=== PATIENT | male | born 1965 | race Hispanic/Latino ===

== ENCOUNTER 2020-06-14 10:09 | Inpatient (IN) | payer OTHER ==
[2020-06-14] MEDS ORDERED: Aspirin 325 MG TAB ONE (10:26)
[2020-06-14] MEDS ORDERED: Dexamethasone 10 MG/ML VIAL ONE (10:26)
[2020-06-14 10:45] LABS: #Lymphocytes 0.7 thou/uL (1.20-3.40); #Monocytes 0.3 thou/uL (0.11-0.59); #Neutrophils 8.9 thou/uL (1.40-6.50); %Basophils 0.4 % (0.0-1.0); %Eosinophils 0.2 % (0.0-10.0); %Lymphocytes 6.6 % (21.0-51.0); %Monocytes 3.3 % (0.0-10.0); %Neutrophils 89.5 % (42.0-75.0); Hemoglobin 15.3 g/dL (14.0-18.0); Mean Corpuscular HGB CONC 35.8 g/dL (32.0-36.0); Mean Corpuscular Hemoglobin 29.1 pg (27.0-31.0); Mean Corpuscular Volume 81.3 fL (78.0-98.0); Mean Platelet Volume 8.7 fL (7.4-10.4); Platelet Count 202 thou/uL (130-400); RBC Distribution Width 14.1 % (11.5-14.5); Red Blood Cell (RBC) Count 5.26 mill/uL (4.70-6.10); White Blood Cell (WBC) Count 9.9 thou/uL (4.8-10.8)
[2020-06-14 11:01] LABS: ALT (SGPT) 44 U/L (8-55); AST (SGOT) 35 U/L (5-34); Albumin 4.1 g/dL (3.5-5.0); Alkaline Phosphatase 73 U/L (40-110); Anion Gap 17 mmol/L (10-20); BUN (Urea Nitrogen) 13 mg/dL (8.4-25.7); CK (CPK) 46 U/L (30-200); Calc. Creatinine Clearance 0 mL/min (70-130); Calcium 8.4 mg/dL (7.8-10.44); Carbon Dioxide 21 mmol/L (22-29); Chloride 103 mmol/L (98-107); Globulin 3.6 g/dL (2.4-3.5); Glucose 156 mg/dL (70-105); Lipase 23 U/L (8-78); Potassium 3.4 mmol/L (3.5-5.1); Protein, Total 7.7 g/dL (6.0-8.3); Sodium 138 mmol/L (136-145)
--- NOTE | 2020-06-14 11:08 | RAD ---
XR Chest 1 View Portable History: Dyspnea Comparison: CT chest April 01, 2020 Findings: Lingular and left perihilar airspace opacities are present. No pneumothorax. No significant effusion. No acute osseous abnormality. Impression: Patchy airspace opacities concerning for atypical viral infectious process.
[2020-06-14] MEDS ORDERED: Azithromycin 500 MG VIAL ONE (11:35)
[2020-06-14] MEDS ORDERED: cefTRIAXone\\ROCEPHIN 2 GM VIAL ONE (11:35)
--- NOTE | 2020-06-14 12:23 | CT ---
CT ANGIOGRAM THORAX WITH IV CONTRAST AND 3-D RECONSTRUCTIONS CLINICAL INDICATION: Chest pain and shortness of breath. Positive Covid diagnosis. COMPARISON: None FINDINGS: Pulmonary arteries: No filling defects are seen in the pulmonary arteries to suggest a pulmonary embo demond. Aorta: The aorta is normal in caliber without evidence of an aortic dissection. Lungs: Patchy groundglass densities are seen scattered within the lungs bilaterally greater at the pe riphery suggesting viral pneumonitis such as Covid 19. No pleural effusion is seen. Mediastinum: No enlarged lymph nodes are seen by CT size criteria. Heart is borderline enlarged. Thyroid gland: Normal in appearance where visualized. Osseous structures: There is sclerosis involving left superior articulating facet of the T3 vertebral body which may be related to bone island. Minimal degenerative changes are seen in the lower thoracic spine Chest wall: No abnormality visualized. Upper abdomen: A fluid attenuation 1.8 cm exophytic hypodense lesion is seen in superior pole left ki dney compatible with a cyst. Remainder of the visualized upper abdomen demonstrates a normal CT appearance for arterial phase of imaging. IMPRESSION: 1. No CT evidence of a pulmonary embolus. 2. Covid pneumonia.
[2020-06-14] MEDS ORDERED: Enoxaparin Sodium 100 MG/ML SYRINGE ONE (12:43)
[2020-06-14 13:39] LABS: Lactic Acid 1.8 mmol/L (0.5-2.2)
[2020-06-14 13:46] LABS: Troponin I Less than 0.010 ng/mL (< 0.028)
--- NOTE | 2020-06-14 13:52 | PDOC.HHP ---
Hospitalist HPI - History of Present Illness Worsening dyspnea History of Present Illness: This is a 54-year-old male patient with a history of PVCs who presents with worsening shortness of breath on account of Covid pneumonia. He was diagnosed with Covid on 06/07/2020 and has been on steroids, azithromycin and vitamin D which has been taking at home. He however has not gotten better with worsening dyspnea with sats in the 94% and ongoing fevers. He also notes muscle aches and general wellness. Given his lack of improvement presents to the ED today for further evaluation. At Presentation His blood pressure was 148/85, pulse 109, respiratory 35, saturation 97 on room air. His labs showed potassium of 3.4, D-dimer 0.57, lactate 1.8 troponin 0 0.01 CTA was done showed no pulmonary embolism Indicative of Covid pneumonia with bilateral groundglass densities bilaterally. He was started on azithromycin, ceftriaxone and therapeutic dose Lovenox. Also received Decadron 10 mg IV. Aspirin was started. Hospitalist team was consulted to admit. Hospitalist ROS - Review of Systems Constitutional: reports: fever, weakness. denies: chills, sweats Respiratory: reports: cough, shortness of breath, SOB with excertion Cardiovascular: denies: chest pain, palpitations, orthopnea, paroxysmal noc. dyspnea Genitourinary: denies: dysuria, frequency, incontinence, hematuria Neurological: denies: weakness, numbness, incoordination, change in speech (Not on chronic medication. Allergies: No known drug allergies) Hospitalist History - Past Medical History Other Medical History: No significant past medical history - Past Surgical History Other Surgical History: No significant past surgical history. - Family History Other Family History: None of significance. - Social History Smoking Status: Never smoker Alcohol: reports: None Living Situation: With Family - Exam General Appearance: awake alert, ill appearing General - other findings: Intermittent cough ENT: normocephalic atraumatic, moist mucosa Heart: RRR, no murmur, no gallops, no rubs Respiratory - other findings: Coarse breath sound bilaterally Extremities: no cyanosis, no clubbing, no edema Neurological: cranial nerve grossly intact, no weakness Psychiatric: A&O x 3 Hospitalist Results - Labs Result Diagrams: 06/22/20 03:58 06/22/20 03:58 Lab results: WBC 9.9 thou/uL (4.8-10.8) 06/14/20 10:21 Hgb 15.3 g/dL (14.0-18.0) 06/14/20 10:21 Hct 42.7 % (42.0-52.0) 06/14/20 10:21 MCV 81.3 fL (78.0-98.0) 06/14/20 10:21 Plt Count 202 thou/uL (130-400) 06/14/20 10:21 Neutrophils % 89.5 % (42.0-75.0) H 06/14/20 10:21 Sodium 138 mmol/L (136-145) 06/14/20 10:21 Potassium 3.4 mmol/L (3.5-5.1) L 06/14/20 10:21 Chloride 103 mmol/L (98-107) 06/14/20 10:21 Carbon Dioxide 21 mmol/L (22-29) L 06/14/20 10:21 BUN 13 mg/dL (8.4-25.7) 06/14/20 10:21 Creatinine 0.78 mg/dL (0.7-1.3) 06/14/20 10:21 Glucose 156 mg/dL (70-105) H 06/14/20 10:21 Lactic Acid 1.8 mmol/L (0.5-2.2) 06/14/20 13:19 Calcium 8.4 mg/dL (7.8-10.44) 06/14/20 10:21 Total Bilirubin 1.0 mg/dL (0.2-1.2) 06/14/20 10:21 AST 35 U/L (5-34) H 06/14/20 10:21 ALT 44 U/L (8-55) 06/14/20 10:21 Alkaline Phosphatase 73 U/L (40-110) 06/14/20 10:21 Creatine Kinase 46 U/L (30-200) 06/14/20 10:21 Troponin I Less than 0.010 ng/mL (< 0.028) 06/14/20 13:19 B-Natriuretic Peptide 54.6 pg/mL (0-100) 06/14/20 10:21 Serum Total Protein 7.7 g/dL (6.0-8.3) 06/14/20 10:21 Albumin 4.1 g/dL (3.5-5.0) 06/14/20 10:21 Lipase 23 U/L (8-78) 06/14/20 10:21 Hospitalist H&P A/P - Plan Plan: This is a 54-year-old male patient in presenting to the ED on account of bilateral pneumonia in the setting of positive Covid diagnosis. Covid pneumonia Bilateral infiltrates on CT Started on steroids and anticoagulationwe will continue As needed oxygen as needed Pulmonology following. Hypokalemia Potassium replacement protocol. Check magnesium BMP a.m. DVT prophylaxis therapeutic on apixaban. CODE STATUSfull
--- NOTE | 2020-06-14 14:25 | CON ---
DATE OF CONSULTATION: 06/14/2020 REASON FOR CONSULTATION: COVID-19 pneumonia. 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 About 5 days ago, he began feeling symptoms and has tested positive for COVID. He has been self isolating at home. He has been taking Pepcid, zinc, vitamin C, dexamethasone, and aspirin. He presents today because of problems with fever and increasing shortness of breath. Thankfully, he is not hypoxic - he was 100% on room air when I saw him in the ER. PAST MEDICAL HISTORY: He states he has no chronic medical problems other than low vitamin D level. PAST SURGICAL HISTORY: None. SOCIAL HISTORY: Occasionally drinks alcohol. Does not smoke. REVIEW OF SYSTEMS: Otherwise negative. PHYSICAL EXAMINATION: VITAL SIGNS: Temperature 99.9, pulse 109, blood pressure 148/95, O2 saturation 97% on room air. GENERAL: He is awake and in no distress. HEENT: Unremarkable. ABDOMEN: Soft. EXTREMITIES: No edema. LUNGS: Auscultation could not be performed at this time because stethoscope was not in the room. LABORATORY DATA: White blood cell count 9.9, hematocrit 42.7, and platelet count 202. D-dimer 0.57. Sodium 138, potassium 3.4, chloride 103, CO2 of 21, BUN 13, creatinine 0.7, glucose 156. Chest x-ray showed fairly clear lung mata, but CT showed some vague interstitial infiltrates bilaterally. ASSESSMENT: COVID-19 infection with mild pneumonia without evidence of overt hypoxemia or pulmonary emboli. RECOMMENDATIONS: I would recommend steroids, low-flow oxygen, anticoagulation, and other symptomatic therapy. We will be happy to follow. Job ID: [id number]
[2020-06-14] MEDS ORDERED: Iopamidol-370 76% 500 ML 1 ML ONE (15:49)
[2020-06-14] MEDS: Benzonatate 100 MG CAP PO PRN ×2 (16:13→20:22)
[2020-06-14] MEDS ORDERED: Hydrocortisone Sod Succ/PF 250 mg/2 ml Vial SLOW IVP SCH (18:00)
[2020-06-14 18:01] LABS: Troponin I 0.011 ng/mL (< 0.028)
[2020-06-14] MEDS: Mometasone 200 MCG/Formoterol 5 MCG 120 PUFF INHALER INH SCH (18:18)
[2020-06-14] MEDS ORDERED: Hydrocortisone Sod Succ/PF 100 mg/2 ml Vial IVP SCH ×2 (19:15→23:59)
[2020-06-14] MEDS: guaiFENesin ER 600 MG TAB PO SCH (20:22)
[2020-06-14] MEDS: Famotidine 20 MG TAB PO SCH (20:22)
[2020-06-14] MEDS: Apixaban 5 MG TAB PO SCH (20:22)
[2020-06-14] MEDS ORDERED: Melatonin 3 MG TAB PO SCH (21:15)
[2020-06-14] MEDS ORDERED: Electrolyte Replacement Protocol 1 EACH FS PRN (22:45)
[2020-06-15] MEDS ORDERED: Guaifenesin DM 100-10/5 ML UDCUP PO SCH (01:30)
[2020-06-15] MEDS: Hydrocortisone Sod Succ/PF 100 mg/2 ml Vial IVP SCH ×4 (01:41→20:54)
[2020-06-15] MEDS ORDERED: Hydrocortisone Sod Succ/PF 100 mg/2 ml Vial IVP SCH (04:00)
[2020-06-15] MEDS: Mometasone 200 MCG/Formoterol 5 MCG 120 PUFF INHALER INH SCH ×2 (05:35→18:25)
[2020-06-15] MEDS ORDERED: Potassium Chloride 20 MEQ TAB PO SCH (06:30)
[2020-06-15 06:36] LABS: Anion Gap 13 mmol/L (10-20); BUN (Urea Nitrogen) 12 mg/dL (8.4-25.7); Calc. Creatinine Clearance 118 mL/min (70-130); Calcium 8.3 mg/dL (7.8-10.44); Carbon Dioxide 24 mmol/L (22-29); Chloride 106 mmol/L (98-107); Glucose 151 mg/dL (70-105); Magnesium 2.1 mg/dL (1.6-2.6); Sodium 139 mmol/L (136-145)
[2020-06-15] MEDS: Ascorbic Acid 500 mg Chewable Tablet PO SCH (08:15)
[2020-06-15] MEDS: Famotidine 20 MG TAB PO SCH ×2 (08:15→20:54)
[2020-06-15] MEDS: Apixaban 5 MG TAB PO SCH ×2 (08:15→20:54)
[2020-06-15] MEDS: Dexamethasone 4 mg/ml Vial IVPB SCH (08:15)
[2020-06-15] MEDS: guaiFENesin ER 600 MG TAB PO SCH ×2 (08:15→20:54)
[2020-06-15] MEDS: Benzonatate 100 MG CAP PO PRN ×3 (08:15→18:25)
[2020-06-15 08:36] LABS: Band 20 % (5-11); Hemoglobin 14.3 g/dL (14.0-18.0); Lymphocytes 10 % (21-51); MDiff Complete? YES; Mean Corpuscular HGB CONC 35.9 g/dL (32.0-36.0); Mean Corpuscular Hemoglobin 29.1 pg (27.0-31.0); Mean Corpuscular Volume 81.1 fL (78.0-98.0); Mean Platelet Volume 8.3 fL (7.4-10.4); Monocytes 3 % (0-10); Neutrophil 67 % (42-75); Platelet Count 205 thou/uL (130-400); RBC Distribution Width 13.8 % (11.5-14.5); Red Blood Cell (RBC) Count 4.91 mill/uL (4.70-6.10); White Blood Cell (WBC) Count 9.7 thou/uL (4.8-10.8)
[2020-06-15 08:42] LABS: Hemoglobin A1c 5.1 % (4.0-6.0)
[2020-06-15] MEDS ORDERED: Cholecalciferol (Vitamin D3) 400 UNITS TAB PO SCH (09:00)
--- NOTE | 2020-06-15 11:09 | PDOC.HOSPP ---
- Subjective Encounter Date: 06/15/20 Encounter Time: 11:07 Subjective: Patient was seen and examined in bed. He has required up to 4 L of oxygen overnight from at presentation. Complains of feeling worse with dyspnea on slight activity. However denies any chest pain. - Objective Vital Signs & Weight: Vital Signs (12 hours) Temp Pulse Resp BP Pulse Ox 06/15/20 08:00 98.0 F 84 24 H 114/76 94 L 06/15/20 03:39 98.4 F 98 26 H 116/78 98 06/14/20 23:53 98.3 F 86 28 H 124/81 Weight Weight 157 lb 4.8 oz I&O: 06/14/20 06/15/20 06/16/20 06:59 06:59 06:59 Intake Total 1810 Balance 1810 Result Diagrams: 06/22/20 03:58 06/22/20 03:58 Hospitalist ROS - Medication Medications: Active Medications Generic Name Dose Route Start Last Admin Trade Name Freq PRN Reason Stop Dose Admin Apixaban 5 mg 06/14/20 21:00 06/15/20 08:15 Apixaban 5 Mg Tab PO 5 mg BID JEOVANNY Administration Ascorbic Acid 1,000 mg 06/15/20 09:00 06/15/20 08:15 Ascorbic Acid 500 Mg Chewable Tablet PO 1,000 mg DAILY JEOVANNY Administration Benzonatate 100 mg 06/14/20 15:54 06/15/20 08:15 Benzonatate 100 Mg Cap PO 100 mg Q4H PRN Administration Cough Dexamethasone 10 mg 06/15/20 09:00 06/15/20 08:15 Dexamethasone 4 Mg/Ml Vial IVPB 10 mg DAILY JEOVANNY Administration Famotidine 20 mg 06/14/20 21:00 06/15/20 08:15 Famotidine 20 Mg Tab PO 20 mg BID JEOVANNY Administration Guaifenesin 600 mg 06/14/20 21:00 06/15/20 08:15 Guaifenesin Er 600 Mg Tab PO 600 mg Q12HR JEOVANNY Administration Hydrocortisone Sodium Succinate 100 mg 06/15/20 02:00 06/15/20 08:15 Hydrocortisone Sod Succ/Pf 100 Mg/2 Ml Vial IVP 100 mg 0200,0800,1400,2000 JEOVANNY Administration Mometasone Furoate/Formoterol Fumar 2 puff 06/14/20 18:30 06/15/20 05:35 Mometasone 200 Mcg/Formoterol 5 Mcg 120 Puff Inhaler INH 2 puff BID-RT JEOVANNY Administration - Exam General Appearance: awake alert Heart: RRR, no murmur, no gallops Respiratory: tachypneic Gastrointestinal: soft, non-tender, non-distended Psychiatric: A&O x 3 Hosp A/P - Plan 54-year-old male patient with no significant past history on admission on account of Covid pneumonia Covid pneumonia Slight worsening with increasing oxygen coming to 4 L from oxygen yesterday. Also worsening cough and dyspnea with mild activity We will continue steroids and anticoagulation Currently outside remdesivir window. Increase oxygen to reduce tachypnea Close monitoring. [place] prophylaxistherapeutic: Apixaban.
[2020-06-15] MEDS ORDERED: Cholecalciferol 1,000 UNITS (25 MCG) TAB PO SCH (12:15)
[2020-06-15] MEDS: Zinc Sulfate 220 MG CAP PO SCH (12:50)
--- NOTE | 2020-06-15 13:33 | PRG ---
DATE OF SERVICE: 06/15/2020 SUBJECTIVE: He is somewhat despondent about his COVID diagnosis, but he is doing very well. OBJECTIVE: VITAL SIGNS: Temperature 98.3, pulse 96, O2 saturation 95% on 4 L, blood pressure 130/83. HEENT: Unremarkable. NECK: No JVD. CHEST: Clear without wheezing or crackles. CARDIAC: S1 and S2. Regular. ABDOMEN: Soft. EXTREMITIES: No edema. LABORATORY DATA: White blood cell count 9.7, hematocrit 39.9, and platelet count 205. Sodium 139, potassium 4, chloride 106, CO2 of 24, BUN 12, creatinine 0.7, and glucose 151. ASSESSMENT: COVID-19 pneumonia. PLAN: Continue steroids, anticoagulation, and low-flow oxygen. Job ID: [id number]
[2020-06-15] MEDS: Melatonin 3 MG TAB PO SCH (20:55)
[2020-06-16] MEDS: Benzonatate 100 MG CAP PO PRN ×4 (00:27→22:40)
[2020-06-16 01:23] LABS: Actual Bicarbonate (HCO3a) 24.6 mEq/L (22-28); Base Excess (BEa) 2.2 mEq/L (-2.0 to +3.0); CO2 Tension 31.7 mmHg (35.0-45.0); Calcium, Ionized (arterial) 1.13 mmol/L (1.12-1.30); Hemoglobin (Hb) 14.6 g/dL (14.0-18.0); Potassium - ABG Lab 3.56 mmol/L (3.70-5.30); pH, Arterial 7.51 (7.35-7.45)
[2020-06-16 01:24] LABS: ALV-art Gradient 263.175 mmHg (0-20); O2 Tension (PaO2), arterial 53.7 mmHg (80.0-100.0); Puncture Site LRA
[2020-06-16] MEDS: Hydrocortisone Sod Succ/PF 100 mg/2 ml Vial IVP SCH ×4 (02:52→20:22)
[2020-06-16] MEDS: Acetaminophen 325 MG TAB PO PRN ×2 (03:00→15:15)
[2020-06-16 03:55] LABS: #Lymphocytes 0.6 thou/uL (1.20-3.40); #Monocytes 0.8 thou/uL (0.11-0.59); #Neutrophils 8.2 thou/uL (1.40-6.50); %Eosinophils 0.2 % (0.0-10.0); %Monocytes 7.9 % (0.0-10.0); %Neutrophils 85.9 % (42.0-75.0); Hemoglobin 13.7 g/dL (14.0-18.0); Mean Corpuscular HGB CONC 37.3 g/dL (32.0-36.0); Mean Corpuscular Hemoglobin 29.6 pg (27.0-31.0); Mean Corpuscular Volume 79.6 fL (78.0-98.0); Mean Platelet Volume 7.6 fL (7.4-10.4); Platelet Count 231 thou/uL (130-400); RBC Distribution Width 13.5 % (11.5-14.5); Red Blood Cell (RBC) Count 4.61 mill/uL (4.70-6.10); White Blood Cell (WBC) Count 9.6 thou/uL (4.8-10.8)
[2020-06-16 04:04] LABS: Anion Gap 12 mmol/L (10-20); BUN (Urea Nitrogen) 14 mg/dL (8.4-25.7); Calc. Creatinine Clearance 117 mL/min (70-130); Calcium 8.1 mg/dL (7.8-10.44); Carbon Dioxide 26 mmol/L (22-29); Chloride 104 mmol/L (98-107); Glucose 147 mg/dL (70-105); Potassium 3.9 mmol/L (3.5-5.1); Sodium 138 mmol/L (136-145)
[2020-06-16] MEDS: Mometasone 200 MCG/Formoterol 5 MCG 120 PUFF INHALER INH SCH ×2 (06:04→19:26)
--- NOTE | 2020-06-16 07:58 | RAD ---
EXAM: Single view of the chest HISTORY: Shortness of breath and tachypnea COMPARISON: 06/14/2020 FINDINGS: Single view of the chest shows a normal sized cardiomediastinal silhouette. Scattered multi focal mixed infiltrates are seen in the lungs. No acute osseous abnormality. IMPRESSION: Slight worsening of multifocal infiltrates
[2020-06-16] MEDS: Famotidine 20 MG TAB PO SCH ×2 (08:05→21:47)
[2020-06-16] MEDS: Cholecalciferol 1,000 UNITS (25 MCG) TAB PO SCH (08:05)
[2020-06-16] MEDS: Dexamethasone 4 mg/ml Vial IVPB SCH ×2 (08:06→08:18)
[2020-06-16] MEDS: Ascorbic Acid 500 mg Chewable Tablet PO SCH (08:06)
[2020-06-16] MEDS: Zinc Sulfate 220 MG CAP PO SCH (08:06)
[2020-06-16] MEDS: guaiFENesin ER 600 MG TAB PO SCH ×2 (08:06→21:47)
[2020-06-16] MEDS: Apixaban 5 MG TAB PO SCH ×2 (08:06→21:47)
--- NOTE | 2020-06-16 09:15 | PRG ---
DATE OF SERVICE: 06/16/2020 SUBJECTIVE: The patient had to be transferred down to the IM last night for high-flow oxygen. Because there were no [facility] bed, he was brought to the ICU. He has a scared look on his face this morning. OBJECTIVE: VITAL SIGNS: On exam, his temperature is 98.5, pulse 76, blood pressure 124/81, and O2 saturation 100% on high-flow oxygen 50%. HEENT: Unremarkable. NECK: No adenopathy or JVD. LUNGS: With crackles bilaterally. CARDIAC: S1 and S2. Regular. ABDOMEN: Soft. EXTREMITIES: No edema. LABORATORY DATA: White blood cell count 9.6, hematocrit 36.7, and platelet count 231. Sodium 138, potassium 3.9, chloride 104, CO2 of 26, BUN 14, creatinine 0.7, and glucose 147. Ferritin level is 959. ASSESSMENT: COVID-19 pneumonia with worsening hypoxemia. PLAN: Continue high-flow oxygen, hydrocortisone, anticoagulation. Job ID: [id number]
--- NOTE | 2020-06-16 14:24 | PQF ---
CLINICAL DOCUMENTATION CLARIFICATION FORM Dear Dr. Norma Lee Date: 06/16/2020 1412 Please exercise your independent, professional judgment in responding to the clarification form. Clinical indicators are provided on the bottom of this form for your review. Please check appropriate box(es): [ ] Acute Respiratory Failure: [ ] with Hypoxia [ ] with Hypercapnia [ ] Acute On Chronic Respiratory Failure: [ ] with Hypoxia [ ] with Hypercapnia [ ] Acute Respiratory Failure due to: (etiology) [ ] Chronic Respiratory Failure only [ ] with Hypoxia [ ] with Hypercapnia [ ] Other diagnosis [ ] Unable to determine In addition, please specify: Present on Admission (POA): [ ] Yes [ ] No [ ] Unable to determine For continuity of documentation, please document condition throughout progress notes and discharge summary. Thank You. To be completed by CDI/Coding staff for physician review: CLINICAL INDICATORS - SIGNS / SYMPTOMS / LABS / RESULTS AND LOCATION IN MR He has required up to 4l of oxygen overnight from at presentation. Complains of feeling worse with dyspnea on slight activity. (PN/Affram) 06/14 The pt had to be transferred down to the [facility] last night for high flow oxygen. Assessment: Covid 19-pneumonia with worsening hypoxemia. (PN/Mamadou) 06/16/20 Chest x-ray slight worsening of multifocal infiltrates (06/16) RISK FACTORS / RESULTS AND LOCATION IN MR Covid 19 infection with Pneumonia ( Mamadou/ Consult) 06/14 TREATMENTS / RESULTS AND LOCATION IN MR Supplemental oxygen ( 06/15-present) CXR ( 06/16) Pulmonary consult ( 06/16) Acute Respiratory Failure: ABG pH < 7.35 or > 7.45; Decreased oxygen saturation (<90% room air or < 95% on oxygen); PCO2 > 50 mm Hg; PO2 < 60 mm Hg; Labored or rapid respirations ARDS: Dx Criteria [Lysite ARDS]: Respiratory symptoms within one week of a known clinical insult (e.g. shock, infection, surgery, trauma) Bilateral opacities in CXR/Chest CT not due to CHF or fluid THANK YOU! CDS Signature: Kayleen Moses RN Phone #: [phone] Date: 0 This is a permanent part of the Medical Record [facility]
[2020-06-16] MEDS ORDERED: REMDESIVIR (EUA) 200 MG in Sodium Chloride 0.9% 250 ML 210 ML IV SCH (15:00)
[2020-06-16 15:49] LABS: INR-International Normal Ratio 1.1
[2020-06-16] MEDS: Melatonin 3 MG TAB PO SCH (21:47)
--- NOTE | 2020-06-17 00:39 | CON ---
DATE OF CONSULTATION: 06/16/2020 REASON FOR CONSULTATION: Severe COVID pneumonia. 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 Initially, he was doing well and decided to start on Decadron and Zithromax even though he was asymptomatic. I think he did have a fever and that scared him to start taking his corticosteroids. [place] better immediately, but then subsequently a few days later, things started to deteriorate with decrease in O2 sats down to 94% from 97% to 99%. He also got a worsening dyspnea and had recrudescence of fevers, so he was brought in. He is on high- flow nasal cannula O2 now. He denies any headaches. No visual symptoms, sore throat, odynophagia, or dysphagia. No chest pain. No abdominal pain or diarrhea. He has not lost his sense of taste or smell. PAST MEDICAL HISTORY: Negative. ALLERGIES: NONE. MEDICATIONS: Had been on; 1. Decadron. 2. Cefdinir. 3. Azithromycin. PHYSICAL EXAMINATION: VITAL SIGNS: T-max 100.1 a while ago, BP 130/80, heart rate 92, saturating 99% to 100% on flow rate of 45 with high-flow nasal cannula O2. SKIN: Normal. There is a peripheral IV access and is voiding in the urinal. No lymphadenopathy. HEENT: Ocular movements conjugate. Oral cavity normal. NECK: Supple. No jugular vein distention. LUNGS: With symmetric clear breath sounds. CARDIAC: S1-S2. Regular rate. ABDOMEN: Soft, not distended or tender. No ascites. No bladder distention. Moves extremities equally. NEUROLOGIC: Cognitive function appears to be intact. LABORATORY DATA: White cell count 9.9, hemoglobin 15.3, platelets 202. They have remained fairly stable, 89% and 85% neutrophils and 20% bands. Lymphocytes are 0.7 and 0.6. D-dimer 0.57. A pH of 7.31, pCO2 of 31, pH 7.51, PO2 of 53. Ferritin was 959 and CRP was not done. Microbiology pending. Chest CT angio demonstrated scattered ground-glass opacities, particularly on the left side and then in more dependent areas of his lungs. ASSESSMENT: Fairly unremarkable past medical history with [id number] COVID pneumonia. He does not have a lot of a ground-glass infiltrates and we will go ahead and give him some remdesivir and plasma. Although he is on high-flow, is on borderline high-flow and he took corticosteroids in the earlier stages of his infection which might have suppressed his innate immune response and therefore he may have lost control of viremia early on and now is paying the lazaro for that early Decadron start, so we will give him the benefit of the doubt and give him remdesivir course and he is on hydrocortisone and I think it should respond well. He does not have a lot of ground grass opacities and I think we will see improvement going forward. We will monitor inflammatory markers daily and the remdesivir labs. Job ID: [id number] ADRIEN
[2020-06-17] MEDS: Hydrocortisone Sod Succ/PF 100 mg/2 ml Vial IVP SCH ×4 (01:05→20:03)
[2020-06-17 04:16] LABS: Anion Gap 15 mmol/L (10-20); BUN (Urea Nitrogen) 11 mg/dL (8.4-25.7); CRP (Inflammatory) 4.82 mg/dL (= or < 0.5); Calc. Creatinine Clearance 133 mL/min (70-130); Calcium 8.4 mg/dL (7.8-10.44); Carbon Dioxide 23 mmol/L (22-29); Chloride 104 mmol/L (98-107); Glucose 154 mg/dL (70-105); Potassium 3.9 mmol/L (3.5-5.1); Sodium 138 mmol/L (136-145)
[2020-06-17 04:18] LABS: ALT (SGPT) 166 U/L (8-55); AST (SGOT) 99 U/L (5-34); Albumin 3.3 g/dL (3.5-5.0); Alkaline Phosphatase 87 U/L (40-110); Bilirubin, Direct 0.4 mg/dL (0.1-0.3); Protein, Total 6.4 g/dL (6.0-8.3)
[2020-06-17 04:49] LABS: #Lymphocytes 0.6 thou/uL (1.20-3.40); #Monocytes 0.7 thou/uL (0.11-0.59); #Neutrophils 11.2 thou/uL (1.40-6.50); %Basophils 0.1 % (0.0-1.0); %Eosinophils 0.1 % (0.0-10.0); %Lymphocytes 4.6 % (21.0-51.0); %Monocytes 5.3 % (0.0-10.0); %Neutrophils 89.9 % (42.0-75.0); Hemoglobin 14.3 g/dL (14.0-18.0); Mean Corpuscular HGB CONC 37.4 g/dL (32.0-36.0); Mean Corpuscular Hemoglobin 29.8 pg (27.0-31.0); Mean Corpuscular Volume 79.6 fL (78.0-98.0); Mean Platelet Volume 7.7 fL (7.4-10.4); Platelet Count 247 thou/uL (130-400); RBC Distribution Width 13.7 % (11.5-14.5); Red Blood Cell (RBC) Count 4.79 mill/uL (4.70-6.10); White Blood Cell (WBC) Count 12.5 thou/uL (4.8-10.8)
--- NOTE | 2020-06-17 07:55 | RAD ---
PORTABLE CHEST: Date: 06/17/2020 HISTORY: COVID-positive. Follow-up pneumonia. FINDINGS: Heart size within normal limits. The multifocal infiltrative lung changes are stable. IMPRESSION: Stable multifocal infiltrates consistent with COVID pneumonia. POS: OFF
[2020-06-17] MEDS: Mometasone 200 MCG/Formoterol 5 MCG 120 PUFF INHALER INH SCH ×2 (08:32→20:02)
[2020-06-17] MEDS: Famotidine 20 MG TAB PO SCH ×2 (08:34→20:03)
[2020-06-17] MEDS: Cholecalciferol 1,000 UNITS (25 MCG) TAB PO SCH (08:34)
[2020-06-17] MEDS: guaiFENesin ER 600 MG TAB PO SCH ×2 (08:35→20:03)
[2020-06-17] MEDS: Zinc Sulfate 220 MG CAP PO SCH (08:35)
[2020-06-17] MEDS: Ascorbic Acid 500 mg Chewable Tablet PO SCH (08:35)
[2020-06-17] MEDS: Apixaban 5 MG TAB PO SCH ×2 (08:35→20:03)
--- NOTE | 2020-06-17 08:45 | PRG ---
DATE OF SERVICE: 06/17/2020 SUBJECTIVE: The patient remains in critical condition with high-flow oxygen. He went up to as high as 60% yesterday. He is down to 50% high-flow oxygen now. OBJECTIVE: VITAL SIGNS: Temperature 98.4, pulse 68, blood pressure 125/95, O2 saturation 100% on that. HEENT: Unremarkable. NECK: No adenopathy, JVD. LUNGS: Inspiratory crackles. CARDIAC: S1 and S2. Regular. ABDOMEN: Soft. EXTREMITIES: No edema. IMAGING: His x-ray continues to show bilateral infiltrative changes. LABORATORY DATA: Sodium is 138, potassium 3.9, chloride 104, CO2 of 23, BUN 11, creatinine 0.6, glucose 154, ferritin 2158. White blood cell count 12.5, hematocrit 38.1, platelet count 247. ASSESSMENT: 1. COVID-19 pneumonia. 2. Acute hypoxic respiratory failure requiring high-flow oxygen. PLAN: Continue anticoagulation and steroids. Dr. Hensley put the patient on remdesivir and plasma yesterday. I personally think he is out of the window where either of those interventions will help. We will continue supportive care and hope for the best. Job ID: [id number]
[2020-06-17] MEDS: Benzonatate 100 MG CAP PO PRN (12:21)
[2020-06-17] MEDS: REMDESIVIR (EUA) 100 MG in Sodium Chloride 0.9% 250 ML 230 ML IV SCH (14:39)
[2020-06-17] MEDS: ALPRAZolam 0.25 MG TAB PO PRN (15:00)
[2020-06-17] MEDS: Melatonin 3 MG TAB PO SCH (20:03)
--- NOTE | 2020-06-17 20:37 | PDOC.HOSPP ---
- Subjective Encounter Date: 06/17/20 Encounter Time: 12:00 Subjective: Patient was seen and examined in bed. Still had shortness of breath but not deteriorated. Increased cough and dyspnea on attempted movement. Still on high flow nasal cannula. - Objective Vital Signs & Weight: Vital Signs (12 hours) Pulse Ox 06/17/20 18:53 93 L Weight Weight 157 lb 4.8 oz Most Recent Monitor Data Heart Rate from ECG 78 NIBP 128/80 NIBP BP-Mean 96 Respiration from ECG 29 SpO2 85 I&O: 06/16/20 06/17/20 06/18/20 06:59 06:59 06:59 Intake Total 330 1920 740 Output Total 575 1850 Balance -245 70 740 Result Diagrams: 06/17/20 03:08 06/17/20 03:08 Hospitalist ROS - Medication Medications: Active Medications Generic Name Dose Route Start Last Admin Trade Name Freq PRN Reason Stop Dose Admin Acetaminophen 650 mg 06/14/20 15:56 06/16/20 15:15 Acetaminophen 325 Mg Tab PO 650 mg Q6H PRN Administration Fever > 101 Alprazolam 0.25 mg 06/17/20 14:56 06/17/20 15:00 Alprazolam 0.25 Mg Tab PO 0.25 mg BID PRN Administration Anxiety Apixaban 5 mg 06/14/20 21:00 06/17/20 20:03 Apixaban 5 Mg Tab PO 5 mg BID JEOVANNY Administration Ascorbic Acid 1,000 mg 06/15/20 09:00 06/17/20 08:35 Ascorbic Acid 500 Mg Chewable Tablet PO 1,000 mg DAILY JEOVANNY Administration Benzonatate 100 mg 06/14/20 15:54 06/17/20 12:21 Benzonatate 100 Mg Cap PO 100 mg Q4H PRN Administration Cough Cholecalciferol 5,000 units 06/16/20 09:00 06/17/20 08:34 Cholecalciferol 1,000 Units (25 Mcg) Tab PO 5,000 units DAILY JEOVANNY Administration Famotidine 20 mg 06/14/20 21:00 06/17/20 20:03 Famotidine 20 Mg Tab PO 20 mg BID JEOVANNY Administration Guaifenesin 600 mg 06/14/20 21:00 06/17/20 20:03 Guaifenesin Er 600 Mg Tab PO 600 mg Q12HR JEOVANNY Administration Hydrocortisone Sodium Succinate 100 mg 06/15/20 02:00 06/17/20 20:03 Hydrocortisone Sod Succ/Pf 100 Mg/2 Ml Vial IVP 100 mg 0200,0800,1400,2000 JEOVANNY Administration Remdesivir 100 mg/ Sodium 250 mls @ 250 mls/hr 06/17/20 15:00 06/17/20 14:39 Chloride IV 06/20/20 15:59 250 mls Q24H JEOVANNY Administration Melatonin 3 mg 06/15/20 21:00 06/17/20 20:03 Melatonin 3 Mg Tab PO 3 mg HS JEOVANNY Administration Mometasone Furoate/Formoterol Fumar 2 puff 06/14/20 18:30 06/17/20 20:02 Mometasone 200 Mcg/Formoterol 5 Mcg 120 Puff Inhaler INH 2 puff BID-RT JEOVANNY Administration Sodium Chloride 10 ml 06/15/20 09:00 06/17/20 20:03 Flush - Normal Saline 10 Ml Syringe IVF 10 ml Q12HR JEOVANNY Administration Zinc Sulfate 220 mg 06/15/20 09:00 06/17/20 08:35 Zinc Sulfate 220 Mg Cap PO 220 mg DAILY JEOVANNY Administration - Exam General Appearance: awake alert, ill appearing General - other findings: Anxious, in moderate respiratory distress Heart: RRR, no murmur, no gallops, no rubs Respiratory - other findings: Coarse breath sounds bilaterally Gastrointestinal: soft, non-tender, non-distended, normal bowel sounds Extremities: no cyanosis, no clubbing, no edema Neurological: cranial nerve grossly intact, no weakness Hosp A/P - Plan 54-year-old male patient with no significant past history on admission on account of Covid pneumonia Was in [facility]U and then transferred to [facility] today Covid pneumonia He has remained stable over the past day Chest x-ray not indicated above questioning disease Ferritin increased from 959 to 2158 CRP is 4.82 Ongoing management on high flow oxygen Continue steroids and anticoagulation Received plasma yesterday He also received and remdesivir ID/pulmonology following. Anxiety Very anxious on account of his pneumonia Try as needed Ativan Consider starting antidepressant if still remains nauseous. VT prophylaxistherapeutic: Apixaban.
[2020-06-18] MEDS: Hydrocortisone Sod Succ/PF 100 mg/2 ml Vial IVP SCH ×4 (02:10→20:13)
[2020-06-18] MEDS: Benzonatate 100 MG CAP PO PRN ×2 (03:35→18:16)
[2020-06-18 04:02] LABS: ALT (SGPT) 140 U/L (8-55); AST (SGOT) 54 U/L (5-34); Albumin 3.2 g/dL (3.5-5.0); Alkaline Phosphatase 90 U/L (40-110); Anion Gap 14 mmol/L (10-20); BUN (Urea Nitrogen) 14 mg/dL (8.4-25.7); Bilirubin, Direct 0.3 mg/dL (0.1-0.3); Bilirubin, Total 0.7 mg/dL (0.2-1.2); Calc. Creatinine Clearance 124 mL/min (70-130); Calcium 8.3 mg/dL (7.8-10.44); Carbon Dioxide 25 mmol/L (22-29); Chloride 103 mmol/L (98-107); Glucose 149 mg/dL (70-105); Protein, Total 6.6 g/dL (6.0-8.3); Sodium 138 mmol/L (136-145)
[2020-06-18 04:38] LABS: Band 6 % (5-11); Hemoglobin 14.8 g/dL (14.0-18.0); Lymphocytes 1 % (21-51); MDiff Complete? YES; Mean Corpuscular HGB CONC 36.6 g/dL (32.0-36.0); Mean Corpuscular Hemoglobin 29.5 pg (27.0-31.0); Mean Corpuscular Volume 80.5 fL (78.0-98.0); Monocytes 8 % (0-10); Neutrophil 84 % (42-75); Platelet Count 169 thou/uL (130-400); RBC Distribution Width 13.7 % (11.5-14.5); Reactive Lymphocytes 1 % (0-10); Red Blood Cell (RBC) Count 5.01 mill/uL (4.70-6.10); White Blood Cell (WBC) Count 8.8 thou/uL (4.8-10.8)
[2020-06-18] MEDS: Mometasone 200 MCG/Formoterol 5 MCG 120 PUFF INHALER INH SCH ×2 (06:50→18:10)
--- NOTE | 2020-06-18 07:48 | RAD ---
Portable frontal chest radiograph: 06/18/2020 COMPARISON: 06/17/2020 HISTORY: Pneumonia FINDINGS: Perihilar and bibasilar interstitial and alveolar opacity again noted. No pneumothorax or l arge volume pleural effusion. Heart and mediastinal contours are stable IMPRESSION: No significant interval change.
[2020-06-18] MEDS: Famotidine 20 MG TAB PO SCH ×2 (08:24→20:12)
[2020-06-18] MEDS: Ascorbic Acid 500 mg Chewable Tablet PO SCH (08:24)
[2020-06-18] MEDS: Cholecalciferol 1,000 UNITS (25 MCG) TAB PO SCH (08:24)
[2020-06-18] MEDS: Apixaban 5 MG TAB PO SCH ×2 (08:25→20:13)
[2020-06-18] MEDS: Zinc Sulfate 220 MG CAP PO SCH (08:25)
[2020-06-18] MEDS: guaiFENesin ER 600 MG TAB PO SCH ×2 (08:25→20:13)
--- NOTE | 2020-06-18 09:28 | PRG ---
DATE OF SERVICE: 06/18/2020 SUBJECTIVE: The patient is about the same in terms of shortness of breath and anxiety. OBJECTIVE: VITAL SIGNS: Temperature 97.9, pulse 63, blood pressure 112/76, and O2 sats 99% on 66% high-flow nasal cannula. HEENT: Unremarkable. NECK: No adenopathy or JVD. LUNGS: Inspiratory crackles. CARDIAC: S1 and S2. Regular. ABDOMEN: Soft. EXTREMITIES: No edema. LABORATORY DATA: White blood cell count 8.8, hematocrit 40, and platelet count 169. C-reactive protein down to 2.6. Sodium 138, potassium 4, chloride 130, CO2 of 25, BUN 14, creatinine 0.7, glucose 149. ASSESSMENT: COVID-19 pneumonia. PLAN: Continue anticoagulation and steroids. Dr. Hensley remdesivir. Apparently, the patient has also received convalescent plasma. Job ID: [id number]
[2020-06-18] MEDS: REMDESIVIR (EUA) 100 MG in Sodium Chloride 0.9% 250 ML 230 ML IV SCH (15:09)
--- NOTE | 2020-06-18 16:24 | PRG ---
DATE OF SERVICE: 06/18/2020 SUBJECTIVE: The patient is still on high-flow at 55. He desaturates a lot by small movements such as transferring to the commode and so on, goes down to mid 70s briefly, right now he is at 100 and seems to be comfortable. OBJECTIVE: VITAL SIGNS: Breathing at 17 to 20 times a minute. His BP is normal. He is afebrile. He is on flow rate of 55, high-flow nasal cannula, saturating 100% right now. LUNGS: Symmetric air entry. HEART: S1 and S2, regular rate. ABDOMEN: Soft. Not distended. EXTREMITIES: Moves all extremities equally. : Voiding without difficulty. LABORATORY DATA: Sodium 138, creatinine 0.69. Ferritin went up to 2700. CRP is down to 2.63. The D-dimer is 0.57. He is on remdesivir, hydrocortisone, and his chest x-ray is about the same with diffuse bilateral infiltrates. ASSESSMENT: Severe COVID pneumonia, high-flow O2 requirement. Marked desaturation on a little effort. Still quite fragile situation, but he is a young jun and does not have any other illnesses. Should be able to pull through this without having to be intubated. Job ID: [id number] [facility]
[2020-06-18] MEDS: Melatonin 3 MG TAB PO SCH (20:12)
--- NOTE | 2020-06-18 21:15 | PDOC.HOSPP ---
- Subjective Encounter Date: 06/18/20 Encounter Time: 10:00 Subjective: Patient was seen and examined in bed. Still in respiratory distress with minimal activity. Also a bit nervous. He notes having a change of hemoptysis today - Objective Vital Signs & Weight: Vital Signs (12 hours) Pulse Ox 06/18/20 18:32 95 Weight Weight 157 lb 4.8 oz Most Recent Monitor Data Heart Rate from ECG 70 NIBP 129/87 NIBP BP-Mean 101 Respiration from ECG 22 SpO2 92 I&O: 06/17/20 06/18/20 06/19/20 06:59 06:59 06:59 Intake Total 1920 1130 Output Total 1850 720 Balance 70 410 Result Diagrams: 06/18/20 03:17 06/18/20 03:17 Hospitalist ROS - Medication Medications: Active Medications Generic Name Dose Route Start Last Admin Trade Name Freq PRN Reason Stop Dose Admin Acetaminophen 650 mg 06/14/20 15:56 06/16/20 15:15 Acetaminophen 325 Mg Tab PO 650 mg Q6H PRN Administration Fever > 101 Alprazolam 0.25 mg 06/17/20 14:56 06/17/20 15:00 Alprazolam 0.25 Mg Tab PO 0.25 mg BID PRN Administration Anxiety Apixaban 5 mg 06/14/20 21:00 06/18/20 20:13 Apixaban 5 Mg Tab PO 5 mg BID JEOVANNY Administration Ascorbic Acid 1,000 mg 06/15/20 09:00 06/18/20 08:24 Ascorbic Acid 500 Mg Chewable Tablet PO 1,000 mg DAILY JEOVANNY Administration Benzonatate 200 mg 06/18/20 12:02 06/18/20 18:16 Benzonatate 100 Mg Cap PO 200 mg Q4H PRN Administration Cough Cholecalciferol 5,000 units 06/16/20 09:00 06/18/20 08:24 Cholecalciferol 1,000 Units (25 Mcg) Tab PO 5,000 units DAILY JEOVANNY Administration Famotidine 20 mg 06/14/20 21:00 06/18/20 20:12 Famotidine 20 Mg Tab PO 20 mg BID JEOVANNY Administration Guaifenesin 600 mg 06/14/20 21:00 06/18/20 20:13 Guaifenesin Er 600 Mg Tab PO 600 mg Q12HR JEOVANNY Administration Hydrocortisone Sodium Succinate 100 mg 06/15/20 02:00 06/18/20 20:13 Hydrocortisone Sod Succ/Pf 100 Mg/2 Ml Vial IVP 100 mg 0200,0800,1400,2000 JEOVANNY Administration Remdesivir 100 mg/ Sodium 250 mls @ 250 mls/hr 06/17/20 15:00 06/18/20 15:09 Chloride IV 06/20/20 15:59 250 mls Q24H JEOVANNY Administration Melatonin 6 mg 06/18/20 21:00 06/18/20 20:12 Melatonin 3 Mg Tab PO 6 mg HS JEOVANNY Administration Mometasone Furoate/Formoterol Fumar 2 puff 06/14/20 18:30 06/18/20 18:10 Mometasone 200 Mcg/Formoterol 5 Mcg 120 Puff Inhaler INH 2 puff BID-RT JEOVANNY Administration Sodium Chloride 10 ml 06/15/20 09:00 06/18/20 20:13 Flush - Normal Saline 10 Ml Syringe IVF 10 ml Q12HR JEOVANNY Administration Sodium Chloride 10 ml 06/15/20 06:30 06/18/20 02:10 Flush - Normal Saline 10 Ml Syringe IVF 10 ml PRN PRN Administration Saline Flush Zinc Sulfate 220 mg 06/15/20 09:00 06/18/20 08:25 Zinc Sulfate 220 Mg Cap PO 220 mg DAILY JEOVANNY Administration - Exam General Appearance: ill appearing General - other findings: Anxious looking, in mild distress Heart: RRR, no murmur, no gallops Respiratory - other findings: Bilateral coarse breath sounds. Gastrointestinal: soft, non-tender, non-distended Extremities: no cyanosis, no clubbing, no edema Hosp A/P - Plan 54-year-old male patient with no significant past history on admission on account of Covid pneumonia Was in CCU and then transferred to [facility] today Covid pneumonia He has remained stable over the past day Chest x-ray not indicated above questioning disease Ferritin increased from 2158 still 2700 CRP decreased from 4.8-2.63 Ongoing management on high flow oxygen Continue steroids and anticoagulation Received plasmaalso received remdesivir ID/pulmonology following. Anxiety Very anxious on account of his pneumonia Try as needed Ativan Consider starting antidepressant if still remains nauseous. VT prophylaxistherapeutic: Apixaban.
[2020-06-18] MEDS: Acetaminophen 325 MG TAB PO PRN (22:56)
[2020-06-19] MEDS: Hydrocortisone Sod Succ/PF 100 mg/2 ml Vial IVP SCH ×4 (02:31→20:42)
[2020-06-19 03:57] LABS: ALT (SGPT) 94 U/L (8-55); AST (SGOT) 25 U/L (5-34); Albumin 2.9 g/dL (3.5-5.0); Alkaline Phosphatase 75 U/L (40-110); Anion Gap 12 mmol/L (10-20); BUN (Urea Nitrogen) 14 mg/dL (8.4-25.7); Bilirubin, Direct 0.4 mg/dL (0.1-0.3); Bilirubin, Total 0.7 mg/dL (0.2-1.2); Calc. Creatinine Clearance 124 mL/min (70-130); Calcium 8.3 mg/dL (7.8-10.44); Carbon Dioxide 25 mmol/L (22-29); Chloride 105 mmol/L (98-107); Glucose 142 mg/dL (70-105); Potassium 3.8 mmol/L (3.5-5.1); Protein, Total 5.8 g/dL (6.0-8.3); Sodium 138 mmol/L (136-145)
[2020-06-19 05:16] LABS: #Basophils 0.1 thou/uL (0.0-0.2); #Lymphocytes 0.7 thou/uL (1.20-3.40); #Monocytes 0.6 thou/uL (0.11-0.59); #Neutrophils 9.8 thou/uL (1.40-6.50); %Basophils 0.5 % (0.0-1.0); %Eosinophils 0.1 % (0.0-10.0); %Lymphocytes 6.4 % (21.0-51.0); %Monocytes 5.7 % (0.0-10.0); %Neutrophils 87.2 % (42.0-75.0); Hemoglobin 14.1 g/dL (14.0-18.0); Mean Corpuscular HGB CONC 36.4 g/dL (32.0-36.0); Mean Corpuscular Volume 79.7 fL (78.0-98.0); Mean Platelet Volume 7.5 fL (7.4-10.4); Platelet Count 286 thou/uL (130-400); RBC Distribution Width 13.4 % (11.5-14.5); Red Blood Cell (RBC) Count 4.87 mill/uL (4.70-6.10); White Blood Cell (WBC) Count 11.2 thou/uL (4.8-10.8)
[2020-06-19] MEDS: Mometasone 200 MCG/Formoterol 5 MCG 120 PUFF INHALER INH SCH ×2 (06:36→19:51)
[2020-06-19] MEDS: Zinc Sulfate 220 MG CAP PO SCH (07:38)
[2020-06-19] MEDS: Ascorbic Acid 500 mg Chewable Tablet PO SCH (07:38)
[2020-06-19] MEDS: Famotidine 20 MG TAB PO SCH ×2 (07:39→20:42)
[2020-06-19] MEDS: guaiFENesin ER 600 MG TAB PO SCH ×2 (07:39→20:42)
[2020-06-19] MEDS: Apixaban 5 MG TAB PO SCH ×2 (07:39→20:42)
[2020-06-19] MEDS: Cholecalciferol 1,000 UNITS (25 MCG) TAB PO SCH (07:39)
--- NOTE | 2020-06-19 07:47 | RAD ---
Exam: Chest one view HISTORY:Pneumonia. Comparison: 06/10/2020 FINDINGS: Cardiac silhouette: Normal Aorta: Unremarkable Pulmonary vessels: Normal Costophrenic angles: Clear LUNGS: Multifocal interstitial and alveolar opacities, unchanged. Pneumothorax: None Osseous abnormalities: None IMPRESSION: Stable multi lobar pneumonia.
--- NOTE | 2020-06-19 09:35 | PRG ---
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 He is in better spirits today. OBJECTIVE: VITAL SIGNS: His temperature is 98, pulse 66, blood pressure 118/77, O2 saturation is 95% on 50% oxygen. HEENT: Unremarkable. NECK: No adenopathy or JVD. LUNGS: Clear anteriorly. CARDIAC: S1 and S2, regular. ABDOMEN: Soft. EXTREMITIES: No edema. LABORATORY DATA: White blood cell count 11.2, hematocrit 38.8, and platelet count 286. Sodium 138, potassium 3.8, chloride 105, CO2 of 25, BUN 14, creatinine 0.7, and glucose 142. C-reactive protein is down to 1.1. X-rays about the same. ASSESSMENT: 1. COVID-19 pneumonia. 2. Acute respiratory failure secondary to COVID-19 pneumonia. PLAN: The patient continued on anticoagulation and IV corticosteroids. His prognosis looks better. Job ID: [id number]
[2020-06-19] MEDS: REMDESIVIR (EUA) 100 MG in Sodium Chloride 0.9% 250 ML 230 ML IV SCH (15:34)
--- NOTE | 2020-06-19 17:22 | RAD ---
PORTABLE CHEST: 06/16/20 PROVIDED CLINICAL HISTORY: Shortness of breath. FINDINGS: Comparison is made with the study dated 06/16/20, 1:15 a.m. Cardiac and mediastinal silhouette is unchanged in appearance. Bilateral air space and interstitial o pacities appear similar to prior. There is no pleural fluid or pneumothorax apparent. IMPRESSION: Similar bilateral pulmonary parenchymal opacities. POS: LEENAT
[2020-06-19] MEDS: Melatonin 3 MG TAB PO SCH (20:42)
--- NOTE | 2020-06-19 20:50 | PDOC.HOSPP ---
- Subjective Encounter Date: 06/19/20 Encounter Time: 11:00 Subjective: Patient was seen and examined in bed. Complained of cough and shortness of breath with minimal activity Otherwise no acute events overnight - Objective Vital Signs & Weight: Vital Signs (12 hours) Temp 06/19/20 15:55 99 F Weight Weight 157 lb 4.8 oz Most Recent Monitor Data Heart Rate from ECG 84 NIBP 122/74 NIBP BP-Mean 90 Respiration from ECG 20 SpO2 88 I&O: 06/18/20 06/19/20 06/20/20 06:59 06:59 06:59 Intake Total 1130 450 Output Total 720 900 Balance 410 -450 Result Diagrams: 06/19/20 03:08 06/19/20 03:09 Hospitalist ROS - Medication Medications: Active Medications Generic Name Dose Route Start Last Admin Trade Name Freq PRN Reason Stop Dose Admin Acetaminophen 650 mg 06/14/20 15:56 06/18/20 22:56 Acetaminophen 325 Mg Tab PO 650 mg Q6H PRN Administration Fever > 101 Alprazolam 0.25 mg 06/17/20 14:56 06/17/20 15:00 Alprazolam 0.25 Mg Tab PO 0.25 mg BID PRN Administration Anxiety Apixaban 5 mg 06/14/20 21:00 06/19/20 20:42 Apixaban 5 Mg Tab PO 5 mg BID JEOVANNY Administration Ascorbic Acid 1,000 mg 06/15/20 09:00 06/19/20 07:38 Ascorbic Acid 500 Mg Chewable Tablet PO 1,000 mg DAILY JEOVANNY Administration Benzonatate 200 mg 06/18/20 12:02 06/18/20 18:16 Benzonatate 100 Mg Cap PO 200 mg Q4H PRN Administration Cough Cholecalciferol 5,000 units 06/16/20 09:00 06/19/20 07:39 Cholecalciferol 1,000 Units (25 Mcg) Tab PO 5,000 units DAILY JEOVANNY Administration Famotidine 20 mg 06/14/20 21:00 06/19/20 20:42 Famotidine 20 Mg Tab PO 20 mg BID JEOVANNY Administration Guaifenesin 600 mg 06/14/20 21:00 06/19/20 20:42 Guaifenesin Er 600 Mg Tab PO 600 mg Q12HR JEOVANNY Administration Hydrocortisone Sodium Succinate 100 mg 06/15/20 02:00 06/19/20 20:42 Hydrocortisone Sod Succ/Pf 100 Mg/2 Ml Vial IVP 100 mg 0200,0800,1400,2000 JEOVANNY Administration Remdesivir 100 mg/ Sodium 250 mls @ 250 mls/hr 06/17/20 15:00 06/19/20 15:34 Chloride IV 06/20/20 15:59 250 mls Q24H JEOVANNY Administration Melatonin 6 mg 06/18/20 21:00 06/19/20 20:42 Melatonin 3 Mg Tab PO 6 mg HS JEOVANNY Administration Mometasone Furoate/Formoterol Fumar 2 puff 06/14/20 18:30 06/19/20 19:51 Mometasone 200 Mcg/Formoterol 5 Mcg 120 Puff Inhaler INH 2 puff BID-RT JEOVANNY Administration Sodium Chloride 10 ml 06/15/20 09:00 06/19/20 20:43 Flush - Normal Saline 10 Ml Syringe IVF 10 ml Q12HR JEOVANNY Administration Sodium Chloride 10 ml 06/15/20 06:30 06/19/20 02:31 Flush - Normal Saline 10 Ml Syringe IVF 10 ml PRN PRN Administration Saline Flush Zinc Sulfate 220 mg 06/15/20 09:00 06/19/20 07:38 Zinc Sulfate 220 Mg Cap PO 220 mg DAILY JEOVANNY Administration - Exam General Appearance: awake alert, ill appearing Heart: RRR, no murmur, no gallops, no rubs, normal peripheral pulses Respiratory - other findings: Bilateral coarse breath sounds. Gastrointestinal: soft, non-tender, non-distended, normal bowel sounds Extremities: no cyanosis, no clubbing, no edema Neurological: cranial nerve grossly intact, no focal deficits Psychiatric: A&O x 3 Psychiatric - other findings: Generally anxious Hosp A/P - Plan 54-year-old male patient with no significant past history on admission on account of Covid pneumonia Was in CCU and then transferred to IMCU today Covid pneumonia He has remained stable over the past day Chest x-ray not indicated above questioning disease Ferritin increased from 2158 still 2700 CRP trending down from 2.6-1.12 Ongoing management on high flow oxygen Continue steroids and anticoagulation Received plasmaalso received remdesivir ID/pulmonology following. Anxiety Very anxious on account of his pneumonia Try as needed Ativan Consider starting antidepressant if still remains nauseous. VT prophylaxistherapeutic: Apixaban.
[2020-06-20] MEDS: Hydrocortisone Sod Succ/PF 100 mg/2 ml Vial IVP SCH ×4 (01:35→20:37)
[2020-06-20 03:40] LABS: #Basophils 0.1 thou/uL (0.0-0.2); #Lymphocytes 0.6 thou/uL (1.20-3.40); #Monocytes 0.6 thou/uL (0.11-0.59); #Neutrophils 12.3 thou/uL (1.40-6.50); %Basophils 0.4 % (0.0-1.0); %Lymphocytes 4.6 % (21.0-51.0); %Monocytes 4.7 % (0.0-10.0); %Neutrophils 90.3 % (42.0-75.0); Hemoglobin 14.4 g/dL (14.0-18.0); Mean Corpuscular HGB CONC 35.9 g/dL (32.0-36.0); Mean Corpuscular Hemoglobin 28.6 pg (27.0-31.0); Mean Corpuscular Volume 79.7 fL (78.0-98.0); Mean Platelet Volume 7.5 fL (7.4-10.4); Platelet Count 296 thou/uL (130-400); RBC Distribution Width 13.5 % (11.5-14.5); Red Blood Cell (RBC) Count 5.05 mill/uL (4.70-6.10); White Blood Cell (WBC) Count 13.6 thou/uL (4.8-10.8)
[2020-06-20 04:04] LABS: ALT (SGPT) 70 U/L (8-55); AST (SGOT) 22 U/L (5-34); Albumin 2.8 g/dL (3.5-5.0); Alkaline Phosphatase 76 U/L (40-110); Anion Gap 12 mmol/L (10-20); BUN (Urea Nitrogen) 12 mg/dL (8.4-25.7); Bilirubin, Direct 0.4 mg/dL (0.1-0.3); Bilirubin, Total 0.8 mg/dL (0.2-1.2); Calc. Creatinine Clearance 131 mL/min (70-130); Calcium 8.1 mg/dL (7.8-10.44); Carbon Dioxide 23 mmol/L (22-29); Chloride 105 mmol/L (98-107); Glucose 153 mg/dL (70-105); Potassium 3.5 mmol/L (3.5-5.1); Protein, Total 5.7 g/dL (6.0-8.3); Sodium 136 mmol/L (136-145)
[2020-06-20] MEDS: Benzonatate 100 MG CAP PO PRN ×3 (06:06→20:51)
[2020-06-20] MEDS: Mometasone 200 MCG/Formoterol 5 MCG 120 PUFF INHALER INH SCH ×2 (06:06→18:30)
[2020-06-20] MEDS ORDERED: Potassium Chloride 20 MEQ TAB PO SCH (06:30)
--- NOTE | 2020-06-20 07:44 | RAD ---
XR Chest 1 View Portable History: Pneumonia follow-up Comparison: Radiograph prior day Findings: Multifocal airspace opacities have slightly improved. No pneumothorax. No effusion. Heart s ize is similar. No acute osseous abnormality. Impression: No acute intrathoracic abnormality.
--- NOTE | 2020-06-20 09:20 | PRG ---
DATE OF SERVICE: 06/20/2020 SUBJECTIVE: The patient is doing much better. He has been weaned down with high-flow below 50%. OBJECTIVE: VITAL SIGNS: On exam, temperature 98.2, pulse 72, blood pressure 123/81, and O2 saturation 96% range. HEENT: Unremarkable. NECK: No adenopathy or JVD. CHEST: Clear. CARDIAC: S1 and S2. Regular. ABDOMEN: Soft. EXTREMITIES: No edema. LABORATORY DATA: Sodium 136, potassium 3.5, BUN 12, creatinine 2.6, and glucose 153. White blood cell count 13.6, hematocrit 40, and platelet count 296. C-reactive protein is down to 0.95. Chest x-ray shows continued bilateral infiltrative changes. No different from before. ASSESSMENT: COVID-19 pneumonia responding to steroids. Anticoagulation, remdesivir and convalescent serum. PLAN: Continue above medications. Hopefully can start to wean steroids by next week. Job ID: [id number]
[2020-06-20] MEDS: Cholecalciferol 1,000 UNITS (25 MCG) TAB PO SCH (09:37)
[2020-06-20] MEDS: Ascorbic Acid 500 mg Chewable Tablet PO SCH (09:37)
[2020-06-20] MEDS: guaiFENesin ER 600 MG TAB PO SCH ×2 (09:38→20:38)
[2020-06-20] MEDS: Apixaban 5 MG TAB PO SCH ×2 (09:38→20:37)
[2020-06-20] MEDS: Zinc Sulfate 220 MG CAP PO SCH (09:38)
[2020-06-20] MEDS: Famotidine 20 MG TAB PO SCH ×2 (09:38→20:37)
[2020-06-20] MEDS: Acetaminophen 325 MG TAB PO PRN ×2 (09:48→22:05)
--- NOTE | 2020-06-20 14:50 | PRG ---
DATE OF SERVICE: 06/20/2020 SUBJECTIVE: Sitting up by the bedside, looks much more comfortable. He is able to take deep breaths. He is using his breathing plastic device to exercise his vital capacity. No headaches. No visual symptoms. No abdominal pain. No diarrhea. Voiding without difficulty. OBJECTIVE: VITAL SIGNS: T-max 99, BP is 110/73, and he is on high-flow nasal cannula, saturating at 95 to 98 of 50 L/minute. LUNGS: Shows improvement compared with yesterday. There is better excursion. He has less crackles and no wheezing. HEART: S1 and S2. Regular rate. ABDOMEN: Soft, not distended. NEURO: Nonfocal. LABORATORY DATA: White cell count is 13.6, hemoglobin 14, platelets 296, and 90% neutrophils. His CRP is down to 0.95, which is a steady decline since admission. Repeat chest x-ray with slight improvement in the multifocal airspace opacities. ASSESSMENT/DISCUSSION: Severe covert infection with clear-cut improvement. This is really reassuring in the phase of the CRP, a steady drop. I do not foresee any interruption of this positive progression of his clinical course. Hopefully, we will be able to go down to nasal cannula shortly. Job ID: [id number]
[2020-06-20] MEDS: REMDESIVIR (EUA) 100 MG in Sodium Chloride 0.9% 250 ML 230 ML IV SCH (15:38)
[2020-06-20] MEDS: ALPRAZolam 0.25 MG TAB PO PRN (19:15)
[2020-06-20] MEDS: Melatonin 3 MG TAB PO SCH (20:37)
--- NOTE | 2020-06-20 23:04 | PDOC.HOSPP ---
- Subjective Encounter Date: 06/20/20 Encounter Time: 10:00 Subjective: Patient was seen and examined in bed. He feels a little better today although still coughing and easy fatigability with activity. Seems to have generally improved. - Objective Vital Signs & Weight: Vital Signs (12 hours) Temp Pulse Ox 06/20/20 20:00 98.4 F 95 Weight Weight 157 lb 4.8 oz Most Recent Monitor Data Heart Rate from ECG 73 NIBP 112/68 NIBP BP-Mean 82 Respiration from ECG 31 SpO2 97 I&O: 06/19/20 06/20/20 06/21/20 06:59 06:59 06:59 Intake Total 176 248 2431 Output Total 797 964 4116 Balance -450 -200 -150 Result Diagrams: 06/20/20 03:30 06/20/20 03:30 Hospitalist ROS - Medication Medications: Active Medications Generic Name Dose Route Start Last Admin Trade Name Freq PRN Reason Stop Dose Admin Acetaminophen 650 mg 06/14/20 15:56 06/20/20 22:05 Acetaminophen 325 Mg Tab PO 650 mg Q6H PRN Administration Fever > 101 Alprazolam 0.25 mg 06/17/20 14:56 06/20/20 19:15 Alprazolam 0.25 Mg Tab PO 0.25 mg BID PRN Administration Anxiety Apixaban 5 mg 06/14/20 21:00 06/20/20 20:37 Apixaban 5 Mg Tab PO 5 mg BID JEOVANNY Administration Ascorbic Acid 1,000 mg 06/15/20 09:00 06/20/20 09:37 Ascorbic Acid 500 Mg Chewable Tablet PO 1,000 mg DAILY JEOVANNY Administration Benzonatate 200 mg 06/18/20 12:02 06/20/20 20:51 Benzonatate 100 Mg Cap PO 200 mg Q4H PRN Administration Cough Cholecalciferol 5,000 units 06/16/20 09:00 06/20/20 09:37 Cholecalciferol 1,000 Units (25 Mcg) Tab PO 5,000 units DAILY JEOVANNY Administration Famotidine 20 mg 06/14/20 21:00 06/20/20 20:37 Famotidine 20 Mg Tab PO 20 mg BID JEOVANNY Administration Guaifenesin 600 mg 06/14/20 21:00 06/20/20 20:38 Guaifenesin Er 600 Mg Tab PO 600 mg Q12HR JEOVANNY Administration Hydrocortisone Sodium Succinate 100 mg 06/15/20 02:00 06/20/20 20:37 Hydrocortisone Sod Succ/Pf 100 Mg/2 Ml Vial IVP 100 mg 0200,0800,1399,1999 JEOVANNY Administration Melatonin 6 mg 06/18/20 21:00 06/20/20 20:37 Melatonin 3 Mg Tab PO 6 mg HS JEOVANNY Administration Mometasone Furoate/Formoterol Fumar 2 puff 06/14/20 18:30 06/20/20 18:30 Mometasone 200 Mcg/Formoterol 5 Mcg 120 Puff Inhaler INH 2 puff BID-RT JEOVANNY Administration Sodium Chloride 10 ml 06/15/20 09:00 06/20/20 20:38 Flush - Normal Saline 10 Ml Syringe IVF 10 ml Q12HR JEOVANNY Administration Sodium Chloride 10 ml 06/15/20 06:30 06/20/20 01:35 Flush - Normal Saline 10 Ml Syringe IVF 10 ml PRN PRN Administration Saline Flush Zinc Sulfate 220 mg 06/15/20 09:00 06/20/20 09:38 Zinc Sulfate 220 Mg Cap PO 220 mg DAILY JEOVANNY Administration - Exam General Appearance: awake alert Heart: RRR, no murmur, no gallops, no rubs Respiratory - other findings: Bilateral coarse breath sounds. Gastrointestinal: soft, non-tender, non-distended, normal bowel sounds Extremities: no cyanosis, no clubbing, no edema Psychiatric: normal behavior, A&O x 3 Hosp A/P - Plan 54-year-old male patient with no significant past history on admission on account of Covid pneumonia Was in CCU and then transferred to IMCU. After a couple of days delay, decision was made to start him on plasma and remdesivir He seems to have made significant improvement today and feels much better. Covid pneumonia Improving gradually Chest x-ray shows some improvement from the day before CRP trending down from 1.12-0.95 Ongoing management on high flow oxygen Continue steroids and anticoagulation on apixaban Received plasmaalso receiving remdesivir ID/pulmonology following. Anxiety Very anxious on account of his pneumonia Try as needed Ativan Consider starting antidepressant if still remains nauseous. VT prophylaxistherapeutic: Apixaban.
[2020-06-21] MEDS: Hydrocortisone Sod Succ/PF 100 mg/2 ml Vial IVP SCH ×4 (02:12→20:50)
[2020-06-21] MEDS ORDERED: Lorazepam 2 MG/ML VIAL SLOW IVP SCH (02:15)
[2020-06-21 03:46] LABS: #Lymphocytes 0.4 thou/uL (1.20-3.40); #Monocytes 0.4 thou/uL (0.11-0.59); %Basophils 0.1 % (0.0-1.0); %Eosinophils 0.1 % (0.0-10.0); %Lymphocytes 2.8 % (21.0-51.0); %Monocytes 2.9 % (0.0-10.0); %Neutrophils 94.2 % (42.0-75.0); Mean Corpuscular HGB CONC 36.7 g/dL (32.0-36.0); Mean Corpuscular Volume 78.8 fL (78.0-98.0); Mean Platelet Volume 7.7 fL (7.4-10.4); Platelet Count 259 thou/uL (130-400); RBC Distribution Width 13.4 % (11.5-14.5); White Blood Cell (WBC) Count 12.7 thou/uL (4.8-10.8)
[2020-06-21 03:59] LABS: Anion Gap 11 mmol/L (10-20); BUN (Urea Nitrogen) 11 mg/dL (8.4-25.7); CRP (Inflammatory) 5.51 mg/dL (= or < 0.5); Calc. Creatinine Clearance 137 mL/min (70-130); Calcium 7.9 mg/dL (7.8-10.44); Carbon Dioxide 26 mmol/L (22-29); Chloride 106 mmol/L (98-107); Glucose 158 mg/dL (70-105); Potassium 3.6 mmol/L (3.5-5.1); Sodium 139 mmol/L (136-145)
[2020-06-21] MEDS: Cholecalciferol 1,000 UNITS (25 MCG) TAB PO SCH (08:30)
[2020-06-21] MEDS: Apixaban 5 MG TAB PO SCH ×2 (08:30→20:50)
[2020-06-21] MEDS: Famotidine 20 MG TAB PO SCH ×2 (08:30→20:50)
[2020-06-21] MEDS: guaiFENesin ER 600 MG TAB PO SCH ×2 (08:30→20:51)
[2020-06-21] MEDS: Ascorbic Acid 500 mg Chewable Tablet PO SCH (08:30)
[2020-06-21] MEDS: Zinc Sulfate 220 MG CAP PO SCH (08:31)
[2020-06-21] MEDS: Mometasone 200 MCG/Formoterol 5 MCG 120 PUFF INHALER INH SCH ×2 (08:37→20:52)
--- NOTE | 2020-06-21 12:37 | PRG ---
DATE OF SERVICE: 06/21/2020 HISTORY OF PRESENT ILLNESS: The patient continues to receive supplemental oxygen. Currently, high-flow 45 L and 50%. Course of remdesivir and convalescent serum have been completed. The patient remains on anticoagulation and steroids. PHYSICAL EXAMINATION: VITAL SIGNS: Blood pressure is 116/78, heart rate 72, saturation 100%. GENERAL: He is awake and alert and sitting in the chair, watching television. LUNGS: Remarkable for scattered basilar rhonchi, but no wheezing or rales. HEART: Regular rate and rhythm. ABDOMEN: Soft. There is no organomegaly. Bowel sounds are normal. EXTREMITIES: There is no edema. There are no cords or tenderness. LABORATORY DATA: White count 12,100, hemoglobin is 13 with hematocrit 35.5, and platelet count 259,000. Electrolytes include sodium 139, potassium 3.6, chloride 106, BUN 11, creatinine 0.6. There is no chest x-ray today. X-ray yesterday showed some improvement in the typical bilateral interstitial findings, which had been seen before. IMPRESSION: COVID pneumonia clinically improving, although still requiring 50% high-flow nasal cannula. PLAN: We will continue current therapies. If bed space and high-flow were available on the medical floor, the patient could be transferred to the COVID unit for ongoing supportive therapies. Job ID: [id number]
[2020-06-21] MEDS: Acetaminophen 325 MG TAB PO PRN (14:46)
[2020-06-21] MEDS: Benzonatate 100 MG CAP PO PRN ×2 (14:47→20:50)
--- NOTE | 2020-06-21 15:39 | PDOC.HOSPP ---
- Subjective Encounter Date: 06/21/20 Encounter Time: 10:30 Subjective: is sitting in chair and watching tv sob is still present gets anxiety when he goes into paroxysms of coughing still on high flow and saturating well - Objective Vital Signs & Weight: Vital Signs (12 hours) Temp Pulse Resp Pulse Ox 06/21/20 13:00 98.7 F 06/21/20 08:00 97.5 F L 85 95 06/21/20 06:00 71 30 H 94 L Weight Weight 157 lb 4.8 oz Most Recent Monitor Data Heart Rate from ECG 73 NIBP 106/68 NIBP BP-Mean 80 Respiration from ECG 31 SpO2 89 I&O: 06/20/20 06/21/20 06/22/20 06:59 06:59 05:59 Intake Total 750 2210 Output Total 950 2600 Balance -200 -390 Result Diagrams: 06/21/20 03:23 06/21/20 03:23 Hospitalist ROS - Medication Medications: Active Medications Generic Name Dose Route Start Last Admin Trade Name Freq PRN Reason Stop Dose Admin Acetaminophen 650 mg 06/14/20 15:56 06/21/20 14:46 Acetaminophen 325 Mg Tab PO 650 mg Q6H PRN Administration Fever > 101 Alprazolam 0.25 mg 06/17/20 14:56 06/20/20 19:15 Alprazolam 0.25 Mg Tab PO 0.25 mg BID PRN Administration Anxiety Apixaban 5 mg 06/14/20 21:00 06/21/20 08:30 Apixaban 5 Mg Tab PO 5 mg BID JEOVANNY Administration Ascorbic Acid 1,000 mg 06/15/20 09:00 06/21/20 08:30 Ascorbic Acid 500 Mg Chewable Tablet PO 1,000 mg DAILY JEOVANNY Administration Benzonatate 200 mg 06/18/20 12:02 06/21/20 14:47 Benzonatate 100 Mg Cap PO 200 mg Q4H PRN Administration Cough Cholecalciferol 5,000 units 06/16/20 09:00 06/21/20 08:30 Cholecalciferol 1,000 Units (25 Mcg) Tab PO 5,000 units DAILY JEOVANNY Administration Famotidine 20 mg 06/14/20 21:00 06/21/20 08:30 Famotidine 20 Mg Tab PO 20 mg BID JEOVANNY Administration Guaifenesin 600 mg 06/14/20 21:00 06/21/20 08:30 Guaifenesin Er 600 Mg Tab PO 600 mg Q12HR JEOVANNY Administration Hydrocortisone Sodium Succinate 100 mg 06/15/20 02:00 06/21/20 14:46 Hydrocortisone Sod Succ/Pf 100 Mg/2 Ml Vial IVP 100 mg 0200,0800,1400,2000 JEOVANNY Administration Melatonin 6 mg 06/18/20 21:00 06/20/20 20:37 Melatonin 3 Mg Tab PO 6 mg HS JEOVANNY Administration Mometasone Furoate/Formoterol Fumar 2 puff 06/14/20 18:30 06/21/20 08:37 Mometasone 200 Mcg/Formoterol 5 Mcg 120 Puff Inhaler INH 2 puff BID-RT JEOVANNY Administration Sodium Chloride 10 ml 06/15/20 09:00 06/21/20 08:31 Flush - Normal Saline 10 Ml Syringe IVF 10 ml Q12HR JEOVANNY Administration Sodium Chloride 10 ml 06/15/20 06:30 06/20/20 01:35 Flush - Normal Saline 10 Ml Syringe IVF 10 ml PRN PRN Administration Saline Flush Zinc Sulfate 220 mg 06/15/20 09:00 06/21/20 08:31 Zinc Sulfate 220 Mg Cap PO 220 mg DAILY JEOVANNY Administration - Exam General Appearance: awake alert Eye: PERRL, anicteric sclera ENT: no oropharyngeal lesions, dry oral mucosa Neck: supple, no JVD Heart: RRR, no murmur Respiratory: no wheezes, rales, rhonchi Gastrointestinal: soft, non-tender, non-distended, normal bowel sounds Extremities: no cyanosis, no edema Neurological: cranial nerve grossly intact, no focal deficits Psychiatric: normal affect, A&O x 3 Hosp A/P (1) Pneumonia due to COVID-19 virus Code(s): U07.1 - COVID-19; J12.89 - OTHER VIRAL PNEUMONIA Status: Acute (2) Acute respiratory failure with hypoxia Code(s): J96.01 - ACUTE RESPIRATORY FAILURE WITH HYPOXIA Status: Acute - Plan has finished full course remdesivir on 06/20, got convalescent plasma on 06/16 currently on high flow, eliquis, hydrocortisone 100mg q6h, dulera inh, xanax prn hemostable has high col urine, counselled to drink more fluids and protien drinks offered to call family but he prefers to update them.
[2020-06-21] MEDS: Melatonin 3 MG TAB PO SCH (20:51)
[2020-06-21] MEDS: ALPRAZolam 0.25 MG TAB PO PRN (20:52)
[2020-06-22] MEDS: Hydrocortisone Sod Succ/PF 100 mg/2 ml Vial IVP SCH ×4 (01:37→21:29)
[2020-06-22 04:09] LABS: #Lymphocytes 0.6 thou/uL (1.20-3.40); #Monocytes 0.4 thou/uL (0.11-0.59); #Neutrophils 15.8 thou/uL (1.40-6.50); %Eosinophils 0.2 % (0.0-10.0); %Lymphocytes 3.4 % (21.0-51.0); %Monocytes 2.6 % (0.0-10.0); %Neutrophils 93.8 % (42.0-75.0); Hemoglobin 13.6 g/dL (14.0-18.0); Mean Corpuscular HGB CONC 36.8 g/dL (32.0-36.0); Mean Corpuscular Hemoglobin 29.2 pg (27.0-31.0); Mean Corpuscular Volume 79.3 fL (78.0-98.0); Mean Platelet Volume 7.7 fL (7.4-10.4); Platelet Count 260 thou/uL (130-400); RBC Distribution Width 13.5 % (11.5-14.5); Red Blood Cell (RBC) Count 4.68 mill/uL (4.70-6.10); White Blood Cell (WBC) Count 16.9 thou/uL (4.8-10.8)
[2020-06-22 04:28] LABS: Anion Gap 13 mmol/L (10-20); BUN (Urea Nitrogen) 13 mg/dL (8.4-25.7); Calc. Creatinine Clearance 164 mL/min (70-130); Carbon Dioxide 24 mmol/L (22-29); Chloride 105 mmol/L (98-107); Glucose 153 mg/dL (70-105); Potassium 3.7 mmol/L (3.5-5.1); Sodium 138 mmol/L (136-145)
[2020-06-22 04:43] LABS: ALT (SGPT) 34 U/L (8-55); AST (SGOT) 18 U/L (5-34); Albumin 2.6 g/dL (3.5-5.0); Alkaline Phosphatase 66 U/L (40-110); Bilirubin, Direct 0.4 mg/dL (0.1-0.3); Bilirubin, Total 0.8 mg/dL (0.2-1.2); Protein, Total 5.3 g/dL (6.0-8.3)
--- NOTE | 2020-06-22 08:57 | RAD ---
PORTABLE CHEST: 06/22/20 PROVIDED CLINICAL HISTORY: Worsening CRP. COVID pneumonia. COMPARISON: 06/20/2020 FINDINGS: The cardiac silhouette appears prominent, likely at least partially on the basis of the portable tech nique. There is an interval increase in bilateral air space disease. No pleural fluid or pneumothorax apparent. IMPRESSION: Worsening bilateral air space disease. POS: SHILPI
[2020-06-22] MEDS: Cholecalciferol 1,000 UNITS (25 MCG) TAB PO SCH (09:14)
[2020-06-22] MEDS: Ascorbic Acid 500 mg Chewable Tablet PO SCH (09:14)
[2020-06-22] MEDS: Apixaban 5 MG TAB PO SCH ×2 (09:14→21:30)
[2020-06-22] MEDS: Famotidine 20 MG TAB PO SCH ×2 (09:15→21:29)
[2020-06-22] MEDS: guaiFENesin ER 600 MG TAB PO SCH ×2 (09:15→21:30)
[2020-06-22] MEDS: Zinc Sulfate 220 MG CAP PO SCH (09:17)
[2020-06-22] MEDS: Mometasone 200 MCG/Formoterol 5 MCG 120 PUFF INHALER INH SCH ×2 (09:17→21:27)
--- NOTE | 2020-06-22 09:56 | PRG ---
DATE OF SERVICE: 06/22/2020 SUBJECTIVE: There is no significant change in the preceding 24 hours. He remains on high-flow nasal cannula FIO2 55%. Saturations range anywhere from 88 to 98. Most likely the 88 reflect poor waveform rather than true hypoxia. PHYSICAL EXAMINATION: VITAL SIGNS: Blood pressure 114/74, heart rate 87. GENERAL: He is alert. He is sitting in the bed, watching television. HEENT: Shows no adenopathy. LUNGS: Show rhonchi, but no wheezing. HEART: Regular rate and rhythm. ABDOMEN: Soft. There is no organomegaly. He has no edema. He has no cords or tenderness. LABORATORY DATA: White count 16,900, hemoglobin 13.6, platelet count 260,000. Chemistries include sodium 136, potassium 3.7, chloride 105, CO2 is 24, BUN 13, creatinine 0.5. CRP remains elevated at 6.9, liver tests are normal. IMAGING: Chest x-ray today shows slightly lordotic view. He has very diffuse patchy consolidations involving all lung mata. There is no effusion. There is no pneumothorax. When compared to the prior x-rays, it is slightly worse than it was on 06/16, but may well be the same given differences in technique and projection. IMPRESSION: COVID pneumonia still on significant oxygen supplementation. PLAN: We will continue current therapies. No additional options are available at this point. Patient does not require intubation or aggressive resuscitation. Job ID: [id number] [facility]
[2020-06-22 12:21] LABS: Bacteria/HPF None Seen HPF (None Seen); Bilirubin Negative (Negative); Blood, Urine Negative (Negative); Clarity Clear (Clear); Glucose, Urine (Dipstick) Normal (Negative); Ketone, Urine Negative (Negative); Leukocyte Negative Leu/uL (Negative); Nitrite Negative (Negative); Protein, Urine (Dipstick) 10 mg/dL (Neg-Trace); RBC/HPF 0-3 HPF (0-3); Specific Gravity, Urine 1.022 (1.002-1.036); Squamous Epithelial None Seen HPF (0-3); Urobilinogen Normal mg/dL (Less than 2); WBC/HPF 0-3 HPF (0-3); pH, Urine 6.5 (5.0-9.0)
[2020-06-22 12:22] LABS: Urine Culture Reflex No No
--- NOTE | 2020-06-22 13:21 | PDOC.HOSPP ---
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 Weight Weight 157 lb 4.8 oz Most Recent Monitor Data Heart Rate from ECG 73 NIBP 103/67 NIBP BP-Mean 79 Respiration from ECG 31 SpO2 97 I&O: 06/21/20 06/22/20 06/23/20 07:59 06:59 06:59 Intake Total Output Total Balance Result Diagrams: 06/22/20 03:58 06/22/20 03:58 Hospitalist ROS - Medication Medications: Active Medications Generic Name Dose Route Start Last Admin Trade Name Freq PRN Reason Stop Dose Admin Acetaminophen 650 mg 06/14/20 15:56 06/21/20 14:46 Acetaminophen 325 Mg Tab PO 650 mg Q6H PRN Administration Fever > 101 Alprazolam 0.25 mg 06/17/20 14:56 06/21/20 20:52 Alprazolam 0.25 Mg Tab PO 0.25 mg BID PRN Administration Anxiety Apixaban 5 mg 06/14/20 21:00 06/22/20 09:14 Apixaban 5 Mg Tab PO 5 mg BID JEOVANNY Administration Ascorbic Acid 1,000 mg 06/15/20 09:00 06/22/20 09:14 Ascorbic Acid 500 Mg Chewable Tablet PO 1,000 mg DAILY JEOVANNY Administration Benzonatate 200 mg 06/18/20 12:02 06/21/20 20:50 Benzonatate 100 Mg Cap PO 200 mg Q4H PRN Administration Cough Cholecalciferol 5,000 units 06/16/20 09:00 06/22/20 09:14 Cholecalciferol 1,000 Units (25 Mcg) Tab PO 5,000 units DAILY JEOVANNY Administration Famotidine 20 mg 06/14/20 21:00 06/22/20 09:15 Famotidine 20 Mg Tab PO 20 mg BID JEOVANNY Administration Guaifenesin 600 mg 06/14/20 21:00 06/22/20 09:15 Guaifenesin Er 600 Mg Tab PO 600 mg Q12HR JEOVANNY Administration Hydrocortisone Sodium Succinate 100 mg 06/15/20 02:00 06/22/20 09:14 Hydrocortisone Sod Succ/Pf 100 Mg/2 Ml Vial IVP 100 mg 0200,0800,1400,1999 JEOVANNY Administration Melatonin 6 mg 06/18/20 21:00 06/21/20 20:51 Melatonin 3 Mg Tab PO 6 mg HS JEOVANNY Administration Mometasone Furoate/Formoterol Fumar 2 puff 06/14/20 18:30 06/22/20 09:17 Mometasone 200 Mcg/Formoterol 5 Mcg 120 Puff Inhaler INH 2 puff BID-RT JEOVANNY Administration Sodium Chloride 10 ml 06/15/20 09:00 06/22/20 09:15 Flush - Normal Saline 10 Ml Syringe IVF 10 ml Q12HR JEOVANNY Administration Sodium Chloride 10 ml 06/15/20 06:30 06/20/20 01:35 Flush - Normal Saline 10 Ml Syringe IVF 10 ml PRN PRN Administration Saline Flush Zinc Sulfate 220 mg 06/15/20 09:00 06/22/20 09:17 Zinc Sulfate 220 Mg Cap PO 220 mg DAILY JEOVANNY Administration - Exam General Appearance: awake alert ENT: normocephalic atraumatic Neck: supple Heart: RRR Respiratory: normal chest expansion Gastrointestinal: non-distended Extremities: no cyanosis, no edema Neurological: no new deficit Psychiatric: A&O x 3 Hosp A/P (1) Pneumonia due to COVID-19 virus Code(s): U07.1 - COVID-19; J12.89 - OTHER VIRAL PNEUMONIA Status: Acute (2) Acute respiratory failure with hypoxia Code(s): J96.01 - ACUTE RESPIRATORY FAILURE WITH HYPOXIA Status: Acute - Plan has finished full course remdesivir on 06/20, got convalescent plasma on 06/16 currently on high flow, eliquis, hydrocortisone 100mg q6h, dulera inh, xanax prn hemostable
[2020-06-22] MEDS: Acetaminophen 325 MG TAB PO PRN (14:34)
[2020-06-22] MEDS: Benzonatate 100 MG CAP PO PRN ×2 (14:35→21:28)
--- NOTE | 2020-06-22 14:54 | PRG ---
DATE OF SERVICE: 06/22/2020 SUBJECTIVE: Sitting by the bed. He looks comfortable, still tachypneic, but he is in no distress. He is not hurting any more to cough or take deep breaths as he used in the past. He does not have a headache. No sputum production. No abdominal pain. Voiding without difficulty. He has great appetite. OBJECTIVE: VITAL SIGNS: T-max 99.8, he is now 99.2, BP 103/67, he is saturating at 99 with flow rate of 55. LUNGS: Again, the basilar inspiratory crackles. The most of the upper segments are clear and he has good excursions. HEART: S1, S2, regular rate. ABDOMEN: Soft, not distended. No organomegaly. No ascites. No edema. NEUROLOGIC: Nonfocal. LABORATORY DATA: White cell count 16.9, hemoglobin 13.6, platelets 260, 93% neutrophils. D-dimer is up to 3.02. The ferritin is down to 788. CRP is up to 6.89. Repeat chest x-ray with no change in the pattern, taking into account technical differences. ASSESSMENT AND DISCUSSION: Severe COVID infection with kind of stalemate now. There is a worrisome increase in CRP and D-dimer, not clear why he is on Eliquis and not sure why the Eliquis has been chosen as opposed to fractionated heparin. His ferritin though is getting better and the corticosteroid dose probably can start to be tapered. He finished his remdesivir course. Job ID: [id number]
[2020-06-22] MEDS: Melatonin 3 MG TAB PO SCH (21:28)
[2020-06-22] MEDS: ALPRAZolam 0.25 MG TAB PO PRN (21:30)
[2020-06-23] MEDS: Hydrocortisone Sod Succ/PF 100 mg/2 ml Vial IVP SCH ×4 (02:05→20:37)
[2020-06-23 03:36] LABS: #Lymphocytes 1.3 thou/uL (1.20-3.40); #Monocytes 0.4 thou/uL (0.11-0.59); #Neutrophils 16.3 thou/uL (1.40-6.50); %Basophils 0.2 % (0.0-1.0); %Eosinophils 0.1 % (0.0-10.0); %Lymphocytes 7.3 % (21.0-51.0); %Neutrophils 90.3 % (42.0-75.0); Hemoglobin 14.6 g/dL (14.0-18.0); Mean Corpuscular HGB CONC 36.7 g/dL (32.0-36.0); Mean Corpuscular Hemoglobin 29.1 pg (27.0-31.0); Mean Corpuscular Volume 79.2 fL (78.0-98.0); Mean Platelet Volume 7.7 fL (7.4-10.4); Platelet Count 262 thou/uL (130-400); RBC Distribution Width 13.8 % (11.5-14.5); White Blood Cell (WBC) Count 18.1 thou/uL (4.8-10.8)
[2020-06-23 04:03] LABS: ALT (SGPT) 37 U/L (8-55); AST (SGOT) 23 U/L (5-34); Albumin 2.7 g/dL (3.5-5.0); Alkaline Phosphatase 72 U/L (40-110); Anion Gap 16 mmol/L (10-20); BUN (Urea Nitrogen) 14 mg/dL (8.4-25.7); Bilirubin, Direct 0.4 mg/dL (0.1-0.3); Bilirubin, Total 0.8 mg/dL (0.2-1.2); CRP (Inflammatory) 6.23 mg/dL (= or < 0.5); Calc. Creatinine Clearance 133 mL/min (70-130); Calcium 8.2 mg/dL (7.8-10.44); Carbon Dioxide 21 mmol/L (22-29); Chloride 105 mmol/L (98-107); Glucose 136 mg/dL (70-105); Potassium 3.7 mmol/L (3.5-5.1); Protein, Total 5.7 g/dL (6.0-8.3); Sodium 138 mmol/L (136-145)
[2020-06-23] MEDS: Mometasone 200 MCG/Formoterol 5 MCG 120 PUFF INHALER INH SCH ×2 (09:40→20:36)
[2020-06-23] MEDS: Famotidine 20 MG TAB PO SCH ×2 (09:41→20:37)
[2020-06-23] MEDS: guaiFENesin ER 600 MG TAB PO SCH ×2 (09:41→20:38)
[2020-06-23] MEDS: Zinc Sulfate 220 MG CAP PO SCH (09:41)
[2020-06-23] MEDS: Apixaban 5 MG TAB PO SCH ×2 (09:41→20:37)
[2020-06-23] MEDS: Ascorbic Acid 500 mg Chewable Tablet PO SCH (09:45)
[2020-06-23] MEDS: Cholecalciferol 1,000 UNITS (25 MCG) TAB PO SCH (09:45)
[2020-06-23] MEDS: Acetaminophen 325 MG TAB PO PRN (10:18)
[2020-06-23] MEDS: Benzonatate 100 MG CAP PO PRN ×2 (10:18→20:37)
--- NOTE | 2020-06-23 15:04 | PRG ---
DATE OF SERVICE: 06/23/2020 SUBJECTIVE: Krish Guallpa is a 54-year-old gentleman with loco positive pneumonia. OBJECTIVE: VITAL SIGNS: Sats 96% on high-flow, pulse respiratory rate 18. GENERAL: Sitting at side of the bed. CHEST: No wheezing. No crackles. CARDIAC: Normal S1, S2. No gallops. ABDOMEN: No masses. LABORATORY DATA: White count 18,000. X-ray yesterday shows diffuse pulmonary infiltrate. ASSESSMENT AND PLAN: Loco positive pneumonia, acute respiratory distress syndrome, respiratory failure. He has had plasma convalescent and remdesivir. I am going to add some doxycycline. Continue steroids, supportive care. Hopefully, once he gets his O2 down, then he may be able to transition to a step-down unit. Job ID: [id number]
[2020-06-23] MEDS: ALPRAZolam 0.25 MG TAB PO PRN (20:36)
[2020-06-23] MEDS: Melatonin 3 MG TAB PO SCH (20:37)
--- NOTE | 2020-06-23 22:14 | PDOC.HOSPP ---
- Subjective Encounter Date: 06/23/20 Encounter Time: 18:00 Subjective: Patient seen and examined for COVID 19 pneumonia/respiratory failure. On high flow oxygen. Short of breath on minimal exertion. Mild cough without significant production. No chest pain or palpitations. - Objective Vital Signs & Weight: Vital Signs (12 hours) Temp Pulse Resp 06/23/20 20:00 98.4 F 75 28 H Weight Weight 157 lb 4.8 oz Most Recent Monitor Data Heart Rate from ECG 77 NIBP 120/71 NIBP BP-Mean 87 Respiration from ECG 29 SpO2 94 I&O: 06/22/20 06/23/20 06/24/20 06:59 06:59 06:59 Intake Total 2960 680 Output Total 3100 1400 Balance -140 -720 Result Diagrams: 06/23/20 03:20 06/23/20 03:20 Additional Labs: Abnormal Lab Results - Last 48 hrs 06/22/20 03:58: Creatinine 0.52 L 06/22/20 03:58: WBC 16.9 H, RBC 4.68 L, Hgb 13.6 L, Hct 37.1 L, MCHC 36.8 H, Neutrophils % 93.8 H, Lymphocytes % 3.4 L, Neutrophils # 15.8 H, Lymphocytes # 0.6 L 06/22/20 03:58: C-Reactive Protein 6.89 H 06/22/20 03:58: Direct Bilirubin 0.4 H, Serum Total Protein 5.3 L, Albumin 2.6 L 06/22/20 03:58: D-Dimer 3.02 H 06/22/20 03:58: Ferritin 788.11 H 06/22/20 11:15: Amorphous Crystals 1+ A 06/23/20 03:20: Carbon Dioxide 21 L, Creatinine 0.64 L, C-Reactive Protein 6.23 H 06/23/20 03:20: WBC 18.1 H, Hct 39.6 L, MCHC 36.7 H, Neutrophils % 90.3 H, Lymphocytes % 7.3 L, Neutrophils # 16.3 H 06/23/20 03:20: D-Dimer 4.81 H 06/23/20 03:20: Direct Bilirubin 0.4 H, Serum Total Protein 5.7 L, Albumin 2.7 L 06/23/20 03:20: Ferritin 801.88 H Radiology Reviewed by me: Yes (Chest x-raybilateral infiltrate) EKG Reviewed by me: Yes (Sinus rhythm on telemetry) Hospitalist ROS - Review of Systems Cardiovascular: denies: chest pain, palpitations, orthopnea, paroxysmal noc. dyspnea, edema, light headedness, other Gastrointestinal: denies: nausea, vomiting, abdominal pain, diarrhea, constipat ion, melena, hematochezia, other - Medication Medications: Active Medications Generic Name Dose Route Start Last Admin Trade Name Freq PRN Reason Stop Dose Admin Acetaminophen 650 mg 06/14/20 15:56 06/23/20 10:18 Acetaminophen 325 Mg Tab PO 650 mg Q6H PRN Administration Fever > 101 Alprazolam 0.25 mg 06/17/20 14:56 06/23/20 20:36 Alprazolam 0.25 Mg Tab PO 0.25 mg BID PRN Administration Anxiety Apixaban 5 mg 06/14/20 21:00 06/23/20 20:37 Apixaban 5 Mg Tab PO 5 mg BID JEOVANNY Administration Ascorbic Acid 1,000 mg 06/15/20 09:00 06/23/20 09:45 Ascorbic Acid 500 Mg Chewable Tablet PO 1,000 mg DAILY JEOVANNY Administration Benzonatate 200 mg 06/18/20 12:02 06/23/20 20:37 Benzonatate 100 Mg Cap PO 200 mg Q4H PRN Administration Cough Cholecalciferol 5,000 units 06/16/20 09:00 06/23/20 09:45 Cholecalciferol 1,000 Units (25 Mcg) Tab PO 5,000 units DAILY JEOVANNY Administration Famotidine 20 mg 06/14/20 21:00 06/23/20 20:37 Famotidine 20 Mg Tab PO 20 mg BID JEOVANNY Administration Guaifenesin 600 mg 06/14/20 21:00 06/23/20 20:38 Guaifenesin Er 600 Mg Tab PO 600 mg Q12HR JEOVANNY Administration Hydrocortisone Sodium Succinate 100 mg 06/15/20 02:00 06/23/20 20:37 Hydrocortisone Sod Succ/Pf 100 Mg/2 Ml Vial IVP 100 mg 0200,0800,1400,2000 JEOVANNY Administration Doxycycline Hyclate 100 mg/ 100 mls @ 100 mls/hr 06/23/20 20:00 06/23/20 20:38 Sodium Chloride IVPB 06/30/20 20:01 100 mls 08,1999 JEOVANNY Administration Melatonin 6 mg 06/18/20 21:00 06/23/20 20:37 Melatonin 3 Mg Tab PO 6 mg HS JEOVANNY Administration Mometasone Furoate/Formoterol Fumar 2 puff 06/14/20 18:30 06/23/20 20:36 Mometasone 200 Mcg/Formoterol 5 Mcg 120 Puff Inhaler INH 2 puff BID-RT JEOVANNY Administration Sodium Chloride 10 ml 06/15/20 09:00 06/23/20 20:39 Flush - Normal Saline 10 Ml Syringe IVF 10 ml Q12HR JEOVANNY Administration Sodium Chloride 10 ml 06/15/20 06:30 06/20/20 01:35 Flush - Normal Saline 10 Ml Syringe IVF 10 ml PRN PRN Administration Saline Flush Zinc Sulfate 220 mg 06/15/20 09:00 06/23/20 09:41 Zinc Sulfate 220 Mg Cap PO 220 mg DAILY JEOVANNY Administration - Exam General Appearance: ill appearing Neck: supple, no JVD Heart: RRR, no gallops Respiratory: no wheezes, rales, rhonchi Gastrointestinal: soft, non-tender, no guarding, no rigidity Extremities: no cyanosis Neurological: no new deficit Hosp A/P - Plan Acute hypoxic respiratory failure due to COVID 19 pneumonia Elevated inflammatory markers Abnormal LFTsimproving Leukocytosisprobably steroid induced Plan: Continue stress dose steroid with Dulera. Patient on Eliquis for DVT prophylaxis. Doxycycline started today. Continue mucolytic. A.m. labs. Wean O2 as tolerated. Plan discussed with the patient.
[2020-06-24] MEDS: Hydrocortisone Sod Succ/PF 100 mg/2 ml Vial IVP SCH ×4 (02:00→20:35)
[2020-06-24] MEDS: Benzonatate 100 MG CAP PO PRN ×3 (02:09→20:59)
[2020-06-24 03:49] LABS: #Lymphocytes 0.3 thou/uL (1.20-3.40); #Monocytes 0.5 thou/uL (0.11-0.59); #Neutrophils 14.1 thou/uL (1.40-6.50); %Basophils 0.1 % (0.0-1.0); %Eosinophils 0.3 % (0.0-10.0); %Lymphocytes 2.2 % (21.0-51.0); %Monocytes 3.5 % (0.0-10.0); Hemoglobin 13.9 g/dL (14.0-18.0); Mean Corpuscular HGB CONC 36.1 g/dL (32.0-36.0); Mean Corpuscular Hemoglobin 28.8 pg (27.0-31.0); Mean Corpuscular Volume 79.8 fL (78.0-98.0); Mean Platelet Volume 7.7 fL (7.4-10.4); Platelet Count 250 thou/uL (130-400); RBC Distribution Width 13.8 % (11.5-14.5); Red Blood Cell (RBC) Count 4.83 mill/uL (4.70-6.10)
[2020-06-24 04:02] LABS: ALT (SGPT) 40 U/L (8-55); AST (SGOT) 21 U/L (5-34); Albumin 2.6 g/dL (3.5-5.0); Alkaline Phosphatase 75 U/L (40-110); Bilirubin, Direct 0.5 mg/dL (0.1-0.3); Magnesium 2.1 mg/dL (1.6-2.6); Protein, Total 5.6 g/dL (6.0-8.3)
[2020-06-24 04:03] LABS: CRP (Inflammatory) 3.83 mg/dL (= or < 0.5); Phosphorus 3.7 mg/dL (2.3-4.7)
[2020-06-24 04:07] LABS: Anion Gap 15 mmol/L (10-20); BUN (Urea Nitrogen) 13 mg/dL (8.4-25.7); Calc. Creatinine Clearance 135 mL/min (70-130); Carbon Dioxide 26 mmol/L (22-29); Chloride 103 mmol/L (98-107); Glucose 131 mg/dL (70-105); Potassium 3.6 mmol/L (3.5-5.1); Sodium 140 mmol/L (136-145)
[2020-06-24] MEDS: Mometasone 200 MCG/Formoterol 5 MCG 120 PUFF INHALER INH SCH ×2 (08:30→18:06)
[2020-06-24] MEDS: Zinc Sulfate 220 MG CAP PO SCH (08:32)
[2020-06-24] MEDS: Cholecalciferol 1,000 UNITS (25 MCG) TAB PO SCH (08:32)
[2020-06-24] MEDS: Acetaminophen 325 MG TAB PO PRN (08:32)
[2020-06-24] MEDS: Famotidine 20 MG TAB PO SCH ×2 (08:33→20:35)
[2020-06-24] MEDS: Multivit, Therapeutic 1 TAB PO SCH (08:33)
[2020-06-24] MEDS: guaiFENesin ER 600 MG TAB PO SCH ×2 (08:33→20:35)
[2020-06-24] MEDS: Apixaban 5 MG TAB PO SCH ×2 (08:33→20:35)
[2020-06-24] MEDS: Calcium Carbonate 600 MG + Vit D TAB PO SCH ×2 (08:33→18:06)
[2020-06-24] MEDS: Ascorbic Acid 500 mg Chewable Tablet PO SCH (08:35)
--- NOTE | 2020-06-24 10:51 | PRG ---
DATE OF SERVICE: 06/24/2020 SUBJECTIVE: Krish Guallpa is a 54-year-old gentleman, remains in the ICU. OBJECTIVE: VITAL SIGNS: On high-flow, sats flow rate is 45% to 50%, temperature 98, pulse 80, blood pressure 120/80. CHEST: Bilateral rhonchi, crackles. CARDIAC: Normal S1, S2. No gallops. ABDOMEN: Soft. LABORATORY DATA: His C-reactive protein is still 3.8. Last x-ray shows bilateral infiltrates. ASSESSMENT: Respiratory failure, loco positive pneumonia. PLAN: Continue steroids, doxycycline, neb treatments, supportive care. We will follow. Job ID: [id number]
--- NOTE | 2020-06-24 14:48 | PRG ---
DATE OF SERVICE: 06/24/2020 SUBJECTIVE: Sitting by the bedside. He was able to stand up, maintaining his O2 saturations. His flows are down to 40 and is maintaining 96% oxygen saturations, which is an improvement. He is afebrile and had a large bowel movement yesterday, kind of soft, and still with cellophane like inspiratory crackles at the base, mostly at 1/4 of right and left hemithorax. The upper lung mata are clear. No wheezing. S1 and S2, regular rate. Abdomen is soft, not distended or tender. He is voiding in the urinal. LABORATORY DATA: Sodium 140, creatinine 0.63. Ferritin is down to 758. CRP finally is down to 3.83 and Fungitell is not back yet. He has been started on doxycycline. ASSESSMENT AND DISCUSSION: Severe COVID infection. Finally, looks like we will have another step of improvement here with his ability to maintain the oxygen saturations with some effort and a decrease in the flow down to 40. Also, his inflammatory markers are trending down, both of them now so the D-dimer keeps going up, but he is fully anticoagulated with Eliquis. Job ID: [id number]
--- NOTE | 2020-06-24 15:35 | PDOC.HOSPP ---
- Subjective Encounter Date: 06/24/20 Encounter Time: 10:45 Subjective: no new complaints is able to mobilize around bed but gets sob easily is eating and drinking, watching tv - Objective Vital Signs & Weight: Vital Signs (12 hours) Temp Pulse Ox 06/24/20 10:35 95 06/24/20 08:29 90 L 06/24/20 08:21 98.1 F 06/24/20 07:38 92 L 06/24/20 04:00 98.4 F 95 Weight Weight 157 lb 4.8 oz Most Recent Monitor Data Heart Rate from ECG 90 NIBP 109/71 NIBP BP-Mean 83 Respiration from ECG 36 SpO2 97 I&O: 06/23/20 06/24/20 06/25/20 06:59 06:59 06:59 Intake Total 2960 1280 Output Total 3100 3075 Balance -140 -1795 Result Diagrams: 06/24/20 03:24 06/24/20 03:24 Hospitalist ROS - Medication Medications: Active Medications Generic Name Dose Route Start Last Admin Trade Name Freq PRN Reason Stop Dose Admin Acetaminophen 650 mg 06/14/20 15:56 06/24/20 08:32 Acetaminophen 325 Mg Tab PO 650 mg Q6H PRN Administration Fever > 101 Alprazolam 0.25 mg 06/17/20 14:56 06/23/20 20:36 Alprazolam 0.25 Mg Tab PO 0.25 mg BID PRN Administration Anxiety Apixaban 5 mg 06/14/20 21:00 06/24/20 08:33 Apixaban 5 Mg Tab PO 5 mg BID JEOVANNY Administration Ascorbic Acid 1,000 mg 06/15/20 09:00 06/24/20 08:35 Ascorbic Acid 500 Mg Chewable Tablet PO 1,000 mg DAILY JEOVANNY Administration Benzonatate 200 mg 06/18/20 12:02 06/24/20 08:32 Benzonatate 100 Mg Cap PO 200 mg Q4H PRN Administration Cough Calcium/Vitamin D 1 tab 06/24/20 08:00 06/24/20 08:33 Calcium Carbonate 600 Mg + Vit D Tab PO 1 tab BID-WM JEOVANNY Administration Cholecalciferol 5,000 units 06/16/20 09:00 06/24/20 08:32 Cholecalciferol 1,000 Units (25 Mcg) Tab PO 5,000 units DAILY JEOVANNY Administration Famotidine 20 mg 06/14/20 21:00 06/24/20 08:33 Famotidine 20 Mg Tab PO 20 mg BID JEOVANNY Administration Guaifenesin 600 mg 06/14/20 21:00 06/24/20 08:33 Guaifenesin Er 600 Mg Tab PO 600 mg Q12HR JEOVANNY Administration Hydrocortisone Sodium Succinate 100 mg 06/15/20 02:00 06/24/20 14:53 Hydrocortisone Sod Succ/Pf 100 Mg/2 Ml Vial IVP 100 mg 0200,08,1399,1999 JEOVANNY Administration Doxycycline Hyclate 100 mg/ 100 mls @ 100 mls/hr 06/23/20 20:00 06/24/20 08:31 Sodium Chloride IVPB 06/30/20 20:01 100 mls JEOVANNY Administration Melatonin 6 mg 06/18/20 21:00 06/23/20 20:37 Melatonin 3 Mg Tab PO 6 mg HS JEOVANNY Administration Mometasone Furoate/Formoterol Fumar 2 puff 06/14/20 18:30 06/24/20 08:30 Mometasone 200 Mcg/Formoterol 5 Mcg 120 Puff Inhaler INH 2 puff BID-RT JEOVANNY Administration Multivitamins 1 tab 06/24/20 09:00 06/24/20 08:33 Multivit, Therapeutic 1 Tab PO 1 tab DAILY JEOVANNY Administration Sodium Chloride 10 ml 06/15/20 09:00 06/24/20 08:34 Flush - Normal Saline 10 Ml Syringe IVF 10 ml Q12HR JEOVANNY Administration Sodium Chloride 10 ml 06/15/20 06:30 06/20/20 01:35 Flush - Normal Saline 10 Ml Syringe IVF 10 ml PRN PRN Administration Saline Flush Zinc Sulfate 220 mg 06/15/20 09:00 06/24/20 08:32 Zinc Sulfate 220 Mg Cap PO 220 mg DAILY JEOVANNY Administration - Exam General Appearance: awake alert Eye: PERRL, anicteric sclera ENT: no oropharyngeal lesions, moist mucosa Neck: supple, no JVD Heart: RRR, no murmur Respiratory: no wheezes, rales, rhonchi Gastrointestinal: soft, non-tender, non-distended, normal bowel sounds Extremities: no cyanosis, no edema Neurological: cranial nerve grossly intact, no focal deficits Psychiatric: A&O x 3 Hosp A/P (1) Pneumonia due to COVID-19 virus Code(s): U07.1 - COVID-19; J12.89 - OTHER VIRAL PNEUMONIA Status: Acute (2) Acute respiratory failure with hypoxia Code(s): J96.01 - ACUTE RESPIRATORY FAILURE WITH HYPOXIA Status: Acute - Plan has finished full course remdesivir on 06/20, got convalescent plasma on 06/16 currently on high flow, eliquis, hydrocortisone 100mg q6h, dulera inh, xanax prn, doxy d/w , nothing else to offer couselled to keep himsef active inside the room and keep his mind occupied with either tv or a book he is talking to his and giving updates hemostable
[2020-06-24] MEDS: Lorazepam 2 MG/ML VIAL SLOW IVP PRN (20:35)
[2020-06-24] MEDS: Melatonin 3 MG TAB PO SCH (20:35)
[2020-06-24] MEDS: ALPRAZolam 0.25 MG TAB PO PRN (20:59)
[2020-06-25] MEDS: Hydrocortisone Sod Succ/PF 100 mg/2 ml Vial IVP SCH ×4 (01:52→20:35)
[2020-06-25 04:48] LABS: #Lymphocytes 0.4 thou/uL (1.20-3.40); #Monocytes 0.4 thou/uL (0.11-0.59); %Eosinophils 0.2 % (0.0-10.0); %Lymphocytes 2.4 % (21.0-51.0); %Monocytes 2.8 % (0.0-10.0); %Neutrophils 94.6 % (42.0-75.0); Hemoglobin 13.4 g/dL (14.0-18.0); Mean Corpuscular HGB CONC 37.4 g/dL (32.0-36.0); Mean Corpuscular Hemoglobin 29.7 pg (27.0-31.0); Mean Corpuscular Volume 79.4 fL (78.0-98.0); Mean Platelet Volume 7.9 fL (7.4-10.4); Platelet Count 218 thou/uL (130-400); RBC Distribution Width 13.9 % (11.5-14.5); White Blood Cell (WBC) Count 15.8 thou/uL (4.8-10.8)
[2020-06-25 05:16] LABS: ALT (SGPT) 49 U/L (8-55); AST (SGOT) 25 U/L (5-34); Albumin 2.7 g/dL (3.5-5.0); Alkaline Phosphatase 80 U/L (40-110); Bilirubin, Direct 0.4 mg/dL (0.1-0.3); Bilirubin, Total 0.9 mg/dL (0.2-1.2); Protein, Total 5.6 g/dL (6.0-8.3)
[2020-06-25 05:18] LABS: Anion Gap 14 mmol/L (10-20); BUN (Urea Nitrogen) 15 mg/dL (8.4-25.7); Calc. Creatinine Clearance 147 mL/min (70-130); Calcium 7.9 mg/dL (7.8-10.44); Carbon Dioxide 26 mmol/L (22-29); Chloride 103 mmol/L (98-107); Glucose 136 mg/dL (70-105); Potassium 3.6 mmol/L (3.5-5.1); Sodium 139 mmol/L (136-145)
[2020-06-25] MEDS: Cholecalciferol 1,000 UNITS (25 MCG) TAB PO SCH (08:00)
[2020-06-25] MEDS: Calcium Carbonate 600 MG + Vit D TAB PO SCH ×2 (08:00→16:55)
[2020-06-25] MEDS: Ascorbic Acid 500 mg Chewable Tablet PO SCH (08:01)
[2020-06-25] MEDS: guaiFENesin ER 600 MG TAB PO SCH ×2 (08:01→20:34)
[2020-06-25] MEDS: Multivit, Therapeutic 1 TAB PO SCH (08:01)
[2020-06-25] MEDS: Zinc Sulfate 220 MG CAP PO SCH (08:01)
[2020-06-25] MEDS: Apixaban 5 MG TAB PO SCH ×2 (08:01→20:33)
[2020-06-25] MEDS: Famotidine 20 MG TAB PO SCH ×2 (08:01→20:34)
[2020-06-25] MEDS: Benzonatate 100 MG CAP PO PRN ×3 (08:41→21:18)
[2020-06-25] MEDS: Mometasone 200 MCG/Formoterol 5 MCG 120 PUFF INHALER INH SCH ×2 (09:27→21:19)
--- NOTE | 2020-06-25 09:56 | PRG ---
DATE OF SERVICE: 06/25/2020 SUBJECTIVE: Krish Guallpa is a 54-year-old gentleman who is sitting on the side of the bed this morning. His temperature is 98. He is on high-flow. OBJECTIVE: VITAL SIGNS: His saturations are 90%, pulse . CHEST: Bilateral crackles and rhonchi. CARDIAC: Normal S1, S2. No gallops. ABDOMEN: No masses. LABORATORY DATA: White count 15,000. Lytes are normal. His D-dimer is 7.9. Last chest x-ray shows bilateral infiltrates. ASSESSMENT: Coronavirus positive pneumonia, respiratory failure. Continue doxy, steroids. We will follow. Job ID: [id number]
--- NOTE | 2020-06-25 14:02 | PDOC.HOSPP ---
- Subjective Encounter Date: 06/25/20 Encounter Time: 12:00 Subjective: feels better, no new complaints had an attempt to come off high flow last evening which didn't go well per patient and is back on high flow no chest pain or palp - Objective Vital Signs & Weight: Vital Signs (12 hours) Pulse Pulse BP BP Pulse Ox Pulse Ox Pulse Ox 06/25/20 11:09 96 06/25/20 09:27 93 L 06/25/20 09:00 90 91 122/81 129/83 90 L 91 L 06/25/20 08:00 98 Weight Weight 157 lb 4.8 oz Most Recent Monitor Data Heart Rate from ECG 90 NIBP 121/86 NIBP BP-Mean 97 Respiration from ECG 36 SpO2 89 I&O: 06/24/20 06/25/20 06/26/20 06:59 06:59 06:59 Intake Total 1280 2560 Output Total 3075 2150 Balance -1795 410 Result Diagrams: 06/25/20 04:15 06/25/20 04:15 Hospitalist ROS - Medication Medications: Active Medications Generic Name Dose Route Start Last Admin Trade Name Freq PRN Reason Stop Dose Admin Acetaminophen 650 mg 06/14/20 15:56 06/24/20 08:32 Acetaminophen 325 Mg Tab PO 650 mg Q6H PRN Administration Fever > 101 Alprazolam 0.25 mg 06/17/20 14:56 06/24/20 20:59 Alprazolam 0.25 Mg Tab PO 0.25 mg BID PRN Administration Anxiety Apixaban 5 mg 06/14/20 21:00 06/25/20 08:01 Apixaban 5 Mg Tab PO 5 mg BID JEOVANNY Administration Ascorbic Acid 1,000 mg 06/15/20 09:00 06/25/20 08:01 Ascorbic Acid 500 Mg Chewable Tablet PO 1,000 mg DAILY JEOVANNY Administration Benzonatate 200 mg 06/18/20 12:02 06/25/20 08:41 Benzonatate 100 Mg Cap PO 200 mg Q4H PRN Administration Cough Calcium/Vitamin D 1 tab 06/24/20 08:00 06/25/20 08:00 Calcium Carbonate 600 Mg + Vit D Tab PO 1 tab BID-WM JEOVANNY Administration Cholecalciferol 5,000 units 06/16/20 09:00 06/25/20 08:00 Cholecalciferol 1,000 Units (25 Mcg) Tab PO 5,000 units DAILY JEOVANNY Administration Famotidine 20 mg 06/14/20 21:00 06/25/20 08:01 Famotidine 20 Mg Tab PO 20 mg BID JEOVANNY Administration Guaifenesin 600 mg 06/14/20 21:00 06/25/20 08:01 Guaifenesin Er 600 Mg Tab PO 600 mg Q12HR JEOVANNY Administration Hydrocortisone Sodium Succinate 100 mg 06/15/20 02:00 06/25/20 13:56 Hydrocortisone Sod Succ/Pf 100 Mg/2 Ml Vial IVP 100 mg 0200,0800,1399,1999 JEOVANNY Administration Doxycycline Hyclate 100 mg/ 100 mls @ 100 mls/hr 06/23/20 20:00 06/25/20 09:26 Sodium Chloride IVPB 06/30/20 20:01 100 mls 799,1999 JEOVANNY Administration Lorazepam 1 mg 06/22/20 07:12 06/24/20 20:35 Lorazepam 2 Mg/Ml Vial SLOW IVP 1 mg Q6H PRN Administration Anxiety/Agitation Melatonin 6 mg 06/18/20 21:00 06/24/20 20:35 Melatonin 3 Mg Tab PO 6 mg HS JEOVANNY Administration Mometasone Furoate/Formoterol Fumar 2 puff 06/14/20 18:30 06/25/20 09:27 Mometasone 200 Mcg/Formoterol 5 Mcg 120 Puff Inhaler INH 2 puff BID-RT JEOVANNY Administration Multivitamins 1 tab 06/24/20 09:00 06/25/20 08:01 Multivit, Therapeutic 1 Tab PO 1 tab DAILY JEOVANNY Administration Sodium Chloride 10 ml 06/15/20 09:00 06/25/20 08:02 Flush - Normal Saline 10 Ml Syringe IVF 10 ml Q12HR JEOVANNY Administration Sodium Chloride 10 ml 06/15/20 06:30 06/20/20 01:35 Flush - Normal Saline 10 Ml Syringe IVF 10 ml PRN PRN Administration Saline Flush Zinc Sulfate 220 mg 06/15/20 09:00 06/25/20 08:01 Zinc Sulfate 220 Mg Cap PO 220 mg DAILY JEOVANNY Administration - Exam General Appearance: awake alert Eye: PERRL, anicteric sclera ENT: no oropharyngeal lesions, moist mucosa Neck: supple, no JVD Heart: RRR, no murmur Respiratory: no wheezes, rales, rhonchi Gastrointestinal: soft, non-tender, non-distended, normal bowel sounds Extremities: no cyanosis, no edema Neurological: cranial nerve grossly intact, no focal deficits Psychiatric: normal affect, A&O x 3 Hosp A/P (1) Pneumonia due to COVID-19 virus Code(s): U07.1 - COVID-19; J12.89 - OTHER VIRAL PNEUMONIA Status: Acute (2) Acute respiratory failure with hypoxia Code(s): J96.01 - ACUTE RESPIRATORY FAILURE WITH HYPOXIA Status: Acute - Plan has finished full course remdesivir on 06/20, got convalescent plasma on 06/16 currently on high flow, eliquis, hydrocortisone 100mg q6h, dulera inh, xanax prn, doxy d/w , nothing else to offer at this juncture. couselled to keep himsef active inside the room and keep his mind occupied with either tv or a book he is talking to his and giving updates, his has tested +ve for covid now. hemostable
[2020-06-25] MEDS: Melatonin 3 MG TAB PO SCH (20:34)
[2020-06-25] MEDS: ALPRAZolam 0.25 MG TAB PO PRN (21:18)
[2020-06-26] MEDS: Hydrocortisone Sod Succ/PF 100 mg/2 ml Vial IVP SCH ×5 (01:58→22:40)
[2020-06-26 06:03] LABS: #Lymphocytes 0.4 thou/uL (1.20-3.40); #Monocytes 0.6 thou/uL (0.11-0.59); #Neutrophils 13.8 thou/uL (1.40-6.50); %Eosinophils 0.1 % (0.0-10.0); %Lymphocytes 2.7 % (21.0-51.0); %Monocytes 3.7 % (0.0-10.0); %Neutrophils 93.4 % (42.0-75.0); Hemoglobin 13.5 g/dL (14.0-18.0); Mean Corpuscular HGB CONC 35.8 g/dL (32.0-36.0); Mean Corpuscular Hemoglobin 28.5 pg (27.0-31.0); Mean Corpuscular Volume 79.5 fL (78.0-98.0); Platelet Count 220 thou/uL (130-400); Red Blood Cell (RBC) Count 4.75 mill/uL (4.70-6.10); White Blood Cell (WBC) Count 14.8 thou/uL (4.8-10.8)
[2020-06-26 06:19] LABS: Anion Gap 12 mmol/L (10-20); BUN (Urea Nitrogen) 13 mg/dL (8.4-25.7); Calc. Creatinine Clearance 133 mL/min (70-130); Carbon Dioxide 28 mmol/L (22-29); Chloride 104 mmol/L (98-107); Glucose 130 mg/dL (70-105); Potassium 3.6 mmol/L (3.5-5.1); Sodium 140 mmol/L (136-145)
[2020-06-26 06:22] LABS: ALT (SGPT) 59 U/L (8-55); AST (SGOT) 23 U/L (5-34); Albumin 2.7 g/dL (3.5-5.0); Alkaline Phosphatase 82 U/L (40-110); Bilirubin, Direct 0.5 mg/dL (0.1-0.3); Bilirubin, Total 1.1 mg/dL (0.2-1.2); Protein, Total 5.8 g/dL (6.0-8.3)
[2020-06-26] MEDS: Mometasone 200 MCG/Formoterol 5 MCG 120 PUFF INHALER INH SCH ×2 (07:31→18:21)
[2020-06-26] MEDS: Cholecalciferol 1,000 UNITS (25 MCG) TAB PO SCH (09:08)
[2020-06-26] MEDS: Calcium Carbonate 600 MG + Vit D TAB PO SCH ×2 (09:09→17:21)
[2020-06-26] MEDS: Zinc Sulfate 220 MG CAP PO SCH (09:09)
[2020-06-26] MEDS: Multivit, Therapeutic 1 TAB PO SCH (09:09)
[2020-06-26] MEDS: Famotidine 20 MG TAB PO SCH ×2 (09:09→20:08)
[2020-06-26] MEDS: Apixaban 5 MG TAB PO SCH ×2 (09:09→20:08)
[2020-06-26] MEDS: guaiFENesin ER 600 MG TAB PO SCH ×2 (09:09→20:07)
[2020-06-26] MEDS: Ascorbic Acid 500 mg Chewable Tablet PO SCH (09:09)
--- NOTE | 2020-06-26 11:11 | PRG ---
DATE OF SERVICE: 06/26/2020 SUBJECTIVE: This morning, he is still on high-flow 60%, sats are still . CHEST: crackles. CARDIAC: Normal S1 and S2. No gallops. ABDOMEN: No masses. LABORATORY DATA: His AST is 59, slightly elevated from baseline. ASSESSMENT AND PLAN: Flores positive pneumonia, respiratory failure. Continue present treatment, antibiotics, steroids, supportive care. We will follow. Job ID: [id number]
--- NOTE | 2020-06-26 13:02 | PDOC.HOSPP ---
- Subjective Encounter Date: 06/26/20 Encounter Time: 08:15 Subjective: had an episode of resp distress last night, feels good now is on bed, no complaints - Objective Vital Signs & Weight: Vital Signs (12 hours) Temp Pulse Resp BP BP Pulse Ox 06/26/20 11:40 98.4 F 103 H 24 H 103/68 96 06/26/20 09:00 98.1 F 71 24 H 127/78 93 L 06/26/20 07:05 92 L 06/26/20 04:00 98.2 F 81 22 H 120/70 92 L Weight Admit Weight 157 lb 4.8 oz Weight 157 lb 4.8 oz Most Recent Monitor Data Heart Rate from ECG 90 NIBP 121/86 NIBP BP-Mean 97 Respiration from ECG 36 SpO2 95 I&O: 06/25/20 06/26/20 06/27/20 06:59 06:59 06:59 Intake Total 2560 1720 Output Total 2150 1925 Balance 410 -205 Result Diagrams: 06/26/20 05:47 06/26/20 05:47 Hospitalist ROS - Medication Medications: Active Medications Generic Name Dose Route Start Last Admin Trade Name Freq PRN Reason Stop Dose Admin Acetaminophen 650 mg 06/14/20 15:56 06/24/20 08:32 Acetaminophen 325 Mg Tab PO 650 mg Q6H PRN Administration Fever > 101 Alprazolam 0.25 mg 06/17/20 14:56 06/25/20 21:18 Alprazolam 0.25 Mg Tab PO 0.25 mg BID PRN Administration Anxiety Apixaban 5 mg 06/14/20 21:00 06/26/20 09:09 Apixaban 5 Mg Tab PO 5 mg BID JEOVANNY Administration Ascorbic Acid 1,000 mg 06/15/20 09:00 06/26/20 09:09 Ascorbic Acid 500 Mg Chewable Tablet PO 1,000 mg DAILY JEOVANNY Administration Benzonatate 200 mg 06/18/20 12:02 06/25/20 21:18 Benzonatate 100 Mg Cap PO 200 mg Q4H PRN Administration Cough Calcium/Vitamin D 1 tab 06/24/20 08:00 06/26/20 09:09 Calcium Carbonate 600 Mg + Vit D Tab PO 1 tab BID-WM JEOVANNY Administration Cholecalciferol 5,000 units 06/16/20 09:00 06/26/20 09:08 Cholecalciferol 1,000 Units (25 Mcg) Tab PO 5,000 units DAILY JEOVANNY Administration Famotidine 20 mg 06/14/20 21:00 06/26/20 09:09 Famotidine 20 Mg Tab PO 20 mg BID JEOVANNY Administration Guaifenesin 600 mg 06/14/20 21:00 06/26/20 09:09 Guaifenesin Er 600 Mg Tab PO 600 mg Q12HR JEOVANNY Administration Hydrocortisone Sodium Succinate 100 mg 06/15/20 02:00 06/26/20 09:09 Hydrocortisone Sod Succ/Pf 100 Mg/2 Ml Vial IVP 100 mg 0200,0800,1400,1999 JEOVANNY Administration Doxycycline Hyclate 100 mg/ 100 mls @ 100 mls/hr 06/23/20 20:00 06/26/20 09:09 Sodium Chloride IVPB 06/30/20 20:01 100 mls 0800,1999 JEOVANNY Administration Lorazepam 1 mg 06/22/20 07:12 06/24/20 20:35 Lorazepam 2 Mg/Ml Vial SLOW IVP 1 mg Q6H PRN Administration Anxiety/Agitation Melatonin 6 mg 06/18/20 21:00 06/25/20 20:34 Melatonin 3 Mg Tab PO 6 mg HS JEOVANNY Administration Mometasone Furoate/Formoterol Fumar 2 puff 06/14/20 18:30 06/26/20 07:31 Mometasone 200 Mcg/Formoterol 5 Mcg 120 Puff Inhaler INH 2 puff BID-RT JEOVANNY Administration Multivitamins 1 tab 06/24/20 09:00 06/26/20 09:09 Multivit, Therapeutic 1 Tab PO 1 tab DAILY JEOVANNY Administration Sodium Chloride 10 ml 06/15/20 09:00 06/26/20 09:10 Flush - Normal Saline 10 Ml Syringe IVF 10 ml Q12HR JEOVANNY Administration Sodium Chloride 10 ml 06/15/20 06:30 06/20/20 01:35 Flush - Normal Saline 10 Ml Syringe IVF 10 ml PRN PRN Administration Saline Flush Zinc Sulfate 220 mg 06/15/20 09:00 06/26/20 09:09 Zinc Sulfate 220 Mg Cap PO 220 mg DAILY JEOVANNY Administration - Exam General Appearance: awake alert Eye: PERRL, anicteric sclera ENT: no oropharyngeal lesions, moist mucosa Neck: supple, no JVD Heart: RRR, no murmur Respiratory: no wheezes, rales, rhonchi Gastrointestinal: soft, non-tender, non-distended, normal bowel sounds Extremities: no cyanosis, no edema Neurological: cranial nerve grossly intact, no focal deficits Psychiatric: A&O x 3 Hosp A/P (1) Pneumonia due to COVID-19 virus Code(s): U07.1 - COVID-19; J12.89 - OTHER VIRAL PNEUMONIA Status: Acute (2) Acute respiratory failure with hypoxia Code(s): J96.01 - ACUTE RESPIRATORY FAILURE WITH HYPOXIA Status: Acute - Plan has finished full course remdesivir on 06/20, got convalescent plasma on 06/16 currently on high flow, eliquis, hydrocortisone 100mg q6h, dulera inh, xanax prn, doxy d/w , nothing else to offer at this juncture. couselled to keep himsef active inside the room and keep his mind occupied with either tv or a book he is talking to his and giving updates, his has tested +ve for covid. hemostable, no new changes, supportive care for now.
--- NOTE | 2020-06-26 13:54 | PRG ---
DATE OF SERVICE: 06/26/2020 SUBJECTIVE: The patient was transferred to the floor. He is a little bit of desaturation overnight, but now is at 96% with 60 L/minute, had to go up a bit on his high-flow nasal cannula rates. He is feeling okay. He is able to eat. He is able to do 400 feet walking yesterday downstairs in the IMCU. No chest pain. No diarrhea. No abdominal pain. OBJECTIVE: VITAL SIGNS: He is saturating 96% with 60 L and temperature is normal. LUNGS: Basilar inspiratory crackles. HEART: S1 and S2. Regular rate. ABDOMEN: Soft, not distended. EXTREMITIES: Moves all extremities equally. LABORATORY DATA: Sodium 140, creatinine 0.64, and ferritin is at 1009. CRP is at 3.83, which is down and D-dimer is elevated down to 7.05, and he is still on all those interventions with Eliquis, anti-inflammatories, hydrocortisone, doxycycline, etc. ASSESSMENT AND DISCUSSION: Severe COVID pneumonia with slow improvement. He is at the 21st day of illness, so he is not infectious anymore and he will continue with the slow recovery and I do hope other complications will not develop. Things to worry about would be cardiomyopathy, CVA, renal failure, but I think with inflammatory process improving, that the risk of those problems happening is less. Should start to aldo his corticosteroid dose. Job ID: [id number] [facility]
[2020-06-26] MEDS: Benzonatate 100 MG CAP PO PRN ×2 (14:40→20:21)
[2020-06-26] MEDS ORDERED: Albuterol Sulfate 1.25 MG/3 ML NEB NEB SCH (15:00)
[2020-06-26] MEDS: Albuterol 200 PUFF (6.7GM INHALER) INH SCH ×2 (17:21→22:41)
[2020-06-26] MEDS: Melatonin 3 MG TAB PO SCH (20:08)
[2020-06-26] MEDS: ALPRAZolam 0.25 MG TAB PO PRN (20:21)
[2020-06-27] MEDS: Hydrocortisone Sod Succ/PF 100 mg/2 ml Vial IVP SCH ×4 (04:42→22:51)
[2020-06-27] MEDS: ALPRAZolam 0.25 MG TAB PO PRN ×2 (04:48→20:03)
[2020-06-27] MEDS: Mometasone 200 MCG/Formoterol 5 MCG 120 PUFF INHALER INH SCH ×2 (06:45→17:54)
[2020-06-27 07:05] LABS: #Lymphocytes 0.5 thou/uL (1.20-3.40); #Monocytes 0.8 thou/uL (0.11-0.59); #Neutrophils 14.5 thou/uL (1.40-6.50); %Eosinophils 0.1 % (0.0-10.0); %Monocytes 5.2 % (0.0-10.0); %Neutrophils 91.7 % (42.0-75.0); Hemoglobin 13.4 g/dL (14.0-18.0); Mean Corpuscular Hemoglobin 29.3 pg (27.0-31.0); Mean Corpuscular Volume 81.2 fL (78.0-98.0); Platelet Count 210 thou/uL (130-400); RBC Distribution Width 14.3 % (11.5-14.5); Red Blood Cell (RBC) Count 4.58 mill/uL (4.70-6.10); White Blood Cell (WBC) Count 15.8 thou/uL (4.8-10.8)
[2020-06-27] MEDS: Albuterol 200 PUFF (6.7GM INHALER) INH SCH ×3 (07:05→22:51)
[2020-06-27 07:25] LABS: Anion Gap 11 mmol/L (10-20); BUN (Urea Nitrogen) 13 mg/dL (8.4-25.7); Calc. Creatinine Clearance 137 mL/min (70-130); Carbon Dioxide 30 mmol/L (22-29); Chloride 103 mmol/L (98-107); Glucose 126 mg/dL (70-105); Potassium 3.4 mmol/L (3.5-5.1); Sodium 141 mmol/L (136-145)
[2020-06-27 07:29] LABS: ALT (SGPT) 51 U/L (8-55); AST (SGOT) 20 U/L (5-34); Albumin 2.7 g/dL (3.5-5.0); Alkaline Phosphatase 79 U/L (40-110); Bilirubin, Direct 0.5 mg/dL (0.1-0.3); Bilirubin, Total 1.1 mg/dL (0.2-1.2); Protein, Total 5.7 g/dL (6.0-8.3)
[2020-06-27] MEDS: Famotidine 20 MG TAB PO SCH ×2 (08:47→19:53)
[2020-06-27] MEDS: Cholecalciferol 1,000 UNITS (25 MCG) TAB PO SCH (08:47)
[2020-06-27] MEDS: Ascorbic Acid 500 mg Chewable Tablet PO SCH (08:48)
[2020-06-27] MEDS: Calcium Carbonate 600 MG + Vit D TAB PO SCH ×2 (08:48→17:13)
[2020-06-27] MEDS: guaiFENesin ER 600 MG TAB PO SCH ×2 (08:48→19:54)
[2020-06-27] MEDS: Benzonatate 100 MG CAP PO PRN ×3 (08:48→21:06)
[2020-06-27] MEDS: Multivit, Therapeutic 1 TAB PO SCH (08:48)
[2020-06-27] MEDS: Zinc Sulfate 220 MG CAP PO SCH (08:48)
[2020-06-27] MEDS: Apixaban 5 MG TAB PO SCH ×2 (08:48→19:54)
[2020-06-27] MEDS ORDERED: Potassium Chloride 20 MEQ TAB PO SCH (10:00)
--- NOTE | 2020-06-27 10:10 | PRG ---
DATE OF SERVICE: 06/27/2020 SUBJECTIVE: Krish Guallpa remains in the hospital, high-flow. OBJECTIVE: VITAL SIGNS: Temperature 97, pulse 64, respirations 22, sats on 60 FiO2, blood pressure 129/89. CHEST: Bilateral crackles, rhonchi. CARDIAC: Normal S1, S2. No gallops. ABDOMEN: No masses. LABORATORY DATA: D-dimer is 6.52. His C-reactive protein decreased. White count 15,000. IMAGING STUDIES: X-ray shows bilateral infiltrates. ASSESSMENT AND PLAN: Respiratory failure, loco positive pneumonia. Day #12 in the hospital, very slow improvement. Continue steroids, empiric antibiotics, neb treatment. We will follow. Job ID: [id number]
--- NOTE | 2020-06-27 14:10 | PDOC.HOSPP ---
- Subjective Encounter Date: 06/27/20 Encounter Time: 08:20 Subjective: is sitting in chair, no sob, is wearing high flow - Objective Vital Signs & Weight: Vital Signs (12 hours) Temp Pulse Resp BP BP Pulse Ox 06/27/20 12:45 98 F 85 20 92/58 L 97 06/27/20 09:00 97.9 F 67 22 H 120/89 96 06/27/20 04:45 97.9 F 85 24 H 125/76 94 L Weight Admit Weight 157 lb 4.8 oz Weight 157 lb 4.8 oz Most Recent Monitor Data Heart Rate from ECG 90 NIBP 121/86 NIBP BP-Mean 97 Respiration from ECG 36 SpO2 95 I&O: 06/26/20 06/27/20 06/28/20 06:59 06:59 06:59 Intake Total 1720 1835 Output Total 1925 1500 Balance -205 335 Result Diagrams: 06/27/20 06:19 06/27/20 06:19 Hospitalist ROS - Medication Medications: Active Medications Generic Name Dose Route Start Last Admin Trade Name Freq PRN Reason Stop Dose Admin Acetaminophen 650 mg 06/14/20 15:56 06/24/20 08:32 Acetaminophen 325 Mg Tab PO 650 mg Q6H PRN Administration Fever > 101 Albuterol Sulfate 1 puff 06/26/20 15:00 06/27/20 07:05 Albuterol 200 Puff (6.7gm Inhaler) INH 1 puff [id number] JEOVANNY Administration Alprazolam 0.25 mg 06/17/20 14:56 06/27/20 04:48 Alprazolam 0.25 Mg Tab PO 0.25 mg BID PRN Administration Anxiety Apixaban 5 mg 06/14/20 21:00 06/27/20 08:48 Apixaban 5 Mg Tab PO 5 mg BID JEOVANNY Administration Ascorbic Acid 1,000 mg 06/15/20 09:00 06/27/20 08:48 Ascorbic Acid 500 Mg Chewable Tablet PO 1,000 mg DAILY JEOVANNY Administration Benzonatate 200 mg 06/18/20 12:02 06/27/20 08:48 Benzonatate 100 Mg Cap PO 200 mg Q4H PRN Administration Cough Calcium/Vitamin D 1 tab 06/24/20 08:00 06/27/20 08:48 Calcium Carbonate 600 Mg + Vit D Tab PO 1 tab BID-WM JEOVANNY Administration Cholecalciferol 5,000 units 06/16/20 09:00 06/27/20 08:47 Cholecalciferol 1,000 Units (25 Mcg) Tab PO 5,000 units DAILY JEOVANNY Administration Famotidine 20 mg 06/14/20 21:00 06/27/20 08:47 Famotidine 20 Mg Tab PO 20 mg BID JEOVANNY Administration Guaifenesin 600 mg 06/14/20 21:00 06/27/20 08:48 Guaifenesin Er 600 Mg Tab PO 600 mg Q12HR JEOVANNY Administration Hydrocortisone Sodium Succinate 100 mg 06/26/20 23:00 06/27/20 10:41 Hydrocortisone Sod Succ/Pf 100 Mg/2 Ml Vial IVP 100 mg 0500,1100,1700,2300 JEOVANNY Administration Doxycycline Hyclate 100 mg/ 100 mls @ 100 mls/hr 06/23/20 20:00 06/27/20 09:32 Sodium Chloride IVPB 06/30/20 20:01 100 mls 0800,2000 JEOVANNY Administration Lorazepam 1 mg 06/22/20 07:12 06/24/20 20:35 Lorazepam 2 Mg/Ml Vial SLOW IVP 1 mg Q6H PRN Administration Anxiety/Agitation Melatonin 6 mg 06/18/20 21:00 06/26/20 20:08 Melatonin 3 Mg Tab PO 6 mg HS JEOVANNY Administration Mometasone Furoate/Formoterol Fumar 2 puff 06/14/20 18:30 06/27/20 06:45 Mometasone 200 Mcg/Formoterol 5 Mcg 120 Puff Inhaler INH 2 puff BID-RT JEOVANNY Administration Multivitamins 1 tab 06/24/20 09:00 06/27/20 08:48 Multivit, Therapeutic 1 Tab PO 1 tab DAILY JEOVANNY Administration Sodium Chloride 10 ml 06/15/20 09:00 06/27/20 08:48 Flush - Normal Saline 10 Ml Syringe IVF 10 ml Q12HR JEOVANNY Administration Sodium Chloride 10 ml 06/15/20 06:30 06/20/20 01:35 Flush - Normal Saline 10 Ml Syringe IVF 10 ml PRN PRN Administration Saline Flush Zinc Sulfate 220 mg 06/15/20 09:00 06/27/20 08:48 Zinc Sulfate 220 Mg Cap PO 220 mg DAILY JEOVANNY Administration - Exam General Appearance: awake alert Eye: PERRL, anicteric sclera ENT: no oropharyngeal lesions, moist mucosa Neck: supple, no JVD Heart: RRR, no murmur Respiratory: no wheezes, rales, rhonchi Gastrointestinal: soft, non-tender, non-distended, normal bowel sounds Extremities: no cyanosis, no edema Neurological: cranial nerve grossly intact, no focal deficits Psychiatric: normal affect, A&O x 3 Hosp A/P (1) Pneumonia due to COVID-19 virus Code(s): U07.1 - COVID-19; J12.89 - OTHER VIRAL PNEUMONIA Status: Acute (2) Acute respiratory failure with hypoxia Code(s): J96.01 - ACUTE RESPIRATORY FAILURE WITH HYPOXIA Status: Acute - Plan has finished full course remdesivir on 06/20, got convalescent plasma on 06/16 currently on high flow, eliquis, hydrocortisone 100mg q6h, dulera inh, xanax prn, doxy d/w , nothing else to offer at this juncture. couselled to keep himsef active inside the room and keep his mind occupied with either tv or a book, he cant get [employer] connected. he is talking to his and giving updates, his has tested +ve for covid. hemostable, no new changes, supportive care for now.
[2020-06-27] MEDS: Melatonin 3 MG TAB PO SCH (19:53)
[2020-06-27] MEDS ORDERED: ALPRAZolam 0.5 MG TAB PO PRN (20:27)
[2020-06-28] MEDS: Lorazepam 2 MG/ML VIAL SLOW IVP PRN ×3 (03:14→18:24)
[2020-06-28] MEDS: Hydrocortisone Sod Succ/PF 100 mg/2 ml Vial IVP SCH ×4 (05:00→23:14)
[2020-06-28 05:59] LABS: #Lymphocytes 0.6 thou/uL (1.20-3.40); #Monocytes 1.1 thou/uL (0.11-0.59); %Eosinophils 0.2 % (0.0-10.0); %Lymphocytes 3.5 % (21.0-51.0); %Neutrophils 90.3 % (42.0-75.0); Hemoglobin 12.7 g/dL (14.0-18.0); Mean Corpuscular HGB CONC 36.5 g/dL (32.0-36.0); Mean Corpuscular Hemoglobin 29.7 pg (27.0-31.0); Mean Corpuscular Volume 81.4 fL (78.0-98.0); Mean Platelet Volume 9.1 fL (7.4-10.4); Platelet Count 198 thou/uL (130-400); RBC Distribution Width 14.5 % (11.5-14.5); Red Blood Cell (RBC) Count 4.27 mill/uL (4.70-6.10); White Blood Cell (WBC) Count 17.7 thou/uL (4.8-10.8)
[2020-06-28] MEDS: Benzonatate 100 MG CAP PO PRN ×2 (06:14→10:06)
[2020-06-28] MEDS: Mometasone 200 MCG/Formoterol 5 MCG 120 PUFF INHALER INH SCH ×2 (06:14→18:58)
[2020-06-28] MEDS: Albuterol 200 PUFF (6.7GM INHALER) INH SCH ×2 (06:14→14:22)
[2020-06-28 06:16] LABS: Anion Gap 13 mmol/L (10-20); BUN (Urea Nitrogen) 11 mg/dL (8.4-25.7); Calc. Creatinine Clearance 161 mL/min (70-130); Calcium 7.7 mg/dL (7.8-10.44); Carbon Dioxide 26 mmol/L (22-29); Chloride 105 mmol/L (98-107); Glucose 141 mg/dL (70-105); Potassium 3.6 mmol/L (3.5-5.1); Sodium 140 mmol/L (136-145)
[2020-06-28 06:18] LABS: ALT (SGPT) 49 U/L (8-55); AST (SGOT) 28 U/L (5-34); Albumin 2.4 g/dL (3.5-5.0); Alkaline Phosphatase 83 U/L (40-110); Bilirubin, Direct 0.3 mg/dL (0.1-0.3); Bilirubin, Total 0.8 mg/dL (0.2-1.2); Protein, Total 5.3 g/dL (6.0-8.3)
[2020-06-28] MEDS: Cholecalciferol 1,000 UNITS (25 MCG) TAB PO SCH (08:04)
[2020-06-28] MEDS: guaiFENesin ER 600 MG TAB PO SCH ×2 (08:05→20:16)
[2020-06-28] MEDS: Famotidine 20 MG TAB PO SCH ×2 (08:05→20:16)
[2020-06-28] MEDS: Multivit, Therapeutic 1 TAB PO SCH (08:05)
[2020-06-28] MEDS: Apixaban 5 MG TAB PO SCH ×2 (08:05→20:16)
[2020-06-28] MEDS: Ascorbic Acid 500 mg Chewable Tablet PO SCH (08:05)
[2020-06-28] MEDS: Calcium Carbonate 600 MG + Vit D TAB PO SCH ×2 (08:05→17:22)
[2020-06-28] MEDS: Zinc Sulfate 220 MG CAP PO SCH (08:06)
--- NOTE | 2020-06-28 10:08 | RAD ---
EXAM: Chest one view: HISTORY: Follow-up Covid pneumonia COMPARISON: 06/22/2020 FINDINGS: Heart size: Within normal limits. Lungs: Fairly extensive minimally progressive bilateral alveolar and groundglass opacity changes thro ughout both lungs evidence for Covid pneumonia. No evidence for confluent lobar pneumonia, significant pleural effusion, acute edema, or pneumothorax , or other significant acute process. IMPRESSION: Minimally progressive bilateral Covid pneumonia.
[2020-06-28] MEDS ORDERED: Morphine 4 MG/ML VIAL ONE (12:49)
[2020-06-28] MEDS ORDERED: guaiFENesin/Codeine Phosphate 200 mg/20 mg 10 ml UD Cup PO PRN (12:53)
[2020-06-28] MEDS: Meropenem 2 GM, Admixture Fee 1 EACH in Sodium Chloride 0.9% 100 ML IVPB SCH ×2 (14:40→23:13)
--- NOTE | 2020-06-28 15:40 | PDOC.HOSPP ---
- Subjective Encounter Date: 06/28/20 Encounter Time: 09:00 Subjective: F/u: COVID pneumonia This morning the patient was feeling very anxious and short of breath. He was on high flow nasal cannula and desaturated to 88% this morning. The patient told nursing he did not feel comfortable being in an unmonitored bed overnight so he was transferred to the ICU. He respiratory rate increased to 51 so he was started on BIPAP. Patient complains that he is hungry. However as I was talking to him the patient appeared to be tiring out and he seemed less responsive . 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 - Objective Vital Signs & Weight: Vital Signs (12 hours) Temp Pulse Resp BP Pulse Ox Pulse Ox Pulse Ox 06/28/20 12:52 105 H 38 H 94 L 06/28/20 12:13 98.5 F 06/28/20 12:00 96 06/28/20 11:30 92 L 06/28/20 10:50 89 L 94 L 06/28/20 08:00 97.9 F 94 24 H 120/75 90 L Pulse Ox 06/28/20 12:52 06/28/20 12:13 06/28/20 12:00 06/28/20 11:30 06/28/20 10:50 96 06/28/20 08:00 Weight Admit Weight 157 lb 4.8 oz Weight 165 lb 5.547 oz Most Recent Monitor Data Heart Rate from ECG 107 NIBP 150/96 NIBP BP-Mean 114 Respiration from ECG 42 SpO2 95 I&O: 06/27/20 06/28/20 06/29/20 06:59 06:59 06:59 Intake Total 1835 2080 100 Output Total 1500 2500 1200 Balance 335 -420 -1100 Result Diagrams: 06/28/20 05:10 06/28/20 05:10 Hospitalist ROS - Review of Systems Constitutional: denies: fever, chills - Medication Medications: Active Medications Generic Name Dose Route Start Last Admin Trade Name Freq PRN Reason Stop Dose Admin Acetaminophen 650 mg 06/14/20 15:56 06/24/20 08:32 Acetaminophen 325 Mg Tab PO 650 mg Q6H PRN Administration Fever > 101 Albuterol/Ipratropium 3 ml 06/28/20 14:30 11/07/20 14:28 Ipratropium/Albuterol Sulfate 3 Ml Neb NEB Not Given [id number] JEOVANNY Apixaban 5 mg 06/14/20 21:00 06/28/20 08:05 Apixaban 5 Mg Tab PO 5 mg BID JEOVANNY Administration Ascorbic Acid 1,000 mg 06/15/20 09:00 06/28/20 08:05 Ascorbic Acid 500 Mg Chewable Tablet PO 1,000 mg DAILY JEOVANNY Administration Benzonatate 200 mg 06/18/20 12:02 06/28/20 10:06 Benzonatate 100 Mg Cap PO 200 mg Q4H PRN Administration Cough Calcium/Vitamin D 1 tab 06/24/20 08:00 06/28/20 08:05 Calcium Carbonate 600 Mg + Vit D Tab PO 1 tab BID-WM JEOVANNY Administration Cholecalciferol 5,000 units 06/16/20 09:00 06/28/20 08:04 Cholecalciferol 1,000 Units (25 Mcg) Tab PO 5,000 units DAILY JEOVANNY Administration Famotidine 20 mg 06/14/20 21:00 06/28/20 08:05 Famotidine 20 Mg Tab PO 20 mg BID JEOVANNY Administration Guaifenesin 600 mg 06/14/20 21:00 06/28/20 08:05 Guaifenesin Er 600 Mg Tab PO 600 mg Q12HR JEOVANNY Administration Hydrocortisone Sodium Succinate 100 mg 06/26/20 23:00 06/28/20 11:24 Hydrocortisone Sod Succ/Pf 100 Mg/2 Ml Vial IVP 100 mg 0500,1100,1700,2300 JEOVANNY Administration Doxycycline Hyclate 100 mg/ 100 mls @ 100 mls/hr 06/23/20 20:00 06/28/20 10:06 Sodium Chloride IVPB 06/30/20 20:01 100 mls 0800,2000 JEOVANNY Administration Meropenem 2 gm/ Miscellaneous 100 mls @ 200 mls/hr 06/28/20 14:00 06/28/20 14:40 Medication 1 each/ Sodium IVPB 100 mls Chloride Q8HR JEOVANNY Administration Lorazepam 1 mg 06/22/20 07:12 06/28/20 12:32 Lorazepam 2 Mg/Ml Vial SLOW IVP 1 mg Q6H PRN Administration Anxiety/Agitation Mometasone Furoate/Formoterol Fumar 2 puff 06/14/20 18:30 06/28/20 06:14 Mometasone 200 Mcg/Formoterol 5 Mcg 120 Puff Inhaler INH 2 puff BID-RT JEOVANNY Administration Multivitamins 1 tab 06/24/20 09:00 06/28/20 08:05 Multivit, Therapeutic 1 Tab PO 1 tab DAILY JEOVANNY Administration Sodium Chloride 10 ml 06/15/20 09:00 06/28/20 08:06 Flush - Normal Saline 10 Ml Syringe IVF 10 ml Q12HR JEOVANNY Administration Sodium Chloride 10 ml 06/15/20 06:30 06/20/20 01:35 Flush - Normal Saline 10 Ml Syringe IVF 10 ml PRN PRN Administration Saline Flush Zinc Sulfate 220 mg 06/15/20 09:00 06/28/20 08:06 Zinc Sulfate 220 Mg Cap PO 220 mg DAILY JEOVANNY Administration - Exam General - other findings: answers some questions but drifts into sleep Eye: PERRL, anicteric sclera ENT: normocephalic atraumatic, no oropharyngeal lesions Neck: no JVD Heart: RRR, no murmur, no gallops, no rubs Respiratory: no wheezes, no rales, no ronchi Respiratory - other findings: diminished breath sounds Gastrointestinal: soft, non-tender, non-distended, normal bowel sounds Extremities: no cyanosis, no clubbing, no edema Skin: normal turgor, no lesions, no rashes Neurological: cranial nerve grossly intact, normal sensation to touch, no new deficit Musculoskeletal: normal tone, normal strength, no muscle wasting Psychiatric: normal affect, normal behavior Hosp A/P - Plan CTA chest 06/14: 1.8 cm left kidney cyst. No PE, bilateral ground glass infiltrates Chest X ray 06/28: minimally progressive COVID pneumonia This is a 54 year old male with past medical history of PVCS who presented with fevers, muscle aches and malaise, diagnosed with COVID, admitted to the floor and transitioned to ICU Acute hypoxic respiratory failure secondary to COVID pneumonia - chest X ray today shows progressive COVID pneumonia - the patient is on doxycycline day 5. WBC trending up to 17, meropenem added today by pulmonary - continue zinc, vitamin D - patient has been started on BIPAP today and has been transferred to the ICU - continue hydrocortisone and eliquis -d-dimer trending down to 4, ferritin downtrending - will add fingersticks q6 hours since NPO Anemia - Hb 12.7, will monitor Leukocytosis - WBC trending up to 17. Meropenem added as mentioned above - also is on high dose hydrocortisone Dispo: transfer to CCU
--- NOTE | 2020-06-28 15:44 | EKG ---
Test Reason : Blood Pressure : / mmHG Vent. Rate : 115 BPM Atrial Rate : 117 BPM P-R Int : 000 ms QRS Dur : 066 ms QT Int : 462 ms P-R-T Axes : 000 017 -04 degrees QTc Int : 639 ms Normal sinus rhythm with occasional Premature ventricular complexes Low voltage QRS T wave abnormality, consider inferior ischemia Abnormal ECG Confirmed by ALY HINES, MARYBETH ([id number]), communications editor ROXANNA CHAPA ([id number]) on 06/28/2020 3:43:45 PM Referred By: Confirmed By:MARYBETH LU MD
[2020-06-28] MEDS ORDERED: Dextrose 5 %-0.45 % NaCl 1,000 ML IV SCH (15:45)
[2020-06-28] MEDS ORDERED: Sodium Chloride 0.9% 1,000 ML IV SCH (17:00)
[2020-06-28] MEDS: Potassium Chloride 20 MEQ in Premix Bag 1 BAG IVPB SCH ×2 (17:22→21:39)
[2020-06-28] MEDS: Morphine 4 MG/ML VIAL SLOW IVP PRN ×3 (18:23→23:27)
[2020-06-29] MEDS: Lorazepam 2 MG/ML VIAL SLOW IVP PRN ×9 (00:33→23:36)
[2020-06-29] MEDS: Morphine 4 MG/ML VIAL SLOW IVP PRN ×2 (01:28→05:55)
[2020-06-29 05:21] LABS: Anion Gap 11 mmol/L (10-20); BUN (Urea Nitrogen) 10 mg/dL (8.4-25.7); Calc. Creatinine Clearance 149 mL/min (70-130); Calcium 7.9 mg/dL (7.8-10.44); Carbon Dioxide 30 mmol/L (22-29); Chloride 102 mmol/L (98-107); Glucose 136 mg/dL (70-105); Potassium 3.6 mmol/L (3.5-5.1); Sodium 139 mmol/L (136-145)
[2020-06-29 05:31] LABS: Band 5 % (5-11); Hemoglobin 13.1 g/dL (14.0-18.0); Lymphocytes 1 % (21-51); MDiff Complete? YES; Mean Corpuscular HGB CONC 36.6 g/dL (32.0-36.0); Mean Corpuscular Volume 79.1 fL (78.0-98.0); Mean Platelet Volume 8.3 fL (7.4-10.4); Monocytes 4 % (0-10); Neutrophil 90 % (42-75); Platelet Count 164 thou/uL (130-400); RBC Distribution Width 14.5 % (11.5-14.5); Red Blood Cell (RBC) Count 4.51 mill/uL (4.70-6.10); White Blood Cell (WBC) Count 20.7 thou/uL (4.8-10.8)
[2020-06-29 05:35] LABS: ALT (SGPT) 44 U/L (8-55); AST (SGOT) 21 U/L (5-34); Albumin 2.6 g/dL (3.5-5.0); Alkaline Phosphatase 86 U/L (40-110); Bilirubin, Direct 0.8 mg/dL (0.1-0.3); Bilirubin, Total 1.5 mg/dL (0.2-1.2); Protein, Total 5.9 g/dL (6.0-8.3)
[2020-06-29] MEDS: Hydrocortisone Sod Succ/PF 100 mg/2 ml Vial IVP SCH ×2 (05:54→10:42)
[2020-06-29] MEDS: Meropenem 2 GM, Admixture Fee 1 EACH in Sodium Chloride 0.9% 100 ML IVPB SCH ×3 (06:08→22:27)
[2020-06-29] MEDS: Mometasone 200 MCG/Formoterol 5 MCG 120 PUFF INHALER INH SCH ×2 (06:54→18:38)
[2020-06-29 07:13] LABS: Actual Bicarbonate (HCO3a) 27.6 mEq/L (22-28); Base Excess (BEa) 4.6 mEq/L (-2.0 to +3.0); Calcium, Ionized (arterial) 1.11 mmol/L (1.12-1.30); Carboxyhemoglobin (COHb) 1.7 gm% (0.0-3.0); Hemoglobin (Hb) 13.9 g/dL (14.0-18.0); Potassium - ABG Lab 3.41 mmol/L (3.70-5.30)
[2020-06-29 07:15] LABS: O2 Tension (PaO2), arterial 39.8 mmHg (80.0-100.0)
[2020-06-29 07:16] LABS: Puncture Site RBA
[2020-06-29] MEDS ORDERED: Propofol 1,000 MG/100 ML VIAL IV ONE (07:40)
[2020-06-29] MEDS: Propofol 1,000 MG/100 ML VIAL IV PRN ×3 (07:45→23:39)
--- NOTE | 2020-06-29 08:06 | RAD ---
RADIOGRAPH CHEST 1 VIEW: DATE: 06/29/2020 TIME: 7:44 AM HISTORY: 54 year old: Positive male in respiratory failure. COMPARISON: 06/28/2020 FINDINGS: There is a new endotracheal tube with distal tip in mid thoracic trachea. Again noted are the severe bilateral mixed interstitial and alveolar infiltrates, mostly alveolar, unchanged. No pneumothorax. No cardiomegaly. IMPRESSION: 1) status post intubation. 2) severe bilateral airspace disease, unchanged.
[2020-06-29] MEDS: Morphine 2 MG/ML VIAL SLOW IVP PRN ×2 (08:10→10:26)
[2020-06-29] MEDS ORDERED: Propofol BOLUS 1,000 MG/100 ML VIAL IV PRN (08:15)
[2020-06-29] MEDS ORDERED: Fentanyl BOLUS 250 ML IVPB PRN (08:15)
[2020-06-29] MEDS ORDERED: DISCONTINUE PREVIOUS NARCOTIC PAIN MEDICATIONS AND BENZODIAZEPINES FS SCH (08:15)
[2020-06-29] MEDS: fentaNYL Citrate/PF 2,000 MCG in Sodium Chloride 0.9% 60 ML IV SCH ×2 (08:26→20:05)
[2020-06-29 08:38] LABS: Actual Bicarbonate (HCO3a) 29.9 mEq/L (22-28); Base Excess (BEa) 3.5 mEq/L (-2.0 to +3.0); CO2 Tension 53.2 mmHg (35.0-45.0); Calcium, Ionized (arterial) 1.09 mmol/L (1.12-1.30); Carboxyhemoglobin (COHb) 1.2 gm% (0.0-3.0); Hemoglobin (Hb) 12.8 g/dL (14.0-18.0); O2 Tension (PaO2), arterial 61.3 mmHg (80.0-100.0); Potassium - ABG Lab 3.25 mmol/L (3.70-5.30); pH, Arterial 7.37 (7.35-7.45)
[2020-06-29 08:40] LABS: Puncture Site L.R.
[2020-06-29] MEDS ORDERED: Sterile Water 10 ML ONE (09:04)
[2020-06-29] MEDS ORDERED: Vecuronium 10 MG VIAL ONE ×2 (09:04→09:33)
[2020-06-29] MEDS: Vecuronium 10 MG VIAL IV PRN ×6 (10:09→23:36)
[2020-06-29 10:32] LABS: Base Excess (BEa) 1.6 mEq/L (-2.0 to +3.0); Calcium, Ionized (arterial) 1.16 mmol/L (1.12-1.30); Carboxyhemoglobin (COHb) 0.8 gm% (0.0-3.0); Hemoglobin (Hb) 13.8 g/dL (14.0-18.0); O2 Tension (PaO2), arterial 81.5 mmHg (80.0-100.0); Potassium - ABG Lab 3.66 mmol/L (3.70-5.30)
[2020-06-29 10:40] LABS: CO2 Tension 91.6 mmHg (35.0-45.0); pH, Arterial 7.17 (7.35-7.45)
[2020-06-29] MEDS: Zinc Sulfate 220 MG CAP PO SCH (11:03)
[2020-06-29] MEDS: guaiFENesin ER 600 MG TAB PO SCH ×2 (11:03→21:01)
[2020-06-29] MEDS: Multivit, Therapeutic 1 TAB PO SCH (11:03)
[2020-06-29] MEDS: Ascorbic Acid 500 mg Chewable Tablet PO SCH (11:04)
[2020-06-29] MEDS ORDERED: Acetaminophen 650 MG Suppository PR PRN (11:10)
[2020-06-29] MEDS: Sodium Bicarb 50 MEQ/50 ML Abboject 8.4% SYRINGE ONE ×2 (11:41→11:42)
[2020-06-29] MEDS: Famotidine 20 MG TAB PO SCH (11:46)
[2020-06-29] MEDS ORDERED: Vancomycin HCl 1 GM in Sodium Chloride 0.9% 250 ML 250 ML IVPB ONE (11:48)
[2020-06-29] MEDS: Cholecalciferol 1,000 UNITS (25 MCG) TAB PO SCH (11:53)
[2020-06-29] MEDS: Calcium Carbonate 600 MG + Vit D TAB PO SCH ×2 (11:54→18:09)
[2020-06-29] MEDS: Apixaban 5 MG TAB PO SCH (11:55)
[2020-06-29] MEDS ORDERED: Sodium Bicarb 50 MEQ/50 ML Abboject 8.4% SYRINGE ONE (12:11)
[2020-06-29] MEDS ORDERED: Vancomycin 1 GM in Premix Bag 1 BAG IVPB SCH (12:15)
[2020-06-29] MEDS ORDERED: Enoxaparin Sodium 60 MG/0.6 ML SYRINGE SC SCH (12:15)
[2020-06-29] MEDS ORDERED: Furosemide 100 MG/10 ML VIAL SLOW IVP SCH (12:15)
[2020-06-29] MEDS: methylPREDNISolone Sod Succ/PF 125 MG/2 ML VIAL IVP SCH ×2 (12:31→23:35)
[2020-06-29] MEDS: Sodium Bicarb 50 MEQ/50 ML Abboject 8.4% SYRINGE IVP SCH ×2 (12:39→13:03)
[2020-06-29] MEDS ORDERED: Norepinephrine 8 MG/0.9% NS 250 ML ONE (13:50)
[2020-06-29] MEDS ORDERED: Norepinephrine 8 MG/0.9% NS 250 ML IVPB SCH (15:00)
[2020-06-29 16:03] LABS: Actual Bicarbonate (HCO3a) 40.9 mEq/L (22-28); Base Excess (BEa) 12.1 mEq/L (-2.0 to +3.0); Calcium, Ionized (arterial) 1.06 mmol/L (1.12-1.30); Carboxyhemoglobin (COHb) 1.1 gm% (0.0-3.0); Hemoglobin (Hb) 13.5 g/dL (14.0-18.0); O2 Tension (PaO2), arterial 71.4 mmHg (80.0-100.0); Potassium - ABG Lab 3.51 mmol/L (3.70-5.30); pH, Arterial 7.35 (7.35-7.45)
[2020-06-29 16:05] LABS: ALV-art Gradient 294.925 mmHg (0-20); CO2 Tension 75.1 mmHg (35.0-45.0); Puncture Site RRA
--- NOTE | 2020-06-29 16:51 | PDOC.HOSPP ---
- Subjective Encounter Date: 06/29/20 Encounter Time: 09:00 Subjective: The patient was intubated this morning due to progressive desaturations. He was paralyzed at the bedside. 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 states she also had COVID but recovered - Objective Vital Signs & Weight: Vital Signs (12 hours) Pulse Resp BP Pulse Ox 06/29/20 14:54 106 H 125/80 06/29/20 14:00 30 H 06/29/20 13:44 114 H 06/29/20 12:00 39 H 06/29/20 11:36 135 H 97/51 L 06/29/20 10:00 45 H 06/29/20 08:00 20 06/29/20 07:37 138 H 157/107 H 06/29/20 06:56 126 H 46 H 93 L Weight Admit Weight 157 lb 4.8 oz Weight 163 lb 9.328 oz Most Recent Monitor Data Heart Rate from ECG 108 NIBP 115/75 NIBP BP-Mean 88 Respiration from ECG 0 SpO2 100 I&O: 06/28/20 06/29/20 06/30/20 06:59 06:59 06:59 Intake Total 2080 841 Output Total 2500 3210 120 Balance -420 -2369 -120 Result Diagrams: 06/29/20 04:50 06/29/20 04:50 Additional Labs: Accuchecks 06/29/20 06/29/20 06/28/20 16:28 01:14 18:17 POC Glucose 208 H 140 H 146 H Hospitalist ROS - Medication Medications: Active Medications Generic Name Dose Route Start Last Admin Trade Name Stevenq PRN Reason Stop Dose Admin Acetaminophen 650 mg 06/14/20 15:56 06/24/20 08:32 Acetaminophen 325 Mg Tab PO 650 mg Q6H PRN Administration Fever > 101 Albuterol/Ipratropium 3 ml 06/28/20 14:30 06/29/20 14:54 Ipratropium/Albuterol Sulfate 3 Ml Neb NEB 3 ml [id number] JEOVANNY Administration Ascorbic Acid 1,000 mg 06/15/20 09:00 06/29/20 11:04 Ascorbic Acid 500 Mg Chewable Tablet PO 1,000 mg DAILY JEOVANNY Administration Benzonatate 200 mg 06/18/20 12:02 06/28/20 10:06 Benzonatate 100 Mg Cap PO 200 mg Q4H PRN Administration Cough Calcium/Vitamin D 1 tab 06/24/20 08:00 06/29/20 11:54 Calcium Carbonate 600 Mg + Vit D Tab PO 1 tab BID-WM JEOVANNY Administration Cholecalciferol 5,000 units 06/16/20 09:00 06/29/20 11:53 Cholecalciferol 1,000 Units (25 Mcg) Tab PO 5,000 units DAILY JEOVANNY Administration Guaifenesin 600 mg 06/14/20 21:00 06/29/20 11:03 Guaifenesin Er 600 Mg Tab PO 600 mg Q12HR JEOVANNY Administration Meropenem 2 gm/ Miscellaneous 100 mls @ 200 mls/hr 06/28/20 14:00 06/29/20 13:09 Medication 1 each/ Sodium IVPB 100 mls Chloride Q8HR JEOVANNY Administration Sodium Chloride 1,000 mls @ 0 mls/hr 06/28/20 17:00 06/28/20 15:30 Normal Saline 0.9% IV 1,000 mls .Q0M JEOVANNY Administration KVO Fentanyl Citrate 2,000 mcg/ 100 mls @ 0 mls/hr 06/29/20 08:15 06/29/20 08:26 Sodium Chloride IV 07/29/20 08:15 100 mls INF JEOVANNY Administration Protocol Per Protocol Doxycycline Hyclate 100 mg/ 100 mls @ 100 mls/hr 06/29/20 13:00 06/29/20 13:09 Sodium Chloride IVPB 06/30/20 13:01 100 mls 0100,1300 JEOVANNY Administration Lorazepam 1 mg 06/22/20 07:12 06/29/20 06:53 Lorazepam 2 Mg/Ml Vial SLOW IVP 1 mg Q6H PRN Administration Anxiety/Agitation Lorazepam 2 mg 06/29/20 08:15 06/29/20 15:31 Lorazepam 2 Mg/Ml Vial SLOW IVP 07/29/20 08:15 2 mg Q1H PRN Administration Breakthrough agitation Methylprednisolone Sodium Succinate 80 mg 06/29/20 12:00 06/29/20 12:31 Methylprednisolone Sod Succ/Pf 125 Mg/2 Ml Vial IVP 80 mg 0000,1200 JEOVANNY Administration Mometasone Furoate/Formoterol Fumar 2 puff 06/14/20 18:30 06/29/20 06:54 Mometasone 200 Mcg/Formoterol 5 Mcg 120 Puff Inhaler INH Not Given BID-RT JEOVANNY Morphine Sulfate 2 mg 06/29/20 08:15 06/29/20 10:26 Morphine 2 Mg/Ml Vial SLOW IVP 07/29/20 08:15 2 mg Q1H PRN Administration Breakthrough Pain/Agitation Multivitamins 1 tab 06/24/20 09:00 06/29/20 11:03 Multivit, Therapeutic 1 Tab PO 1 tab DAILY JEOVANNY Administration Propofol 1,000 mg 06/29/20 08:15 06/29/20 11:58 Propofol 1,000 Mg/100 Ml Vial IV 07/29/20 08:15 1,000 mg INF PRN Administration TO ACHIEVE GOAL RASS Protocol Sodium Chloride 10 ml 06/15/20 09:00 06/29/20 08:00 Flush - Normal Saline 10 Ml Syringe IVF 10 ml Q12HR JEOVANNY Administration Sodium Chloride 10 ml 06/15/20 06:30 06/20/20 01:35 Flush - Normal Saline 10 Ml Syringe IVF 10 ml PRN PRN Administration Saline Flush Vecuronium [place] 10 mg 06/29/20 09:27 06/29/20 15:31 Vecuronium 10 Mg Vial IV 10 mg Q1H PRN Administration NEEDED Zinc Sulfate 220 mg 06/15/20 09:00 06/29/20 11:03 Zinc Sulfate 220 Mg Cap PO 220 mg DAILY JEOVANNY Administration - Exam General - other findings: intubated Eye: PERRL, anicteric sclera ENT: normocephalic atraumatic, no oropharyngeal lesions Neck: no JVD Heart: RRR, no murmur, no gallops, no rubs Respiratory: CTAB, no wheezes, no rales, no ronchi Gastrointestinal: soft, non-tender, non-distended, normal bowel sounds Extremities: no cyanosis, no clubbing, no edema Hosp A/P - Plan CTA chest 06/14: 1.8 cm left kidney cyst. No PE, bilateral ground glass infiltrates Chest X ray 06/28: minimally progressive COVID pneumonia Chest X ray 06/29: severe bilateral airspace disease This is a 54 year old male with past medical history of PVCS who presented with fevers, muscle aches and malaise, diagnosed with COVID, admitted to the floor and transitioned to ICU Acute hypoxic respiratory failure secondary to COVID pneumonia - chest X ray 06/28 showed progressive COVID pneumonia and today is unchanged. He required intubation this morning . - continue doxycycline day 6. Started vancomycin and meropenem today and convalescent plasma added - continue zinc, vitamin D - ferritin is up to 1111. Anemia - Hb 12.7, will monitor Leukocytosis - WBC trending up to 20. Patient started on vancomycin and meropenem . Also on doxycycline - also is on high dose hydrocortisone - continue to trend CBC Dispo: transfer to CCU
--- NOTE | 2020-06-29 18:39 | PRG ---
DATE OF SERVICE: 06/29/2020 SUBJECTIVE: Krish Guallpa required intubation this morning. His static compliance is horrible. His hemodynamics have been reasonably stable, although with sedation, he has required a low dose of Levophed. I have tried to give him Lasix to see if he has any mobilized pulmonary volume that might lead to improvement, but he is clearly declining. He received a repeat dose of convalescent plasma yesterday. He has been empirically treated with broad-spectrum antimicrobial therapy in the event that this might be a bacterial process. I suppose this could be a fungal process as well, so added micafungin although I doubt it is. Unfortunately, his prognosis is horrible. This has been relayed to his graciously by Dr. Anderson. Critical care time 30 min. Job ID: [id number] [facility]
[2020-06-29] MEDS: Micafungin 100 MG in Sodium Chloride 0.9% 100 ML IVPB SCH (20:11)
[2020-06-29] MEDS: Famotidine/PF 20 mg/2ml Vial SLOW IVP SCH (21:01)
[2020-06-29] MEDS: Enoxaparin Sodium 60 MG/0.6 ML SYRINGE SC SCH (21:01)
[2020-06-30] MEDS: Vecuronium 10 MG VIAL IV PRN ×6 (00:31→17:10)
[2020-06-30] MEDS: Lorazepam 2 MG/ML VIAL SLOW IVP PRN ×7 (00:31→17:10)
[2020-06-30 04:49] LABS: BUN (Urea Nitrogen) 21 mg/dL (8.4-25.7); Calc. Creatinine Clearance 111 mL/min (70-130); Calcium 8.3 mg/dL (7.8-10.44); Glucose 180 mg/dL (70-105)
[2020-06-30 04:58] LABS: Anion Gap 16 mmol/L (10-20); Carbon Dioxide 34 mmol/L (22-29); Chloride 101 mmol/L (98-107); Potassium 3.8 mmol/L (3.5-5.1); Sodium 147 mmol/L (136-145)
[2020-06-30 05:03] LABS: ALT (SGPT) 38 U/L (8-55); AST (SGOT) 19 U/L (5-34); Albumin 2.3 g/dL (3.5-5.0); Alkaline Phosphatase 75 U/L (40-110); Bilirubin, Direct 2.1 mg/dL (0.1-0.3); Bilirubin, Total 2.7 mg/dL (0.2-1.2); Protein, Total 5.6 g/dL (6.0-8.3)
[2020-06-30] MEDS: Meropenem 2 GM, Admixture Fee 1 EACH in Sodium Chloride 0.9% 100 ML IVPB SCH ×3 (05:50→21:16)
[2020-06-30] MEDS: Propofol 1,000 MG/100 ML VIAL IV PRN ×3 (05:58→22:37)
[2020-06-30 06:07] LABS: Band 13 % (5-11); Hemoglobin 12.3 g/dL (14.0-18.0); MDiff Complete? YES; Mean Corpuscular Hemoglobin 28.5 pg (27.0-31.0); Mean Corpuscular Volume 79.2 fL (78.0-98.0); Mean Platelet Volume 8.4 fL (7.4-10.4); Monocytes 1 % (0-10); Neutrophil 85 % (42-75); Platelet Count 173 thou/uL (130-400); RBC Distribution Width 14.8 % (11.5-14.5); Reactive Lymphocytes 1 % (0-10); Red Blood Cell (RBC) Count 4.32 mill/uL (4.70-6.10); White Blood Cell (WBC) Count 17.6 thou/uL (4.8-10.8)
[2020-06-30 06:17] LABS: Ovalocytes MODERATE= 6-15 cells (100X) (0-1/hpf)
[2020-06-30] MEDS: fentaNYL Citrate/PF 2,000 MCG in Sodium Chloride 0.9% 60 ML IV SCH ×2 (06:28→21:20)
[2020-06-30] MEDS ORDERED: Dextrose 5% in Water 1,000 ML IV PRN (07:56)
[2020-06-30] MEDS ORDERED: Dextrose 50% Abboject 50 ML SYRINGE SLOW IVP PRN (07:56)
--- NOTE | 2020-06-30 07:59 | PRG ---
DATE OF SERVICE: 06/30/2020 Thirty five minutes critical care time. SUBJECTIVE: The patient remains intubated on mechanical ventilation. There have been no acute changes overnight. OBJECTIVE: VITAL SIGNS: His temperature is 98.4, pulse 60, blood pressure 123/84. He is on Levophed at 1 mcg/minute, also sedated on propofol and fentanyl. 24-hour intake 1466, output 3000. HEENT: Unremarkable. NECK: No JVD. LUNGS: Coarse rhonchi bilaterally. CARDIOVASCULAR: S1 and S2, slightly bradycardic. ABDOMEN: Soft and nontender. EXTREMITIES: No clubbing, cyanosis, or edema. LABORATORY DATA: Sodium 147, potassium 3.8, chloride 101, CO2 of 34, BUN 21, creatinine 0.8, glucose 180. Ferritin 1616. C-reactive protein 20. ABG pending. White blood cell count 17.6, hematocrit 34.2, and platelet count 173. ASSESSMENT: 1. COVID-19 infection with pneumonia. 2. Acute respiratory failure, requiring mechanical ventilation. 3. Mild hypernatremia. PLAN: Unfortunately, his prognosis is extremely poor. He has been given IV steroids, convalescent plasma. He is on multiple antibiotics and antifungals. We will get an ABG this morning. He may need to have his inhalation time increased. He is at high risk for pneumothoraces. Job ID: [id number]
[2020-06-30] MEDS: Mometasone 200 MCG/Formoterol 5 MCG 120 PUFF INHALER INH SCH ×2 (08:03→18:19)
[2020-06-30 08:17] LABS: Actual Bicarbonate (HCO3a) 39.8 mEq/L (22-28); Base Excess (BEa) 14.1 mEq/L (-2.0 to +3.0); CO2 Tension 54.6 mmHg (35.0-45.0); Calcium, Ionized (arterial) 1.13 mmol/L (1.12-1.30); Carboxyhemoglobin (COHb) 0.8 gm% (0.0-3.0); Hemoglobin (Hb) 12.6 g/dL (14.0-18.0); Potassium - ABG Lab 3.48 mmol/L (3.70-5.30); pH, Arterial 7.48 (7.35-7.45)
[2020-06-30 08:19] LABS: O2 Tension (PaO2), arterial 57.7 mmHg (80.0-100.0); Puncture Site RRA
[2020-06-30] MEDS: Ascorbic Acid 500 mg Chewable Tablet PO SCH (08:27)
[2020-06-30] MEDS: Multivit, Therapeutic 1 TAB PO SCH (08:28)
[2020-06-30] MEDS: Calcium Carbonate 600 MG + Vit D TAB PO SCH ×2 (08:28→16:37)
[2020-06-30] MEDS: Famotidine/PF 20 mg/2ml Vial SLOW IVP SCH ×2 (08:28→21:15)
[2020-06-30] MEDS: Zinc Sulfate 220 MG CAP PO SCH (08:28)
[2020-06-30] MEDS: Enoxaparin Sodium 60 MG/0.6 ML SYRINGE SC SCH ×2 (08:28→21:15)
[2020-06-30] MEDS: guaiFENesin ER 600 MG TAB PO SCH ×2 (08:28→21:17)
[2020-06-30] MEDS: Cholecalciferol 1,000 UNITS (25 MCG) TAB PO SCH (08:31)
[2020-06-30] MEDS: Morphine 2 MG/ML VIAL SLOW IVP PRN (09:41)
--- NOTE | 2020-06-30 09:44 | RAD ---
PORTABLE CHEST: Date: 06/30/2020 COMPARISON: 06/29/2020 exam. HISTORY: COVID pneumonia follow-up. FINDINGS: Endotracheal tube is in satisfactory position. There has been placement of a NG tube which is below t he hemidiaphragm. Parenchymal infiltrates are stable. IMPRESSION: Placement of a NG tube. Otherwise stable exam. POS: OFF
[2020-06-30] MEDS: Sodium Chloride 0.45% 1,000 ML IV SCH (11:15)
[2020-06-30] MEDS ORDERED: REMDESIVIR (EUA) 200 MG in Sodium Chloride 0.9% 250 ML 210 ML IV SCH (11:45)
[2020-06-30] MEDS: methylPREDNISolone Sod Succ/PF 125 MG/2 ML VIAL IVP SCH (12:32)
[2020-06-30] MEDS: HumaLOG 300 UNITS/3 ML VIAL SC PRN ×2 (16:37→21:38)
--- NOTE | 2020-06-30 17:53 | PDOC.HOSPP ---
- Subjective Encounter Date: 06/30/20 Encounter Time: 08:00 Subjective: F/u: COVId pneumonia The patient is still intubated and paralyzed. He was started on levofed overnight due to hypotension and low urine output. Propofol has been weaned down to 1 mcg and blood pressure has improved and urine output has improved. ABG has improved with pCo2 down to 57. Discussed starting fluids since patient appears dehydrated. There is also plan to start tube feeding tonight - Objective Vital Signs & Weight: Vital Signs (12 hours) Temp Pulse Resp BP Pulse Ox 06/30/20 16:00 98.7 F 30 H 06/30/20 15:13 62 125/84 06/30/20 15:12 60 30 H 96 06/30/20 14:00 30 H 06/30/20 12:00 30 H 06/30/20 10:46 63 134/88 06/30/20 10:45 63 30 H 95 06/30/20 10:00 30 H 06/30/20 08:03 65 126/89 06/30/20 08:00 30 H 96 06/30/20 07:59 59 L 30 H 96 06/30/20 06:00 30 H Weight Admit Weight 157 lb 4.8 oz Weight 168 lb 3.403 oz Most Recent Monitor Data Heart Rate from ECG 61 NIBP 127/79 NIBP BP-Mean 95 Respiration from ECG 30 SpO2 95 I&O: 06/29/20 06/30/20 07/01/20 06:59 06:59 06:59 Intake Total 841 1466.3 529 Output Total 3210 3000 615 Balance -2369 -1533.7 -86 Result Diagrams: 06/30/20 04:00 06/30/20 03:30 Additional Labs: Accuchecks 06/30/20 06/30/20 06/29/20 16:21 09:27 21:09 POC Glucose 152 H 180 H 189 H Hospitalist ROS - Review of Systems ROS unobtainable: due to endotracheal tube - Medication Medications: Active Medications Generic Name Dose Route Start Last Admin Trade Name Freq PRN Reason Stop Dose Admin Acetaminophen 650 mg 06/14/20 15:56 06/24/20 08:32 Acetaminophen 325 Mg Tab PO 650 mg Q6H PRN Administration Fever > 101 Albuterol/Ipratropium 3 ml 06/28/20 14:30 06/30/20 15:12 Ipratropium/Albuterol Sulfate 3 Ml Neb NEB 3 ml [id number] JEOVANNY Administration Ascorbic Acid 1,000 mg 06/15/20 09:00 06/30/20 08:27 Ascorbic Acid 500 Mg Chewable Tablet PO 1,000 mg DAILY JEOVANNY Administration Benzonatate 200 mg 06/18/20 12:02 06/28/20 10:06 Benzonatate 100 Mg Cap PO 200 mg Q4H PRN Administration Cough Calcium/Vitamin D 1 tab 06/24/20 08:00 06/30/20 16:37 Calcium Carbonate 600 Mg + Vit D Tab PO 1 tab BID-WM JEOVANNY Administration Cholecalciferol 5,000 units 06/16/20 09:00 06/30/20 08:31 Cholecalciferol 1,000 Units (25 Mcg) Tab PO 5,000 units DAILY JEOVANNY Administration Enoxaparin Sodium 60 mg 06/29/20 21:00 06/30/20 08:28 Enoxaparin Sodium 60 Mg/0.6 Ml Syringe SC 60 mg 09,2099 JEOVANNY Administration Famotidine 20 mg 06/29/20 21:00 06/30/20 08:28 Famotidine/Pf 20 Mg/2ml Vial SLOW IVP 20 mg BID JEOVANNY Administration Guaifenesin 600 mg 06/14/20 21:00 06/30/20 08:28 Guaifenesin Er 600 Mg Tab PO 600 mg Q12HR JEOVANNY Administration Meropenem 2 gm/ Miscellaneous 100 mls @ 200 mls/hr 06/28/20 14:00 06/30/20 14:23 Medication 1 each/ Sodium IVPB 100 mls Chloride Q8HR JEOVANNY Administration Fentanyl Citrate 2,000 mcg/ 100 mls @ 0 mls/hr 06/29/20 08:15 06/30/20 06:28 Sodium Chloride IV 07/29/20 08:15 100 mls INF JEOVANNY Administration Protocol Per Protocol Micafungin Sodium 100 mg/ 100 mls @ 100 mls/hr 06/29/20 19:00 06/29/20 20:11 Sodium Chloride IVPB 100 mls Q24HR JEOVANNY Administration Sodium Chloride 1,000 mls @ 75 mls/hr 06/30/20 09:15 06/30/20 11:15 1/2 Normal Saline IV 1,000 mls .[id number] JEOVANNY Administration Insulin Human Lispro 0 units 06/30/20 07:56 06/30/20 16:37 Humalog 300 Units/3 Ml Vial SC 2 unit .MODERATE SLIDING SC PRN Administration Moderate Correctional Scale Lorazepam 1 mg 06/22/20 07:12 06/29/20 06:53 Lorazepam 2 Mg/Ml Vial SLOW IVP 1 mg Q6H PRN Administration Anxiety/Agitation Lorazepam 2 mg 06/29/20 08:15 06/30/20 17:10 Lorazepam 2 Mg/Ml Vial SLOW IVP 07/29/20 08:15 2 mg Q1H PRN Administration Breakthrough agitation Methylprednisolone Sodium Succinate 80 mg 06/29/20 12:00 06/30/20 12:32 Methylprednisolone Sod Succ/Pf 125 Mg/2 Ml Vial IVP 80 mg 0000,1200 JEOVANNY Administration Mometasone Furoate/Formoterol Fumar 2 puff 06/14/20 18:30 06/30/20 08:03 Mometasone 200 Mcg/Formoterol 5 Mcg 120 Puff Inhaler INH 2 puff BID-RT JEOVANNY Administration Morphine Sulfate 2 mg 06/29/20 08:15 06/30/20 09:41 Morphine 2 Mg/Ml Vial SLOW IVP 07/29/20 08:15 2 mg Q1H PRN Administration Breakthrough Pain/Agitation Multivitamins 1 tab 06/24/20 09:00 06/30/20 08:28 Multivit, Therapeutic 1 Tab PO 1 tab DAILY JEOVANNY Administration Propofol 1,000 mg 06/29/20 08:15 06/30/20 13:34 Propofol 1,000 Mg/100 Ml Vial IV 07/29/20 08:15 1,000 mg INF PRN Administration TO ACHIEVE GOAL RASS Protocol Sodium Chloride 10 ml 06/15/20 09:00 06/30/20 08:30 Flush - Normal Saline 10 Ml Syringe IVF 10 ml Q12HR JEOVANNY Administration Sodium Chloride 10 ml 06/15/20 06:30 06/20/20 01:35 Flush - Normal Saline 10 Ml Syringe IVF 10 ml PRN PRN Administration Saline Flush Vecuronium [place] 10 mg 06/29/20 09:27 06/30/20 17:10 Vecuronium 10 Mg Vial IV 10 mg Q1H PRN Administration NEEDED Zinc Sulfate 220 mg 06/15/20 09:00 06/30/20 08:28 Zinc Sulfate 220 Mg Cap PO 220 mg DAILY JEOVANNY Administration - Exam General - other findings: intubated Eye: PERRL, anicteric sclera ENT: normocephalic atraumatic, no oropharyngeal lesions Neck: supple, no JVD Heart: RRR, no murmur, no gallops, no rubs Respiratory - other findings: diminished breath sounds bilaterally Gastrointestinal: soft, non-tender, non-distended, normal bowel sounds Extremities: 1+ LE edema Skin: normal turgor, no lesions, no rashes Hosp A/P - Plan CTA chest 06/14: 1.8 cm left kidney cyst. No PE, bilateral ground glass infiltrates Chest X ray 06/28: minimally progressive COVID pneumonia Chest X ray 06/29: severe bilateral airspace disease This is a 54 year old male with past medical history of PVCS who presented with fevers, muscle aches and malaise, diagnosed with COVID, admitted to the floor and transitioned to ICU Acute hypoxic respiratory failure secondary to COVID pneumonia - chest X ray 06/28 showed progressive COVID pneumonia and today is unchanged. He required intubation this morning . - s/p 7 days of doxycycline. Continue meropenem day 2 - receiving second transfusion of convalescent plasma today. He completed a course of remdesivir, but is receiving a second round per Dr. Hensley Hypotension - weaning off levofed, continue steroids Hypernatremia - sodium up to 147. Started D5 1/2NS. Tube feeds ordered today as well. Will repeat BMP tomorrow Leukocytosis - WBC improved to 17. Continue meropenem Anemia - Hb 12.7, will monitor
[2020-06-30] MEDS: Micafungin 100 MG in Sodium Chloride 0.9% 100 ML IVPB SCH (19:23)
[2020-07-01] MEDS: methylPREDNISolone Sod Succ/PF 125 MG/2 ML VIAL IVP SCH ×3 (00:09→20:16)
[2020-07-01] MEDS: Lorazepam 2 MG/ML VIAL SLOW IVP PRN ×6 (01:09→20:24)
[2020-07-01] MEDS: Vecuronium 10 MG VIAL IV PRN ×6 (01:09→20:24)
[2020-07-01] MEDS: Sodium Chloride 0.45% 1,000 ML IV SCH ×2 (04:48→13:56)
[2020-07-01] MEDS: HumaLOG 300 UNITS/3 ML VIAL SC PRN ×3 (05:23→17:21)
[2020-07-01 05:26] LABS: ALT (SGPT) 40 U/L (8-55); AST (SGOT) 20 U/L (5-34); Albumin 2.3 g/dL (3.5-5.0); Alkaline Phosphatase 77 U/L (40-110); Anion Gap 10 mmol/L (10-20); BUN (Urea Nitrogen) 29 mg/dL (8.4-25.7); Bilirubin, Direct 1.2 mg/dL (0.1-0.3); Bilirubin, Total 1.6 mg/dL (0.2-1.2); Calc. Creatinine Clearance 122 mL/min (70-130); Carbon Dioxide 36 mmol/L (22-29); Chloride 102 mmol/L (98-107); Glucose 168 mg/dL (70-105); Potassium 3.4 mmol/L (3.5-5.1); Protein, Total 5.3 g/dL (6.0-8.3); Sodium 145 mmol/L (136-145)
[2020-07-01 05:56] LABS: Hemoglobin 11.5 g/dL (14.0-18.0); Mean Corpuscular HGB CONC 35.8 g/dL (32.0-36.0); Mean Corpuscular Hemoglobin 28.5 pg (27.0-31.0); Mean Corpuscular Volume 79.7 fL (78.0-98.0); Mean Platelet Volume 8.7 fL (7.4-10.4); Platelet Count 165 thou/uL (130-400); RBC Distribution Width 14.7 % (11.5-14.5); Red Blood Cell (RBC) Count 4.05 mill/uL (4.70-6.10); White Blood Cell (WBC) Count 10.6 thou/uL (4.8-10.8)
[2020-07-01 06:12] LABS: Band 3 % (5-11); Elliptocytes SLIGHT = 2-5 cells (100X) (0-1/hpf); Lymphocytes 3 % (21-51); MDiff Complete? YES; Monocytes 3 % (0-10); Neutrophil 91 % (42-75)
[2020-07-01] MEDS: Propofol 1,000 MG/100 ML VIAL IV PRN ×2 (06:13→13:54)
[2020-07-01] MEDS: Meropenem 2 GM, Admixture Fee 1 EACH in Sodium Chloride 0.9% 100 ML IVPB SCH ×3 (06:58→22:46)
[2020-07-01] MEDS: Mometasone 200 MCG/Formoterol 5 MCG 120 PUFF INHALER INH SCH ×2 (07:46→18:59)
[2020-07-01 08:08] LABS: Base Excess (BEa) 8.5 mEq/L (-2.0 to +3.0); CO2 Tension 39.7 mmHg (35.0-45.0); Calcium, Ionized (arterial) 1.12 mmol/L (1.12-1.30); Carboxyhemoglobin (COHb) 0.6 gm% (0.0-3.0); Potassium - ABG Lab 3.83 mmol/L (3.70-5.30); pH, Arterial 7.52 (7.35-7.45)
[2020-07-01 08:11] LABS: O2 Tension (PaO2), arterial 48.9 mmHg (80.0-100.0); Puncture Site RBA
[2020-07-01 08:12] LABS: ALV-art Gradient 279.365 mmHg (0-20)
[2020-07-01] MEDS ORDERED: Furosemide 100 MG/10 ML VIAL SLOW IVP SCH (08:30)
--- NOTE | 2020-07-01 08:30 | RAD ---
RADIOGRAPH CHEST 1 VIEW: DATE: 07/01/2020 TIME: 2:53 AM HISTORY: 54-year-old male with respiratory failure COMPARISON: 06/30/2020 FINDINGS: Diffuse severe extensive mixed interstitial and alveolar infiltrates. These appear worse now on the r ight side compared to prior study. No cardiomegaly. Endotracheal tube and esophagogastric tube remain. IMPRESSION: Severe bilateral infiltrates. The right side appears slightly worse than yesterday.
[2020-07-01] MEDS: fentaNYL Citrate/PF 2,000 MCG in Sodium Chloride 0.9% 60 ML IV SCH ×2 (08:39→20:08)
--- NOTE | 2020-07-01 09:28 | RAD ---
CHEST 1 VIEW: INDICATION: History of subcu emphysema. COMPARISON: Prior exam dated 07/01/2020. FINDINGS: The pneumomediastinum and subcutaneous emphysema has moderately worsened from the prior exam. The pa tient remains intubated with gastric catheter placement. Bilateral airspace disease is stable. Smal l pleural effusions persist. No pneumothorax is evident. IMPRESSION: 1. Worsening pneumomediastinum and subcutaneous emphysema. 2. Stable bilateral airspace disease consistent with pneumonia. 3. Small bilateral pleural effusions. No pneumothorax. POS: BH
[2020-07-01] MEDS: Ascorbic Acid 500 mg Chewable Tablet PO SCH (09:42)
[2020-07-01] MEDS: Enoxaparin Sodium 60 MG/0.6 ML SYRINGE SC SCH ×2 (09:42→20:16)
[2020-07-01] MEDS: guaiFENesin ER 600 MG TAB PO SCH (09:43)
[2020-07-01] MEDS: Calcium Carbonate 600 MG + Vit D TAB PO SCH ×2 (09:43→17:21)
[2020-07-01] MEDS: Famotidine/PF 20 mg/2ml Vial SLOW IVP SCH ×2 (09:43→20:16)
[2020-07-01] MEDS: Zinc Sulfate 220 MG CAP PO SCH (09:43)
[2020-07-01] MEDS: Multivit, Therapeutic 1 TAB PO SCH (09:48)
[2020-07-01 11:32] LABS: Potassium 3.4 mmol/L (3.5-5.1)
[2020-07-01] MEDS: Cholecalciferol 1,000 UNITS (25 MCG) TAB PO SCH (12:28)
[2020-07-01] MEDS: REMDESIVIR (EUA) 100 MG in Sodium Chloride 0.9% 250 ML 230 ML IV SCH (12:28)
[2020-07-01] MEDS ORDERED: Vancomycin 1 GM in Premix Bag 1 BAG IVPB SCH (13:30)
[2020-07-01] MEDS ORDERED: Heparin 1,000 UNITS/ML VIAL ONE (14:12)
[2020-07-01] MEDS ORDERED: Sterile Water 10 ML ONE (16:59)
--- NOTE | 2020-07-01 17:38 | PDOC.HOSPP ---
- Subjective Encounter Date: 07/01/20 Encounter Time: 09:00 Subjective: F/u: COVID The patient is still intubated and paralyzed. He is tolerating tube feeds per nursing staff. Urine output is more clear. Per nursing patient had received lasix - Objective Vital Signs & Weight: Vital Signs (12 hours) Pulse Resp BP Pulse Ox 07/01/20 16:00 30 H 07/01/20 14:55 74 07/01/20 14:00 30 H 07/01/20 12:00 30 H 07/01/20 10:55 60 07/01/20 10:00 30 H 07/01/20 08:00 30 H 97 07/01/20 07:47 55 L 110/80 07/01/20 06:00 30 H Weight Admit Weight 157 lb 4.8 oz Weight 161 lb 13.109 oz Most Recent Monitor Data Heart Rate from ECG 61 NIBP 107/76 NIBP BP-Mean 86 Respiration from ECG 30 SpO2 99 I&O: 06/30/20 07/01/20 07/02/20 06:59 06:59 06:59 Intake Total 1466.3 3698.3 290 Output Total 3000 1173 2125 Balance -1533.7 2525.3 -1835 Result Diagrams: 07/01/20 03:50 07/01/20 10:50 Additional Labs: Accuchecks 07/01/20 07/01/20 07/01/20 17:08 11:48 03:54 POC Glucose 186 H 152 H 174 H 06/30/20 21:37 POC Glucose 164 H Hospitalist ROS - Review of Systems Constitutional: denies: fever, chills - Medication Medications: Active Medications Generic Name Dose Route Start Last Admin Trade Name Freq PRN Reason Stop Dose Admin Acetaminophen 650 mg 06/14/20 15:56 06/24/20 08:32 Acetaminophen 325 Mg Tab PO 650 mg Q6H PRN Administration Fever > 101 Albuterol/Ipratropium 3 ml 06/28/20 14:30 07/01/20 14:55 Ipratropium/Albuterol Sulfate 3 Ml Neb NEB 3 ml [id number] JEOVANNY Administration Ascorbic Acid 1,000 mg 06/15/20 09:00 07/01/20 09:42 Ascorbic Acid 500 Mg Chewable Tablet PO 1,000 mg DAILY JEOVANNY Administration Benzonatate 200 mg 06/18/20 12:02 06/28/20 10:06 Benzonatate 100 Mg Cap PO 200 mg Q4H PRN Administration Cough Calcium/Vitamin D 1 tab 06/24/20 08:00 07/01/20 17:21 Calcium Carbonate 600 Mg + Vit D Tab PO 1 tab BID-WM JEOVANNY Administration Cholecalciferol 5,000 units 06/16/20 09:00 07/01/20 12:28 Cholecalciferol 1,000 Units (25 Mcg) Tab PO 5,000 units DAILY JEOVANNY Administration Enoxaparin Sodium 60 mg 06/29/20 21:00 07/01/20 09:42 Enoxaparin Sodium 60 Mg/0.6 Ml Syringe SC 60 mg 899,2099 JEOVANNY Administration Famotidine 20 mg 06/29/20 21:00 07/01/20 09:43 Famotidine/Pf 20 Mg/2ml Vial SLOW IVP 20 mg BID JEOVANNY Administration Guaifenesin 600 mg 06/14/20 21:00 07/01/20 09:43 Guaifenesin Er 600 Mg Tab PO 600 mg Q12HR JEOVANNY Administration Meropenem 2 gm/ Miscellaneous 100 mls @ 200 mls/hr 06/28/20 14:00 07/01/20 14:00 Medication 1 each/ Sodium IVPB 100 mls Chloride Q8HR JEOVANNY Administration Fentanyl Citrate 2,000 mcg/ 100 mls @ 0 mls/hr 06/29/20 08:15 07/01/20 08:39 Sodium Chloride IV 07/29/20 08:15 100 mls INF JEOVANNY Administration Protocol Per Protocol Sodium Chloride 1,000 mls @ 75 mls/hr 06/30/20 09:15 07/01/20 13:56 1/2 Normal Saline IV Not Given .[id number] JEOVANNY Remdesivir 100 mg/ Sodium 250 mls @ 250 mls/hr 07/01/20 11:45 07/01/20 12:28 Chloride IV 07/04/20 12:44 250 mls Q24H JEOVANNY Administration Insulin Human Lispro 0 units 06/30/20 07:56 07/01/20 17:21 Humalog 300 Units/3 Ml Vial SC 2 unit .MODERATE SLIDING SC PRN Administration Moderate Correctional Scale Lorazepam 2 mg 06/29/20 08:15 07/01/20 13:54 Lorazepam 2 Mg/Ml Vial SLOW IVP 07/29/20 08:15 2 mg Q1H PRN Administration Breakthrough agitation Methylprednisolone Sodium Succinate 80 mg 07/01/20 09:00 07/01/20 09:45 Methylprednisolone Sod Succ/Pf 125 Mg/2 Ml Vial IVP 80 mg 0900,2100 JEOVANNY Administration Mometasone Furoate/Formoterol Fumar 2 puff 06/14/20 18:30 07/01/20 07:46 Mometasone 200 Mcg/Formoterol 5 Mcg 120 Puff Inhaler INH 2 puff BID-RT JEOVANNY Administration Morphine Sulfate 2 mg 06/29/20 08:15 06/30/20 09:41 Morphine 2 Mg/Ml Vial SLOW IVP 07/29/20 08:15 2 mg Q1H PRN Administration Breakthrough Pain/Agitation Multivitamins 1 tab 06/24/20 09:00 07/01/20 09:48 Multivit, Therapeutic 1 Tab PO 1 tab DAILY JEOVANNY Administration Propofol 1,000 mg 06/29/20 08:15 07/01/20 13:54 Propofol 1,000 Mg/100 Ml Vial IV 07/29/20 08:15 1,000 mg INF PRN Administration TO ACHIEVE GOAL RASS Protocol Sodium Chloride 10 ml 06/15/20 09:00 07/01/20 13:59 Flush - Normal Saline 10 Ml Syringe IVF 10 ml Q12HR JEOVANNY Administration Sodium Chloride 10 ml 06/15/20 06:30 06/20/20 01:35 Flush - Normal Saline 10 Ml Syringe IVF 10 ml PRN PRN Administration Saline Flush Vecuronium [place] 10 mg 06/29/20 09:27 07/01/20 13:55 Vecuronium 10 Mg Vial IV 10 mg Q1H PRN Administration NEEDED Zinc Sulfate 220 mg 06/15/20 09:00 07/01/20 09:43 Zinc Sulfate 220 Mg Cap PO 220 mg DAILY JEOVANNY Administration - Exam General Appearance: NAD, awake alert Eye: PERRL, anicteric sclera ENT: normocephalic atraumatic Neck: no JVD Heart: RRR, no murmur, no gallops, no rubs Respiratory: CTAB, no wheezes, no rales, no ronchi Gastrointestinal: soft, non-tender, non-distended, normal bowel sounds Extremities: no cyanosis, no clubbing, no edema Skin: normal turgor, no lesions, no rashes Neurological: cranial nerve grossly intact, normal sensation to touch, no weakness Musculoskeletal: normal tone, normal strength, no muscle wasting Hosp A/P - Plan CTA chest 06/14: 1.8 cm left kidney cyst. No PE, bilateral ground glass infiltrates Chest X ray 06/28: minimally progressive COVID pneumonia Chest X ray 06/29: severe bilateral airspace disease Chest X ray 07/01: severe bilateral infiltrates This is a 54 year old male with past medical history of PVCS who presented with fevers, muscle aches and malaise, diagnosed with COVID, admitted to the floor and transitioned to ICU Acute hypoxic respiratory failure secondary to COVID pneumonia - chest X ray 06/28 showed progressive COVID pneumonia and today is unchanged. He is intubated . - s/p 7 days of doxycycline. Continue meropenem day 3 -s/p two transfusions of convalescent plasma. He completed a course of remdesivir, but is receiving a second round per Dr. Hensley - repeat chest Xray today shows severe bilateral infiltrates. S/p one dose lasix today, repeat chest X ray tomorrow Hypotension - resolved - continue steroids Hypernatremia - resolved - continue tube feeds Leukocytosis - resolved. Continue meropenem Hypokalemia - potassium 3.4 ,replaced, will monitor Anemia - Hb 11.5
[2020-07-01 18:43] LABS: Potassium 3.6 mmol/L (3.5-5.1)
[2020-07-01] MEDS ORDERED: Sodium Chloride 0.45% 1,000 ML IV SCH (18:45)
--- NOTE | 2020-07-01 19:07 | PRG ---
DATE OF SERVICE: 07/01/2020 SUBJECTIVE: Mr. Guallpa remains sedated and ventilated. OBJECTIVE: VITAL SIGNS: Blood pressures in the 90s, heart rate is in 70s, respiratory rate is 30. We have actually managed to decrease his FiO2 today. LUNGS: Clear anteriorly. HEART: Regular rhythm. ABDOMEN: Soft. LABORATORY DATA: White count 10.6, hemoglobin 11.5, platelets 165. White count on Tuesday was 20. He only has 3% bands on his peripheral smear. Sodium 145, potassium 3.4, chloride 102, bicarb 36, BUN 29, creatinine 0.7. He was given another dose of vancomycin today and we will probably stop with that. I doubt this is staphylococcal infection. Intake and output positive at 2525. He was given Lasix again today. Talked with his and answered all of the questions. I have decreased his high PEEP to 36 today. I am hoping that what we are dealing with is bacterial pneumonia on top of the COVID infection and that is why he is improving. Hopefully, we will continue to improve. We need to minimize his fluids to avoid volume overload and third-spacing water in his lungs while he has serious compliance issues, but he still has serious lung compliance issues that I have explained to the . He is a little better today than he was yesterday. He is a little better today than he was 2 days ago. Hopefully, this trend continues. CRITICAL CARE TIME: 30 minutes. Job ID: [id number]
[2020-07-01] MEDS ORDERED: Magnesium 2 GM/50 ML 2 GM in Premix Bag 1 BAG IVPB SCH (19:30)
[2020-07-01] MEDS: Micafungin 100 MG in Sodium Chloride 0.9% 100 ML IVPB SCH (20:17)
[2020-07-01] MEDS ORDERED: guaiFENesin 100 MG/5 ML UDCUP PO PRN (21:23)
[2020-07-02] MEDS: guaiFENesin ER 600 MG TAB PO SCH (00:21)
[2020-07-02] MEDS: Propofol 1,000 MG/100 ML VIAL IV PRN ×4 (00:21→23:29)
[2020-07-02] MEDS: HumaLOG 300 UNITS/3 ML VIAL SC PRN ×4 (00:49→17:15)
[2020-07-02 04:26] LABS: ALT (SGPT) 40 U/L (8-55); AST (SGOT) 19 U/L (5-34); Albumin 2.2 g/dL (3.5-5.0); Alkaline Phosphatase 80 U/L (40-110); Anion Gap 9 mmol/L (10-20); BUN (Urea Nitrogen) 32 mg/dL (8.4-25.7); Bilirubin, Direct 0.6 mg/dL (0.1-0.3); Calc. Creatinine Clearance 129 mL/min (70-130); Calcium 7.9 mg/dL (7.8-10.44); Carbon Dioxide 36 mmol/L (22-29); Chloride 102 mmol/L (98-107); Glucose 171 mg/dL (70-105); Potassium 3.4 mmol/L (3.5-5.1); Protein, Total 5.3 g/dL (6.0-8.3); Sodium 144 mmol/L (136-145)
[2020-07-02 04:50] LABS: Band 16 % (5-11); Hemoglobin 11.8 g/dL (14.0-18.0); Lymphocytes 2 % (21-51); MDiff Complete? YES; Mean Corpuscular HGB CONC 36.4 g/dL (32.0-36.0); Mean Corpuscular Hemoglobin 29.6 pg (27.0-31.0); Mean Corpuscular Volume 81.5 fL (78.0-98.0); Mean Platelet Volume 8.7 fL (7.4-10.4); Monocytes 3 % (0-10); Neutrophil 79 % (42-75); Platelet Count 159 thou/uL (130-400); RBC Distribution Width 14.4 % (11.5-14.5); Red Blood Cell (RBC) Count 3.98 mill/uL (4.70-6.10); White Blood Cell (WBC) Count 9.6 thou/uL (4.8-10.8)
[2020-07-02] MEDS ORDERED: Potassium Chloride 20 MEQ TAB PO SCH (06:00)
[2020-07-02] MEDS: fentaNYL Citrate/PF 2,000 MCG in Sodium Chloride 0.9% 60 ML IV SCH ×2 (07:47→20:11)
[2020-07-02] MEDS: Meropenem 2 GM, Admixture Fee 1 EACH in Sodium Chloride 0.9% 100 ML IVPB SCH ×3 (08:03→21:47)
--- NOTE | 2020-07-02 08:16 | RAD ---
EXAM: CHEST ONE VIEW HISTORY: On ventilator. COMPARISON: 07/01/2020 FINDINGS: Endotracheal tube and nasogastric tubes remain in place. Cardiac silhouette is within normal limits. . Bilateral airspace opacities are again seen throughout the lungs bilaterally unchanged from prior study. Extensive subcutaneous emphysema is again seen. Pneumomediastinum is again noted. No obvious p neumothorax is seen. No other interval change. IMPRESSION: 1. Worsening subcutaneous emphysema with overall stable pneumomediastinum. 2. Stable bilateral airspace disease likely related to bilateral pneumonia and possibly atypical infe ctious process. 3. Probable tiny bilateral pleural effusions.
[2020-07-02] MEDS ORDERED: Sterile Water 10 ML ONE ×3 (08:18→16:39)
[2020-07-02] MEDS: Lorazepam 2 MG/ML VIAL SLOW IVP PRN ×5 (08:20→20:04)
[2020-07-02] MEDS: Vecuronium 10 MG VIAL IV PRN ×4 (08:20→16:45)
[2020-07-02] MEDS: Mometasone 200 MCG/Formoterol 5 MCG 120 PUFF INHALER INH SCH ×2 (08:23→19:28)
[2020-07-02 08:32] LABS: Actual Bicarbonate (HCO3a) 33.8 mEq/L (22-28); Base Excess (BEa) 7.6 mEq/L (-2.0 to +3.0); CO2 Tension 54.7 mmHg (35.0-45.0); Calcium, Ionized (arterial) 1.09 mmol/L (1.12-1.30); Carboxyhemoglobin (COHb) 0.8 gm% (0.0-3.0); Hemoglobin (Hb) 12.9 g/dL (14.0-18.0); O2 Tension (PaO2), arterial 63.5 mmHg (80.0-100.0); Potassium - ABG Lab 3.68 mmol/L (3.70-5.30); pH, Arterial 7.41 (7.35-7.45)
[2020-07-02 08:33] LABS: Puncture Site RRA
[2020-07-02 08:34] LABS: ALV-art Gradient 274.535 mmHg (0-20)
[2020-07-02] MEDS: Enoxaparin Sodium 60 MG/0.6 ML SYRINGE SC SCH ×2 (09:25→21:31)
[2020-07-02] MEDS: methylPREDNISolone Sod Succ/PF 125 MG/2 ML VIAL IVP SCH ×2 (09:29→21:31)
[2020-07-02] MEDS: Famotidine/PF 20 mg/2ml Vial SLOW IVP SCH ×2 (09:30→21:31)
[2020-07-02] MEDS: Cholecalciferol 1,000 UNITS (25 MCG) TAB PO SCH (09:30)
[2020-07-02] MEDS: Zinc Sulfate 220 MG CAP PO SCH (09:31)
[2020-07-02] MEDS: Ascorbic Acid 500 mg Chewable Tablet PO SCH (09:32)
[2020-07-02] MEDS: Calcium Carbonate 600 MG + Vit D TAB PO SCH (09:32)
[2020-07-02] MEDS: Multivit, Therapeutic 1 TAB PO SCH (09:32)
[2020-07-02] MEDS: Polyethylene Glycol 3350 17 GM Packet PER TUBE PRN (10:15)
[2020-07-02 12:10] LABS: Potassium 3.8 mmol/L (3.5-5.1)
[2020-07-02] MEDS: REMDESIVIR (EUA) 100 MG in Sodium Chloride 0.9% 250 ML 230 ML IV SCH (13:05)
--- NOTE | 2020-07-02 16:41 | PRG ---
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 No, and decided to restart Remdesivir since he was on high-dose corticosteroids and there has been some evidence that patients with severe COVID have protracted viral replication in the lower respiratory tract, particularly in the type 2 pneumocytes and endothelial cells. This is based on an autopsy from [place] and also based on the fact that the cytokine storm hypothesis seems to be losing strength among the experts, particularly in view of the failure of the large randomized trials with cytokine inhibitors. Patient is on bilevel. Right now, his FiO2 is down to 47% and he is paralyzed and sedated. OBJECTIVE: VITAL SIGNS: His vital signs showed T-max of 99.1, blood pressure 120/60, heart rate is 65, and O2 sat 99. HEENT: His pupils are constricted. Conjunctivae hyperemia noted. LUNGS: Coarse breath sounds diffusely spread, right and left hemithorax. HEART: S1, S2. Regular rate. ABDOMEN: Soft. Not distended or tender. No ascites. No bladder distention. EXTREMITIES: No joint inflammatory activity. LABORATORIES: White cell count is down to 9.6, hemoglobin 11, platelets 159 with 16% bands. Direct bilirubin 0.6. Ferritin is 2200. CRP is 5.24, which is less than 2 days ago. Chest x-ray, diffuse bilateral infiltrates, some with nodular appearance. There is subcutaneous emphysema noted as well. Pneumomediastinum. ASSESSMENT/DISCUSSION: Severe COVID pneumonia. I think this is more than three weeks of illness and with one course of Remdesivir initially and on high-dose corticosteroids, he deteriorated over the past few days. This coincided with worsening of inflammatory markers, so there are two ways of looking into his clinical course: One is a superimposed infection which has been covered with antifungal and antibacterial treatment or recrudescence of the viral replication. There are a few cases which have been published in the literature, describing the clinical and virological course of previously immunosuppressed patients that had been documented to have extended viral replication for even many months after the original infection requiring many courses of Remdesivir. Viral replication was documented by actual culture, so I think it is worthwhile to try it again and maybe consider tapering the dose of corticosteroids going forward. Job ID: [id number] [facility]
--- NOTE | 2020-07-02 17:29 | PDOC.HOSPP ---
- Subjective Encounter Date: 07/02/20 Encounter Time: 17:00 Subjective: F/u: COVID pneumonia The patient is still intubated. He is starting to wake up some. He is tolerating tube feeds. PEEP has been reduced to 38 Patient has been started on miralax, but is still constipated - Objective Vital Signs & Weight: Vital Signs (12 hours) Pulse Resp Pulse Ox 07/02/20 16:00 26 H 07/02/20 15:01 65 07/02/20 14:00 26 H 07/02/20 12:00 26 H 07/02/20 11:05 59 L 07/02/20 10:00 26 H 07/02/20 08:27 88 07/02/20 08:00 30 H 99 07/02/20 06:00 30 H Weight Admit Weight 157 lb 4.8 oz Weight 164 lb 10.965 oz Most Recent Monitor Data Heart Rate from ECG 74 NIBP 134/73 NIBP BP-Mean 93 Respiration from ECG 26 SpO2 100 I&O: 07/01/20 07/02/20 07/03/20 06:59 06:59 06:59 Intake Total 3698.3 3769 430 Output Total 1173 2822 915 Balance 2525.3 616 -717 Result Diagrams: 07/02/20 03:45 07/02/20 11:31 Additional Labs: Accuchecks 07/02/20 07/02/20 07/02/20 10:53 03:49 00:44 POC Glucose 172 H 172 H 170 H Hospitalist ROS - Medication Medications: Active Medications Generic Name Dose Route Start Last Admin Trade Name Freq PRN Reason Stop Dose Admin Acetaminophen 650 mg 06/14/20 15:56 06/24/20 08:32 Acetaminophen 325 Mg Tab PO 650 mg Q6H PRN Administration Fever > 101 Albuterol/Ipratropium 3 ml 06/28/20 14:30 07/02/20 15:01 Ipratropium/Albuterol Sulfate 3 Ml Neb NEB 3 ml [id number] JEOVANNY Administration Ascorbic Acid 1,000 mg 06/15/20 09:00 07/02/20 09:32 Ascorbic Acid 500 Mg Chewable Tablet PO 1,000 mg DAILY JEOVANNY Administration Benzonatate 200 mg 06/18/20 12:02 06/28/20 10:06 Benzonatate 100 Mg Cap PO 200 mg Q4H PRN Administration Cough Calcium/Vitamin D 1 tab 06/24/20 08:00 07/02/20 09:32 Calcium Carbonate 600 Mg + Vit D Tab PO 1 tab BID-WM JEOVANNY Administration Cholecalciferol 5,000 units 06/16/20 09:00 07/02/20 09:30 Cholecalciferol 1,000 Units (25 Mcg) Tab PO 5,000 units DAILY JEOVANNY Administration Enoxaparin Sodium 60 mg 06/29/20 21:00 07/02/20 09:25 Enoxaparin Sodium 60 Mg/0.6 Ml Syringe SC 60 mg 899,2099 JEOVANNY Administration Famotidine 20 mg 06/29/20 21:00 07/02/20 09:30 Famotidine/Pf 20 Mg/2ml Vial SLOW IVP 20 mg BID JEOVANNY Administration Meropenem 2 gm/ Miscellaneous 100 mls @ 200 mls/hr 06/28/20 14:00 07/02/20 15:11 Medication 1 each/ Sodium IVPB 100 mls Chloride Q8HR JEOVANNY Administration Fentanyl Citrate 2,000 mcg/ 100 mls @ 0 mls/hr 06/29/20 08:15 07/02/20 07:47 Sodium Chloride IV 07/29/20 08:15 100 mls INF JEOVANNY Administration Protocol Per Protocol Remdesivir 100 mg/ Sodium 250 mls @ 250 mls/hr 07/01/20 11:45 07/02/20 13:05 Chloride IV 07/04/20 12:44 250 mls Q24H JEOVANNY Administration Micafungin Sodium 100 mg/ 100 mls @ 100 mls/hr 07/01/20 21:00 07/01/20 20:17 Sodium Chloride IVPB 100 mls 2100 JEOVANNY Administration Insulin Human Lispro 0 units 06/30/20 07:56 07/02/20 17:15 Humalog 300 Units/3 Ml Vial SC 2 unit .MODERATE SLIDING SC PRN Administration Moderate Correctional Scale Lorazepam 2 mg 06/29/20 08:15 07/02/20 16:45 Lorazepam 2 Mg/Ml Vial SLOW IVP 07/29/20 08:15 2 mg Q1H PRN Administration Breakthrough agitation Methylprednisolone Sodium Succinate 80 mg 07/01/20 09:00 07/02/20 09:29 Methylprednisolone Sod Succ/Pf 125 Mg/2 Ml Vial IVP 80 mg 0900,2100 JEOVANNY Administration Mometasone Furoate/Formoterol Fumar 2 puff 06/14/20 18:30 07/02/20 08:23 Mometasone 200 Mcg/Formoterol 5 Mcg 120 Puff Inhaler INH 2 puff BID-RT JEOVANNY Administration Morphine Sulfate 2 mg 06/29/20 08:15 06/30/20 09:41 Morphine 2 Mg/Ml Vial SLOW IVP 07/29/20 08:15 2 mg Q1H PRN Administration Breakthrough Pain/Agitation Multivitamins 1 tab 06/24/20 09:00 07/02/20 09:32 Multivit, Therapeutic 1 Tab PO 1 tab DAILY JEOVANNY Administration Propofol 1,000 mg 06/29/20 08:15 07/02/20 15:35 Propofol 1,000 Mg/100 Ml Vial IV 07/29/20 08:15 1,000 mg INF PRN Administration TO ACHIEVE GOAL RASS Protocol Sodium Chloride 10 ml 06/15/20 09:00 07/02/20 13:28 Flush - Normal Saline 10 Ml Syringe IVF 10 ml Q12HR JEOVANNY Administration Sodium Chloride 10 ml 06/15/20 06:30 06/20/20 01:35 Flush - Normal Saline 10 Ml Syringe IVF 10 ml PRN PRN Administration Saline Flush Vecuronium [place] 10 mg 06/29/20 09:27 07/02/20 16:45 Vecuronium 10 Mg Vial IV 10 mg Q1H PRN Administration NEEDED Zinc Sulfate 220 mg 06/15/20 09:00 07/02/20 09:31 Zinc Sulfate 220 Mg Cap PO 220 mg DAILY JEOVANNY Administration - Exam General Appearance: NAD General - other findings: intuibated Eye: PERRL, anicteric sclera ENT: normocephalic atraumatic, no oropharyngeal lesions Neck: no JVD Heart: RRR, no murmur, no gallops, no rubs Respiratory: CTAB, no rales, no ronchi Respiratory - other findings: mild wheezes heard Gastrointestinal: soft, non-tender, non-distended, normal bowel sounds, no hepatomegaly Extremities: no cyanosis, no clubbing, no edema Skin: normal turgor, no lesions, no rashes Neurological: cranial nerve grossly intact, normal sensation to touch, no weakness Hosp A/P - Plan CTA chest 06/14: 1.8 cm left kidney cyst. No PE, bilateral ground glass infiltrates Chest X ray 06/28: minimally progressive COVID pneumonia Chest X ray 06/29: severe bilateral airspace disease Chest X ray 07/01: severe bilateral infiltrates Chest xray 07/02: worsening subcutaneous emphysema with pneumomediaastinum. Stable bilateral airspace disease related to bilateral pneumonia versus atypical infectious process. Tiny bilateral pleural effusions. 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 He is intubated . - s/p 7 days of doxycycline. Continue meropenem day 4. He is also on micafungin -s/p two transfusions of convalescent plasma. He completed a course of remdesivir, but is receiving a second round per Dr. Hensley - repeat chest Xray 07/02 shows severe bilateral infiltrates. S/p one dose lasix 07/02. Continue supportive care Constipation - continue laxatives Hypotension - resolved - continue steroids Hypernatremia - resolved - continue tube feeds Leukocytosis - resolved. Continue meropenem Hypokalemia - potassium 3.4 ,replaced, will monitor Anemia - Hb 11.5
--- NOTE | 2020-07-02 17:58 | PRG ---
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 OBJECTIVE: VITAL SIGNS: Heart rate is in 60s, blood pressure 139/86, respiratory rates in the 20s. He is afebrile. LUNGS: Distant, clear. HEART: Regular rhythm. ABDOMEN: Soft. LABORATORY DATA: White count is 9.6, hemoglobin 11.8, platelets 159. C-reactive protein today is down to 5.2. PH 7.41, CO2 of 54, pO2 of 63. We turned his bilevel down to 36/12 yesterday. We made additional ventilator changes today. Hopefully, he will continue to improve. CRITICAL CARE TIME: 30 minutes. Job ID: [id number]
[2020-07-02] MEDS: Micafungin 100 MG in Sodium Chloride 0.9% 100 ML IVPB SCH (20:04)
[2020-07-03] MEDS: Lorazepam 2 MG/ML VIAL SLOW IVP PRN ×4 (03:18→23:24)
[2020-07-03] MEDS: Vecuronium 10 MG VIAL IV PRN ×2 (03:18→08:15)
[2020-07-03 05:20] LABS: Band 7 % (5-11); Elliptocytes SLIGHT = 2-5 cells (100X) (0-1/hpf); Hemoglobin 11.7 g/dL (14.0-18.0); Lymphocytes 1 % (21-51); MDiff Complete? YES; Mean Corpuscular HGB CONC 34.5 g/dL (32.0-36.0); Mean Corpuscular Hemoglobin 28.6 pg (27.0-31.0); Mean Corpuscular Volume 82.9 fL (78.0-98.0); Mean Platelet Volume 8.7 fL (7.4-10.4); Monocytes 5 % (0-10); Neutrophil 87 % (42-75); Platelet Count 157 thou/uL (130-400); RBC Distribution Width 14.6 % (11.5-14.5); White Blood Cell (WBC) Count 7.3 thou/uL (4.8-10.8)
[2020-07-03 05:22] LABS: Anion Gap 9 mmol/L (10-20); BUN (Urea Nitrogen) 27 mg/dL (8.4-25.7); CRP (Inflammatory) 2.52 mg/dL (= or < 0.5); Calc. Creatinine Clearance 135 mL/min (70-130); Calcium 7.7 mg/dL (7.8-10.44); Carbon Dioxide 33 mmol/L (22-29); Chloride 104 mmol/L (98-107); Glucose 184 mg/dL (70-105); Potassium 4.2 mmol/L (3.5-5.1); Sodium 142 mmol/L (136-145)
[2020-07-03 05:26] LABS: ALT (SGPT) 43 U/L (8-55); AST (SGOT) 21 U/L (5-34); Albumin 2.2 g/dL (3.5-5.0); Alkaline Phosphatase 70 U/L (40-110); Bilirubin, Direct 0.6 mg/dL (0.1-0.3); Bilirubin, Total 0.9 mg/dL (0.2-1.2); Protein, Total 5.2 g/dL (6.0-8.3)
[2020-07-03] MEDS: HumaLOG 300 UNITS/3 ML VIAL SC PRN ×2 (06:25→09:27)
[2020-07-03] MEDS: Meropenem 2 GM, Admixture Fee 1 EACH in Sodium Chloride 0.9% 100 ML IVPB SCH ×3 (07:13→22:01)
[2020-07-03] MEDS: Mometasone 200 MCG/Formoterol 5 MCG 120 PUFF INHALER INH SCH ×2 (07:46→19:16)
--- NOTE | 2020-07-03 07:57 | RAD ---
Exam: Chest one view HISTORY:Ventilated patient. Respiratory distress. Comparison: 07/02/2020 FINDINGS: Cardiac silhouette: Normal Aorta: Unremarkable Pulmonary vessels: Normal Costophrenic angles: Small bilateral effusions LUNGS: Minimal multi lobar interstitial and alveolar opacities. Pneumothorax: Extensive subcutaneous emphysema, unchanged. Osseous abnormalities: None IMPRESSION: No significant interval change.
[2020-07-03 07:59] LABS: Actual Bicarbonate (HCO3a) 31.3 mEq/L (22-28); Base Excess (BEa) 6.6 mEq/L (-2.0 to +3.0); CO2 Tension 45.6 mmHg (35.0-45.0); Calcium, Ionized (arterial) 1.14 mmol/L (1.12-1.30); Carboxyhemoglobin (COHb) 0.1 gm% (0.0-3.0); O2 Tension (PaO2), arterial 77.9 mmHg (80.0-100.0); Potassium - ABG Lab 3.97 mmol/L (3.70-5.30); pH, Arterial 7.46 (7.35-7.45)
[2020-07-03 08:02] LABS: Puncture Site RRA
[2020-07-03] MEDS: Propofol 1,000 MG/100 ML VIAL IV PRN ×2 (08:25→18:33)
[2020-07-03] MEDS: Enoxaparin Sodium 60 MG/0.6 ML SYRINGE SC SCH ×2 (08:27→20:45)
[2020-07-03] MEDS: Famotidine/PF 20 mg/2ml Vial SLOW IVP SCH ×2 (08:29→20:45)
[2020-07-03] MEDS: Calcium Carbonate 600 MG + Vit D TAB PO SCH ×3 (08:30→18:34)
[2020-07-03] MEDS: Zinc Sulfate 220 MG CAP PO SCH (08:30)
[2020-07-03] MEDS: Cholecalciferol 1,000 UNITS (25 MCG) TAB PO SCH (08:30)
[2020-07-03] MEDS: Ascorbic Acid 500 mg Chewable Tablet PO SCH (08:31)
[2020-07-03] MEDS: Multivit, Therapeutic 1 TAB PO SCH (08:31)
[2020-07-03] MEDS: methylPREDNISolone Sod Succ/PF 125 MG/2 ML VIAL IVP SCH ×2 (08:31→20:45)
[2020-07-03] MEDS: fentaNYL Citrate/PF 2,000 MCG in Sodium Chloride 0.9% 60 ML IV SCH (09:30)
[2020-07-03 09:40] LABS: #Lymphocytes 0.7 thou/uL (1.20-3.40); #Monocytes 0.6 thou/uL (0.11-0.59); #Neutrophils 7.5 thou/uL (1.40-6.50); %Basophils 0.1 % (0.0-1.0); %Monocytes 6.7 % (0.0-10.0); %Neutrophils 85.1 % (42.0-75.0); Hemoglobin 12.8 g/dL (14.0-18.0); Mean Corpuscular HGB CONC 34.5 g/dL (32.0-36.0); Mean Corpuscular Hemoglobin 28.3 pg (27.0-31.0); Mean Corpuscular Volume 81.9 fL (78.0-98.0); Mean Platelet Volume 8.7 fL (7.4-10.4); Platelet Count 164 thou/uL (130-400); RBC Distribution Width 14.6 % (11.5-14.5); Red Blood Cell (RBC) Count 4.53 mill/uL (4.70-6.10); White Blood Cell (WBC) Count 8.8 thou/uL (4.8-10.8)
[2020-07-03] MEDS: REMDESIVIR (EUA) 100 MG in Sodium Chloride 0.9% 250 ML 230 ML IV SCH (11:24)
--- NOTE | 2020-07-03 13:43 | PRG ---
DATE OF SERVICE: 07/03/2020 SUBJECTIVE: The patient is intubated in the ICU. He is sedated. OBJECTIVE: VITAL SIGNS: He has been afebrile, T-max 99.1, O2 saturations are 97% to 99%, FiO2 of 40, still on bilevel pressure support. LUNGS: With coarse breath sounds with rhonchi and crackles with heterogeneous distribution. HEART: S1, S2, diminished heart sounds. ABDOMEN: Soft, not distended. White catheter is in place with I's and O's positive 2500 two days ago and then 900 and now negative 600. Sodium 142, creatinine 0.66. Liver profile normal except for a direct bilirubin 0.6. Ferritin down to 2100. CRP down to 2.52. Repeat chest x-ray, diffuse interstitial changes, subcutaneous emphysema but no pneumothorax. ASSESSMENT AND DISCUSSION: Severe COVID pneumonia requiring intubation after protracted stay in the unit on high-flow oxygen supplementation, failure of BiPAP and now back on remdesivir, he is on corticosteroids and anticoagulation with enoxaparin. He is also on broad-spectrum coverage with meropenem and micafungin. I have submitted Karius test to see if there is any pathogen that we have not yet identified due to the extensive course of high-dose corticosteroids that he has received in the past few days. Some positive changes in his inflammatory markers and also decrease in the amount of FiO2 required. Job ID: [id number] MTDD
--- NOTE | 2020-07-03 16:53 | PDOC.HOSPP ---
- Subjective Encounter Date: 07/03/20 Encounter Time: 14:00 Subjective: F/u: COVID The patient is doing better. He is still intubated. His PEEP has been decreased and FiO2 has decreased to 40%. He is tolerating tube feeds well - Objective Vital Signs & Weight: Vital Signs (12 hours) Pulse Resp BP Pulse Ox 07/03/20 15:06 66 120/78 07/03/20 14:58 68 22 H 97 07/03/20 14:00 26 H 07/03/20 12:00 26 H 07/03/20 10:58 52 L 133/84 07/03/20 10:56 50 L 26 H 97 07/03/20 10:00 26 H 07/03/20 08:00 26 H 99 07/03/20 07:47 54 L 111/73 07/03/20 07:44 50 L 26 H 99 07/03/20 06:00 26 H Weight Admit Weight 157 lb 4.8 oz Weight 166 lb 10.711 oz Most Recent Monitor Data Heart Rate from ECG 59 NIBP 121/76 NIBP BP-Mean 91 Respiration from ECG 22 SpO2 99 I&O: 07/02/20 07/03/20 07/04/20 06:59 06:59 06:59 Intake Total 3769 1704.9 458 Output Total 2822 2315 1545 Balance 947 -610.1 -1087 Result Diagrams: 07/03/20 09:18 07/03/20 04:05 Additional Labs: Accuchecks 07/03/20 07/03/20 07/03/20 16:23 09:26 04:15 POC Glucose 136 H 165 H 186 H 07/02/20 07/02/20 22:04 16:18 POC Glucose 148 H 155 H Hospitalist ROS - Review of Systems ROS unobtainable: due to endotracheal tube - Medication Medications: Active Medications Generic Name Dose Route Start Last Admin Trade Name Freq PRN Reason Stop Dose Admin Acetaminophen 650 mg 06/14/20 15:56 06/24/20 08:32 Acetaminophen 325 Mg Tab PO 650 mg Q6H PRN Administration Fever > 101 Albuterol/Ipratropium 3 ml 06/28/20 14:30 07/03/20 14:58 Ipratropium/Albuterol Sulfate 3 Ml Neb NEB 3 ml [id number] JEOVANNY Administration Ascorbic Acid 1,000 mg 06/15/20 09:00 07/03/20 08:31 Ascorbic Acid 500 Mg Chewable Tablet PO 1,000 mg DAILY JEOVANNY Administration Benzonatate 200 mg 06/18/20 12:02 06/28/20 10:06 Benzonatate 100 Mg Cap PO 200 mg Q4H PRN Administration Cough Calcium/Vitamin D 1 tab 06/24/20 08:00 07/03/20 09:01 Calcium Carbonate 600 Mg + Vit D Tab PO Not Given BID-WM JEOVANNY Cholecalciferol 5,000 units 06/16/20 09:00 07/03/20 08:30 Cholecalciferol 1,000 Units (25 Mcg) Tab PO 5,000 units DAILY JEOVANNY Administration Enoxaparin Sodium 60 mg 06/29/20 21:00 07/03/20 08:27 Enoxaparin Sodium 60 Mg/0.6 Ml Syringe SC 07/03/20 23:59 60 mg 0900,2100 JEOVANNY Administration Famotidine 20 mg 06/29/20 21:00 07/03/20 08:29 Famotidine/Pf 20 Mg/2ml Vial SLOW IVP 20 mg BID JEOVANNY Administration Meropenem 2 gm/ Miscellaneous 100 mls @ 200 mls/hr 06/28/20 14:00 07/03/20 14:19 Medication 1 each/ Sodium IVPB 100 mls Chloride Q8HR JEOVANNY Administration Fentanyl Citrate 2,000 mcg/ 100 mls @ 0 mls/hr 06/29/20 08:15 07/03/20 09:30 Sodium Chloride IV 07/29/20 08:15 100 mls INF JEOVANNY Administration Protocol Per Protocol Remdesivir 100 mg/ Sodium 250 mls @ 250 mls/hr 07/01/20 11:45 07/03/20 11:24 Chloride IV 07/04/20 12:44 250 mls Q24H JEOVANNY Administration Micafungin Sodium 100 mg/ 100 mls @ 100 mls/hr 07/01/20 21:00 07/02/20 20:04 Sodium Chloride IVPB 100 mls 2100 JEOVANNY Administration Insulin Human Lispro 0 units 06/30/20 07:56 07/03/20 09:27 Humalog 300 Units/3 Ml Vial SC 2 unit .MODERATE SLIDING SC PRN Administration Moderate Correctional Scale Lorazepam 2 mg 06/29/20 08:15 07/03/20 14:19 Lorazepam 2 Mg/Ml Vial SLOW IVP 07/29/20 08:15 2 mg Q1H PRN Administration Breakthrough agitation Methylprednisolone Sodium Succinate 80 mg 07/01/20 09:00 07/03/20 08:31 Methylprednisolone Sod Succ/Pf 125 Mg/2 Ml Vial IVP 80 mg 0900,2100 JEOVANNY Administration Mometasone Furoate/Formoterol Fumar 2 puff 06/14/20 18:30 07/03/20 07:46 Mometasone 200 Mcg/Formoterol 5 Mcg 120 Puff Inhaler INH 2 puff BID-RT JEOVANNY Administration Morphine Sulfate 2 mg 06/29/20 08:15 06/30/20 09:41 Morphine 2 Mg/Ml Vial SLOW IVP 07/29/20 08:15 2 mg Q1H PRN Administration Breakthrough Pain/Agitation Multivitamins 1 tab 06/24/20 09:00 07/03/20 08:31 Multivit, Therapeutic 1 Tab PO 1 tab DAILY JEOVANNY Administration Polyethylene Glycol 17 gm 07/02/20 09:51 07/02/20 10:15 Polyethylene Glycol 3350 17 Gm Packet PER TUBE 17 gm DAILY PRN Administration Constipation Propofol 1,000 mg 06/29/20 08:15 07/03/20 08:25 Propofol 1,000 Mg/100 Ml Vial IV 07/29/20 08:15 1,000 mg INF PRN Administration TO ACHIEVE GOAL RASS Protocol Sodium Chloride 10 ml 06/15/20 09:00 07/03/20 08:31 Flush - Normal Saline 10 Ml Syringe IVF 10 ml Q12HR JEOVANNY Administration Sodium Chloride 10 ml 06/15/20 06:30 06/20/20 01:35 Flush - Normal Saline 10 Ml Syringe IVF 10 ml PRN PRN Administration Saline Flush Vecuronium [place] 10 mg 06/29/20 09:27 07/03/20 08:15 Vecuronium 10 Mg Vial IV 10 mg Q1H PRN Administration NEEDED Zinc Sulfate 220 mg 06/15/20 09:00 07/03/20 08:30 Zinc Sulfate 220 Mg Cap PO 220 mg DAILY JEOVANNY Administration - Exam General Appearance: NAD, awake alert Eye: PERRL, anicteric sclera ENT: normocephalic atraumatic, no oropharyngeal lesions Neck: no JVD Heart: RRR, no murmur, no gallops, no rubs Respiratory - other findings: diminished breath sounds bilaterally Gastrointestinal: soft, non-tender, non-distended, normal bowel sounds Extremities: no edema Skin: normal turgor, no lesions, no rashes Hosp A/P - Plan CTA chest 06/14: 1.8 cm left kidney cyst. No PE, bilateral ground glass infiltrates Chest X ray 06/28: minimally progressive COVID pneumonia Chest X ray 06/29: severe bilateral airspace disease Chest X ray 07/01: severe bilateral infiltrates Chest xray 07/02: worsening subcutaneous emphysema with pneumomediaastinum. Stable bilateral airspace disease related to bilateral pneumonia versus atypical infectious process. Tiny bilateral pleural effusions. 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 He is intubated . - s/p 7 days of doxycycline. Continue meropenem day 5. He is also on micafungin -s/p two transfusions of convalescent plasma. He completed a course of remdesivir, but is on his second course, day 4 - repeat chest Xray 07/02 shows severe bilateral infiltrates. S/p one dose lasix 07/02. REpeat chest X ray 07/03 unchanged. Continue IV steroids 80 mg bid Constipation - continue laxatives Hypotension - resolved - continue steroids Hypernatremia - resolved - continue tube feeds Leukocytosis - resolved. Continue meropenem Hypokalemia - potassium 3.4 ,replaced, will monitor Anemia - Hb 11.5
--- NOTE | 2020-07-03 20:33 | PRG ---
DATE OF SERVICE: 07/03/2020 SUBJECTIVE: Dr. 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 OBJECTIVE: VITAL SIGNS: Respiratory rate is in 20s, FiO2 is down to 40, blood pressure 116/74. Continue to decrease his bilevel ventilatory support as his exhaled tidal volumes improve and his compliance improves. LUNGS: Clear. HEART: Regular rhythm. ABDOMEN: Soft. LABORATORY DATA: White count 8.8, hemoglobin 12.8, platelets 164. BUN 27, creatinine 0.6. IMPRESSION: 1. COVID pneumonia. 2. ? secondary bacterial process leading to decompensation. He has clinically improved. 3. Some component of oxygen toxicity secondary to prolonged high-flow oxygen most likely. Recommend a tracheostomy and PEG placement. This will facilitate weaning in my opinion. Increase his chances of surviving and becoming functional. His pulmonary compliance is improving, but is unlikely to improve rapidly and a tracheostomy will facilitate weaning during the day. Nocturnal ventilatory support as needed in my opinion. I explained the above to the OR. He agreed. General Surgery consult was placed today. CRITICAL CARE TIME: 30 minutes. Job ID: [id number]
[2020-07-03] MEDS: Micafungin 100 MG in Sodium Chloride 0.9% 100 ML IVPB SCH (20:44)
[2020-07-04] MEDS: Propofol 1,000 MG/100 ML VIAL IV PRN ×3 (03:41→20:46)
[2020-07-04 04:00] LABS: Hemoglobin 12.5 g/dL (14.0-18.0); Lymphocytes 7 % (21-51); MDiff Complete? YES; Mean Corpuscular HGB CONC 34.9 g/dL (32.0-36.0); Mean Corpuscular Hemoglobin 28.6 pg (27.0-31.0); Mean Corpuscular Volume 81.8 fL (78.0-98.0); Mean Platelet Volume 9.2 fL (7.4-10.4); Neutrophil 93 % (42-75); Platelet Count 164 thou/uL (130-400); Platelet Morphology Comment Appears Adequate; RBC Distribution Width 14.5 % (11.5-14.5); Red Blood Cell (RBC) Count 4.38 mill/uL (4.70-6.10); White Blood Cell (WBC) Count 8.8 thou/uL (4.8-10.8)
[2020-07-04 04:16] LABS: ALT (SGPT) 55 U/L (8-55); AST (SGOT) 33 U/L (5-34); Albumin 2.3 g/dL (3.5-5.0); Alkaline Phosphatase 68 U/L (40-110); Anion Gap 10 mmol/L (10-20); BUN (Urea Nitrogen) 28 mg/dL (8.4-25.7); Bilirubin, Direct 0.5 mg/dL (0.1-0.3); Bilirubin, Total 1.1 mg/dL (0.2-1.2); Calc. Creatinine Clearance 146 mL/min (70-130); Calcium 7.9 mg/dL (7.8-10.44); Carbon Dioxide 29 mmol/L (22-29); Chloride 106 mmol/L (98-107); Glucose 158 mg/dL (70-105); Potassium 4.4 mmol/L (3.5-5.1); Protein, Total 5.5 g/dL (6.0-8.3); Sodium 141 mmol/L (136-145)
[2020-07-04] MEDS: fentaNYL Citrate/PF 2,000 MCG in Sodium Chloride 0.9% 60 ML IV SCH ×2 (04:21→23:05)
[2020-07-04] MEDS: HumaLOG 300 UNITS/3 ML VIAL SC PRN (05:05)
[2020-07-04] MEDS: Meropenem 2 GM, Admixture Fee 1 EACH in Sodium Chloride 0.9% 100 ML IVPB SCH ×3 (05:30→22:09)
[2020-07-04 06:40] LABS: Base Excess (BEa) 5.3 mEq/L (-2.0 to +3.0); Calcium, Ionized (arterial) 1.17 mmol/L (1.12-1.30); O2 Tension (PaO2), arterial 63.6 mmHg (80.0-100.0); Potassium - ABG Lab 3.81 mmol/L (3.70-5.30); pH, Arterial 7.45 (7.35-7.45)
[2020-07-04 06:43] LABS: Puncture Site RBA
[2020-07-04] MEDS: Mometasone 200 MCG/Formoterol 5 MCG 120 PUFF INHALER INH SCH ×2 (06:49→19:47)
[2020-07-04] MEDS: Lorazepam 2 MG/ML VIAL SLOW IVP PRN ×4 (08:15→21:42)
--- NOTE | 2020-07-04 08:15 | RAD ---
PORTABLE CHEST: Date: 07/04/2020 HISTORY: Respiratory distress. COVID pneumonia. FINDINGS: Endotracheal and NG tubes are in satisfactory position. Extensive subcutaneous emphysema changes are again noted. Extensive bilateral infiltrative lung changes. Overall stable appearance to the chest. IMPRESSION: Stable exam. POS: CHRIS
[2020-07-04] MEDS: Cholecalciferol 1,000 UNITS (25 MCG) TAB PO SCH (08:24)
[2020-07-04] MEDS: Ascorbic Acid 500 mg Chewable Tablet PO SCH (08:24)
[2020-07-04] MEDS: Calcium Carbonate 600 MG + Vit D TAB PO SCH ×2 (08:24→18:00)
[2020-07-04] MEDS: methylPREDNISolone Sod Succ/PF 125 MG/2 ML VIAL IVP SCH ×2 (08:25→20:47)
[2020-07-04] MEDS: Multivit, Therapeutic 1 TAB PO SCH (08:25)
[2020-07-04] MEDS: Famotidine/PF 20 mg/2ml Vial SLOW IVP SCH ×2 (08:25→20:46)
[2020-07-04] MEDS: Zinc Sulfate 220 MG CAP PO SCH (08:26)
--- NOTE | 2020-07-04 10:13 | PRG ---
DATE OF SERVICE: 06/28/2020 Mr. Guallpa was moved to the critical care unit because of increasing shortness of breath. He was placed on BiPAP. He was given Lasix and improved dramatically. He was checked on three times after he was on BiPAP and gave me a thumbs up, said he felt better. His hemodynamics were stable. Respiratory rate came down into the low 20s with BiPAP and Lasix. Remainder of his exam was unchanged. IMPRESSION: COVID-19 pneumonia with respiratory failure, improved with BiPAP and diuresis. Hopefully, he will not require intubation. Job ID: [id number]
[2020-07-04] MEDS: REMDESIVIR (EUA) 100 MG in Sodium Chloride 0.9% 250 ML 230 ML IV SCH (11:08)
--- NOTE | 2020-07-04 14:17 | PRG ---
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 OBJECTIVE: VITAL SIGNS: Respiratory rate 20s, FiO2 is at 40, blood pressure 118/77, heart rate 60, oximetry is 98%. We continued to decrease his high and low PEEP. He is tolerating this well. LUNGS: Clear. HEART: Regular rhythm. ABDOMEN: Soft. LABORATORY DATA: White count 8.8, hemoglobin 12.5, platelets 164. Sodium 141, potassium 4.4, chloride 106, bicarb 29, BUN 20, creatinine 0.62. C-reactive protein is down to 2.5 yesterday. IMPRESSION: COVID pneumonia with respiratory failure. He will have a trach and a PEG today. I suspect we can decrease sedation, start weaning the ventilator this weekend. He gets very anxious when he is awake, so he may require some Precedex or low-dose of another sedative drugs to facilitate weaning. CRITICAL CARE TIME: 30 minutes. Job ID: [id number]
[2020-07-04] MEDS: Bisacodyl 10 MG SUPP PR PRN (17:35)
--- NOTE | 2020-07-04 18:43 | PDOC.EVN ---
Event Note - Event Note Event Note: He is still intubated. The patient was scheduled for PEG and trach however this was cancelled. His PEEP is being lowered to 25. He has adequate urine output General: intubated. FiO2 at 40 Lungs: Clear per pulmonology Heart: regular rhythm Abdomen: non-distended, tube feeds and garcia in place Extremities: no edema CTA chest 06/14: 1.8 cm left kidney cyst. No PE, bilateral ground glass infiltrates Chest X ray 06/28: minimally progressive COVID pneumonia Chest X ray 06/29: severe bilateral airspace disease Chest X ray 07/01: severe bilateral infiltrates Chest xray 07/02: worsening subcutaneous emphysema with pneumomediaastinum. Stable bilateral airspace disease related to bilateral pneumonia versus atypical infectious process. Tiny bilateral pleural effusions. Chest X ray 07/04: unchanged This is a 54 year old male with past medical history of PVCS who presented with fevers, muscle aches and malaise, diagnosed with COVID, admitted to the floor and transitioned to ICU Acute hypoxic respiratory failure secondary to COVID pneumonia - chest X ray 06/28 showed progressive COVID pneumonia and today is unchanged. He is intubated . - s/p 7 days of doxycycline. Continue meropenem day 6, micafungin day 4 -s/p two transfusions of convalescent plasma. He completed a course of remdesivir - repeat chest Xray 07/02 shows severe bilateral infiltrates. S/p one dose lasix 07/02. REpeat chest X ray today unchanged - continue steroids Constipation - continue laxatives Hypotension - resolved - continue steroids Hypernatremia - resolved - continue tube feeds Leukocytosis - resolved. Continue meropenem Hypokalemia - potassium 3.4 ,replaced, will monitor Anemia - Hb 11.5
[2020-07-04] MEDS: Micafungin 100 MG in Sodium Chloride 0.9% 100 ML IVPB SCH (20:46)
[2020-07-04] MEDS ORDERED: Enoxaparin Sodium 60 MG/0.6 ML SYRINGE SC SCH (21:00)
--- NOTE | 2020-07-04 22:09 | CON ---
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 The patient has been followed by Dr. No and Dr. Cedillo. The patient has been hospitalized since 06/14/2020 when he presented to the emergency room with cough and hypoxia. He has been on the ventilator for some time. He is out of isolation, but now needs trach and PEG for convalescence and weaning. PAST MEDICAL HISTORY: Noncontributory. PAST SURGICAL HISTORY: Noncontributory. ALLERGIES: NONE. SOCIAL HISTORY: Tobacco, none. Alcohol, none. MEDICATIONS: None routinely per the patient's . REVIEW OF SYSTEMS: Negative. PHYSICAL EXAMINATION: VITAL SIGNS: 5 feet 7 inches, 172 pounds, 27 BMI, 109/74, 85, 99.1 degrees. HEAD, EARS, EYES, NOSE, AND THROAT: Unremarkable. LUNGS: Clear to auscultation. CARDIAC: Regular rate and rhythm without murmur, rub, or gallop. ABDOMEN: Soft, nontender. ASSESSMENT: The patient is on the ventilator. White count 8 and hemoglobin 12. Basic metabolic profile normal. PLAN: Tracheostomy, PEG tube tomorrow. Risks and benefits discussed. Questions answered. Job ID: [id number]
[2020-07-05] MEDS: Propofol 1,000 MG/100 ML VIAL IV PRN ×3 (04:19→20:58)
[2020-07-05] MEDS: HumaLOG 300 UNITS/3 ML VIAL SC PRN (05:12)
[2020-07-05] MEDS: Meropenem 2 GM, Admixture Fee 1 EACH in Sodium Chloride 0.9% 100 ML IVPB SCH ×3 (05:41→22:19)
[2020-07-05 06:11] LABS: Anion Gap 11 mmol/L (10-20); BUN (Urea Nitrogen) 24 mg/dL (8.4-25.7); Calc. Creatinine Clearance 136 mL/min (70-130); Calcium 7.9 mg/dL (7.8-10.44); Carbon Dioxide 28 mmol/L (22-29); Chloride 103 mmol/L (98-107); Glucose 153 mg/dL (70-105); Potassium 4.4 mmol/L (3.5-5.1); Sodium 138 mmol/L (136-145)
[2020-07-05 06:12] LABS: ALT (SGPT) 62 U/L (8-55); AST (SGOT) 31 U/L (5-34); Albumin 2.4 g/dL (3.5-5.0); Alkaline Phosphatase 74 U/L (40-110); Bilirubin, Direct 0.5 mg/dL (0.1-0.3); Bilirubin, Total 1.1 mg/dL (0.2-1.2); Protein, Total 5.6 g/dL (6.0-8.3)
[2020-07-05 06:25] LABS: Band 8 % (5-11); Hemoglobin 13.6 g/dL (14.0-18.0); Lymphocytes 5 % (21-51); MDiff Complete? YES; Mean Corpuscular Hemoglobin 28.7 pg (27.0-31.0); Mean Corpuscular Volume 81.9 fL (78.0-98.0); Mean Platelet Volume 8.6 fL (7.4-10.4); Monocytes 1 % (0-10); Neutrophil 86 % (42-75); Platelet Count 164 thou/uL (130-400); RBC Distribution Width 14.6 % (11.5-14.5); Red Blood Cell (RBC) Count 4.74 mill/uL (4.70-6.10); White Blood Cell (WBC) Count 10.3 thou/uL (4.8-10.8)
[2020-07-05] MEDS: Mometasone 200 MCG/Formoterol 5 MCG 120 PUFF INHALER INH SCH ×2 (07:12→19:04)
[2020-07-05 07:26] LABS: Actual Bicarbonate (HCO3a) 30.7 mEq/L (22-28); Base Excess (BEa) 5.5 mEq/L (-2.0 to +3.0); CO2 Tension 46.3 mmHg (35.0-45.0); Calcium, Ionized (arterial) 1.16 mmol/L (1.12-1.30); O2 Tension (PaO2), arterial 84.1 mmHg (80.0-100.0); Potassium - ABG Lab 3.73 mmol/L (3.70-5.30); pH, Arterial 7.44 (7.35-7.45)
[2020-07-05 07:30] LABS: ALV-art Gradient 143.225 mmHg (0-20); Puncture Site RRA
[2020-07-05] MEDS: Ascorbic Acid 500 mg Chewable Tablet PO SCH (08:31)
[2020-07-05] MEDS: Calcium Carbonate 600 MG + Vit D TAB PO SCH (08:31)
[2020-07-05] MEDS: Multivit, Therapeutic 1 TAB PO SCH (08:32)
[2020-07-05] MEDS: Cholecalciferol 1,000 UNITS (25 MCG) TAB PO SCH (08:32)
[2020-07-05] MEDS: methylPREDNISolone Sod Succ/PF 125 MG/2 ML VIAL IVP SCH ×2 (08:33→20:59)
[2020-07-05] MEDS: Famotidine/PF 20 mg/2ml Vial SLOW IVP SCH ×2 (08:33→20:59)
[2020-07-05] MEDS: Zinc Sulfate 220 MG CAP PO SCH (08:34)
--- NOTE | 2020-07-05 08:38 | RAD ---
CHEST 1 VIEW: Date: 07/05/2020 INDICATION: History of intubation. COMPARISON: Prior exam dated 07/04/2020. FINDINGS: Bilateral air space disease persists. The patient is intubated with gastric catheter placement. Subcu taneous emphysema involving the neck and chest wall are similar. IMPRESSION: 1. Stable bilateral air space disease. 2. Stable tubes and lines. 3. Stable subcutaneous emphysema. POS: BH
[2020-07-05] MEDS ORDERED: Bupivacaine PF 0.5% 30 ML VIAL ONE (13:04)
[2020-07-05] MEDS ORDERED: EPINEPHrine 1 MG/10 ML Abboject SYRINGE ONE (13:04)
[2020-07-05] MEDS ORDERED: Lidocaine 1% (PF) 30 ML VIAL ONE (13:04)
[2020-07-05] MEDS ORDERED: Lidocaine 2% PF 5 ML VIAL ONE (13:04)
[2020-07-05] MEDS ORDERED: Rocuronium Bromide 10 MG/ML (10ML VIAL) ONE (13:05)
[2020-07-05] MEDS ORDERED: Lidocaine 1% w/Epinephrine 1:100K 20 ML VIAL ONE (13:06)
[2020-07-05] MEDS ORDERED: Fentanyl 100 MCG/2 ML VIAL ONE (13:23)
[2020-07-05 13:49] LABS: Ref Lab Test Ordered KARIUS; Reference Lab Name KARIUS
--- NOTE | 2020-07-05 14:39 | PRG ---
DATE OF SERVICE: 07/05/2020 SUBJECTIVE: The patient has not shown any significant improvement and expectation is for trach and PEG today. OBJECTIVE: VITAL SIGNS: Blood pressure is 93/61, heart rate 59, respiratory rate 22, saturation 99%, currently afebrile. GENERAL: Sedated, not responsive to stimuli. NECK: Shows no adenopathy. LUNGS: Show coarse rhonchi without wheezes. HEART: Regular rate and rhythm. ABDOMEN: Soft. There is no organomegaly. EXTREMITIES: There is no edema or cords. LABORATORY DATA: White count 10,300, hemoglobin is 13.6 with hematocrit of 38.8, and platelet count of 164,000. Differential is 86 segs and 8 bands. Blood gas includes pH 7.44, pCO2 of 46, pO2 of 84, bicarbonate of 31 on current ventilator settings including bilevel 25/6, rate of 22, and FiO2 of 40%. Chemistries include sodium 138, potassium 4.4, chloride 103, CO2 is 28, BUN 24, creatinine 0.66. IMPRESSION: Acute on chronic hypercapnic and hypoxemic respiratory failure secondary to COVID pneumonia. PLAN: We will continue current therapies. Tracheostomy is planned for today. Hopefully then we can have further weaning, although settings at this point are probably about optimal. Critical care time, 31 minutes. Job ID: [id number]
[2020-07-05] MEDS: Calcium Carbonate 600 MG + Vit D TAB PER TUBE SCH (16:28)
[2020-07-05] MEDS ORDERED: guaiFENesin 100 MG/5 ML UDCUP PER TUBE PRN (16:30)
--- NOTE | 2020-07-05 17:31 | PRG ---
DATE OF SERVICE: 07/05/2020 SUBJECTIVE: Ramu has a tracheostomy now and a gastrostomy tube. OBJECTIVE: VITAL SIGNS: His sats are around 98 with 40% FiO2 and bilevel pressure support 25 and 6, I believe. HEENT: He has some conjunctival hyperemia. LUNGS: Those coarse breath sounds with those hard rhonchi in the anterior chest area. ABDOMEN: Flat, soft, and he has a White catheter in place. I's and O's are negative anywhere from 600 to 2900 for the past 3 days. EXTREMITIES: He has 2 midlines in upper extremities. LABORATORY DATA: Sodium 138 and creatinine 0.66. Ferritin is down to 1700. CRP is down to 2.52. His white cell count 10.3 and hemoglobin 13.6. Karius test showed cytomegalovirus as the only pathogen retrieved, 825 molecules per mcL, so per mL this will be 825,000 copies, which is quite significant. ASSESSMENT AND DISCUSSION: Severe COVID pneumonia, requiring intubation. Now, the patient has tracheostomy and gastrostomy tube. I think he received his 2nd course of remdesivir yesterday. He has been on broad-spectrum coverage, but according to the Karius test, the only pathogen identified was cytomegalovirus, so I think we can discontinue micafungin and meropenem and start Valcyte induction dose. He is on methylprednisolone. I would probably encourage further reduction in the dose going forward. Job ID: [id number]
[2020-07-05] MEDS: fentaNYL Citrate/PF 2,000 MCG in Sodium Chloride 0.9% 60 ML IV SCH (19:16)
--- NOTE | 2020-07-05 19:39 | OP ---
DATE OF PROCEDURE: 07/05/2020 PREOPERATIVE DIAGNOSES: COVID pneumonia, recovering; respiratory failure; malnutrition; dysphagia. POSTOPERATIVE DIAGNOSES: COVID pneumonia, recovering; respiratory failure; malnutrition; dysphagia. PROCEDURE PERFORMED: #8 Shiley low-pressure cuffed tracheostomy tube, percutaneous endoscopic gastrostomy tube. ANESTHESIA: General, local 0.5% Marcaine 30 mL mixed with 1% Xylocaine with epinephrine 20 mL. DESCRIPTION OF PROCEDURE: Patient was taken to the operating room, where under general anesthesia, neck and chest, abdomen clipped of hair, prepared with ChloraPrep and draped in routine fashion. Local anesthetic mixture was infiltrated into the skin and subcutaneous tissue about the operative site. An incision was made transversely in the anterior neck above the manubrium, carried down skin, platysma, gained hemostasis with cautery. Strap muscles reflected laterally. Trachea dissected free bilaterally and tracheostomy sutures of 3-0 Prolene placed in anterolateral trachea. Air knots tied, secured to the chest wall with Mastisol and OpSite. Opening made below the cricoid and the trachea over 2 cartilaginous rings, excising the anterior window of the trachea. Withdrawn the endotracheal tube under direct visualization, placed an #8 Shiley low-pressure cuffed tracheostomy tube, connected to the ventilator with good exchange and CO2 return. Good hemostasis noted. Skin incisions were closed on either side. We will continue suture of 3-0 Prolene. Tracheostomy appliance secured to the skin with 3-0 Prolene. Sterile dressings applied. Endoscope placed per os under direct visualization. Using air insufflation, passed throughout the esophagus and the stomach noting a good indentation of left subcostal where a stab incision was made and the trocar catheter introduced endoscopically into the stomach, visualized endoscopically. Wire introduced through the trocar catheter and grasped with a snare placed through the endoscope, grasping the wire and pulling out the mouth, connecting the wire to the feeding tube after the endoscope was removed. Feeding tube lubricated, pulled back down the esophagus, fixated to the abdominal wall with a fixation device, and tailored to length with the feeding device. The patient tolerated the procedure well. Job ID: [id number]
[2020-07-05] MEDS: Enoxaparin Sodium 60 MG/0.6 ML SYRINGE SC SCH (20:59)
[2020-07-05] MEDS: Micafungin 100 MG in Sodium Chloride 0.9% 100 ML IVPB SCH (21:24)
[2020-07-06] MEDS: Propofol 1,000 MG/100 ML VIAL IV PRN ×2 (04:27→11:11)
[2020-07-06 05:15] LABS: ALT (SGPT) 56 U/L (8-55); AST (SGOT) 26 U/L (5-34); Albumin 2.2 g/dL (3.5-5.0); Alkaline Phosphatase 66 U/L (40-110); Anion Gap 10 mmol/L (10-20); BUN (Urea Nitrogen) 21 mg/dL (8.4-25.7); Bilirubin, Direct 0.5 mg/dL (0.1-0.3); Calc. Creatinine Clearance 130 mL/min (70-130); Calcium 7.5 mg/dL (7.8-10.44); Carbon Dioxide 31 mmol/L (22-29); Chloride 103 mmol/L (98-107); Glucose 156 mg/dL (70-105); Potassium 4.3 mmol/L (3.5-5.1); Sodium 140 mmol/L (136-145)
[2020-07-06 05:52] LABS: Band 5 % (5-11); Hemoglobin 11.6 g/dL (14.0-18.0); Lymphocytes 3 % (21-51); MDiff Complete? YES; Mean Corpuscular HGB CONC 35.2 g/dL (32.0-36.0); Mean Corpuscular Hemoglobin 28.4 pg (27.0-31.0); Mean Corpuscular Volume 80.7 fL (78.0-98.0); Monocytes 6 % (0-10); Neutrophil 86 % (42-75); Platelet Count 172 thou/uL (130-400); Platelet Morphology Comment Appears Adequate; RBC Distribution Width 14.7 % (11.5-14.5); RBC Morphology Normal; Red Blood Cell (RBC) Count 4.09 mill/uL (4.70-6.10); White Blood Cell (WBC) Count 9.1 thou/uL (4.8-10.8)
[2020-07-06] MEDS: Meropenem 2 GM, Admixture Fee 1 EACH in Sodium Chloride 0.9% 100 ML IVPB SCH ×3 (07:49→22:32)
[2020-07-06] MEDS: Mometasone 200 MCG/Formoterol 5 MCG 120 PUFF INHALER INH SCH ×2 (07:53→19:42)
[2020-07-06 08:08] LABS: Actual Bicarbonate (HCO3a) 28.8 mEq/L (22-28); Base Excess (BEa) 5.3 mEq/L (-2.0 to +3.0); CO2 Tension 38.7 mmHg (35.0-45.0); Calcium, Ionized (arterial) 1.13 mmol/L (1.12-1.30); Potassium - ABG Lab 3.54 mmol/L (3.70-5.30); pH, Arterial 7.49 (7.35-7.45)
[2020-07-06 08:12] LABS: O2 Tension (PaO2), arterial 59.3 mmHg (80.0-100.0); Puncture Site RRA
[2020-07-06 08:13] LABS: ALV-art Gradient 177.525 mmHg (0-20)
[2020-07-06] MEDS: Enoxaparin Sodium 60 MG/0.6 ML SYRINGE SC SCH ×2 (08:16→20:27)
[2020-07-06] MEDS: Multivit, Therapeutic 1 TAB PER TUBE SCH (08:17)
[2020-07-06] MEDS: Calcium Carbonate 600 MG + Vit D TAB PER TUBE SCH ×2 (08:17→17:15)
[2020-07-06] MEDS: Zinc Sulfate 220 MG CAP PER TUBE SCH (08:17)
[2020-07-06] MEDS: methylPREDNISolone Sod Succ/PF 125 MG/2 ML VIAL IVP SCH ×2 (08:17→20:26)
[2020-07-06] MEDS: Ascorbic Acid 500 mg Chewable Tablet PER TUBE SCH (08:18)
[2020-07-06] MEDS: Cholecalciferol 1,000 UNITS (25 MCG) TAB PER TUBE SCH (08:19)
[2020-07-06] MEDS: Famotidine/PF 20 mg/2ml Vial SLOW IVP SCH ×2 (08:20→20:26)
[2020-07-06] MEDS: Lorazepam 2 MG/ML VIAL SLOW IVP PRN ×3 (08:25→16:41)
--- NOTE | 2020-07-06 10:19 | RAD ---
CHEST ONE VIEW: INDICATIONS: History of intubation. COMPARISON: 07/05/2020 FINDINGS: There is improvement in bilateral air space disease. Subcutaneous emphysema involving the chest wall and neck base also appears slightly improved. Tracheostomy tube has been placed. Gastric catheter has been removed. No pneumothorax is evident. IMPRESSION: 1. Improving bilateral air space disease. 2. Improving subcutaneous emphysema. 3. New tracheostomy tube. POS: BH
[2020-07-06] MEDS: fentaNYL Citrate/PF 2,000 MCG in Sodium Chloride 0.9% 60 ML IV SCH (14:06)
--- NOTE | 2020-07-06 14:17 | PRG ---
DATE OF SERVICE: The patient underwent placement of PEG and tracheostomy yesterday. There was some oozing at the site today, and a stitch was placed. Current ventilator includes rate of 22, FiO2 of 40%, bilevel at 25/6. PHYSICAL EXAMINATION: VITAL SIGNS: Blood pressure 140/100, heart rate of 105, saturation 93% on ventilator settings as above, temperature of 100.8. LUNGS: Bilateral coarse rhonchi. ET tube is okay. HEART: Regular rate and rhythm. ABDOMEN: Soft. Stitch was placed at the insertion site for oozing. EXTREMITIES: No cord or tenderness. LABORATORY DATA: Chest x-ray shows bilateral infiltrates, unchanged. White count 9100, hemoglobin is 11.6, hematocrit 33.1, and platelet count of 172,000, and this has been stable with 86 segs and 5 bands. Blood gas shows pH 7.9, pCO2 is 38, pO2 is 60, and bicarbonate is 28, that should allow us to reduce his rate some. His sodium is 140, potassium 4.3, chloride 103, CO2 is 31, BUN 21, creatinine 0.7. IMPRESSION: COVID pneumonia, status post PEG and trach. PLAN: We will continue with current support. I will try to reduce his ventilator rate just a bit. Alternatively, we could try to reduce the pressure a little, although I am concerned that would potentially worsen his oxygen delivery. Critical care, 30 minutes. Job ID: [id number]
--- NOTE | 2020-07-06 18:52 | PDOC.HOSPP ---
- Subjective Encounter Date: 07/06/20 Encounter Time: 18:30 Subjective: f/u for severe COVID PNA s/p trach/PEG placement 07/05/20. [facility] Bi-level 25/6 with FIO2 40%. Intermittently agitated on sedation. - Objective Vital Signs & Weight: Vital Signs (12 hours) Temp Pulse Resp BP Pulse Ox 07/06/20 18:00 20 07/06/20 16:00 99.1 F 22 H 96 07/06/20 14:22 74 07/06/20 10:54 102 H 22 H 98 07/06/20 10:53 88 07/06/20 08:00 98 07/06/20 07:54 88 129/102 H Weight Admit Weight 157 lb 4.8 oz Weight 154 lb 8.705 oz Most Recent Monitor Data Heart Rate from ECG 72 NIBP 85/56 NIBP BP-Mean 65 Respiration from ECG 20 SpO2 100 I&O: 07/05/20 07/06/20 07/07/20 06:59 06:59 06:59 Intake Total 1075 944 623 Output Total [address] [place], [place] [id number] [phone] Result Diagrams: 07/06/20 04:10 07/06/20 04:10 Additional Labs: Accuchecks 07/06/20 07/06/20 16:50 09:37 POC Glucose 134 H 114 H Laboratory Tests 06/15/20 06/28/20 06/29/20 05:44 13:14 04:56 D-Dimer Hemoglobin A1c 5.1 Ferritin C-Reactive Protein 5.58 H 13.68 H 06/30/20 07/01/20 07/01/20 03:30 03:50 03:50 D-Dimer Hemoglobin A1c Ferritin 2330.60 H C-Reactive Protein 20.11 H 11.01 H 07/02/20 07/02/20 07/02/20 03:45 03:45 03:45 D-Dimer 1.17 H Hemoglobin A1c Ferritin 2204.61 H C-Reactive Protein 5.24 H 07/03/20 07/03/20 07/03/20 04:05 04:05 04:05 D-Dimer 1.51 H Hemoglobin A1c Ferritin 2131.10 H C-Reactive Protein 2.52 H 07/04/20 07/04/20 07/05/20 03:30 03:30 05:14 D-Dimer 2.60 H 1.99 H Hemoglobin A1c Ferritin 1944.06 H C-Reactive Protein 07/05/20 07/06/20 07/06/20 05:14 04:10 04:10 D-Dimer 1.91 H Hemoglobin A1c Ferritin 1719.77 H 1618.20 H C-Reactive Protein Radiology Reviewed by me: Yes (PCXR - improved air space dz, less subq emphysema) EKG Reviewed by me: Yes (Tele - SR) Hospitalist ROS - Medication Medications: Active Medications Generic Name Dose Route Start Last Admin Trade Name Freq PRN Reason Stop Dose Admin Albuterol/Ipratropium 3 ml 06/28/20 14:30 07/06/20 14:22 Ipratropium/Albuterol Sulfate 3 Ml Neb NEB 3 ml [id number] JEOVANNY Administration Ascorbic Acid 1,000 mg 07/06/20 09:00 07/06/20 08:18 Ascorbic Acid 500 Mg Chewable Tablet PER TUBE 1,000 mg DAILY JEOVANNY Administration Benzonatate 200 mg 06/18/20 12:02 06/28/20 10:06 Benzonatate 100 Mg Cap PO 200 mg Q4H PRN Administration Cough Bisacodyl 10 mg 07/03/20 13:43 07/04/20 17:35 Bisacodyl 10 Mg Supp [place] 10 mg DAILY PRN Administration Constipation Calcium/Vitamin D 1 tab 07/05/20 17:00 07/06/20 17:15 Calcium Carbonate 600 Mg + Vit D Tab PER TUBE 1 tab BID-WM JEOVANNY Administration Cholecalciferol 5,000 units 07/06/20 09:00 07/06/20 08:19 Cholecalciferol 1,000 Units (25 Mcg) Tab PER TUBE 5,000 units DAILY JEOVANNY Administration Enoxaparin Sodium 60 mg 07/05/20 21:00 07/06/20 08:16 Enoxaparin Sodium 60 Mg/0.6 Ml Syringe SC 60 mg 0900,2100 JEOVANNY Administration Famotidine 20 mg 06/29/20 21:00 07/06/20 08:20 Famotidine/Pf 20 Mg/2ml Vial SLOW IVP 20 mg BID JEOVANNY Administration Meropenem 2 gm/ Miscellaneous 100 mls @ 200 mls/hr 06/28/20 14:00 07/06/20 14:02 Medication 1 each/ Sodium IVPB 100 mls Chloride Q8HR JEOVANNY Administration Fentanyl Citrate 2,000 mcg/ 100 mls @ 0 mls/hr 06/29/20 08:15 07/06/20 14:06 Sodium Chloride IV 07/29/20 08:15 100 mls INF JEOVANNY Administration Protocol Per Protocol Micafungin Sodium 100 mg/ 100 mls @ 100 mls/hr 07/01/20 21:00 07/05/20 21:24 Sodium Chloride IVPB 100 mls 2100 JEOVANNY Administration Dexmedetomidine HCl 400 mcg/ 100 mls @ 0 mls/hr 07/06/20 18:00 07/06/20 18:39 Sodium Chloride IVPB 100 mls INF JEOVANNY Administration Protocol Titrate Insulin Human Lispro 0 units 06/30/20 07:56 07/05/20 05:12 Humalog 300 Units/3 Ml Vial SC 3 unit .MODERATE SLIDING SC PRN Administration Moderate Correctional Scale Lorazepam 2 mg 06/29/20 08:15 07/06/20 16:41 Lorazepam 2 Mg/Ml Vial SLOW IVP 07/29/20 08:15 2 mg Q1H PRN Administration Breakthrough agitation Methylprednisolone Sodium Succinate 80 mg 07/01/20 09:00 07/06/20 08:17 Methylprednisolone Sod Succ/Pf 125 Mg/2 Ml Vial IVP 80 mg 899,2099 JEOVANNY Administration Mometasone Furoate/Formoterol Fumar 2 puff 06/14/20 18:30 07/06/20 07:53 Mometasone 200 Mcg/Formoterol 5 Mcg 120 Puff Inhaler INH 2 puff BID-RT JEOVANNY Administration Morphine Sulfate 2 mg 06/29/20 08:15 06/30/20 09:41 Morphine 2 Mg/Ml Vial SLOW IVP 07/29/20 08:15 2 mg Q1H PRN Administration Breakthrough Pain/Agitation Multivitamins 1 tab 07/06/20 09:00 07/06/20 08:17 Multivit, Therapeutic 1 Tab PER TUBE 1 tab DAILY JEOVANNY Administration Polyethylene Glycol 17 gm 07/02/20 09:51 07/02/20 10:15 Polyethylene Glycol 3350 17 Gm Packet PER TUBE 17 gm DAILY PRN Administration Constipation Propofol 1,000 mg 06/29/20 08:15 07/06/20 11:11 Propofol 1,000 Mg/100 Ml Vial IV 07/29/20 08:15 1,000 mg INF PRN Administration TO ACHIEVE GOAL RASS Protocol Sodium Chloride 10 ml 06/15/20 09:00 07/06/20 10:36 Flush - Normal Saline 10 Ml Syringe IVF 10 ml Q12HR JEOVANNY Administration Sodium Chloride 10 ml 06/15/20 06:30 06/20/20 01:35 Flush - Normal Saline 10 Ml Syringe IVF 10 ml PRN PRN Administration Saline Flush Valganciclovir 900 mg 07/05/20 21:00 07/06/20 08:18 Valganciclovir Hcl 450 Mg Tab PER TUBE 900 mg BID JEOVANNY Administration Vecuronium George 10 mg 06/29/20 09:27 07/03/20 08:15 Vecuronium 10 Mg Vial IV 10 mg Q1H PRN Administration NEEDED Zinc Sulfate 220 mg 07/06/20 09:00 07/06/20 08:17 Zinc Sulfate 220 Mg Cap PER TUBE 220 mg DAILY JEOVANNY Administration - Exam General - other findings: sedate on mech vent ENT: normocephalic atraumatic, no oropharyngeal lesions ENT - other findings: trach in place no bleeding Neck: supple, symmetric, no JVD, no thyromegaly Heart: RRR, no gallops, no rubs, normal peripheral pulses Heart - other findings: S1, S2 Respiratory - other findings: scattered coarse sounds, diminished in bases Gastrointestinal: soft, non-tender, non-distended, normal bowel sounds, no palpable masses Gastrointestinal - other findings: PEG in place Extremities: no cyanosis, no clubbing, no edema Skin: normal turgor, no lesions Neurological - other findings: sedate on mech vent Psychiatric: flat affect, somnolent, lethargic Hosp A/P (1) Pneumonia due to COVID-19 virus Code(s): U07.1 - COVID-19; J12.89 - OTHER VIRAL PNEUMONIA Status: Acute (2) Acute respiratory failure with hypoxia Code(s): J96.01 - ACUTE RESPIRATORY FAILURE WITH HYPOXIA Status: Acute (3) Normocytic anemia Code(s): D64.9 - ANEMIA, UNSPECIFIED Status: Acute - Plan continue antibiotics, dialysis social worker, respiratory therapy, DVT proph w/SCDs Continue critical support Nutritional support with TF's Vital HP @ 30ml/h Continue Meropenem Continue Solumedrol Continue Valcyte Continue Lovenox AM lab: BMP, CBC, Ferritin, D-dimer, CRP
[2020-07-06] MEDS: Micafungin 100 MG in Sodium Chloride 0.9% 100 ML IVPB SCH (20:26)
--- NOTE | 2020-07-06 20:53 | EKG ---
Test Reason : Blood Pressure : / mmHG Vent. Rate : 136 BPM Atrial Rate : 136 BPM P-R Int : 116 ms QRS Dur : 082 ms QT Int : 300 ms P-R-T Axes : 052 059 154 degrees QTc Int : 451 ms Sinus tachycardia Possible Left atrial enlargement Marked ST abnormality, possible inferior subendocardial injury Marked ST abnormality, possible anterolateral subendocardial injury Abnormal ECG When compared with ECG of 14-JUN-2020 10:31, Premature ventricular complexes are no longer Present ST now depressed in Inferior leads ST now depressed in Lateral leads T wave amplitude has decreased in Lateral leads Confirmed by Stephane GLEASON ([id number]) on 07/06/2020 8:52:43 PM Referred By: CK Confirmed By:Stephane GLEASON
[2020-07-07] MEDS: Lorazepam 2 MG/ML VIAL SLOW IVP PRN ×6 (01:00→21:24)
[2020-07-07 05:02] LABS: Band 8 % (5-11); Hemoglobin 11.6 g/dL (14.0-18.0); Hypochromia SLIGHT = 6-15 cells (100X) (0-5/hpf); Lymphocytes 3 % (21-51); MDiff Complete? YES; Mean Corpuscular HGB CONC 36.1 g/dL (32.0-36.0); Mean Corpuscular Hemoglobin 28.6 pg (27.0-31.0); Mean Corpuscular Volume 79.3 fL (78.0-98.0); Mean Platelet Volume 8.9 fL (7.4-10.4); Monocytes 6 % (0-10); Neutrophil 83 % (42-75); Platelet Count 159 thou/uL (130-400); Platelet Morphology Comment Appears Adequate; RBC Distribution Width 14.8 % (11.5-14.5); Red Blood Cell (RBC) Count 4.05 mill/uL (4.70-6.10); White Blood Cell (WBC) Count 8.7 thou/uL (4.8-10.8)
[2020-07-07 05:12] LABS: Anion Gap 9 mmol/L (10-20); BUN (Urea Nitrogen) 25 mg/dL (8.4-25.7); Calc. Creatinine Clearance 125 mL/min (70-130); Calcium 7.9 mg/dL (7.8-10.44); Carbon Dioxide 32 mmol/L (22-29); Chloride 106 mmol/L (98-107); Glucose 179 mg/dL (70-105); Potassium 4.1 mmol/L (3.5-5.1); Sodium 143 mmol/L (136-145)
[2020-07-07 05:14] LABS: ALT (SGPT) 50 U/L (8-55); AST (SGOT) 19 U/L (5-34); Albumin 2.3 g/dL (3.5-5.0); Alkaline Phosphatase 69 U/L (40-110); Bilirubin, Direct 0.7 mg/dL (0.1-0.3); Bilirubin, Total 1.4 mg/dL (0.2-1.2); Protein, Total 5.1 g/dL (6.0-8.3)
[2020-07-07] MEDS: fentaNYL Citrate/PF 2,000 MCG in Sodium Chloride 0.9% 60 ML IV SCH ×2 (05:41→19:19)
[2020-07-07] MEDS: Meropenem 2 GM, Admixture Fee 1 EACH in Sodium Chloride 0.9% 100 ML IVPB SCH (06:32)
[2020-07-07] MEDS: Mometasone 200 MCG/Formoterol 5 MCG 120 PUFF INHALER INH SCH ×2 (07:08→18:33)
[2020-07-07 07:24] LABS: Actual Bicarbonate (HCO3a) 26.8 mEq/L (22-28); Analyzer IN Cardio OR; Base Excess (BEa) 2.5 mEq/L (-2.0 to +3.0); CO2 Tension 40.2 mmHg (35.0-45.0); Calcium, Ionized (arterial) 1.19 mmol/L (1.12-1.30); Carboxyhemoglobin (COHb) 1.8 gm% (0.0-3.0); Hemoglobin (Hb) 11.4 g/dL (14.0-18.0); O2 Tension (PaO2), arterial 70.2 mmHg (80.0-100.0); pH, Arterial 7.44 (7.35-7.45)
[2020-07-07 07:30] LABS: Peep/CPAP 9.1 cmH2O; Puncture Site RRA
--- NOTE | 2020-07-07 07:38 | RAD ---
Portable frontal chest radiograph: 07/07/2020 COMPARISON: 07/06/2020 HISTORY: Evaluate subcutaneous gas FINDINGS: Evaluation for pneumothorax is limited secondary to extensive persistent subcutaneous gas w ithin the supraclavicular regions and the chest wall bilaterally. No obvious pneumothorax is apparent but a small pneumothorax may be obscured by above findings. Stable tracheostomy tube. Stable heart and mediastinal contours. Persistent nonspecific linear interstitial density with superimposed groundglass opacity noted bilate rally. IMPRESSION: No significant interval change.
[2020-07-07] MEDS ORDERED: methylPREDNISolone Sod Succ 40 MG VIAL IVP SCH (09:00)
[2020-07-07] MEDS: Propofol 1,000 MG/100 ML VIAL IV PRN ×2 (09:11→19:18)
[2020-07-07] MEDS ORDERED: methylPREDNISolone Sod Succ/PF 125 MG/2 ML VIAL IVP SCH (09:45)
--- NOTE | 2020-07-07 09:50 | PRG ---
DATE OF SERVICE: 07/07/2020 SUBJECTIVE: The patient has a tracheostomy and PEG tube in place. He is on mechanical ventilation through a tracheostomy. He is sedated at this time. OBJECTIVE: VITAL SIGNS: On examination, temperature 96.4, pulse 72, blood pressure 95/72, and O2 saturation 96%. HEENT: Unchanged. NECK: No adenopathy or JVD. LUNGS: Coarse breath sounds. CARDIAC: S1 and S2. Regular. ABDOMEN: Soft and nontender. EXTREMITIES: No edema. LABORATORY DATA: Sodium 143, potassium 4.1, chloride 106, CO2 of 32, BUN 25, creatinine 0.6, and glucose 179. Ferritin is 2144. White blood cell count 8.7, hematocrit 32.1, and platelet count 159. PH of 7.44, pCO2 of 40, pO2 of 70 on bilevel 25/6, FiO2 of 40%. Chest x-ray continued to show bilateral infiltrates. ASSESSMENT: 1. COVID-19 pneumonia. 2. Acute respiratory failure, requiring mechanical ventilation and tracheostomy. PLAN: Not much room to wean him at the current time. I would like to stop paralytics and decrease the steroid dose. We will continue to follow. The patient is on meropenem for secondary coverage, after today, so we will stop that tomorrow. He is also on micafungin. Job ID: [id number]
[2020-07-07] MEDS: Calcium Carbonate 600 MG + Vit D TAB PER TUBE SCH ×2 (09:51→15:28)
[2020-07-07] MEDS: Cholecalciferol 1,000 UNITS (25 MCG) TAB PER TUBE SCH (09:51)
[2020-07-07] MEDS: Enoxaparin Sodium 60 MG/0.6 ML SYRINGE SC SCH ×2 (09:51→20:50)
[2020-07-07] MEDS: Multivit, Therapeutic 1 TAB PER TUBE SCH (09:51)
[2020-07-07] MEDS: Ascorbic Acid 500 mg Chewable Tablet PER TUBE SCH (09:52)
[2020-07-07] MEDS: Famotidine/PF 20 mg/2ml Vial SLOW IVP SCH ×2 (09:52→20:50)
[2020-07-07] MEDS: Zinc Sulfate 220 MG CAP PER TUBE SCH (09:53)
[2020-07-07] MEDS: Polyethylene Glycol 3350 17 GM Packet PER TUBE PRN (10:33)
[2020-07-07] MEDS ORDERED: VALGANCICLOVIR HCL PER TUBE SCH (13:00)
[2020-07-07] MEDS ORDERED: COMPOUND VEHICLE SF PER TUBE SCH (13:00)
--- NOTE | 2020-07-07 14:27 | PRG ---
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 They have to opt his FiO2 to 45. He is still on bilevel of 25 and 6 and pupils are constricted as expected, not as much conjunctival hyperemia as previously noted. Lungs with a better quality of lung sounds and more vesicular sounds, not so much cellophane like sounds that used to have in the past. S1 and S2. Regular rate. Abdomen is soft, not distended. LABORATORY DATA: White cell count 8.9, hemoglobin 11.6, platelets 159, and 83% neutrophils. Sodium 143 and creatinine 0.67. Ferritin has went up a bit to 2100. I want to slack off on the ferritin and CRP measurement because it is too many other competing things going on at this time. In terms of treatments, he is off the antimicrobials. He is still on the Valcyte and is on steroids at a lower dose. ASSESSMENT AND DISCUSSION: Severe COVID pneumonia requiring intubation, eventual tracheostomy, gastrostomy tube placement with acute respiratory distress syndrome, still requiring bilevel pressure support, but FiO2's are down to 40% to 45%. He is off remdesivir. He is just on valganciclovir now for the cytomegalovirus infection. Still on steroids, but those have been tapered somewhat. Hopefully, we will see continuation of the improvement in his lungs, so the pressure support can be decreased and then we can work towards weaning. Job ID: [id number]
[2020-07-07] MEDS: Acetaminophen 325 MG TAB PER TUBE PRN (15:27)
[2020-07-07] MEDS: methylPREDNISolone Sod Succ/PF 125 MG/2 ML VIAL IVP SCH ×2 (16:26→20:50)
--- NOTE | 2020-07-07 16:35 | PDOC.HOSPP ---
- Subjective Encounter Date: 07/07/20 Encounter Time: 16:30 Subjective: f/u for severe COVID [facility] with Bi-level support 16/02 with FIO2 40%. Receiving Solumedrol/Valcyte/Lovenox. - Objective Vital Signs & Weight: Vital Signs (12 hours) Pulse Pulse Pulse Resp BP BP Pulse Ox 07/07/20 16:00 20 07/07/20 14:12 82 07/07/20 14:00 20 07/07/20 12:00 20 100 07/07/20 11:11 117 H 07/07/20 10:59 129 H 119 H 122/81 115/86 07/07/20 10:00 20 07/07/20 09:07 71 07/07/20 08:00 20 98 07/07/20 06:00 20 Pulse Ox Pulse Ox 07/07/20 16:00 07/07/20 14:12 07/07/20 14:00 07/07/20 12:00 07/07/20 11:11 07/07/20 10:59 92 L 100 07/07/20 10:00 07/07/20 09:07 07/07/20 08:00 07/07/20 06:00 Weight Admit Weight 157 lb 4.8 oz Weight 154 lb 15.759 oz Most Recent Monitor Data Heart Rate from ECG 127 NIBP 99/65 NIBP BP-Mean 76 Respiration from ECG 20 SpO2 100 I&O: 07/06/20 07/07/20 07/08/20 06:59 06:59 06:59 Intake Total 944 1115 155 Output Total 4110 8340 1120 [facility]3166 [phone] Result Diagrams: 07/07/20 04:26 07/07/20 04:26 Additional Labs: Accuchecks 07/07/20 07/07/20 07/06/20 11:19 04:34 21:07 POC Glucose 117 H 170 H 127 H 07/06/20 07/05/20 07/05/20 16:50 16:34 05:12 POC Glucose 134 H 154 H 160 H Radiology Reviewed by me: Yes (PCXR - no significant interval change, extensive infiltrates bilat) EKG Reviewed by me: Yes (Tele - SR) Hospitalist ROS - Medication Medications: Active Medications Generic Name Dose Route Start Last Admin Trade Name Freq PRN Reason Stop Dose Admin Acetaminophen 650 mg 07/05/20 16:30 07/07/20 15:27 Acetaminophen 325 Mg Tab PER TUBE 650 mg Q6H PRN Administration Fever > 101 Albuterol/Ipratropium 3 ml 06/28/20 14:30 07/07/20 14:12 Ipratropium/Albuterol Sulfate 3 Ml Neb NEB 3 ml [id number] JEOVANNY Administration Ascorbic Acid 1,000 mg 07/06/20 09:00 07/07/20 09:52 Ascorbic Acid 500 Mg Chewable Tablet PER TUBE 1,000 mg DAILY JEOVANNY Administration Benzonatate 200 mg 06/18/20 12:02 06/28/20 10:06 Benzonatate 100 Mg Cap PO 200 mg Q4H PRN Administration Cough Bisacodyl 10 mg 07/03/20 13:43 07/04/20 17:35 Bisacodyl 10 Mg Supp [place] 10 mg DAILY PRN Administration Constipation Calcium/Vitamin D 1 tab 07/05/20 17:00 07/07/20 15:28 Calcium Carbonate 600 Mg + Vit D Tab PER TUBE 1 tab BID-WM JEOVANNY Administration Cholecalciferol 5,000 units 07/06/20 09:00 07/07/20 09:51 Cholecalciferol 1,000 Units (25 Mcg) Tab PER TUBE 5,000 units DAILY JEOVANNY Administration Enoxaparin Sodium 60 mg 07/05/20 21:00 07/07/20 09:51 Enoxaparin Sodium 60 Mg/0.6 Ml Syringe SC 60 mg 0900,2100 JEOVANNY Administration Famotidine 20 mg 06/29/20 21:00 07/07/20 09:52 Famotidine/Pf 20 Mg/2ml Vial SLOW IVP 20 mg BID JEOVANNY Administration Fentanyl Citrate 2,000 mcg/ 100 mls @ 0 mls/hr 06/29/20 08:15 07/07/20 05:41 Sodium Chloride IV 07/29/20 08:15 100 mls INF JEOVANNY Administration Protocol Per Protocol Dexmedetomidine HCl 400 mcg/ 100 mls @ 0 mls/hr 07/06/20 18:00 07/07/20 02:01 Sodium Chloride IVPB 100 mls INF JEOVANNY Administration Protocol Titrate Insulin Human Lispro 0 units 06/30/20 07:56 07/05/20 05:12 Humalog 300 Units/3 Ml Vial SC 3 unit .MODERATE SLIDING SC PRN Administration Moderate Correctional Scale Lorazepam 2 mg 06/29/20 08:15 07/07/20 12:15 Lorazepam 2 Mg/Ml Vial SLOW IVP 07/29/20 08:15 2 mg Q1H PRN Administration Breakthrough agitation Mometasone Furoate/Formoterol Fumar 2 puff 06/14/20 18:30 07/07/20 07:08 Mometasone 200 Mcg/Formoterol 5 Mcg 120 Puff Inhaler INH 2 puff BID-RT JEOVANNY Administration Morphine Sulfate 2 mg 06/29/20 08:15 06/30/20 09:41 Morphine 2 Mg/Ml Vial SLOW IVP 07/29/20 08:15 2 mg Q1H PRN Administration Breakthrough Pain/Agitation Multivitamins 1 tab 07/06/20 09:00 07/07/20 09:51 Multivit, Therapeutic 1 Tab PER TUBE 1 tab DAILY JEOVANNY Administration Polyethylene Glycol 17 gm 07/02/20 09:51 07/07/20 10:33 Polyethylene Glycol 3350 17 Gm Packet PER TUBE 17 gm DAILY PRN Administration Constipation Propofol 1,000 mg 06/29/20 08:15 07/07/20 09:11 Propofol 1,000 Mg/100 Ml Vial IV 07/29/20 08:15 1,000 mg INF PRN Administration TO ACHIEVE GOAL RASS Protocol Sodium Chloride 10 ml 06/15/20 09:00 07/07/20 09:00 Flush - Normal Saline 10 Ml Syringe IVF 10 ml Q12HR JEOVANNY Administration Sodium Chloride 10 ml 06/15/20 06:30 06/20/20 01:35 Flush - Normal Saline 10 Ml Syringe IVF 10 ml PRN PRN Administration Saline Flush Zinc Sulfate 220 mg 07/06/20 09:00 07/07/20 09:53 Zinc Sulfate 220 Mg Cap PER TUBE 220 mg DAILY JEOVANNY Administration - Exam General - other findings: sedate on mech vent Eye: PERRL, anicteric sclera ENT: normocephalic atraumatic, no oropharyngeal lesions Neck: supple, symmetric, no JVD, no thyromegaly Neck - other findings: trach in place Heart: RRR, no gallops, no rubs, normal peripheral pulses Heart - other findings: S1, S2 Respiratory - other findings: diminished bilat, scattered coarse sounds Gastrointestinal: soft, non-tender, non-distended, normal bowel sounds, no palpable masses, no hepatomegaly Gastrointestinal - other findings: PEG in place Extremities: no cyanosis, no clubbing, no edema Skin: normal turgor Neurological - other findings: sedate on mech vent Musculoskeletal: generalized weakness Psychiatric: somnolent, lethargic Hosp A/P (1) Pneumonia due to COVID-19 virus Code(s): U07.1 - COVID-19; J12.89 - OTHER VIRAL PNEUMONIA Status: Acute Plan: Continue Lovenox/Solumedrol/Zinc/Valcyte/Dulera/mech ventilation with Bi-level FIO2 40% (2) Acute respiratory failure with hypoxia Code(s): J96.01 - ACUTE RESPIRATORY FAILURE WITH HYPOXIA Status: Acute Plan: Continue mech ventilation with Bi-level (3) Normocytic anemia Code(s): D64.9 - ANEMIA, UNSPECIFIED Status: Acute Plan: Stable currently, serial monitoring - Plan PT/OT, group social worker, speech therapy, respiratory therapy Continue critical support Nutritional support with TF's Vital HP @ 30ml/h D/C Meropenem Continue Solumedrol Continue Valcyte Continue Lovenox AM lab: BMP, CBC, Ferritin, D-dimer, CRP
[2020-07-07] MEDS ORDERED: Sodium Chloride 0.9% 1,000 ML IV SCH (17:00)
[2020-07-07] MEDS ORDERED: Norepinephrine 8 MG in Dextrose 5% in Water 242 ML IVPB PRN (17:00)
[2020-07-07] MEDS: COMPOUND VEHICLE SF PER TUBE SCH (20:49)
[2020-07-07] MEDS: VALGANCICLOVIR HCL PER TUBE SCH (20:49)
[2020-07-08] MEDS: Lorazepam 2 MG/ML VIAL SLOW IVP PRN ×2 (03:33→07:51)
[2020-07-08 04:00] LABS: Band 12 % (5-11); Hemoglobin 12.8 g/dL (14.0-18.0); Lymphocytes 1 % (21-51); MDiff Complete? YES; Mean Corpuscular HGB CONC 35.9 g/dL (32.0-36.0); Mean Corpuscular Hemoglobin 28.4 pg (27.0-31.0); Mean Corpuscular Volume 79.2 fL (78.0-98.0); Mean Platelet Volume 8.4 fL (7.4-10.4); Monocytes 1 % (0-10); Neutrophil 86 % (42-75); Platelet Count 188 thou/uL (130-400); Platelet Morphology Comment Appears Adequate; RBC Distribution Width 15.3 % (11.5-14.5); White Blood Cell (WBC) Count 14.7 thou/uL (4.8-10.8)
[2020-07-08 04:13] LABS: ALT (SGPT) 47 U/L (8-55); AST (SGOT) 24 U/L (5-34); Albumin 2.7 g/dL (3.5-5.0); Alkaline Phosphatase 77 U/L (40-110); Anion Gap 12 mmol/L (10-20); BUN (Urea Nitrogen) 23 mg/dL (8.4-25.7); Bilirubin, Direct 0.9 mg/dL (0.1-0.3); Bilirubin, Total 1.6 mg/dL (0.2-1.2); Calc. Creatinine Clearance 115 mL/min (70-130); Calcium 7.9 mg/dL (7.8-10.44); Carbon Dioxide 29 mmol/L (22-29); Chloride 106 mmol/L (98-107); Glucose 176 mg/dL (70-105); Protein, Total 5.7 g/dL (6.0-8.3); Sodium 143 mmol/L (136-145)
[2020-07-08] MEDS: Propofol 1,000 MG/100 ML VIAL IV PRN (05:50)
[2020-07-08] MEDS: Mometasone 200 MCG/Formoterol 5 MCG 120 PUFF INHALER INH SCH ×2 (07:03→18:25)
[2020-07-08 07:37] LABS: Actual Bicarbonate (HCO3a) 27.3 mEq/L (22-28); Analyzer IN Cardio ER; Base Excess (BEa) 3.8 mEq/L (-2.0 to +3.0); CO2 Tension 37.3 mmHg (35.0-45.0); Calcium, Ionized (arterial) 1.15 mmol/L (1.12-1.30); Carboxyhemoglobin (COHb) 0.4 gm% (0.0-3.0); Hemoglobin (Hb) 12.5 g/dL (14.0-18.0); O2 Tension (PaO2), arterial 67.5 mmHg (80.0-100.0); Potassium - ABG Lab 3.65 mmol/L (3.70-5.30); pH, Arterial 7.48 (7.35-7.45)
[2020-07-08] MEDS: fentaNYL Citrate/PF 2,000 MCG in Sodium Chloride 0.9% 60 ML IV SCH (07:44)
[2020-07-08] MEDS: Famotidine/PF 20 mg/2ml Vial SLOW IVP SCH ×2 (07:51→20:47)
[2020-07-08] MEDS: methylPREDNISolone Sod Succ/PF 125 MG/2 ML VIAL IVP SCH ×2 (07:52→20:44)
[2020-07-08] MEDS: Multivit, Therapeutic 1 TAB PER TUBE SCH (07:53)
[2020-07-08] MEDS: Ascorbic Acid 500 mg Chewable Tablet PER TUBE SCH (07:53)
[2020-07-08] MEDS: Cholecalciferol 1,000 UNITS (25 MCG) TAB PER TUBE SCH (07:53)
[2020-07-08] MEDS: Calcium Carbonate 600 MG + Vit D TAB PER TUBE SCH ×2 (07:53→17:43)
[2020-07-08] MEDS: Zinc Sulfate 220 MG CAP PER TUBE SCH (07:54)
[2020-07-08 08:17] LABS: Puncture Site RRA
[2020-07-08 08:18] LABS: ALV-art Gradient 171.075 mmHg (0-20)
--- NOTE | 2020-07-08 09:49 | PRG ---
DATE OF SERVICE: 07/08/2020 Krish Guallpa is doing well today. I was called to see him regarding bleeding around his PEG site. Over the weekend after placement of his PEG, Dr. Urrutia placed a pursestring suture. He has started bleeding again. On arrival, the patient is oozing around his PEG tube. The pursestring suture was removed. Thaddeus hemostatic agent was placed in the site around the PEG tube. Gauze dressing applied. I have advised the nurse to resume tube feedings. If there is concern about GI bleeding, GI should be consulted for upper endoscopy. Job ID: [id number]
--- NOTE | 2020-07-08 13:17 | RAD ---
KUB: Date: 07/08/2020 INDICATION: Verify PEG placement. IMPRESSION: There is a percutaneous gastrostomy tube within the left upper quadrant of the abdomen projecting int o the gastric body. There is intraluminal contrast within the stomach without evidence of extralumina l leak. POS: BH
[2020-07-08] MEDS ORDERED: GASTROGRAFIN 30 ML BOT ONE (13:18)
[2020-07-08] MEDS: VALGANCICLOVIR HCL PER TUBE SCH ×2 (14:11→20:58)
[2020-07-08] MEDS: COMPOUND VEHICLE SF PER TUBE SCH ×2 (14:11→20:58)
--- NOTE | 2020-07-08 17:21 | PRG ---
DATE OF SERVICE: 07/08/2020 SUBJECTIVE: Mr. Guallpa is on a low-dose Levophed. He was given 1.5 L of fluids yesterday. Respiratory rates in the 20s, heart rates in the 50s. He is on propofol, so I am switching him back to Precedex and hopefully a Versed drip will keep him calm enough, where we can let him wake up a little bit. His ventilatory rates decreased today. OBJECTIVE: LUNGS: Clear anteriorly. HEART: Regular rhythm. ABDOMEN: Soft. LABORATORY DATA: White count 14.7, hemoglobin 12.8, platelets 188. Electrolytes are normal. PH 7.48, CO2 of 37, PO2 of 67, on 13/02 with a rate of 20, I turned his rate down to 15. Hopefully, we can continue slow weaning, let him wake up more. I met with the and answered all her questions. Critical care time 30 min. Job ID: [id number] MTDD
[2020-07-08] MEDS: Nystatin Powder 15 GM BOT TOP SCH (20:56)
[2020-07-08] MEDS: Bisacodyl 10 MG SUPP PR PRN (21:28)
[2020-07-08] MEDS: Morphine 2 MG/ML VIAL SLOW IVP PRN ×2 (21:31→22:30)
[2020-07-08 22:28] LABS: Actual Bicarbonate (HCO3a) 30.1 mEq/L (22-28); Base Excess (BEa) 6.8 mEq/L (-2.0 to +3.0); Calcium, Ionized (arterial) 1.13 mmol/L (1.12-1.30); Carboxyhemoglobin (COHb) 1.6 gm% (0.0-3.0); Hemoglobin (Hb) 12.2 g/dL (14.0-18.0); Potassium - ABG Lab 3.49 mmol/L (3.70-5.30); pH, Arterial 7.52 (7.35-7.45)
[2020-07-08 22:31] LABS: O2 Tension (PaO2), arterial 40.4 mmHg (80.0-100.0); Puncture Site RBA
[2020-07-08] MEDS ORDERED: Propofol 1,000 MG/100 ML VIAL IV ONE (22:41)
--- NOTE | 2020-07-08 22:45 | RAD ---
RADIOGRAPH CHEST 1 VIEW: DATE: 07/08/2020 TIME: 10:28 PM HISTORY: 54-year-old male with respiratory distress COMPARISON: 07/07/2020 FINDINGS: Diffuse bilateral mixed interstitial and alveolar infiltrates, unchanged. Tracheostomy tube. No cardiomegaly. No pneumothorax identified. Right-sided subcutaneous emphysema. No interval change overall. IMPRESSION: 1) no interval change overall. 2) diffuse bilateral heterogeneous infiltrates. 3) right-sided subcutaneous emphysema.
[2020-07-08] MEDS ORDERED: Propofol BOLUS 1,000 MG/100 ML VIAL IV PRN (23:00)
[2020-07-09 04:22] LABS: #Basophils 0.1 thou/uL (0.0-0.2); #Lymphocytes 0.2 thou/uL (1.20-3.40); #Monocytes 0.2 thou/uL (0.11-0.59); #Neutrophils 7.8 thou/uL (1.40-6.50); %Basophils 0.8 % (0.0-1.0); %Eosinophils 0.2 % (0.0-10.0); %Lymphocytes 2.8 % (21.0-51.0); %Monocytes 2.7 % (0.0-10.0); %Neutrophils 93.4 % (42.0-75.0); Hemoglobin 10.4 g/dL (14.0-18.0); Mean Corpuscular HGB CONC 36.5 g/dL (32.0-36.0); Mean Corpuscular Hemoglobin 28.6 pg (27.0-31.0); Mean Corpuscular Volume 78.4 fL (78.0-98.0); Platelet Count 134 thou/uL (130-400); RBC Distribution Width 15.1 % (11.5-14.5); Red Blood Cell (RBC) Count 3.64 mill/uL (4.70-6.10); White Blood Cell (WBC) Count 8.3 thou/uL (4.8-10.8)
[2020-07-09 04:43] LABS: Anion Gap 9 mmol/L (10-20); BUN (Urea Nitrogen) 18 mg/dL (8.4-25.7); Calc. Creatinine Clearance 128 mL/min (70-130); Calcium 7.8 mg/dL (7.8-10.44); Carbon Dioxide 32 mmol/L (22-29); Chloride 104 mmol/L (98-107); Glucose 152 mg/dL (70-105); Potassium 3.8 mmol/L (3.5-5.1); Sodium 141 mmol/L (136-145)
[2020-07-09 04:46] LABS: ALT (SGPT) 40 U/L (8-55); AST (SGOT) 19 U/L (5-34); Albumin 2.5 g/dL (3.5-5.0); Alkaline Phosphatase 67 U/L (40-110); Bilirubin, Direct 0.7 mg/dL (0.1-0.3); Bilirubin, Total 1.4 mg/dL (0.2-1.2)
[2020-07-09] MEDS: Mometasone 200 MCG/Formoterol 5 MCG 120 PUFF INHALER INH SCH ×2 (06:38→18:30)
[2020-07-09 06:49] LABS: Actual Bicarbonate (HCO3a) 28.2 mEq/L (22-28); Base Excess (BEa) 4.5 mEq/L (-2.0 to +3.0); CO2 Tension 38.7 mmHg (35.0-45.0); Calcium, Ionized (arterial) 1.17 mmol/L (1.12-1.30); Carboxyhemoglobin (COHb) 0.9 gm% (0.0-3.0); Hemoglobin (Hb) 12.4 g/dL (14.0-18.0); Potassium - ABG Lab 3.74 mmol/L (3.70-5.30); pH, Arterial 7.48 (7.35-7.45)
[2020-07-09 06:50] LABS: ALV-art Gradient 189.725 mmHg (0-20); O2 Tension (PaO2), arterial 47.1 mmHg (80.0-100.0); Puncture Site RRA
[2020-07-09] MEDS: Lorazepam 2 MG/ML VIAL SLOW IVP PRN (07:41)
[2020-07-09] MEDS: Ascorbic Acid 500 mg Chewable Tablet PER TUBE SCH (07:47)
[2020-07-09] MEDS: Famotidine/PF 20 mg/2ml Vial SLOW IVP SCH ×2 (07:48→20:00)
[2020-07-09] MEDS: methylPREDNISolone Sod Succ/PF 125 MG/2 ML VIAL IVP SCH (07:48)
[2020-07-09] MEDS: Calcium Carbonate 600 MG + Vit D TAB PER TUBE SCH ×2 (07:48→15:49)
[2020-07-09] MEDS: Multivit, Therapeutic 1 TAB PER TUBE SCH (07:48)
[2020-07-09] MEDS: Zinc Sulfate 220 MG CAP PER TUBE SCH (07:48)
[2020-07-09] MEDS: Nystatin Powder 15 GM BOT TOP SCH ×2 (07:51→20:05)
[2020-07-09] MEDS: Cholecalciferol 1,000 UNITS (25 MCG) TAB PER TUBE SCH (08:14)
--- NOTE | 2020-07-09 08:21 | PRG ---
DATE OF SERVICE: 07/09/2020 SUBJECTIVE: The patient remains in the ICU on mechanical ventilation through tracheostomy for COVID-19 pneumonia. He has to be deeply sedated because he becomes very agitated. Therefore, he is on Precedex and propofol. Also, Versed was added yesterday. OBJECTIVE: VITAL SIGNS: His temperature is 98.6 with a T-max of 100.0 yesterday, pulse 71, blood pressure generally systolic in the 100s. Total intake 1003, output 3000. HEENT: Unremarkable. NECK: No adenopathy or JVD. LUNGS: Coarse breath sounds with subcutaneous air. ABDOMEN: Soft and nontender. CARDIAC: S1 and S2. Regular. EXTREMITIES: Edematous. LABORATORY DATA: White blood cell count 8.3, hematocrit 28.6 down from 35.7. PH 7.48, pCO2 of 48, pO2 of 47 on bilevel rate 15, high pressure 25, low pressure 8, FiO2 of 40%. Sodium 141, potassium 3.8, chloride 104, CO2 of 32, BUN 18, creatinine 0.6, glucose 152. ASSESSMENT: 1. COVID-19 pneumonia. 2. Acute respiratory failure requiring mechanical ventilation. 3. Status post trach and PEG. 4. Anemia due to blood loss from PEG site. PLAN: 1. I am going to add Spencer and Andrew to see if we can control some agitation and hopefully get him off some of the continuous drips. 2. Wean steroid dose. 3. Up in a chair as tolerated. 4. Continue enteral tube feeds. Job ID: [id number]
[2020-07-09] MEDS: methylPREDNISolone Sod Succ 40 MG VIAL IVP SCH ×2 (08:23→20:04)
[2020-07-09] MEDS: VALGANCICLOVIR HCL PER TUBE SCH ×2 (08:28→20:04)
[2020-07-09] MEDS: COMPOUND VEHICLE SF PER TUBE SCH ×2 (08:28→20:04)
[2020-07-09] MEDS: Divalproex Sodium 125 mg Sprinkle Capsule PER TUBE SCH ×2 (08:28→20:03)
[2020-07-09] MEDS: Ziprasidone 20 MG CAP PER TUBE SCH ×2 (08:31→20:00)
[2020-07-09] MEDS: Propofol 1,000 MG/100 ML VIAL IV PRN (09:46)
[2020-07-09] MEDS: HumaLOG 300 UNITS/3 ML VIAL SC PRN (15:49)
[2020-07-09] MEDS: guaiFENesin/Codeine Phosphate 200 mg/20 mg 10 ml UD Cup PER TUBE PRN (17:36)
--- NOTE | 2020-07-09 18:27 | PDOC.HOSPP ---
- Subjective Encounter Date: 07/09/20 Encounter Time: 17:50 Subjective: f/u for COVID PNA with resp failure s/p trach/PEG, receiving mech ventilation FIO2 40%, 13/04. - Objective Vital Signs & Weight: Vital Signs (12 hours) Temp Pulse Pulse Pulse Resp BP BP 07/09/20 16:00 98.3 F 34 H 07/09/20 14:34 57 L 117/80 07/09/20 14:00 31 H 07/09/20 12:00 30 H 07/09/20 10:43 60 60 123/86 07/09/20 10:33 58 L 109/76 07/09/20 10:00 39 H 07/09/20 08:00 39 H 07/09/20 06:38 124 H 106/71 BP Pulse Ox Pulse Ox Pulse Ox 07/09/20 16:00 07/09/20 14:34 07/09/20 14:00 07/09/20 12:00 07/09/20 10:43 109/76 100 100 07/09/20 10:33 07/09/20 10:00 07/09/20 08:00 98 07/09/20 06:38 Weight Admit Weight 157 lb 4.8 oz Weight 143 lb 4.807 oz Most Recent Monitor Data Heart Rate from ECG 69 NIBP 134/83 NIBP BP-Mean 100 Respiration from ECG 31 SpO2 96 I&O: 07/08/20 07/09/20 07/10/20 06:59 06:59 06:59 Intake Total 3737.6 1003.0 176.5 Output Total 2965 3005 820 Balance 772.6 -2002.0 -643.5 Result Diagrams: 07/09/20 03:45 07/09/20 03:45 Additional Labs: Accuchecks 07/09/20 07/09/20 07/09/20 15:39 10:34 03:47 POC Glucose 180 H 143 H 143 H 07/08/20 22:09 POC Glucose 136 H Laboratory Tests 06/15/20 06/28/20 06/29/20 05:44 13:14 04:56 D-Dimer Hemoglobin A1c 5.1 Ferritin C-Reactive Protein 5.58 H 13.68 H 06/30/20 07/01/20 07/01/20 03:30 03:50 03:50 D-Dimer Hemoglobin A1c Ferritin 2330.60 H C-Reactive Protein 20.11 H 11.01 H 07/02/20 07/02/20 07/02/20 03:45 03:45 03:45 D-Dimer 1.17 H Hemoglobin A1c Ferritin 2204.61 H C-Reactive Protein 5.24 H 07/03/20 07/03/20 07/04/20 04:05 04:05 03:30 D-Dimer 1.51 H 2.60 H Hemoglobin A1c Ferritin 2131.10 H C-Reactive Protein 07/04/20 07/05/20 07/05/20 03:30 05:14 05:14 D-Dimer 1.99 H Hemoglobin A1c Ferritin 1944.06 H 1719.77 H C-Reactive Protein 07/06/20 07/06/20 07/07/20 04:10 04:10 04:26 D-Dimer 1.91 H 1.83 H Hemoglobin A1c Ferritin 1618.20 H C-Reactive Protein 07/07/20 04:26 D-Dimer Hemoglobin A1c Ferritin 2144.29 H C-Reactive Protein Radiology Reviewed by me: Yes (PCXR - bilat infiltrates, R-sided subQ emphysema) EKG Reviewed by me: Yes (Tele - SR) Hospitalist ROS - Medication Medications: Active Medications Generic Name Dose Route Start Last Admin Trade Name Freq PRN Reason Stop Dose Admin Acetaminophen 650 mg 06/29/20 11:10 07/08/20 07:52 Acetaminophen 650 Mg Suppository DE 650 mg Q6H PRN Administration TEMP>101 Acetaminophen 650 mg 07/05/20 16:30 07/07/20 15:27 Acetaminophen 325 Mg Tab PER TUBE 650 mg Q6H PRN Administration Fever > 101 Albuterol/Ipratropium 3 ml 06/28/20 14:30 07/09/20 14:34 Ipratropium/Albuterol Sulfate 3 Ml Neb NEB 3 ml [id number] JEOVANNY Administration Ascorbic Acid 1,000 mg 07/06/20 09:00 07/09/20 07:47 Ascorbic Acid 500 Mg Chewable Tablet PER TUBE 1,000 mg DAILY JEOVANNY Administration Benzonatate 200 mg 06/18/20 12:02 06/28/20 10:06 Benzonatate 100 Mg Cap PO 200 mg Q4H PRN Administration Cough Bisacodyl 10 mg 07/03/20 13:43 07/08/20 21:28 Bisacodyl 10 Mg Supp DE 10 mg DAILY PRN Administration Constipation Calcium/Vitamin D 1 tab 07/05/20 17:00 07/09/20 15:49 Calcium Carbonate 600 Mg + Vit D Tab PER TUBE 1 tab BID-WM JEOVANNY Administration Cholecalciferol 5,000 units 07/06/20 09:00 07/09/20 08:14 Cholecalciferol 1,000 Units (25 Mcg) Tab PER TUBE 5,000 units DAILY JEOVANNY Administration Valganciclovir 7,200 mg/ 0 mg 07/07/20 21:00 07/09/20 08:28 Miscellaneous 120 ml PER TUBE 15 ml BID JEOVANNY Administration Divalproex Sodium 500 mg 07/09/20 09:00 07/09/20 08:28 Divalproex Sodium 125 Mg Sprinkle Capsule PER TUBE 500 mg BID JEOVANNY Administration Famotidine 20 mg 06/29/20 21:00 07/09/20 07:48 Famotidine/Pf 20 Mg/2ml Vial SLOW IVP 20 mg BID JEOVANNY Administration Fentanyl 25 mcg 07/09/20 08:00 07/09/20 08:36 Fentanyl 25 Mcg/Hour Patch TD 25 mcg Q3D JEOVANNY Administration Guaifenesin/Codeine Phosphate 10 ml 07/05/20 16:30 07/09/20 17:36 Guaifenesin/Codeine Phosphate 200 Mg/20 Mg 10 Ml Ud Cup PER TUBE 10 ml Q4H PRN Administration Cough Dexmedetomidine HCl 400 mcg/ 100 mls @ 0 mls/hr 07/08/20 12:00 07/09/20 15:14 Sodium Chloride IVPB 100 mls INF JEOVANNY Administration Protocol Per Protocol Midazolam HCl 100 mg/ Sodium 100 mls @ 4 mls/hr 07/08/20 12:30 07/08/20 13:50 Chloride IVPB 100 mls INF PRN Administration Sedation Protocol As Directed Insulin Human Lispro 0 units 06/30/20 07:56 07/09/20 15:49 Humalog 300 Units/3 Ml Vial SC 2 unit .MODERATE SLIDING SC PRN Administration Moderate Correctional Scale Methylprednisolone Sodium Succinate 20 mg 07/09/20 09:00 07/09/20 08:23 Methylprednisolone Sod Succ 40 Mg Vial IVP Not Given BID [facility] Mometasone Furoate/Formoterol Fumar 2 puff 06/14/20 18:30 07/09/20 06:38 Mometasone 200 Mcg/Formoterol 5 Mcg 120 Puff Inhaler INH 1 puff BID-RT JEOVANNY Administration Multivitamins 1 tab 07/06/20 09:00 07/09/20 07:48 Multivit, Therapeutic 1 Tab PER TUBE 1 tab DAILY JEOVANNY Administration Nystatin 0 gm 07/08/20 21:00 07/09/20 07:51 Nystatin Powder 15 Gm Bot TOP 1 applic BID JEOVANNY Administration Polyethylene Glycol 17 gm 07/02/20 09:51 07/07/20 10:33 Polyethylene Glycol 3350 17 Gm Packet PER TUBE 17 gm DAILY PRN Administration Constipation Propofol 1,000 mg 07/08/20 23:00 07/09/20 09:46 Propofol 1,000 Mg/100 Ml Vial IV 08/07/20 23:00 1,000 mg INF PRN Administration TO ACHIEVE GOAL RASS Protocol Sodium Chloride 10 ml 06/15/20 09:00 07/09/20 07:52 Flush - Normal Saline 10 Ml Syringe IVF 10 ml Q12HR JEOVANNY Administration Sodium Chloride 10 ml 06/15/20 06:30 06/20/20 01:35 Flush - Normal Saline 10 Ml Syringe IVF 10 ml PRN PRN Administration Saline Flush Zinc Sulfate 220 mg 07/06/20 09:00 07/09/20 07:48 Zinc Sulfate 220 Mg Cap PER TUBE 220 mg DAILY JEOVANNY Administration Ziprasidone 20 mg 07/09/20 09:00 07/09/20 08:31 Ziprasidone 20 Mg Cap PER TUBE 20 mg BID JEOVANNY Administration - Exam General - other findings: sedate on mech vent Eye: PERRL ENT: normocephalic atraumatic, no oropharyngeal lesions ENT - other findings: Trach in place Neck: supple, no JVD, no thyromegaly, no lymphadenopathy Heart: RRR, no gallops, no rubs, normal peripheral pulses Heart - other findings: S1, S2 Respiratory - other findings: diminished in bases, coarse Gastrointestinal: soft, non-distended, normal bowel sounds, no palpable masses Gastrointestinal - other findings: PEG in place Extremities: 1+ LE edema Skin: normal turgor Neurological - other findings: sedate on mech vent Psychiatric: somnolent, lethargic Hosp A/P (1) Pneumonia due to COVID-19 virus Code(s): U07.1 - COVID-19; J12.89 - OTHER VIRAL PNEUMONIA Status: Acute Plan: Continue pulmonary support, mech vent (2) Acute respiratory failure with hypoxia Code(s): J96.01 - ACUTE RESPIRATORY FAILURE WITH HYPOXIA Status: Acute (3) Normocytic anemia Code(s): D64.9 - ANEMIA, UNSPECIFIED Status: Acute - Plan respiratory therapy, DVT proph w/SCDs Continue critical support Nutritional support with TF's Vital HP @ 30ml/h D/C Meropenem Continue Solumedrol 20mg IV BID AM lab: BMP, CBC PCXR in am
[2020-07-09] MEDS: Benzonatate 100 MG CAP PO PRN (19:53)
[2020-07-10] MEDS: Propofol 1,000 MG/100 ML VIAL IV PRN ×2 (02:10→23:06)
[2020-07-10] MEDS: Polyethylene Glycol 3350 17 GM Packet PER TUBE PRN (02:11)
[2020-07-10] MEDS: Benzonatate 100 MG CAP PO PRN (03:42)
[2020-07-10] MEDS: guaiFENesin/Codeine Phosphate 200 mg/20 mg 10 ml UD Cup PER TUBE PRN ×4 (03:42→20:07)
[2020-07-10] MEDS: Mometasone 200 MCG/Formoterol 5 MCG 120 PUFF INHALER INH SCH ×2 (06:52→18:16)
[2020-07-10 06:54] LABS: Actual Bicarbonate (HCO3a) 31.5 mEq/L (22-28); Base Excess (BEa) 7.9 mEq/L (-2.0 to +3.0); CO2 Tension 39.9 mmHg (35.0-45.0); Calcium, Ionized (arterial) 1.21 mmol/L (1.12-1.30); Carboxyhemoglobin (COHb) 1.5 gm% (0.0-3.0); Hemoglobin (Hb) 11.9 g/dL (14.0-18.0); Potassium - ABG Lab 3.06 mmol/L (3.70-5.30); pH, Arterial 7.52 (7.35-7.45)
[2020-07-10 06:57] LABS: ALV-art Gradient 183.625 mmHg (0-20); O2 Tension (PaO2), arterial 51.7 mmHg (80.0-100.0); Puncture Site RBA
--- NOTE | 2020-07-10 08:27 | PRG ---
DATE OF SERVICE: 07/10/2020 35 minutes of critical care time. SUBJECTIVE: The patient remains on mechanical ventilation through a tracheostomy. He is extremely tachypneic. He is receiving Versed and propofol drips. He has a fentanyl patch. He was started on Geodon and Depakote yesterday. OBJECTIVE: VITAL SIGNS: His temperature 98.3 with no documented fever, pulse 85, blood pressure 127/97. He is receiving no vasopressors. His O2 saturations generally running in the 80s to 90s. HEENT: Unchanged. NECK: Tracheostomy in good position. No bleeding. CARDIOVASCULAR: S1 and S2. Slightly tachycardic. LUNGS: Coarse rhonchi. ABDOMEN: Soft. EXTREMITIES: Edematous. LABORATORY DATA: His labs are pending. Blood gas; pH 7.52, pCO2 of 39, PO2 of 51, that is on bilevel rate 15, high pressure 25, low pressure 8, FiO2 40%. Chest x-ray does not show significant change. ASSESSMENT: 1. COVID-19 pneumonia. 2. Acute respiratory failure, requiring mechanical ventilation and tracheostomy. 3. Extreme agitation. PLAN: 1. I will start him back on prophylactic Lovenox. It had been held because of bleeding from the PEG tube site. 2. Try to increase Versed drip for agitation. 3. Not weanable at this time. Job ID: [id number]
--- NOTE | 2020-07-10 08:28 | RAD ---
EXAM: Portable chest PROVIDED CLINICAL HISTORY: Respiratory insufficiency COMPARISON: 07/08/2020 FINDINGS: Significant interval change with respect to the prior examination is not apparent. IMPRESSION: As above.
[2020-07-10] MEDS: Enoxaparin Sodium 40 MG/0.4 ML SYRINGE SC SCH (08:40)
[2020-07-10] MEDS: Ascorbic Acid 500 mg Chewable Tablet PER TUBE SCH (08:40)
[2020-07-10] MEDS: Famotidine/PF 20 mg/2ml Vial SLOW IVP SCH ×2 (08:40→20:07)
[2020-07-10] MEDS: Acetaminophen 325 MG TAB PER TUBE PRN ×2 (08:41→15:34)
[2020-07-10] MEDS: Multivit, Therapeutic 1 TAB PER TUBE SCH (08:41)
[2020-07-10] MEDS: Cholecalciferol 1,000 UNITS (25 MCG) TAB PER TUBE SCH (08:41)
[2020-07-10] MEDS: Calcium Carbonate 600 MG + Vit D TAB PER TUBE SCH ×2 (08:41→15:35)
[2020-07-10] MEDS: Zinc Sulfate 220 MG CAP PER TUBE SCH (08:43)
[2020-07-10] MEDS: Nystatin Powder 15 GM BOT TOP SCH ×2 (08:43→20:09)
[2020-07-10] MEDS: methylPREDNISolone Sod Succ 40 MG VIAL IVP SCH ×2 (08:43→20:05)
[2020-07-10] MEDS: Ziprasidone 20 MG CAP PER TUBE SCH ×2 (08:43→20:07)
[2020-07-10] MEDS: Divalproex Sodium 125 mg Sprinkle Capsule PER TUBE SCH ×2 (08:44→20:07)
[2020-07-10] MEDS: COMPOUND VEHICLE SF PER TUBE SCH ×2 (08:47→22:09)
[2020-07-10] MEDS: VALGANCICLOVIR HCL PER TUBE SCH ×2 (08:47→22:09)
[2020-07-10 09:36] LABS: ALT (SGPT) 47 U/L (8-55); AST (SGOT) 31 U/L (5-34); Albumin 2.9 g/dL (3.5-5.0); Alkaline Phosphatase 78 U/L (40-110); Bilirubin, Total 2.1 mg/dL (0.2-1.2); Hemoglobin 12.2 g/dL (14.0-18.0); Mean Corpuscular HGB CONC 35.9 g/dL (32.0-36.0); Mean Corpuscular Hemoglobin 28.5 pg (27.0-31.0); Mean Corpuscular Volume 79.3 fL (78.0-98.0); Mean Platelet Volume 8.8 fL (7.4-10.4); Platelet Count 191 thou/uL (130-400); Protein, Total 5.9 g/dL (6.0-8.3); RBC Distribution Width 15.5 % (11.5-14.5); White Blood Cell (WBC) Count 19.3 thou/uL (4.8-10.8)
[2020-07-10 09:37] LABS: Anion Gap 13 mmol/L (10-20); BUN (Urea Nitrogen) 23 mg/dL (8.4-25.7); Calc. Creatinine Clearance 109 mL/min (70-130); Calcium 9.1 mg/dL (7.8-10.44); Carbon Dioxide 30 mmol/L (22-29); Chloride 106 mmol/L (98-107); Glucose 124 mg/dL (70-105); Potassium 3.2 mmol/L (3.5-5.1); Sodium 146 mmol/L (136-145)
[2020-07-10 10:05] LABS: Band 5 % (5-11); Lymphocytes 7 % (21-51); MDiff Complete? YES; Microcytosis SLIGHT = 6-15 cells (100X) (0-5/hpf); Monocytes 9 % (0-10); Neutrophil 77 % (42-75); Ovalocytes MODERATE= 6-15 cells (100X) (0-1/hpf); Platelet Morphology Comment Appears Adequate; Polychromasia SLIGHT = 2-3 cells (100X) (0-2/hpf); Reactive Lymphocytes 2 % (0-10); Stomatocytes SLIGHT = 2-5 cells (100X) (0-1/hpf)
[2020-07-10] MEDS ORDERED: Potassium Chloride 40 MEQ in Sodium Chloride 0.9% 250 ML 250 ML IVPB SCH (14:45)
[2020-07-10] MEDS: Bisacodyl 10 MG SUPP PR PRN (15:31)
[2020-07-10] MEDS: HumaLOG 300 UNITS/3 ML VIAL SC PRN (16:15)
--- NOTE | 2020-07-10 17:23 | PDOC.HOSPP ---
- Subjective Encounter Date: 07/10/20 Encounter Time: 16:25 Subjective: f/u for COVID PNA/resp failure on mech ventilation s/p trach/PEG. More alert per nursing today with Fentanyl patch/Versed therapy. - Objective Vital Signs & Weight: Vital Signs (12 hours) Temp Pulse Pulse Pulse Resp BP BP 07/10/20 16:00 98.5 F 34 H 07/10/20 14:03 93 101/60 07/10/20 14:00 34 H 07/10/20 13:30 75 59 L 100/63 07/10/20 12:00 98.9 F 38 H 07/10/20 10:55 119 H 07/10/20 10:00 38 H 07/10/20 08:00 98.7 F 44 H 07/10/20 06:38 87 07/10/20 06:00 38 H BP Pulse Ox Pulse Ox 07/10/20 16:00 07/10/20 14:03 07/10/20 14:00 07/10/20 13:30 88/45 L 100 100 07/10/20 12:00 07/10/20 10:55 07/10/20 10:00 07/10/20 08:00 07/10/20 06:38 07/10/20 06:00 Weight Admit Weight 157 lb 4.8 oz Weight 138 lb 10.732 oz Most Recent Monitor Data Heart Rate from ECG 102 NIBP 130/91 NIBP BP-Mean 104 Respiration from ECG 35 SpO2 100 I&O: 07/09/20 07/10/20 07/11/20 06:59 06:59 06:59 Intake Total 1003.0 1397.7 218.1 Output Total 3005 2165 640 Balance -2002.0 -767.3 -421.9 Result Diagrams: 07/10/20 08:59 07/10/20 08:59 Additional Labs: Accuchecks 07/10/20 07/10/20 07/09/20 09:42 04:12 22:13 POC Glucose 146 H 135 H 137 H Microbiology 07/08/20 10:20 Venous blood - Right Arm Blood Culture - Preliminary NO GROWTH AT 48 HOURS 07/08/20 10:15 Central Line - Right Brachiocephalic vein Blood Culture - Preliminary NO GROWTH AT 48 HOURS Laboratory Tests 06/15/20 06/28/2020 05:44 13:14 04:56 WBC Hgb D-Dimer Sodium Potassium Hemoglobin A1c 5.1 Ferritin C-Reactive Protein 5.58 H 13.68 H 06/30/20 07/01/20 07/01/20 03:30 03:50 03:50 WBC Hgb D-Dimer Sodium Potassium Hemoglobin A1c Ferritin 2330.60 H C-Reactive Protein 20.11 H 11.01 H 07/02/20 07/02/20 07/02/20 03:45 03:45 03:45 WBC Hgb D-Dimer 1.17 H Sodium Potassium Hemoglobin A1c Ferritin 2204.61 H C-Reactive Protein 5.24 H 07/03/20 07/03/20 07/04/20 04:05 04:05 03:30 WBC Hgb D-Dimer 1.51 H 2.60 H Sodium Potassium Hemoglobin A1c Ferritin 2131.10 H C-Reactive Protein 07/04/20 07/05/20 07/05/20 03:30 05:14 05:14 WBC Hgb D-Dimer 1.99 H Sodium Potassium Hemoglobin A1c Ferritin 1944.06 H 1719.77 H C-Reactive Protein 07/06/20 07/06/20 07/07/20 04:10 04:10 04:26 WBC Hgb D-Dimer 1.91 H 1.83 H Sodium Potassium Hemoglobin A1c Ferritin 1618.20 H C-Reactive Protein 07/07/20 07/09/20 07/09/20 04:26 03:45 03:45 WBC 8.3 Hgb 10.4 L D-Dimer Sodium 141 Potassium 3.8 Hemoglobin A1c Ferritin 2144.29 H C-Reactive Protein Radiology Reviewed by me: Yes (PCXR - trach in place, scattered infiltrates bilat) EKG Reviewed by me: Yes (Tele - SR) Hospitalist ROS - Medication Medications: Active Medications Generic Name Dose Route Start Last Admin Trade Name Freq PRN Reason Stop Dose Admin Acetaminophen 650 mg 06/29/20 11:10 07/08/20 07:52 Acetaminophen 650 Mg Suppository ID 650 mg Q6H PRN Administration TEMP>101 Acetaminophen 650 mg 07/05/20 16:30 07/10/20 15:34 Acetaminophen 325 Mg Tab PER TUBE 650 mg Q6H PRN Administration Fever > 101 Albuterol/Ipratropium 3 ml 06/28/20 14:30 07/10/20 14:07 Ipratropium/Albuterol Sulfate 3 Ml Neb NEB 3 ml [id number] JEOVANNY Administration Ascorbic Acid 1,000 mg 07/06/20 09:00 07/10/20 08:40 Ascorbic Acid 500 Mg Chewable Tablet PER TUBE 1,000 mg DAILY JEOVANNY Administration Benzonatate 200 mg 06/18/20 12:02 07/10/20 03:42 Benzonatate 100 Mg Cap PO 200 mg Q4H PRN Administration Cough Bisacodyl 10 mg 07/03/20 13:43 07/10/20 15:31 Bisacodyl 10 Mg Supp ID 10 mg DAILY PRN Administration Constipation Calcium/Vitamin D 1 tab 07/05/20 17:00 07/10/20 15:35 Calcium Carbonate 600 Mg + Vit D Tab PER TUBE 1 tab BID-WM JEOVANNY Administration Cholecalciferol 5,000 units 07/06/20 09:00 07/10/20 08:41 Cholecalciferol 1,000 Units (25 Mcg) Tab PER TUBE 5,000 units DAILY JEOVANNY Administration Valganciclovir 7,200 mg/ 0 mg 07/07/20 21:00 07/10/20 08:47 Miscellaneous 120 ml PER TUBE 15 ml BID JEOVANNY Administration Divalproex Sodium 500 mg 07/09/20 09:00 07/10/20 08:44 Divalproex Sodium 125 Mg Sprinkle Capsule PER TUBE 500 mg BID JEOVANNY Administration Enoxaparin Sodium 40 mg 07/10/20 09:00 07/10/20 08:40 Enoxaparin Sodium 40 Mg/0.4 Ml Syringe SC 40 mg 09 JEOVANNY Administration Famotidine 20 mg 06/29/20 21:00 07/10/20 08:40 Famotidine/Pf 20 Mg/2ml Vial SLOW IVP 20 mg BID JEOVANNY Administration Fentanyl 25 mcg 07/09/20 08:00 07/09/20 08:36 Fentanyl 25 Mcg/Hour Patch TD 25 mcg Q3D JEOVANNY Administration Guaifenesin/Codeine Phosphate 10 ml 07/05/20 16:30 07/10/20 15:34 Guaifenesin/Codeine Phosphate 200 Mg/20 Mg 10 Ml Ud Cup PER TUBE 10 ml Q4H PRN Administration Cough Norepinephrine Bitartrate 8 mg 250 mls @ 0 mls/hr 07/07/20 17:00 07/10/20 16:09 / Dextrose/Water IVPB 250 mls INF PRN Administration TO MAINTAIN MAP > 65 Protocol As Directed Dexmedetomidine HCl 400 mcg/ 100 mls @ 0 mls/hr 07/08/20 12:00 07/09/20 15:14 Sodium Chloride IVPB 100 mls INF JEOVANNY Administration Protocol Per Protocol Midazolam HCl 100 mg/ Sodium 100 mls @ 4 mls/hr 07/08/20 12:30 07/09/20 21:08 Chloride IVPB 100 mls INF PRN Administration Sedation Protocol As Directed Potassium Chloride 40 meq/ 270 mls @ 67.5 mls/hr 07/10/20 14:45 07/10/20 15:31 Sodium Chloride IVPB 07/10/20 18:44 270 mls NOW JEOVANNY Administration Insulin Human Lispro 0 units 06/30/20 07:56 07/10/20 16:15 Humalog 300 Units/3 Ml Vial SC 2 unit .MODERATE SLIDING SC PRN Administration Moderate Correctional Scale Methylprednisolone Sodium Succinate 20 mg 07/09/20 09:00 07/10/20 08:43 Methylprednisolone Sod Succ 40 Mg Vial IVP 20 mg BID JEOVANNY Administration Mometasone Furoate/Formoterol Fumar 2 puff 06/14/20 18:30 07/10/20 06:52 Mometasone 200 Mcg/Formoterol 5 Mcg 120 Puff Inhaler INH 2 puff BID-RT JEOVANNY Administration Multivitamins 1 tab 07/06/20 09:00 07/10/20 08:41 Multivit, Therapeutic 1 Tab PER TUBE 1 tab DAILY JEOVANNY Administration Nystatin 0 gm 07/08/20 21:00 07/10/20 08:43 Nystatin Powder 15 Gm Bot TOP 1 applic BID JEOVANNY Administration Polyethylene Glycol 17 gm 07/02/20 09:51 07/10/20 02:11 Polyethylene Glycol 3350 17 Gm Packet PER TUBE 17 gm DAILY PRN Administration Constipation Propofol 1,000 mg 07/08/20 23:00 07/10/20 02:10 Propofol 1,000 Mg/100 Ml Vial IV 08/07/20 23:00 1,000 mg INF PRN Administration TO ACHIEVE GOAL RASS Protocol Sodium Chloride 10 ml 06/15/20 09:00 07/10/20 08:44 Flush - Normal Saline 10 Ml Syringe IVF 10 ml Q12HR JEOVANNY Administration Sodium Chloride 10 ml 10/25/20 06:30 06/20/20 01:35 Flush - Normal Saline 10 Ml Syringe IVF 10 ml PRN PRN Administration Saline Flush Zinc Sulfate 220 mg 07/06/20 09:00 07/10/20 08:43 Zinc Sulfate 220 Mg Cap PER TUBE 220 mg DAILY JEOVANNY Administration Ziprasidone 40 mg 07/10/20 08:05 07/10/20 08:43 Ziprasidone 20 Mg Cap PER TUBE 40 mg BID JEOVANNY Administration - Exam General Appearance: NAD General - other findings: sedate on mech vent Eye: PERRL, anicteric sclera ENT: normocephalic atraumatic, no oropharyngeal lesions Neck: supple, symmetric, no JVD, no thyromegaly, no lymphadenopathy Neck - other findings: trach in place Heart: RRR, no gallops, no rubs, normal peripheral pulses Heart - other findings: S1, S2 Respiratory: no rales, tachypneic Respiratory - other findings: diminished in bilat bases Gastrointestinal: soft, non-tender, non-distended, normal bowel sounds, no palpable masses Gastrointestinal - other findings: PEG in place Extremities: no cyanosis, no clubbing, no edema Skin: normal turgor Neurological: cranial nerve grossly intact, no new deficit Musculoskeletal: normal tone, generalized weakness Psychiatric: somnolent, lethargic Hosp A/P (1) Pneumonia due to COVID-19 virus Code(s): U07.1 - COVID-19; J12.89 - OTHER VIRAL PNEUMONIA Status: Acute Plan: Continue mech ventilation/Solumedrol/Lovenox (2) Acute respiratory failure with hypoxia Code(s): J96.01 - ACUTE RESPIRATORY FAILURE WITH HYPOXIA Status: Acute Plan: continue mech ventilation via tracheostomy, not weanable (3) Normocytic anemia Code(s): D64.9 - ANEMIA, UNSPECIFIED Status: Acute - Plan PT/OT, social services specialist, respiratory therapy, DVT proph w/SCDs Continue critical support Nutritional support with TF's Vital HP @ 30ml/h D/C Meropenem Continue Solumedrol 20mg IV BID Sedation with Depakote/Geodon/Versed AM lab: BMP, CBC PCXR in am
[2020-07-11] MEDS: guaiFENesin/Codeine Phosphate 200 mg/20 mg 10 ml UD Cup PER TUBE PRN ×3 (05:07→17:20)
[2020-07-11 06:25] LABS: ALT (SGPT) 44 U/L (8-55); AST (SGOT) 24 U/L (5-34); Albumin 2.6 g/dL (3.5-5.0); Alkaline Phosphatase 73 U/L (40-110); Anion Gap 15 mmol/L (10-20); BUN (Urea Nitrogen) 22 mg/dL (8.4-25.7); Bilirubin, Direct 0.6 mg/dL (0.1-0.3); Bilirubin, Total 1.3 mg/dL (0.2-1.2); Calc. Creatinine Clearance 108 mL/min (70-130); Calcium 8.5 mg/dL (7.8-10.44); Carbon Dioxide 26 mmol/L (22-29); Chloride 109 mmol/L (98-107); Glucose 153 mg/dL (70-105); Potassium 3.6 mmol/L (3.5-5.1); Protein, Total 5.2 g/dL (6.0-8.3); Sodium 146 mmol/L (136-145)
[2020-07-11 06:38] LABS: Bilirubin Unable to Interpret (Negative); Blood, Urine Unable to Interpret (Negative); Clarity Turbid (Clear); Glucose, Urine (Dipstick) Unable to Interpret mg/dL (Negative); Ketone, Urine Unable to Interpret mg/dL (Negative); Leukocyte Unable to Interpret Leu/uL (Negative); Nitrite Unable to Interpret (Negative); Protein, Urine (Dipstick) Unable to Interpret mg/dL (Neg-Trace); Urobilinogen UNABLE TO INTERPRET mg/dL (Less than 2)
[2020-07-11 06:58] LABS: RBC/HPF Greater than 50 HPF (0-3); Specific Gravity, Urine 1.016 (1.002-1.036); pH, Urine 6.6 (5.0-9.0)
[2020-07-11 06:59] LABS: Bacteria/HPF None Seen HPF (None Seen); Squamous Epithelial 0-3 HPF (0-3); WBC/HPF 0-3 HPF (0-3)
--- NOTE | 2020-07-11 07:13 | PRG ---
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 He sat for about 4 hours in the neuro chair today. The sedation has been able to be tapered with the use of Geodon and Depakote. The Geodon has been increased as well. He is tolerating his feedings well and had a bowel movement. OBJECTIVE: VITAL SIGNS: He continues to be afebrile except for 100 on July 08, he is saturating at 100% on FiO2 of 40, still on bilevel 23 and 8 of pressure support. Tracheostomy and gastrostomy tube exit site appear okay. He has 2 mid lines. LUNGS: With coarse breath sounds bilaterally with a few crackles and rhonchi. HEART: S1 and S2. Regular rate. ABDOMEN: Soft, not distended. NEUROLOGIC: Could not test his movements. He will have spontaneous motions without purpose infrequently of all extremities. Sometimes according to the nurse, he will try to enunciate some words. LABORATORY DATA: White cell count jumped to 19, hemoglobin 12, platelets 191, 77% neutrophils. D-dimer last checked was 1.83 and creatinine 0.66 and he is currently on valganciclovir, sedatives. He is on methylprednisolone down to 20 b.i.d. ASSESSMENT AND DISCUSSION: Severe COVID pneumonia with requiring intubation, eventual trach and percutaneous endoscopic gastrostomy. He has a superimposed cytomegalovirus infection due to immunosuppression from corticosteroids and this is the 34th day of his illness. Discussions are being entertained with family and LTAC transfer eventually. The hope is for improvement in lung function that we would allow weaning of the vent from the ventilator. The Valgancyclovir will be continued for a total induction phase of 2 weeks, after that then drop down to half the dose, and continue for a while with recheck his CMV PCR as an endpoint. Job ID: [id number] [facility]
[2020-07-11] MEDS: Mometasone 200 MCG/Formoterol 5 MCG 120 PUFF INHALER INH SCH ×2 (07:19→18:44)
[2020-07-11 07:29] LABS: Actual Bicarbonate (HCO3a) 31.1 mEq/L (22-28); Base Excess (BEa) 7.3 mEq/L (-2.0 to +3.0); CO2 Tension 41.1 mmHg (35.0-45.0); Carboxyhemoglobin (COHb) 0.8 gm% (0.0-3.0); Hemoglobin (Hb) 11.1 g/dL (14.0-18.0); O2 Tension (PaO2), arterial 76.5 mmHg (80.0-100.0); Potassium - ABG Lab 3.36 mmol/L (3.70-5.30)
[2020-07-11 07:31] LABS: ALV-art Gradient 157.325 mmHg (0-20); Puncture Site RRA
--- NOTE | 2020-07-11 08:04 | PRG ---
DATE OF SERVICE: 07/11/2020 35 minutes critical time. SUBJECTIVE: The patient remains on mechanical ventilation through his tracheostomy. There have been no acute changes overnight. He has been weaned off the propofol. OBJECTIVE: VITAL SIGNS: His temperature is 99.3, pulse 87, blood pressure 102/66, and O2 saturation generally in the high 90s to 101. GENERAL: He is sedated on midazolam. HEENT: Unremarkable. NECK: Trach in good position. No bleeding. CARDIOVASCULAR: S1, S2, regular. LUNGS: Reasonably clear. ABDOMEN: Soft and nontender. PEG tube noted. EXTREMITIES: Severe muscle wasting. LABORATORY DATA: Sodium 146, potassium 3.6, chloride 109, CO2 of 26, BUN 22, creatinine 0.7, glucose 153, albumin is 2.6. PH 7.5, pCO2 of 41, pO2 of 76 on bilevel, rate 15, high pressure 25, low-pressure 8, FiO2 of 40%. White blood cell count 19.3, hematocrit 34.1, and platelet count 191. Chest x-ray shows diffuse infiltrates, but no change from previous. ASSESSMENT: 1. COVID-19 pneumonia. 2. Acute respiratory failure, requiring mechanical ventilation. 3. Slightly elevated white blood cell count. 4. Hyponatremia. 5. Cytomegalovirus infection. PLAN: 1. Since he is off the propofol, we will go ahead and increase his tube feed to give him extra calories. 2. Continue valganciclovir. 3. Steroid dose was reduced yesterday. 4. Can probably begin weaning the ventilator parameters over the weekend. 5. LTAC referral. Job ID: [id number]
[2020-07-11] MEDS: Acetaminophen 325 MG TAB PER TUBE PRN ×2 (08:07→17:20)
[2020-07-11] MEDS: Ascorbic Acid 500 mg Chewable Tablet PER TUBE SCH (08:08)
[2020-07-11] MEDS: Divalproex Sodium 125 mg Sprinkle Capsule PER TUBE SCH ×2 (08:08→20:02)
[2020-07-11] MEDS: Famotidine/PF 20 mg/2ml Vial SLOW IVP SCH (08:08)
[2020-07-11] MEDS: Multivit, Therapeutic 1 TAB PER TUBE SCH (08:08)
[2020-07-11] MEDS: Calcium Carbonate 600 MG + Vit D TAB PER TUBE SCH ×2 (08:08→17:20)
[2020-07-11] MEDS: Zinc Sulfate 220 MG CAP PER TUBE SCH (08:08)
[2020-07-11] MEDS: Enoxaparin Sodium 40 MG/0.4 ML SYRINGE SC SCH (08:09)
[2020-07-11] MEDS: VALGANCICLOVIR HCL PER TUBE SCH ×2 (08:09→20:02)
[2020-07-11] MEDS: COMPOUND VEHICLE SF PER TUBE SCH ×2 (08:09→20:02)
[2020-07-11] MEDS: methylPREDNISolone Sod Succ 40 MG VIAL IVP SCH ×2 (08:09→20:03)
[2020-07-11] MEDS: Nystatin Powder 15 GM BOT TOP SCH ×2 (08:10→20:07)
[2020-07-11] MEDS: Ziprasidone 20 MG CAP PER TUBE SCH ×2 (08:13→20:02)
[2020-07-11] MEDS: Cholecalciferol 1,000 UNITS (25 MCG) TAB PER TUBE SCH (08:13)
[2020-07-11] MEDS: HumaLOG 300 UNITS/3 ML VIAL SC PRN ×2 (08:14→18:35)
[2020-07-11 08:21] LABS: Hemoglobin 10.3 g/dL (14.0-18.0); Mean Corpuscular HGB CONC 34.5 g/dL (32.0-36.0); Mean Corpuscular Hemoglobin 27.8 pg (27.0-31.0); Mean Corpuscular Volume 80.5 fL (78.0-98.0); Mean Platelet Volume 9.5 fL (7.4-10.4); Platelet Count 151 thou/uL (130-400); RBC Distribution Width 15.6 % (11.5-14.5); White Blood Cell (WBC) Count 17.1 thou/uL (4.8-10.8)
[2020-07-11 08:22] LABS: Anisocytosis MODERATE=16-30 cells (100X) (0-5/hpf); Band 17 % (5-11); Elliptocytes SLIGHT = 2-5 cells (100X) (0-1/hpf); Lymphocytes 5 % (21-51); MDiff Complete? YES; Monocytes 3 % (0-10); Neutrophil 75 % (42-75); Ovalocytes SLIGHT = 2-5 cells (100X) (0-1/hpf)
--- NOTE | 2020-07-11 08:22 | RAD ---
PORTABLE CHEST: HISTORY: Pneumonia followup. COMPARISON: 07/10/2020. FINDINGS/IMPRESSION: Bilateral hazy somewhat patchy nodular infiltrates are seen prominent in th periphery of both lungs. Tracheostomy device. No significant interval change. POS: OFF
[2020-07-11] MEDS ORDERED: Pantoprazole 40 MG VIAL IVP SCH (12:45)
--- NOTE | 2020-07-11 16:12 | SPC ---
Right upper extremity PICC placement HISTORY: COVID pneumonitis. FINDINGS: After obtaining informed consent, the right upper extremity and external portion of the mid line catheter was prepped and draped in usual sterile fashion. A 0.018 guidewire was placed to hold position and measure length. Standard technique then used to place the tip of a 5 [place] dual-lumen P ICC so that the tip lies at the level of the superior vena cava. Catheter was flushed and secured externally. Patient tolerated the procedure well. IMPRESSION : Right upper extremity PICC is ready for use.
--- NOTE | 2020-07-11 17:43 | PDOC.HOSPP ---
- Subjective Encounter Date: 07/11/20 Encounter Time: 17:25 Subjective: f/u for COVID PNA/resp failure s/p trach/PEG remaining Bi-level support FIO2 40%, 13/04. Nursing reports blood in stool this am and receiving Lovenox for DVT ppx. - Objective Vital Signs & Weight: Vital Signs (12 hours) Temp Pulse Pulse Pulse Resp BP BP 07/11/20 16:00 99.1 F 07/11/20 15:37 58 L 128/51 L 07/11/20 14:00 32 H 07/11/20 13:07 90 98/62 07/11/20 12:00 99.9 F H 35 H 07/11/20 10:54 122 H 120 H 112/68 07/11/20 10:51 109 H 125/90 07/11/20 10:00 36 H 07/11/20 08:00 99.2 F 40 H 07/11/20 07:19 94 128/86 07/11/20 06:00 35 H BP Pulse Ox Pulse Ox Pulse Ox 07/11/20 16:00 07/11/20 15:37 07/11/20 14:00 07/11/20 13:07 07/11/20 12:00 07/11/20 10:54 125/90 100 98 07/11/20 10:51 07/11/20 10:00 07/11/20 08:00 99 07/11/20 07:19 07/11/20 06:00 Weight Admit Weight 157 lb 4.8 oz Weight 131 lb 9.855 oz Most Recent Monitor Data Heart Rate from ECG 112 NIBP 121/60 NIBP BP-Mean 80 Respiration from ECG 34 SpO2 100 I&O: 07/10/20 07/11/20 07/12/20 06:59 06:59 06:59 Intake Total 1397.7 1051.4 220 Output Total 2165 2135 775 Balance -767.3 -1083.6 -555 Result Diagrams: 07/11/20 05:49 07/11/20 05:49 Additional Labs: Accuchecks 07/11/20 07/11/20 07/10/20 11:56 03:58 22:07 POC Glucose 139 H 149 H 122 H 07/10/20 16:14 POC Glucose 166 H Microbiology 07/08/20 10:20 Venous blood - Right Arm Blood Culture - Preliminary NO GROWTH AT 48 HOURS 07/08/20 10:15 Central Line - Right Brachiocephalic vein Blood Culture - Preliminary NO GROWTH AT 48 HOURS Laboratory Tests 06/15/20 06/28/20 06/29/20 05:44 13:14 04:56 WBC Hgb D-Dimer Sodium Potassium Hemoglobin A1c 5.1 Ferritin C-Reactive Protein 5.58 H 13.68 H 06/30/20 07/01/20 07/01/20 03:30 03:50 03:50 WBC Hgb D-Dimer Sodium Potassium Hemoglobin A1c Ferritin 2330.60 H C-Reactive Protein 20.11 H 11.01 H 07/02/20 07/02/20 07/02/20 03:45 03:45 03:45 WBC Hgb D-Dimer 1.17 H Sodium Potassium Hemoglobin A1c Ferritin 2204.61 H C-Reactive Protein 5.24 H 07/03/20 07/03/20 07/04/20 04:05 04:05 03:30 WBC Hgb D-Dimer 1.51 H 2.60 H Sodium Potassium Hemoglobin A1c Ferritin 2131.10 H C-Reactive Protein 07/04/20 07/05/20 07/05/20 03:30 05:14 05:14 WBC Hgb D-Dimer 1.99 H Sodium Potassium Hemoglobin A1c Ferritin 1944.06 H 1719.77 H C-Reactive Protein 07/06/20 07/06/20 07/07/20 04:10 04:10 04:26 WBC Hgb D-Dimer 1.91 H 1.83 H Sodium Potassium Hemoglobin A1c Ferritin 1618.20 H C-Reactive Protein 07/07/20 07/09/20 07/09/20 04:26 03:45 03:45 WBC 8.3 Hgb 10.4 L D-Dimer Sodium 141 Potassium 3.8 Hemoglobin A1c Ferritin 2144.29 H C-Reactive Protein Radiology Reviewed by me: Yes (PCXR - bilat infiltrates similar to prior exam, trach in place) EKG Reviewed by me: Yes (Tele - SR) Hospitalist ROS - Medication Medications: Active Medications Generic Name Dose Route Start Last Admin Trade Name Freq PRN Reason Stop Dose Admin Acetaminophen 650 mg 06/29/20 11:10 07/08/20 07:52 Acetaminophen 650 Mg Suppository NE 650 mg Q6H PRN Administration TEMP>101 Acetaminophen 650 mg 07/05/20 16:30 07/11/20 17:20 Acetaminophen 325 Mg Tab PER TUBE 650 mg Q6H PRN Administration Fever > 101 Albuterol/Ipratropium 3 ml 06/28/20 14:30 07/11/20 14:13 Ipratropium/Albuterol Sulfate 3 Ml Neb NEB 3 ml [id number] JEOVANNY Administration Ascorbic Acid 1,000 mg 07/06/20 09:00 07/11/20 08:08 Ascorbic Acid 500 Mg Chewable Tablet PER TUBE 1,000 mg DAILY JEOVANNY Administration Benzonatate 200 mg 06/18/20 12:02 07/10/20 03:42 Benzonatate 100 Mg Cap PO 200 mg Q4H PRN Administration Cough Bisacodyl 10 mg 07/03/20 13:43 07/10/20 15:31 Bisacodyl 10 Mg Supp NE 10 mg DAILY PRN Administration Constipation Calcium/Vitamin D 1 tab 07/05/20 17:00 07/11/20 17:20 Calcium Carbonate 600 Mg + Vit D Tab PER TUBE 1 tab BID-WM JEOVANNY Administration Cholecalciferol 5,000 units 07/06/20 09:00 07/11/20 08:13 Cholecalciferol 1,000 Units (25 Mcg) Tab PER TUBE 5,000 units DAILY JEOVANNY Administration Valganciclovir 7,200 mg/ 0 mg 07/07/20 21:00 07/11/20 08:09 Miscellaneous 120 ml PER TUBE 15 ml BID JEOVANNY Administration Divalproex Sodium 500 mg 07/09/20 09:00 07/11/20 08:08 Divalproex Sodium 125 Mg Sprinkle Capsule PER TUBE 500 mg BID JEOVANNY Administration Enoxaparin Sodium 40 mg 07/10/20 09:00 07/11/20 08:09 Enoxaparin Sodium 40 Mg/0.4 Ml Syringe SC 40 mg 0900 JEOVANNY Administration Fentanyl 25 mcg 07/09/20 08:00 07/09/20 08:36 Fentanyl 25 Mcg/Hour Patch TD 25 mcg Q3D JEVOANNY Administration Guaifenesin/Codeine Phosphate 10 ml 07/05/20 16:30 07/11/20 17:20 Guaifenesin/Codeine Phosphate 200 Mg/20 Mg 10 Ml Ud Cup PER TUBE 10 ml Q4H PRN Administration Cough Midazolam HCl 100 mg/ Sodium 100 mls @ 4 mls/hr 07/08/20 12:30 07/11/20 17:11 Chloride IVPB 100 mls INF PRN Administration Sedation Protocol As Directed Insulin Human Lispro 0 units 06/30/20 07:56 07/11/20 08:14 Humalog 300 Units/3 Ml Vial SC 2 unit .MODERATE SLIDING SC PRN Administration Moderate Correctional Scale Methylprednisolone Sodium Succinate 20 mg 07/09/20 09:00 07/11/20 08:09 Methylprednisolone Sod Succ 40 Mg Vial IVP 20 mg BID JEOVANNY Administration Mometasone Furoate/Formoterol Fumar 2 puff 06/14/20 18:30 07/11/20 07:19 Mometasone 200 Mcg/Formoterol 5 Mcg 120 Puff Inhaler INH 2 puff BID-RT JEOVANNY Administration Multivitamins 1 tab 07/06/20 09:00 07/11/20 08:08 Multivit, Therapeutic 1 Tab PER TUBE 1 tab DAILY JEOVANNY Administration Nystatin 0 gm 07/08/20 21:00 07/11/20 08:10 Nystatin Powder 15 Gm Bot TOP 1 applic BID JEOVANNY Administration Polyethylene Glycol 17 gm 07/02/20 09:51 07/10/20 02:11 Polyethylene Glycol 3350 17 Gm Packet PER TUBE 17 gm DAILY PRN Administration Constipation Propofol 1,000 mg 07/08/20 23:00 07/10/20 23:06 Propofol 1,000 Mg/100 Ml Vial IV 08/07/20 23:00 1,000 mg INF PRN Administration TO ACHIEVE GOAL RASS Protocol Sodium Chloride 10 ml 06/15/20 09:00 07/11/20 08:10 Flush - Normal Saline 10 Ml Syringe IVF 10 ml Q12HR JEOVANNY Administration Sodium Chloride 10 ml 06/15/20 06:30 06/20/20 01:35 Flush - Normal Saline 10 Ml Syringe IVF 10 ml PRN PRN Administration Saline Flush Zinc Sulfate 220 mg 07/06/20 09:00 07/11/20 08:08 Zinc Sulfate 220 Mg Cap PER TUBE 220 mg DAILY JEOVANNY Administration Ziprasidone 40 mg 07/10/20 08:05 07/11/20 08:13 Ziprasidone 20 Mg Cap PER TUBE 40 mg BID JEOVANNY Administration - Exam General - other findings: sedate on mech vent Eye: PERRL ENT: normocephalic atraumatic, no oropharyngeal lesions ENT - other findings: trach in place Neck: supple, symmetric, no JVD, no thyromegaly, no lymphadenopathy Heart: RRR, no gallops, no rubs, normal peripheral pulses Heart - other findings: S1, S2 Respiratory - other findings: few scattered lower rhonchi Gastrointestinal: soft, non-tender, non-distended, normal bowel sounds, no palpable masses Gastrointestinal - other findings: PEG in place, no active bleeding Extremities: no cyanosis, no clubbing, no edema Skin: normal turgor, no lesions Neurological - other findings: sedate on mech vent Musculoskeletal: generalized weakness Psychiatric: somnolent, lethargic Hosp A/P (1) Pneumonia due to COVID-19 virus Code(s): U07.1 - COVID-19; J12.89 - OTHER VIRAL PNEUMONIA Status: Acute Plan: Continue supportive mgmt, O2 support, Lovenox/Vit C/Zinc/Solumedrol (2) Acute respiratory failure with hypoxia Code(s): J96.01 - ACUTE RESPIRATORY FAILURE WITH HYPOXIA Status: Acute Plan: See #1 above (3) Normocytic anemia Code(s): D64.9 - ANEMIA, UNSPECIFIED Status: Acute Plan: Consult GI regarding hematochezia, hold Lovenox, serial H/H, Protonox 40mg IV BID (4) Hypernatremia Code(s): E87.0 - HYPEROSMOLALITY AND HYPERNATREMIA Status: Acute Plan: Likely dehydration, increase free-H2O intake - Plan PT/OT, psychologist social, speech therapy, respiratory therapy, DVT proph w/SCDs Continue critical support Nutritional support with TF's Vital HP @ 30ml/h D/C Meropenem Continue Solumedrol 20mg IV BID Sedation with Depakote/Geodon/Versed Consult GI service Hold Lovenox Protonix 40mg IV BID AM lab: BMP, CBC PCXR in am
[2020-07-11] MEDS: Pantoprazole 40 MG VIAL IVP SCH (20:05)
[2020-07-12 04:42] LABS: Anion Gap 13 mmol/L (10-20); BUN (Urea Nitrogen) 24 mg/dL (8.4-25.7); Calc. Creatinine Clearance 117 mL/min (70-130); Calcium 8.4 mg/dL (7.8-10.44); Carbon Dioxide 33 mmol/L (22-29); Chloride 106 mmol/L (98-107); Glucose 169 mg/dL (70-105); Potassium 3.6 mmol/L (3.5-5.1); Sodium 148 mmol/L (136-145)
[2020-07-12 04:43] LABS: ALT (SGPT) 34 U/L (8-55); AST (SGOT) 13 U/L (5-34); Albumin 2.7 g/dL (3.5-5.0); Alkaline Phosphatase 74 U/L (40-110); Bilirubin, Direct 0.5 mg/dL (0.1-0.3); Protein, Total 5.1 g/dL (6.0-8.3)
[2020-07-12] MEDS: guaiFENesin/Codeine Phosphate 200 mg/20 mg 10 ml UD Cup PER TUBE PRN ×4 (04:47→16:12)
[2020-07-12 04:56] LABS: Band 7 % (5-11); Elliptocytes SLIGHT = 2-5 cells (100X) (0-1/hpf); Hemoglobin 9.5 g/dL (14.0-18.0); MDiff Complete? YES; Mean Corpuscular HGB CONC 35.3 g/dL (32.0-36.0); Mean Corpuscular Hemoglobin 28.5 pg (27.0-31.0); Mean Corpuscular Volume 80.7 fL (78.0-98.0); Mean Platelet Volume 8.3 fL (7.4-10.4); Monocytes 2 % (0-10); Neutrophil 91 % (42-75); Platelet Count 149 thou/uL (130-400); Red Blood Cell (RBC) Count 3.32 mill/uL (4.70-6.10); White Blood Cell (WBC) Count 12.3 thou/uL (4.8-10.8)
[2020-07-12] MEDS: HumaLOG 300 UNITS/3 ML VIAL SC PRN ×2 (05:29→16:35)
[2020-07-12] MEDS: Mometasone 200 MCG/Formoterol 5 MCG 120 PUFF INHALER INH SCH ×2 (07:22→19:12)
[2020-07-12] MEDS ORDERED: Lorazepam 1 MG TAB PO SCH (08:45)
[2020-07-12] MEDS: Ziprasidone 20 MG CAP PER TUBE SCH ×2 (09:34→20:08)
[2020-07-12] MEDS: Acetaminophen 325 MG TAB PER TUBE PRN ×3 (09:35→16:12)
[2020-07-12] MEDS: Zinc Sulfate 220 MG CAP PER TUBE SCH (09:35)
[2020-07-12] MEDS: Calcium Carbonate 600 MG + Vit D TAB PER TUBE SCH ×2 (09:35→16:12)
[2020-07-12] MEDS: Multivit, Therapeutic 1 TAB PER TUBE SCH (09:36)
[2020-07-12] MEDS: Ascorbic Acid 500 mg Chewable Tablet PER TUBE SCH (09:36)
[2020-07-12] MEDS: Cholecalciferol 1,000 UNITS (25 MCG) TAB PER TUBE SCH (09:36)
[2020-07-12] MEDS: Divalproex Sodium 125 mg Sprinkle Capsule PER TUBE SCH ×2 (09:37→20:08)
[2020-07-12] MEDS: Pantoprazole 40 MG VIAL IVP SCH ×2 (09:38→20:09)
[2020-07-12] MEDS: Nystatin Powder 15 GM BOT TOP SCH ×2 (09:38→20:09)
[2020-07-12] MEDS: methylPREDNISolone Sod Succ 40 MG VIAL IVP SCH ×2 (09:38→20:09)
[2020-07-12] MEDS: VALGANCICLOVIR HCL PER TUBE SCH ×2 (10:27→20:33)
[2020-07-12] MEDS: COMPOUND VEHICLE SF PER TUBE SCH ×2 (10:27→20:33)
--- NOTE | 2020-07-12 10:27 | PRG ---
DATE OF SERVICE: 07/12/2020 SUBJECTIVE: This morning, he is on the vent, on bilevel. OBJECTIVE: VITAL SIGNS: Pulse 106, blood pressure 124/76, 40% FiO2 with temperature of 98.4 and respiratory rate of 20. GENERAL: He is awake, responsive. EXTREMITIES: Moves all 4 extremities. He denies any pain or discomfort. CHEST: Rhonchi, crackles. CARDIAC: Sinus tach. ABDOMEN: Soft. LABORATORY DATA: White count 12,000, H and H . X-ray yesterday, bilateral infiltrates. ASSESSMENT AND PLAN: Flores positive pneumonia, respiratory failure, day 27 in the hospital, CMV infection, on ganciclovir Low-dose risperidone is initiated today. Otherwise, continue supportive care, PT. Continue steroids. We will follow. Job ID: [id number]
--- NOTE | 2020-07-12 10:51 | PDOC.HOSPP ---
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 He has a trach and PEG tibe. He will follow commands, and tries to communicate. - Objective Vital Signs & Weight: Vital Signs (12 hours) Temp Pulse Resp BP 07/12/20 10:20 120 H 130/80 07/12/20 07:22 106 H 124/76 07/12/20 06:00 34 H 07/12/20 04:07 96 139/86 07/12/20 04:00 98.4 F 31 H 07/12/20 02:00 36 H 07/12/20 01:16 115 H 109/61 07/12/20 00:00 98.2 F 34 H Weight Admit Weight 157 lb 4.8 oz Weight 2.123 oz Most Recent Monitor Data Heart Rate from ECG 120 NIBP 136/91 NIBP BP-Mean 106 Respiration from ECG 17 SpO2 100 I&O: 07/11/20 07/12/20 07/13/20 06:59 06:59 06:59 Intake Total 1051.4 1296 Output Total 2135 1925 Balance -1083.6 -629 Result Diagrams: 07/12/20 04:10 07/12/20 04:10 Additional Labs: Accuchecks 07/12/20 07/11/20 07/11/20 05:27 23:53 18:14 POC Glucose 151 H 115 H 179 H 07/11/20 11:56 POC Glucose 139 H Hospitalist ROS - Medication Medications: Active Medications Generic Name Dose Route Start Last Admin Trade Name Freq PRN Reason Stop Dose Admin Acetaminophen 650 mg 06/29/20 11:10 07/08/20 07:52 Acetaminophen 650 Mg Suppository [place] 650 mg Q6H PRN Administration TEMP>101 Acetaminophen 650 mg 07/05/20 16:30 07/12/20 09:35 Acetaminophen 325 Mg Tab PER TUBE 650 mg Q6H PRN Administration Fever > 101 Albuterol/Ipratropium 3 ml 06/28/20 14:30 07/12/20 10:20 Ipratropium/Albuterol Sulfate 3 Ml Neb NEB 3 ml [id number] JEOVANNY Administration Ascorbic Acid 1,000 mg 07/06/20 09:00 07/12/20 09:36 Ascorbic Acid 500 Mg Chewable Tablet PER TUBE 1,000 mg DAILY JEOVANNY Administration Benzonatate 200 mg 06/18/20 12:02 07/10/20 03:42 Benzonatate 100 Mg Cap PO 200 mg Q4H PRN Administration Cough Bisacodyl 10 mg 07/03/20 13:43 07/10/20 15:31 Bisacodyl 10 Mg Supp LA 10 mg DAILY PRN Administration Constipation Calcium/Vitamin D 1 tab 07/05/20 17:00 07/12/20 09:35 Calcium Carbonate 600 Mg + Vit D Tab PER TUBE 1 tab BID-WM JEOVANNY Administration Cholecalciferol 5,000 units 07/06/20 09:00 07/12/20 09:36 Cholecalciferol 1,000 Units (25 Mcg) Tab PER TUBE 5,000 units DAILY JEOVANNY Administration Valganciclovir 7,200 mg/ 0 mg 07/07/20 21:00 07/12/20 10:27 Miscellaneous 120 ml PER TUBE 15 ml BID JEOVANNY Administration Divalproex Sodium 500 mg 07/09/20 09:00 07/12/20 09:37 Divalproex Sodium 125 Mg Sprinkle Capsule PER TUBE 500 mg BID JEOVANNY Administration Enoxaparin Sodium 40 mg 07/10/20 09:00 07/11/20 08:09 Enoxaparin Sodium 40 Mg/0.4 Ml Syringe SC 40 mg 0900 JEOVANNY Administration Fentanyl 25 mcg 07/09/20 08:00 07/12/20 09:52 Fentanyl 25 Mcg/Hour Patch TD 25 mcg Q3D JEOVANNY Administration Guaifenesin/Codeine Phosphate 10 ml 07/05/20 16:30 07/12/20 08:20 Guaifenesin/Codeine Phosphate 200 Mg/20 Mg 10 Ml Ud Cup PER TUBE 10 ml Q4H PRN Administration Cough Midazolam HCl 100 mg/ Sodium 100 mls @ 4 mls/hr 07/08/20 12:30 07/11/20 17:11 Chloride IVPB 100 mls INF PRN Administration Sedation Protocol As Directed Insulin Human Lispro 0 units 06/30/20 07:56 07/12/20 05:29 Humalog 300 Units/3 Ml Vial SC 2 unit .MODERATE SLIDING SC PRN Administration Moderate Correctional Scale Methylprednisolone Sodium Succinate 20 mg 07/09/20 09:00 11/21/20 09:38 Methylprednisolone Sod Succ 40 Mg Vial IVP 20 mg BID JEOVANNY Administration Mometasone Furoate/Formoterol Fumar 2 puff 06/14/20 18:30 07/12/20 07:22 Mometasone 200 Mcg/Formoterol 5 Mcg 120 Puff Inhaler INH 2 puff BID-RT JEOVANNY Administration Multivitamins 1 tab 07/06/20 09:00 07/12/20 09:36 Multivit, Therapeutic 1 Tab PER TUBE 1 tab DAILY JEOVANNY Administration Nystatin 0 gm 07/08/20 21:00 07/12/20 09:38 Nystatin Powder 15 Gm Bot TOP 1 applic BID JEOVANNY Administration Pantoprazole Sodium 40 mg 07/11/20 21:00 07/12/20 09:38 Pantoprazole 40 Mg Vial IVP 40 mg Q12HR JEOVANNY Administration Polyethylene Glycol 17 gm 07/02/20 09:51 07/10/20 02:11 Polyethylene Glycol 3350 17 Gm Packet PER TUBE 17 gm DAILY PRN Administration Constipation Propofol 1,000 mg 07/08/20 23:00 07/10/20 23:06 Propofol 1,000 Mg/100 Ml Vial IV 08/07/20 23:00 1,000 mg INF PRN Administration TO ACHIEVE GOAL RASS Protocol Sodium Chloride 10 ml 06/15/20 09:00 07/12/20 09:43 Flush - Normal Saline 10 Ml Syringe IVF 10 ml Q12HR JEOVANNY Administration Sodium Chloride 10 ml 06/15/20 06:30 06/20/20 01:35 Flush - Normal Saline 10 Ml Syringe IVF 10 ml PRN PRN Administration Saline Flush Zinc Sulfate 220 mg 07/06/20 09:00 07/12/20 09:35 Zinc Sulfate 220 Mg Cap PER TUBE 220 mg DAILY JEOVANNY Administration Ziprasidone 40 mg 07/10/20 08:05 07/12/20 09:34 Ziprasidone 20 Mg Cap PER TUBE 40 mg BID JEOVANNY Administration - Exam Eye: PERRL, anicteric sclera Heart: RRR, no murmur, no gallops, no rubs, normal peripheral pulses Respiratory: no wheezes (+ coarse breath sounds bilaterally, no rlaes) Gastrointestinal: soft, non-tender, non-distended, normal bowel sounds, no palpable masses Extremities: no cyanosis, no edema Musculoskeletal: generalized weakness, diffuse muscle atrophy Hosp A/P (1) Acute respiratory failure with hypoxia Code(s): J96.01 - ACUTE RESPIRATORY FAILURE WITH HYPOXIA Status: Acute (2) Pneumonia due to COVID-19 virus Code(s): U07.1 - COVID-19; J12.89 - OTHER VIRAL PNEUMONIA Status: Acute (3) CMV infection Code(s): B25.9 - CYTOMEGALOVIRAL DISEASE, UNSPECIFIED Status: Acute (4) Hypernatremia Code(s): E87.0 - HYPEROSMOLALITY AND HYPERNATREMIA Status: Acute (5) Normocytic anemia Code(s): D64.9 - ANEMIA, UNSPECIFIED Status: Acute - Plan * Acute respiratory failure due to COVID pneumonia- He continues on Solumedrol IV, and continue vent support * CNV infection- continue Valganciclovir. * FEN- nutritional support with Tube feeds * Hypernatremia- will monitor- may need to increase the amount of free water through the PEG tube * Anemia- will monitor and transfuse as needed * Lovenox is on hold due to concern for possible GI- Bleed * Continue PT/OT
[2020-07-12] MEDS: Lorazepam 1 MG TAB PO PRN ×2 (12:26→16:12)
[2020-07-12] MEDS ORDERED: Acetaminophen 650 MG Suppository PR PRN (19:14)
[2020-07-12] MEDS: risperiDONE 0.25 MG TAB PO SCH (20:33)
[2020-07-13 05:10] LABS: ALT (SGPT) 27 U/L (8-55); AST (SGOT) 16 U/L (5-34); Albumin 2.6 g/dL (3.5-5.0); Alkaline Phosphatase 71 U/L (40-110); Bilirubin, Direct 0.5 mg/dL (0.1-0.3); Protein, Total 5.1 g/dL (6.0-8.3)
[2020-07-13 05:16] LABS: Anion Gap 13 mmol/L (10-20); BUN (Urea Nitrogen) 21 mg/dL (8.4-25.7); Calc. Creatinine Clearance 0 mL/min (70-130); Calcium 8.1 mg/dL (7.8-10.44); Carbon Dioxide 31 mmol/L (22-29); Chloride 105 mmol/L (98-107); Glucose 146 mg/dL (70-105); Potassium 3.6 mmol/L (3.5-5.1); Sodium 145 mmol/L (136-145)
[2020-07-13 06:30] LABS: Band 13 % (5-11); Hemoglobin 8.9 g/dL (14.0-18.0); Lymphocytes 4 % (21-51); MDiff Complete? YES; Mean Corpuscular HGB CONC 36.2 g/dL (32.0-36.0); Mean Corpuscular Hemoglobin 29.3 pg (27.0-31.0); Mean Corpuscular Volume 80.8 fL (78.0-98.0); Mean Platelet Volume 8.8 fL (7.4-10.4); Neutrophil 83 % (42-75); Platelet Count 135 thou/uL (130-400); Red Blood Cell (RBC) Count 3.05 mill/uL (4.70-6.10); White Blood Cell (WBC) Count 10.5 thou/uL (4.8-10.8)
[2020-07-13] MEDS: Mometasone 200 MCG/Formoterol 5 MCG 120 PUFF INHALER INH SCH ×2 (07:31→19:44)
[2020-07-13] MEDS: risperiDONE 0.25 MG TAB PO SCH ×2 (08:07→20:29)
[2020-07-13] MEDS: Acetaminophen 325 MG TAB PER TUBE PRN ×4 (08:07→20:20)
[2020-07-13] MEDS: Ascorbic Acid 500 mg Chewable Tablet PER TUBE SCH (08:08)
[2020-07-13] MEDS: Cholecalciferol 1,000 UNITS (25 MCG) TAB PER TUBE SCH (08:08)
[2020-07-13] MEDS: Ziprasidone 20 MG CAP PER TUBE SCH ×2 (08:09→20:26)
[2020-07-13] MEDS: guaiFENesin/Codeine Phosphate 200 mg/20 mg 10 ml UD Cup PER TUBE PRN ×4 (08:09→20:20)
[2020-07-13] MEDS: Zinc Sulfate 220 MG CAP PER TUBE SCH (08:09)
[2020-07-13] MEDS: Pantoprazole 40 MG VIAL IVP SCH ×2 (08:09→20:23)
[2020-07-13] MEDS: Calcium Carbonate 600 MG + Vit D TAB PER TUBE SCH ×2 (08:09→16:09)
[2020-07-13] MEDS: Nystatin Powder 15 GM BOT TOP SCH ×2 (08:09→20:23)
[2020-07-13] MEDS: Multivit, Therapeutic 1 TAB PER TUBE SCH (08:09)
[2020-07-13] MEDS: COMPOUND VEHICLE SF PER TUBE SCH ×2 (08:10→20:33)
[2020-07-13] MEDS: Divalproex Sodium 125 mg Sprinkle Capsule PER TUBE SCH ×2 (08:10→20:22)
[2020-07-13] MEDS: VALGANCICLOVIR HCL PER TUBE SCH ×2 (08:10→20:33)
[2020-07-13] MEDS: methylPREDNISolone Sod Succ 40 MG VIAL IVP SCH ×2 (08:11→20:20)
--- NOTE | 2020-07-13 10:23 | PDOC.HOSPP ---
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 I am told he was up most of the night. No complaints voiced by staff. - Objective Vital Signs & Weight: Vital Signs (12 hours) Temp Pulse Resp BP Pulse Ox 07/13/20 08:00 98.3 F 07/13/20 07:32 114 H 122/75 07/13/20 06:00 31 H 07/13/20 04:00 98.8 F 27 H 07/13/20 03:06 95 111/68 07/13/20 02:00 98.7 F 22 H 07/13/20 00:00 31 H 100 07/12/20 23:00 98.6 F 07/12/20 22:30 121 H 159/99 H Weight Admit Weight 157 lb 4.8 oz Weight 134 lb 0.657 oz Most Recent Monitor Data Heart Rate from ECG 127 NIBP 144/91 NIBP BP-Mean 108 Respiration from ECG 27 SpO2 95 I&O: 07/12/20 07/13/20 07/14/20 06:59 06:59 06:59 Intake Total 1296 3091.7 230 Output Total 1925 1840 340 Balance -629 1251.7 -110 Result Diagrams: 07/22/20 02:50 07/22/20 02:50 Additional Labs: Accuchecks 07/13/20 07/12/20 07/12/20 03:43 21:37 16:30 POC Glucose 140 H 123 H 170 H 07/12/20 12:11 POC Glucose 123 H Hospitalist ROS - Medication Medications: Active Medications Generic Name Dose Route Start Last Admin Trade Name Freq PRN Reason Stop Dose Admin Acetaminophen 650 mg 06/29/20 11:10 07/08/20 07:52 Acetaminophen 650 Mg Suppository [place] 650 mg Q6H PRN Administration TEMP>101 Acetaminophen 650 mg 07/12/20 19:30 07/13/20 08:07 Acetaminophen 325 Mg Tab PER TUBE 650 mg Q4H PRN Administration Fever >= 101/MINOR DISCOMFORT Albuterol/Ipratropium 3 ml 06/28/20 14:30 07/13/20 07:31 Ipratropium/Albuterol Sulfate 3 Ml Neb NEB 3 ml [id number] JEOVANNY Administration Ascorbic Acid 1,000 mg 07/06/20 09:00 07/13/20 08:08 Ascorbic Acid 500 Mg Chewable Tablet PER TUBE 1,000 mg DAILY JEOVANNY Administration Benzonatate 200 mg 06/18/20 12:02 07/10/20 03:42 Benzonatate 100 Mg Cap PO 200 mg Q4H PRN Administration Cough Bisacodyl 10 mg 07/03/20 13:43 07/10/20 15:31 Bisacodyl 10 Mg Supp TN 10 mg DAILY PRN Administration Constipation Calcium/Vitamin D 1 tab 07/05/20 17:00 07/13/20 08:09 Calcium Carbonate 600 Mg + Vit D Tab PER TUBE 1 tab BID-WM JEOVANNY Administration Cholecalciferol 5,000 units 07/06/20 09:00 07/13/20 08:08 Cholecalciferol 1,000 Units (25 Mcg) Tab PER TUBE 5,000 units DAILY JEOVANNY Administration Valganciclovir 7,200 mg/ 0 mg 07/07/20 21:00 07/13/20 08:10 Miscellaneous 120 ml PER TUBE 15 ml BID JEOVANNY Administration Divalproex Sodium 500 mg 07/09/20 09:00 07/13/20 08:10 Divalproex Sodium 125 Mg Sprinkle Capsule PER TUBE 500 mg BID JEOVANNY Administration Enoxaparin Sodium 40 mg 07/10/20 09:00 07/11/20 08:09 Enoxaparin Sodium 40 Mg/0.4 Ml Syringe SC 40 mg 0900 JEOVANNY Administration Fentanyl 25 mcg 07/09/20 08:00 07/12/20 09:52 Fentanyl 25 Mcg/Hour Patch TD 25 mcg Q3D JEOVANNY Administration Guaifenesin/Codeine Phosphate 10 ml 07/05/20 16:30 07/13/20 08:09 Guaifenesin/Codeine Phosphate 200 Mg/20 Mg 10 Ml Ud Cup PER TUBE 10 ml Q4H PRN Administration Cough Midazolam HCl 100 mg/ Sodium 100 mls @ 4 mls/hr 07/08/20 12:30 07/12/20 17:17 Chloride IVPB 100 mls INF PRN Administration Sedation Protocol As Directed Insulin Human Lispro 0 units 06/30/20 07:56 07/12/20 16:35 Humalog 300 Units/3 Ml Vial SC 2 unit .MODERATE SLIDING SC PRN Administration Moderate Correctional Scale Lorazepam 1 mg 07/12/20 10:16 07/12/20 16:12 Lorazepam 1 Mg Tab PO 1 mg Q4H PRN Administration Anxiety/Agitation Methylprednisolone Sodium Succinate 20 mg 07/09/20 09:00 07/13/20 08:11 Methylprednisolone Sod Succ 40 Mg Vial IVP 20 mg BID JEOVANNY Administration Mometasone Furoate/Formoterol Fumar 2 puff 06/14/20 18:30 07/13/20 07:31 Mometasone 200 Mcg/Formoterol 5 Mcg 120 Puff Inhaler INH 2 puff BID-RT JEOVANNY Administration Multivitamins 1 tab 07/06/20 09:00 07/13/20 08:09 Multivit, Therapeutic 1 Tab PER TUBE 1 tab DAILY JEOVANNY Administration Nystatin 0 gm 07/08/20 21:00 07/12/20 20:09 Nystatin Powder 15 Gm Bot TOP 1 applic BID JEOVANNY Administration Pantoprazole Sodium 40 mg 07/11/20 21:00 07/12/20 20:09 Pantoprazole 40 Mg Vial IVP 40 mg Q12HR JEOVANNY Administration Polyethylene Glycol 17 gm 07/02/20 09:51 07/10/20 02:11 Polyethylene Glycol 3350 17 Gm Packet PER TUBE 17 gm DAILY PRN Administration Constipation Propofol 1,000 mg 07/08/20 23:00 07/10/20 23:06 Propofol 1,000 Mg/100 Ml Vial IV 08/07/20 23:00 1,000 mg INF PRN Administration TO ACHIEVE GOAL RASS Protocol Risperidone 0.25 mg 07/12/20 21:00 07/13/20 08:07 Risperidone 0.25 Mg Tab PO 0.25 mg BID JEOVANNY Administration Sodium Chloride 10 ml 06/15/20 09:00 07/13/20 08:12 Flush - Normal Saline 10 Ml Syringe IVF 10 ml Q12HR JEOVANNY Administration Sodium Chloride 10 ml 06/15/20 06:30 06/20/20 01:35 Flush - Normal Saline 10 Ml Syringe IVF 10 ml PRN PRN Administration Saline Flush Zinc Sulfate 220 mg 07/06/20 09:00 07/13/20 08:09 Zinc Sulfate 220 Mg Cap PER TUBE 220 mg DAILY JEOVANNY Administration Ziprasidone 40 mg 07/10/20 08:05 07/13/20 08:09 Ziprasidone 20 Mg Cap PER TUBE 40 mg BID JEOVANNY Administration - Exam Eye: PERRL, anicteric sclera Heart: RRR, no murmur, no gallops, no rubs, normal peripheral pulses Respiratory: CTAB (With some rhonchi and coarse breath sounds bilaterally) Gastrointestinal: soft, non-tender, non-distended, normal bowel sounds, no palpable masses, no hepatomegaly Extremities: no cyanosis, no edema Hosp A/P (1) Acute respiratory failure with hypoxia Code(s): J96.01 - ACUTE RESPIRATORY FAILURE WITH HYPOXIA Status: Acute (2) Pneumonia due to COVID-19 virus Code(s): U07.1 - COVID-19; J12.89 - OTHER VIRAL PNEUMONIA Status: Acute (3) CMV infection Code(s): B25.9 - CYTOMEGALOVIRAL DISEASE, UNSPECIFIED Status: Acute (4) Hypernatremia Code(s): E87.0 - HYPEROSMOLALITY AND HYPERNATREMIA Status: Acute (5) Normocytic anemia Code(s): D64.9 - ANEMIA, UNSPECIFIED Status: Acute - Plan * Acute respiratory failure due to COVID pneumonia- He continues on Solumedrol IV, and continue vent support * CMV infection- continue Valganciclovir. * FEN- He has been tolerating tube feeds * Hypernatremia- better today, continue with current free water via tube * Anemia- will monitor and transfuse as needed * Lovenox i has been re-started * Continue PT/OT
[2020-07-13] MEDS ORDERED: Enoxaparin Sodium 40 MG/0.4 ML SYRINGE SC SCH ×2 (10:30→21:00)
--- NOTE | 2020-07-13 10:33 | PRG ---
DATE OF SERVICE: 07/13/2020 SUBJECTIVE: This morning, he is sedated. He was up all night. OBJECTIVE: VITAL SIGNS: Temperature 98, respirations are 27, sats 95% on bilevel, low PEEP of 5, blood pressure 144/91, pulse is 128. I's and O's have been good. CHEST: No wheezing. No crackles. CARDIAC: Sinus tach. ABDOMEN: Soft. LABORATORY DATA: Unremarkable. H and H are 8 and 24. Stool is guaiac positive. Platelet count is normal. Lovenox was withheld. ASSESSMENT: Flores positive pneumonia, respiratory failure, status post trach and PEG. The patient is hypercoagulable. I would not stop his Lovenox completely unless he is having bassem bleeding. Otherwise, continue supportive care, eventually placement. Job ID: [id number]
--- NOTE | 2020-07-13 12:23 | CON ---
DATE OF CONSULTATION: 07/12/2020 REASON FOR CONSULTATION: Hematochezia. 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 Subsequently, he has had a tracheostomy and is on the ventilator. He has had PEG tube placement done by Dr. Peng a few days ago and on tube feeding. The patient was getting Lovenox. The patient had passed small amount of blood yesterday and I was asked to see the patient. The patient is kind of sleepy. He was seen in the room along wih his , Josette, who is a nurse. She tells me he had a colonoscopy by Dr. Dai probably four years ago and was no pathology seen except for hemorrhoids. He has had hemorrhoids from before and he has had mild bleeding here and there. The stool was sent for occult blood, which came back positive. The patient has had no bleeding. Blood count is reasonably stable around 10.3 to 9.5. On 07/10, he had a CBC, which showed mild anemia. Hemoglobin 12.2 and hematocrit 34.1, today 9.5 and 26.8. He has no recurrence of bleeding. He is off Lovenox at the present time. MEDICAL ILLNESSES: 1. COVID-19 pneumonia. 2. Respiratory failure. 3. Status post tracheostomy. 4. Status post EGD and PEG tube placement. ALLERGIES: NONE. 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 No smoking. PHYSICAL EXAMINATION: GENERAL: Revealed a fragile looking male. He is on the ventilator. He is sleepy and drowsy. VITAL SIGNS: Pulse is 120 and blood pressure 130/80. Afebrile. NECK: Supple. He has a tracheostomy collar. CARDIOVASCULAR SYSTEM: Within normal limits. LUNGS: Within normal limits. ABDOMEN: Soft. No organomegaly. No tenderness. CLINICAL IMPRESSION: A 54-year-old male with COVID-19 pneumonia and respiratory failure, status post tracheostomy. He also has a PEG tube placement. He has had mild _rectal bleeding one time. Blood count is stable His Lovenox on hold. I did talk to his , Josette and she informed that he had a colonoscopy four years ago for hemorrhoids. The bleeding mostly from hemorrhoid. Recommendation, no invasive procedures planned at the present time. RECOMMENDATION: 1. Hold on Lovenox. 2. Transfuse as needed. 3. Dr. Dai will resume care from Tuesday. Job ID: [id number] [id number]
[2020-07-13] MEDS: Lorazepam 1 MG TAB PO PRN ×3 (12:47→20:20)
[2020-07-13] MEDS: Enoxaparin Sodium 40 MG/0.4 ML SYRINGE SC SCH (12:47)
[2020-07-14] MEDS: Lorazepam 1 MG TAB PO PRN ×6 (01:44→22:26)
[2020-07-14] MEDS: guaiFENesin/Codeine Phosphate 200 mg/20 mg 10 ml UD Cup PER TUBE PRN ×6 (01:44→22:27)
[2020-07-14 04:27] LABS: Hemoglobin 9.6 g/dL (14.0-18.0); Mean Corpuscular HGB CONC 35.4 g/dL (32.0-36.0); Mean Corpuscular Hemoglobin 28.1 pg (27.0-31.0); Mean Corpuscular Volume 79.2 fL (78.0-98.0); Mean Platelet Volume 8.8 fL (7.4-10.4); Platelet Count 155 thou/uL (130-400); RBC Distribution Width 16.5 % (11.5-14.5); Red Blood Cell (RBC) Count 3.42 mill/uL (4.70-6.10); White Blood Cell (WBC) Count 9.8 thou/uL (4.8-10.8)
[2020-07-14 04:40] LABS: Anion Gap 11 mmol/L (10-20); BUN (Urea Nitrogen) 19 mg/dL (8.4-25.7); Calc. Creatinine Clearance 119 mL/min (70-130); Calcium 8.6 mg/dL (7.8-10.44); Carbon Dioxide 33 mmol/L (22-29); Chloride 104 mmol/L (98-107); Glucose 129 mg/dL (70-105); Potassium 3.6 mmol/L (3.5-5.1); Sodium 144 mmol/L (136-145)
[2020-07-14 05:13] LABS: ALT (SGPT) 33 U/L (8-55); AST (SGOT) 24 U/L (5-34); Albumin 2.9 g/dL (3.5-5.0); Alkaline Phosphatase 97 U/L (40-110); Bilirubin, Direct 0.4 mg/dL (0.1-0.3); Bilirubin, Total 0.8 mg/dL (0.2-1.2); Protein, Total 5.7 g/dL (6.0-8.3)
[2020-07-14] MEDS: Acetaminophen 325 MG TAB PER TUBE PRN ×5 (06:37→22:26)
[2020-07-14 06:49] LABS: Band 5 % (5-11); Elliptocytes SLIGHT = 2-5 cells (100X) (0-1/hpf); Lymphocytes 3 % (21-51); MDiff Complete? YES; Monocytes 1 % (0-10); Neutrophil 90 % (42-75); Reactive Lymphocytes 1 % (0-10)
--- NOTE | 2020-07-14 08:10 | PRG ---
DATE OF SERVICE: 07/14/2020 SUBJECTIVE: He is awake, alert. He is able to talk without deflating the cuff from his tracheostomy tube. OBJECTIVE: VITAL SIGNS: Temperature 99.3, pulse 104, blood pressure 115/80, O2 saturation 100%. He is on Versed at 1 mg/hour. Nurse turned that off this morning. 24-hour intake 2984, output 1465. HEENT: Unremarkable. NECK: Trach in good position. LUNGS: Clear. CARDIAC: S1 and S2. Regular. ABDOMEN: Soft. EXTREMITIES: No edema. LABORATORY DATA: White blood cell count 9.8, hematocrit 27.1, and platelet count 155. Sodium 144, potassium 3.6, chloride 104, CO2 of 33, BUN 19, creatinine 0.6, and glucose 129. ASSESSMENT: 1. COVID-19 pneumonia. 2. Acute respiratory failure requiring mechanical ventilation and tracheostomy placement. 3. Severe neuromuscular weakness. 4. Status post bleeding from percutaneous endoscopic gastrostomy tube site. PLAN: 1. I will give him some Ambien at night, so we can try to re-establish his sleep-wake cycle. 2. Continue the Depakote and Geodon for agitation. 3. LTAC placement as soon as practical. 4. I have lowered his ventilatory pressures and we will continue to decrease sedation as tolerated. Job ID: [id number]
[2020-07-14] MEDS: Mometasone 200 MCG/Formoterol 5 MCG 120 PUFF INHALER INH SCH ×2 (08:33→18:51)
[2020-07-14] MEDS: Nystatin Powder 15 GM BOT TOP SCH ×2 (09:00→21:48)
[2020-07-14] MEDS: Divalproex Sodium 125 mg Sprinkle Capsule PER TUBE SCH ×2 (09:08→21:24)
[2020-07-14] MEDS: Cholecalciferol 1,000 UNITS (25 MCG) TAB PER TUBE SCH (09:09)
[2020-07-14] MEDS: Enoxaparin Sodium 40 MG/0.4 ML SYRINGE SC SCH (09:11)
[2020-07-14] MEDS: Ziprasidone 20 MG CAP PER TUBE SCH ×2 (09:11→21:24)
[2020-07-14] MEDS: Zinc Sulfate 220 MG CAP PER TUBE SCH (09:12)
[2020-07-14] MEDS: Multivit, Therapeutic 1 TAB PER TUBE SCH (09:12)
[2020-07-14] MEDS: Calcium Carbonate 600 MG + Vit D TAB PER TUBE SCH ×2 (09:13→18:13)
[2020-07-14] MEDS: methylPREDNISolone Sod Succ 40 MG VIAL IVP SCH ×2 (09:14→21:25)
[2020-07-14] MEDS: Pantoprazole 40 MG VIAL IVP SCH ×2 (09:14→21:25)
[2020-07-14] MEDS: Benzonatate 100 MG CAP PO PRN (09:14)
--- NOTE | 2020-07-14 09:33 | PDOC.HOSPP ---
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 He is sitting up in bed, with support, and indicates he is doing fine. He is following commands. , and moving all extremities. - Objective Vital Signs & Weight: Vital Signs (12 hours) Temp Pulse Resp BP Pulse Ox 07/14/20 08:34 130 H 131/78 07/14/20 08:32 102 H 27 H 99 07/14/20 06:00 99.3 F 34 H 07/14/20 04:00 32 H 07/14/20 03:00 98.3 F 07/14/20 02:50 96 122/75 07/14/20 02:00 29 H 07/14/20 01:50 97 07/14/20 00:00 98.7 F 35 H 07/13/20 22:28 104 H 108/64 07/13/20 22:00 98.8 F 35 H Weight Admit Weight 157 lb 4.8 oz Weight 137 lb 12.623 oz Most Recent Monitor Data Heart Rate from ECG 104 NIBP 115/80 NIBP BP-Mean 91 Respiration from ECG 28 SpO2 100 I&O: 07/13/20 07/14/20 07/15/20 06:59 06:59 06:59 Intake Total 3091.7 2984.1 Output Total 1840 1465 Balance 1251.7 1519.1 Result Diagrams: 07/14/20 03:51 07/14/20 03:51 Additional Labs: Accuchecks 07/13/20 07/13/20 07/13/20 21:32 17:55 12:06 POC Glucose 127 H 126 H 149 H Hospitalist ROS - Medication Medications: Active Medications Generic Name Dose Route Start Last Admin Trade Name Freq PRN Reason Stop Dose Admin Acetaminophen 650 mg 06/29/20 11:10 07/08/20 07:52 Acetaminophen 650 Mg Suppository [place] 650 mg Q6H PRN Administration TEMP>101 Acetaminophen 650 mg 07/12/20 19:30 07/14/20 09:12 Acetaminophen 325 Mg Tab PER TUBE 650 mg Q4H PRN Administration Fever >= 101/MINOR DISCOMFORT Albuterol/Ipratropium 3 ml 06/28/20 14:30 11/23/20 08:32 Ipratropium/Albuterol Sulfate 3 Ml Neb NEB 3 ml [id number] JEOVANNY Administration Ascorbic Acid 1,000 mg 07/06/20 09:00 07/13/20 08:08 Ascorbic Acid 500 Mg Chewable Tablet PER TUBE 1,000 mg DAILY JEOVANNY Administration Benzonatate 200 mg 06/18/20 12:02 07/14/20 09:14 Benzonatate 100 Mg Cap PO 200 mg Q4H PRN Administration Cough Bisacodyl 10 mg 07/03/20 13:43 07/10/20 15:31 Bisacodyl 10 Mg Supp NV 10 mg DAILY PRN Administration Constipation Calcium/Vitamin D 1 tab 07/05/20 17:00 07/14/20 09:13 Calcium Carbonate 600 Mg + Vit D Tab PER TUBE 1 tab BID-WM JEOVANNY Administration Cholecalciferol 5,000 units 07/06/20 09:00 07/14/20 09:09 Cholecalciferol 1,000 Units (25 Mcg) Tab PER TUBE 5,000 units DAILY JEOVANNY Administration Valganciclovir 7,200 mg/ 0 mg 07/07/20 21:00 07/13/20 20:33 Miscellaneous 120 ml PER TUBE 07/18/20 21:01 15 ml BID JEOVANNY Administration Divalproex Sodium 500 mg 07/09/20 09:00 07/14/20 09:08 Divalproex Sodium 125 Mg Sprinkle Capsule PER TUBE 500 mg BID JEOVANNY Administration Enoxaparin Sodium 40 mg 07/14/20 09:00 07/14/20 09:11 Enoxaparin Sodium 40 Mg/0.4 Ml Syringe SC 40 mg 09 JEOVANNY Administration Fentanyl 25 mcg 07/09/20 08:00 07/12/20 09:52 Fentanyl 25 Mcg/Hour Patch TD 25 mcg Q3D JEOVANNY Administration Guaifenesin/Codeine Phosphate 10 ml 07/05/20 16:30 07/14/20 09:12 Guaifenesin/Codeine Phosphate 200 Mg/20 Mg 10 Ml Ud Cup PER TUBE 10 ml Q4H PRN Administration Cough Midazolam HCl 100 mg/ Sodium 100 mls @ 4 mls/hr 07/08/20 12:30 07/12/20 17:17 Chloride IVPB 100 mls INF PRN Administration Sedation Protocol As Directed Insulin Human Lispro 0 units 06/30/20 07:56 07/12/20 16:35 Humalog 300 Units/3 Ml Vial SC 2 unit .MODERATE SLIDING SC PRN Administration Moderate Correctional Scale Lorazepam 1 mg 07/12/20 10:16 07/14/20 09:14 Lorazepam 1 Mg Tab PO 1 mg Q4H PRN Administration Anxiety/Agitation Methylprednisolone Sodium Succinate 20 mg 07/09/20 09:00 07/14/20 09:14 Methylprednisolone Sod Succ 40 Mg Vial IVP 20 mg BID JEOVANNY Administration Mometasone Furoate/Formoterol Fumar 2 puff 06/14/20 18:30 07/14/20 08:33 Mometasone 200 Mcg/Formoterol 5 Mcg 120 Puff Inhaler INH 2 puff BID-RT JEOVANNY Administration Multivitamins 1 tab 07/06/20 09:00 07/14/20 09:12 Multivit, Therapeutic 1 Tab PER TUBE 1 tab DAILY JEOVANNY Administration Nystatin 0 gm 07/08/20 21:00 07/13/20 20:23 Nystatin Powder 15 Gm Bot TOP 1 applic BID JEOVANNY Administration Pantoprazole Sodium 40 mg 07/11/20 21:00 07/14/20 09:14 Pantoprazole 40 Mg Vial IVP 40 mg Q12HR JEOVANNY Administration Polyethylene Glycol 17 gm 07/02/20 09:51 07/10/20 02:11 Polyethylene Glycol 3350 17 Gm Packet PER TUBE 17 gm DAILY PRN Administration Constipation Propofol 1,000 mg 07/08/20 23:00 07/10/20 23:06 Propofol 1,000 Mg/100 Ml Vial IV 08/07/20 23:00 1,000 mg INF PRN Administration TO ACHIEVE GOAL RASS Protocol Risperidone 0.25 mg 07/12/20 21:00 07/13/20 20:29 Risperidone 0.25 Mg Tab PO 0.25 mg BID JEOVANNY Administration Sodium Chloride 10 ml 06/15/20 09:00 07/13/20 20:23 Flush - Normal Saline 10 Ml Syringe IVF 10 ml Q12HR JEOVANNY Administration Sodium Chloride 10 ml 06/15/20 06:30 06/20/20 01:35 Flush - Normal Saline 10 Ml Syringe IVF 10 ml PRN PRN Administration Saline Flush Zinc Sulfate 220 mg 07/06/20 09:00 07/14/20 09:12 Zinc Sulfate 220 Mg Cap PER TUBE 220 mg DAILY JEOVANNY Administration Ziprasidone 40 mg 07/10/20 08:05 07/14/20 09:11 Ziprasidone 20 Mg Cap PER TUBE 40 mg BID JEOVANNY Administration - Exam Eye: PERRL, anicteric sclera Heart: RRR, no murmur, no gallops, no rubs, normal peripheral pulses Respiratory: no tachypnea Respiratory - other findings: + coarse breath sounds bilaterally, no wheezing or rales Gastrointestinal: soft, non-tender, non-distended, normal bowel sounds, no palpable masses, no hepatomegaly Extremities: no cyanosis, no edema Psychiatric: normal behavior, A&O x 3 Hosp A/P (1) Acute respiratory failure with hypoxia Code(s): J96.01 - ACUTE RESPIRATORY FAILURE WITH HYPOXIA Status: Acute (2) Pneumonia due to COVID-19 virus Code(s): U07.1 - COVID-19; J12.89 - OTHER VIRAL PNEUMONIA Status: Acute (3) CMV infection Code(s): B25.9 - CYTOMEGALOVIRAL DISEASE, UNSPECIFIED Status: Acute (4) Hypernatremia Code(s): E87.0 - HYPEROSMOLALITY AND HYPERNATREMIA Status: Acute (5) Normocytic anemia Code(s): D64.9 - ANEMIA, UNSPECIFIED Status: Acute - Plan * Acute respiratory failure due to COVID pneumonia- He continues on Solumedrol IV, and continue vent support * CMV infection- continue Valganciclovir. * FEN- continue tube feeds * Hypernatremia- normal serum sodium today * Anemia- will monitor and transfuse as needed- his H&H has been stable so far * Continue Lovenox * Continue PT/OT
[2020-07-14] MEDS: VALGANCICLOVIR HCL PER TUBE SCH ×2 (10:44→22:25)
[2020-07-14] MEDS: COMPOUND VEHICLE SF PER TUBE SCH ×2 (10:44→22:25)
[2020-07-14] MEDS: Ascorbic Acid 500 mg Chewable Tablet PER TUBE SCH ×2 (10:48→10:57)
[2020-07-14] MEDS: risperiDONE 0.25 MG TAB PO SCH ×2 (10:57→21:25)
--- NOTE | 2020-07-14 13:30 | PRG ---
DATE OF SERVICE: 07/14/2020 I am following up Dr. Guallpa from Dr. Ureña's consultation yesterday. I did not enter the room or examine the patient today. I spoke with the nurse. The patient has not had any further evidence of overt bleeding. Lovenox was started back. Hemoglobin is stable, actually up from 8.9 to 9[address] Ureña's impression was that the patient had some minor hemorrhoidal bleeding and I would tend to agree, particularly as the patient evidently had a colonoscopy just [address] Dai. Certainly, no need for colonoscopy investigation at this time. GI will sign off, please call back anytime with questions or concerns. Job ID: [id number]
[2020-07-14] MEDS: Zolpidem Tartrate 5 MG TAB PO SCH (21:24)
[2020-07-15] MEDS: Lorazepam 1 MG TAB PO PRN ×5 (03:40→21:52)
[2020-07-15] MEDS: Diabetic Tussin 200 MG/10 ML UDCUP PER TUBE PRN ×2 (03:40→20:54)
[2020-07-15] MEDS: Acetaminophen 325 MG TAB PER TUBE PRN ×5 (03:40→21:52)
[2020-07-15 04:17] LABS: Anion Gap 16 mmol/L (10-20); BUN (Urea Nitrogen) 18 mg/dL (8.4-25.7); Calc. Creatinine Clearance 117 mL/min (70-130); Calcium 8.9 mg/dL (7.8-10.44); Carbon Dioxide 30 mmol/L (22-29); Chloride 103 mmol/L (98-107); Glucose 142 mg/dL (70-105); Potassium 3.9 mmol/L (3.5-5.1); Sodium 145 mmol/L (136-145)
[2020-07-15 04:44] LABS: Band 15 % (5-11); Hemoglobin 10.5 g/dL (14.0-18.0); Lymphocytes 7 % (21-51); MDiff Complete? YES; Mean Corpuscular HGB CONC 36.7 g/dL (32.0-36.0); Mean Corpuscular Hemoglobin 28.9 pg (27.0-31.0); Mean Corpuscular Volume 78.6 fL (78.0-98.0); Mean Platelet Volume 8.9 fL (7.4-10.4); Monocytes 2 % (0-10); Neutrophil 74 % (42-75); Platelet Count 166 thou/uL (130-400); RBC Distribution Width 16.6 % (11.5-14.5); Red Blood Cell (RBC) Count 3.64 mill/uL (4.70-6.10); White Blood Cell (WBC) Count 10.2 thou/uL (4.8-10.8)
[2020-07-15] MEDS: guaiFENesin/Codeine Phosphate 200 mg/20 mg 10 ml UD Cup PER TUBE PRN ×3 (07:15→15:19)
[2020-07-15] MEDS: Ziprasidone 20 MG CAP PER TUBE SCH (07:15)
[2020-07-15] MEDS: Cholecalciferol 1,000 UNITS (25 MCG) TAB PER TUBE SCH (07:16)
[2020-07-15] MEDS: risperiDONE 0.25 MG TAB PO SCH ×2 (07:16→20:47)
[2020-07-15] MEDS: Ascorbic Acid 500 mg Chewable Tablet PER TUBE SCH (07:17)
[2020-07-15] MEDS: Zinc Sulfate 220 MG CAP PER TUBE SCH (07:17)
[2020-07-15] MEDS: Enoxaparin Sodium 40 MG/0.4 ML SYRINGE SC SCH (07:18)
[2020-07-15] MEDS: Divalproex Sodium 125 mg Sprinkle Capsule PER TUBE SCH ×2 (07:19→20:47)
[2020-07-15] MEDS: methylPREDNISolone Sod Succ 40 MG VIAL IVP SCH (07:19)
[2020-07-15] MEDS: Pantoprazole 40 MG VIAL IVP SCH ×2 (07:20→20:47)
[2020-07-15] MEDS: Multivit, Therapeutic 1 TAB PER TUBE SCH (07:20)
[2020-07-15] MEDS: VALGANCICLOVIR HCL PER TUBE SCH ×2 (07:20→21:50)
[2020-07-15] MEDS: COMPOUND VEHICLE SF PER TUBE SCH ×2 (07:20→21:50)
[2020-07-15] MEDS: Calcium Carbonate 600 MG + Vit D TAB PER TUBE SCH ×2 (07:20→15:19)
[2020-07-15] MEDS: Nystatin Powder 15 GM BOT TOP SCH ×2 (07:21→20:48)
[2020-07-15] MEDS: Mometasone 200 MCG/Formoterol 5 MCG 120 PUFF INHALER INH SCH ×2 (07:24→18:49)
--- NOTE | 2020-07-15 09:50 | PRG ---
DATE OF SERVICE: 07/15/2020 SUBJECTIVE: The patient remains on mechanical ventilation through a trach for COVID-19 pneumonia. He is actually doing fairly well today. OBJECTIVE: VITAL SIGNS: Temperature 98.8, pulse 108, blood pressure 112/66. HEENT: Unremarkable. NECK: No adenopathy or JVD. Trach in good position. LUNGS: Clear anteriorly. CARDIAC: S1, S2. Regular. ABDOMEN: Soft. EXTREMITIES: Severe muscle wasting. ASSESSMENT: 1. COVID-19 pneumonia. 2. Prolonged respiratory failure, requiring mechanical ventilation. PLAN: 1. I am going to wean the steroid dose down to once daily. Hopefully that can be stopped in the next week or so. 2. Try proportional assist ventilation to see if we can decrease the patient's ventilator dependency. 3. LTAC placement. 4. I will stop the Geodon. We will slowly withdrawal his sedating medications. 5. The Ambien at night has definitely helped his sleep cycle. Job ID: [id number]
--- NOTE | 2020-07-15 11:50 | PDOC.HOSPP ---
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 He is sitting up in bed, and interacting with his , who is at bedside. He does not some dyspnea. - Objective Vital Signs & Weight: Vital Signs (12 hours) Temp Pulse Resp BP Pulse Ox 07/15/20 10:39 110 H 111/63 07/15/20 08:00 98.8 F 27 H 07/15/20 07:25 101 H 147/95 H 07/15/20 06:00 22 H 07/15/20 04:00 98.8 F 23 H 07/15/20 02:44 106 H 27 H 98 07/15/20 02:42 108 H 136/101 H 07/15/20 02:00 23 H 07/15/20 00:00 98.7 F 30 H Weight Admit Weight 157 lb 4.8 oz Weight 133 lb 2.547 oz Most Recent Monitor Data Heart Rate from ECG 108 NIBP 112/66 NIBP BP-Mean 81 Respiration from ECG 22 SpO2 100 I&O: 07/14/20 07/15/20 07/16/20 06:59 06:59 06:59 Intake Total 2984.1 2989 250 Output Total 1465 1900 250 Balance 1519.1 1089 0 Result Diagrams: 07/15/20 03:30 07/15/20 03:30 Additional Labs: Accuchecks 07/15/20 07/14/20 07/14/20 00:19 18:43 13:13 POC Glucose 130 H 138 H 138 H Hospitalist ROS - Medication Medications: Active Medications Generic Name Dose Route Start Last Admin Trade Name Freq PRN Reason Stop Dose Admin Acetaminophen 650 mg 06/29/20 11:10 07/08/20 07:52 Acetaminophen 650 Mg Suppository [place] 650 mg Q6H PRN Administration TEMP>101 Acetaminophen 650 mg 07/12/20 19:30 07/15/20 11:36 Acetaminophen 325 Mg Tab PER TUBE 650 mg Q4H PRN Administration Fever >= 101/MINOR DISCOMFORT Albuterol/Ipratropium 3 ml 06/28/20 14:30 07/15/20 10:39 Ipratropium/Albuterol Sulfate 3 Ml Neb NEB 3 ml [id number] JEOVANNY Administration Ascorbic Acid 1,000 mg 07/06/20 09:00 07/15/20 07:17 Ascorbic Acid 500 Mg Chewable Tablet PER TUBE 1,000 mg DAILY JEOVANNY Administration Benzonatate 200 mg 06/18/20 12:02 07/14/20 09:14 Benzonatate 100 Mg Cap PO 200 mg Q4H PRN Administration Cough Bisacodyl 10 mg 07/03/20 13:43 07/10/20 15:31 Bisacodyl 10 Mg Supp RI 10 mg DAILY PRN Administration Constipation Calcium/Vitamin D 1 tab 07/05/20 17:00 07/15/20 07:20 Calcium Carbonate 600 Mg + Vit D Tab PER TUBE 1 tab BID-WM JEOVANNY Administration Cholecalciferol 5,000 units 07/06/20 09:00 07/15/20 07:16 Cholecalciferol 1,000 Units (25 Mcg) Tab PER TUBE 5,000 units DAILY JEOVANNY Administration Valganciclovir 7,200 mg/ 0 mg 07/07/20 21:00 07/15/20 07:20 Miscellaneous 120 ml PER TUBE 07/18/20 21:01 15 ml BID JEOVANNY Administration Divalproex Sodium 500 mg 07/09/20 09:00 07/15/20 07:19 Divalproex Sodium 125 Mg Sprinkle Capsule PER TUBE 500 mg BID JEOVANNY Administration Enoxaparin Sodium 40 mg 07/14/20 09:00 07/15/20 07:18 Enoxaparin Sodium 40 Mg/0.4 Ml Syringe SC 40 mg 0900 JEOVANNY Administration Fentanyl 25 mcg 07/09/20 08:00 07/15/20 07:17 Fentanyl 25 Mcg/Hour Patch TD 25 mcg Q3D JEOVANNY Administration Guaifenesin 100 mg 07/14/20 22:26 07/15/20 03:40 Diabetic Tussin 200 Mg/10 Ml Udcup PER TUBE 100 mg Q4H PRN Administration Cough Guaifenesin/Codeine Phosphate 10 ml 07/05/20 16:30 07/15/20 11:36 Guaifenesin/Codeine Phosphate 200 Mg/20 Mg 10 Ml Ud Cup PER TUBE 10 ml Q4H PRN Administration Cough Midazolam HCl 100 mg/ Sodium 100 mls @ 4 mls/hr 07/08/20 12:30 07/12/20 17:17 Chloride IVPB 100 mls INF PRN Administration Sedation Protocol As Directed Insulin Human Lispro 0 units 06/30/20 07:56 07/12/20 16:35 Humalog 300 Units/3 Ml Vial SC 2 unit .MODERATE SLIDING SC PRN Administration Moderate Correctional Scale Lorazepam 1 mg 07/12/20 10:16 07/15/20 11:36 Lorazepam 1 Mg Tab PO 1 mg Q4H PRN Administration Anxiety/Agitation Mometasone Furoate/Formoterol Fumar 2 puff 06/14/20 18:30 07/15/20 07:24 Mometasone 200 Mcg/Formoterol 5 Mcg 120 Puff Inhaler INH 2 puff BID-RT JEOVANNY Administration Multivitamins 1 tab 07/06/20 09:00 07/15/20 07:20 Multivit, Therapeutic 1 Tab PER TUBE 1 tab DAILY JEOVANNY Administration Nystatin 0 gm 07/08/20 21:00 07/15/20 07:21 Nystatin Powder 15 Gm Bot TOP 1 applic BID JEOVANNY Administration Pantoprazole Sodium 40 mg 07/11/20 21:00 07/15/20 07:20 Pantoprazole 40 Mg Vial IVP 40 mg Q12HR JEOVANNY Administration Polyethylene Glycol 17 gm 07/02/20 09:51 07/10/20 02:11 Polyethylene Glycol 3350 17 Gm Packet PER TUBE 17 gm DAILY PRN Administration Constipation Propofol 1,000 mg 07/08/20 23:00 07/10/20 23:06 Propofol 1,000 Mg/100 Ml Vial IV 08/07/20 23:00 1,000 mg INF PRN Administration TO ACHIEVE GOAL RASS Protocol Risperidone 0.25 mg 07/12/20 21:00 07/15/20 07:16 Risperidone 0.25 Mg Tab PO 0.25 mg BID JEOVANNY Administration Sodium Chloride 10 ml 06/15/20 09:00 07/15/20 07:23 Flush - Normal Saline 10 Ml Syringe IVF 10 ml Q12HR JEOVANNY Administration Sodium Chloride 10 ml 06/15/20 06:30 06/20/20 01:35 Flush - Normal Saline 10 Ml Syringe IVF 10 ml PRN PRN Administration Saline Flush Zinc Sulfate 220 mg 07/06/20 09:00 07/15/20 07:17 Zinc Sulfate 220 Mg Cap PER TUBE 220 mg DAILY JEOVANNY Administration Zolpidem Tartrate 10 mg 07/14/20 22:00 11/23/20 21:24 Zolpidem Tartrate 5 Mg Tab PO 10 mg 2200 JEOVANNY Administration - Exam Eye: PERRL, anicteric sclera Heart: RRR, no murmur, no gallops, no rubs, normal peripheral pulses Respiratory: no wheezes (+ coarse breath sounds bilaterally, no wheezing or rhonchi) Gastrointestinal: soft, non-tender, non-distended, normal bowel sounds, no palpable masses, no hepatomegaly Extremities: no cyanosis, no edema Hosp A/P (1) Acute respiratory failure with hypoxia Code(s): J96.01 - ACUTE RESPIRATORY FAILURE WITH HYPOXIA Status: Acute (2) Pneumonia due to COVID-19 virus Code(s): U07.1 - COVID-19; J12.89 - OTHER VIRAL PNEUMONIA Status: Acute (3) CMV infection Code(s): B25.9 - CYTOMEGALOVIRAL DISEASE, UNSPECIFIED Status: Acute (4) Hypernatremia Code(s): E87.0 - HYPEROSMOLALITY AND HYPERNATREMIA Status: Acute (5) Normocytic anemia Code(s): D64.9 - ANEMIA, UNSPECIFIED Status: Acute - Plan * Acute respiratory failure due to COVID pneumonia- Continue slow wean from the ventilator * Slow aldo of steroids * CMV infection- continue Valganciclovir. * FEN- continue tube feeds * Anemia- will monitor and transfuse as needed- his H&H has been stable so far * Continue Lovenox * Continue PT/OT * LTAC evaluation is in process
[2020-07-15] MEDS: HumaLOG 300 UNITS/3 ML VIAL SC PRN (13:37)
[2020-07-15] MEDS: Zolpidem Tartrate 5 MG TAB PO SCH (21:52)
[2020-07-16] MEDS: Diabetic Tussin 200 MG/10 ML UDCUP PER TUBE PRN (01:38)
[2020-07-16] MEDS: Lorazepam 1 MG TAB PO PRN ×3 (01:55→21:41)
[2020-07-16 05:26] LABS: Band 7 % (5-11); Elliptocytes MODERATE= 6-15 cells (100X) (0-1/hpf); Eosinophils 6 % (0-10); Hemoglobin 10.2 g/dL (14.0-18.0); Lymphocytes 6 % (21-51); MDiff Complete? YES; Mean Corpuscular HGB CONC 36.4 g/dL (32.0-36.0); Mean Corpuscular Hemoglobin 29.2 pg (27.0-31.0); Mean Corpuscular Volume 80.3 fL (78.0-98.0); Mean Platelet Volume 8.5 fL (7.4-10.4); Monocytes 1 % (0-10); Myelocyte 1 % (0-0); Neutrophil 79 % (42-75); Platelet Count 162 thou/uL (130-400); RBC Distribution Width 17.2 % (11.5-14.5)
[2020-07-16 05:33] LABS: Anion Gap 13 mmol/L (10-20); BUN (Urea Nitrogen) 16 mg/dL (8.4-25.7); Calc. Creatinine Clearance 113 mL/min (70-130); Calcium 8.7 mg/dL (7.8-10.44); Carbon Dioxide 32 mmol/L (22-29); Chloride 101 mmol/L (98-107); Glucose 120 mg/dL (70-105); Potassium 3.6 mmol/L (3.5-5.1); Sodium 142 mmol/L (136-145)
[2020-07-16] MEDS: Mometasone 200 MCG/Formoterol 5 MCG 120 PUFF INHALER INH SCH ×2 (06:35→18:30)
[2020-07-16] MEDS: Divalproex Sodium 125 mg Sprinkle Capsule PER TUBE SCH ×2 (09:07→21:36)
[2020-07-16] MEDS: Enoxaparin Sodium 40 MG/0.4 ML SYRINGE SC SCH (09:07)
[2020-07-16] MEDS: methylPREDNISolone Sod Succ 40 MG VIAL IVP SCH (09:07)
[2020-07-16] MEDS: Pantoprazole 40 MG VIAL IVP SCH ×2 (09:07→21:36)
[2020-07-16] MEDS: Cholecalciferol 1,000 UNITS (25 MCG) TAB PER TUBE SCH (09:08)
[2020-07-16] MEDS: Calcium Carbonate 600 MG + Vit D TAB PER TUBE SCH ×2 (09:08→17:19)
[2020-07-16] MEDS: Multivit, Therapeutic 1 TAB PER TUBE SCH (09:08)
[2020-07-16] MEDS: Zinc Sulfate 220 MG CAP PER TUBE SCH (09:08)
--- NOTE | 2020-07-16 09:09 | PRG ---
DATE OF SERVICE: 07/16/2020 SUBJECTIVE: The patient is doing fairly decent. He has been tolerating pressure support ventilation overnight. OBJECTIVE: VITAL SIGNS: Temperature 97.8, pulse 103, blood pressure 101/69, O2 saturation 99%. HEENT: Unremarkable. NECK: No JVD. CHEST: Coarse breath sounds. CARDIAC: S1, S2, regular. ABDOMEN: Soft. EXTREMITIES: No edema. LABORATORY DATA: Sodium 142, potassium 3.6, chloride 101, CO2 of 32, BUN 16, creatinine 0.6, glucose 120. White blood cell count 11, hematocrit 28.1, and platelet count 162. ASSESSMENT: 1. COVID-19 pneumonia. 2. Acute respiratory failure, requiring mechanical ventilation-now has trach and PEG. PLAN: Doing well with weaning of his medications. Main problem now is cough spasms related to his tracheostomy. I anticipate him going to an LTAC soon and mainly needs rehab. Job ID: [id number]
[2020-07-16] MEDS: Ascorbic Acid 500 mg Chewable Tablet PER TUBE SCH (09:10)
--- NOTE | 2020-07-16 10:57 | PDOC.HOSPP ---
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 He is alert and following commands. He is writing on a note pad to aid with communication. - Objective Vital Signs & Weight: Vital Signs (12 hours) Temp Pulse Resp BP Pulse Ox 07/16/20 10:27 120 H 07/16/20 09:00 98.9 F 07/16/20 08:00 34 H 100 07/16/20 06:35 129 H 07/16/20 06:00 23 H 07/16/20 04:00 97.8 F 24 H 07/16/20 02:36 116 H 132/83 07/16/20 02:34 120 H 36 H 99 07/16/20 02:00 33 H 07/16/20 01:00 97.7 F 07/16/20 00:00 23 H Weight Admit Weight 157 lb 4.8 oz Weight 136 lb 14.513 oz Most Recent Monitor Data Heart Rate from ECG 119 NIBP 126/83 NIBP BP-Mean 97 Respiration from ECG 29 SpO2 100 I&O: 07/15/20 07/16/20 07/17/20 06:59 06:59 06:59 Intake Total 2989 2898 100 Output Total 1900 1550 Balance 1089 1348 100 Result Diagrams: 07/16/20 04:30 07/16/20 04:30 Additional Labs: Accuchecks 07/16/20 07/15/20 07/15/20 00:26 18:27 12:45 POC Glucose 120 H 109 H 160 H Hospitalist ROS - Medication Medications: Active Medications Generic Name Dose Route Start Last Admin Trade Name Freq PRN Reason Stop Dose Admin Acetaminophen 650 mg 06/29/20 11:10 07/08/20 07:52 Acetaminophen 650 Mg Suppository [place] 650 mg Q6H PRN Administration TEMP>101 Acetaminophen 650 mg 07/12/20 19:30 07/15/20 21:52 Acetaminophen 325 Mg Tab PER TUBE 650 mg Q4H PRN Administration Fever >= 101/MINOR DISCOMFORT Albuterol/Ipratropium 3 ml 06/28/20 14:30 07/16/20 10:27 Ipratropium/Albuterol Sulfate 3 Ml Neb NEB 3 ml [id number] JEOVANNY Administration Ascorbic Acid 1,000 mg 07/06/20 09:00 07/16/20 09:10 Ascorbic Acid 500 Mg Chewable Tablet PER TUBE 1,000 mg DAILY JEOVANNY Administration Benzonatate 200 mg 06/18/20 12:02 07/14/20 09:14 Benzonatate 100 Mg Cap PO 200 mg Q4H PRN Administration Cough Bisacodyl 10 mg 07/03/20 13:43 07/10/20 15:31 Bisacodyl 10 Mg Supp TN 10 mg DAILY PRN Administration Constipation Calcium/Vitamin D 1 tab 07/05/20 17:00 07/16/20 09:08 Calcium Carbonate 600 Mg + Vit D Tab PER TUBE 1 tab BID-WM JEOVANNY Administration Cholecalciferol 5,000 units 07/06/20 09:00 07/16/20 09:08 Cholecalciferol 1,000 Units (25 Mcg) Tab PER TUBE 5,000 units DAILY JEOVANNY Administration Valganciclovir 7,200 mg/ 0 mg 07/07/20 21:00 07/15/20 21:50 Miscellaneous 120 ml PER TUBE 07/18/20 21:01 15 ml BID JEOVANNY Administration Divalproex Sodium 500 mg 07/09/20 09:00 07/16/20 09:07 Divalproex Sodium 125 Mg Sprinkle Capsule PER TUBE 500 mg BID JEOVANNY Administration Enoxaparin Sodium 40 mg 07/14/20 09:00 07/16/20 09:07 Enoxaparin Sodium 40 Mg/0.4 Ml Syringe SC 40 mg 0900 JEOVANNY Administration Fentanyl 25 mcg 07/09/20 08:00 07/15/20 07:17 Fentanyl 25 Mcg/Hour Patch TD 25 mcg Q3D JEOVANNY Administration Guaifenesin 100 mg 07/14/20 22:26 07/16/20 01:38 Diabetic Tussin 200 Mg/10 Ml Udcup PER TUBE 100 mg Q4H PRN Administration Cough Guaifenesin/Codeine Phosphate 10 ml 07/05/20 16:30 07/15/20 15:19 Guaifenesin/Codeine Phosphate 200 Mg/20 Mg 10 Ml Ud Cup PER TUBE 10 ml Q4H PRN Administration Cough Insulin Human Lispro 0 units 06/30/20 07:56 07/15/20 13:37 Humalog 300 Units/3 Ml Vial SC 2 unit .MODERATE SLIDING SC PRN Administration Moderate Correctional Scale Lorazepam 1 mg 07/12/20 10:16 07/16/20 01:55 Lorazepam 1 Mg Tab PO 1 mg Q4H PRN Administration Anxiety/Agitation Methylprednisolone Sodium Succinate 20 mg 07/16/20 09:00 07/16/20 09:07 Methylprednisolone Sod Succ 40 Mg Vial IVP 20 mg DAILY JEOVANNY Administration Mometasone Furoate/Formoterol Fumar 2 puff 06/14/20 18:30 07/16/20 06:35 Mometasone 200 Mcg/Formoterol 5 Mcg 120 Puff Inhaler INH 2 puff BID-RT JEOVANNY Administration Multivitamins 1 tab 07/06/20 09:00 07/16/20 09:08 Multivit, Therapeutic 1 Tab PER TUBE 1 tab DAILY JEOVANNY Administration Nystatin 0 gm 07/08/20 21:00 07/15/20 20:48 Nystatin Powder 15 Gm Bot TOP Not Given BID JEOVANNY Pantoprazole Sodium 40 mg 07/11/20 21:00 07/16/20 09:07 Pantoprazole 40 Mg Vial IVP 40 mg Q12HR JEOVANNY Administration Polyethylene Glycol 17 gm 07/02/20 09:51 07/10/20 02:11 Polyethylene Glycol 3350 17 Gm Packet PER TUBE 17 gm DAILY PRN Administration Constipation Propofol 1,000 mg 07/08/20 23:00 07/10/20 23:06 Propofol 1,000 Mg/100 Ml Vial IV 08/07/20 23:00 1,000 mg INF PRN Administration TO ACHIEVE GOAL RASS Protocol Sodium Chloride 10 ml 06/15/20 09:00 07/16/20 09:15 Flush - Normal Saline 10 Ml Syringe IVF 10 ml Q12HR JEOVANNY Administration Sodium Chloride 10 ml 06/15/20 06:30 06/20/20 01:35 Flush - Normal Saline 10 Ml Syringe IVF 10 ml PRN PRN Administration Saline Flush Zinc Sulfate 220 mg 07/06/20 09:00 07/16/20 09:08 Zinc Sulfate 220 Mg Cap PER TUBE 220 mg DAILY JEOVANNY Administration Zolpidem Tartrate 10 mg 07/14/20 22:00 07/15/20 21:52 Zolpidem Tartrate 5 Mg Tab PO 10 mg 2200 JEOVANNY Administration - Exam Eye: PERRL, anicteric sclera Heart: RRR, no murmur, no gallops, no rubs, normal peripheral pulses Respiratory: rhonchi Gastrointestinal: soft, non-tender, non-distended, normal bowel sounds, no palpable masses, no hepatomegaly Extremities: no cyanosis, no clubbing, no edema Hosp A/P (1) Acute respiratory failure with hypoxia Code(s): J96.01 - ACUTE RESPIRATORY FAILURE WITH HYPOXIA Status: Acute (2) Pneumonia due to COVID-19 virus Code(s): U07.1 - COVID-19; J12.89 - OTHER VIRAL PNEUMONIA Status: Acute (3) CMV infection Code(s): B25.9 - CYTOMEGALOVIRAL DISEASE, UNSPECIFIED Status: Acute (4) Hypernatremia Code(s): E87.0 - HYPEROSMOLALITY AND HYPERNATREMIA Status: Acute (5) Normocytic anemia Code(s): D64.9 - ANEMIA, UNSPECIFIED Status: Acute - Plan * Acute respiratory failure due to COVID pneumonia- Continue slow wean from the ventilator * Slow aldo of steroids * CMV infection- continue Valganciclovir. * FEN- continue tube feeds * Anemia- His H&H has remained stable * He has been having trouble sleeping- and will urge to stay awake during the day, and will add scheduled Melatonin in the evening * Continue Lovenox * Continue PT/OT * LTAC evaluation is in process
[2020-07-16] MEDS: VALGANCICLOVIR HCL PER TUBE SCH ×3 (11:43→21:49)
[2020-07-16] MEDS: COMPOUND VEHICLE SF PER TUBE SCH ×3 (11:43→21:49)
[2020-07-16] MEDS: guaiFENesin/Codeine Phosphate 200 mg/20 mg 10 ml UD Cup PER TUBE PRN ×3 (12:09→21:41)
[2020-07-16] MEDS: Nystatin Powder 15 GM BOT TOP SCH ×2 (17:20→21:36)
[2020-07-16] MEDS: Melatonin 3 MG TAB PO SCH (21:36)
[2020-07-16] MEDS: Zolpidem Tartrate 5 MG TAB PO SCH (23:29)
[2020-07-17] MEDS: Lorazepam 1 MG TAB PO PRN ×4 (02:19→19:53)
[2020-07-17] MEDS: guaiFENesin/Codeine Phosphate 200 mg/20 mg 10 ml UD Cup PER TUBE PRN ×4 (02:19→19:53)
[2020-07-17 06:36] LABS: Hemoglobin 9.6 g/dL (14.0-18.0); Mean Corpuscular HGB CONC 34.5 g/dL (32.0-36.0); Mean Corpuscular Hemoglobin 27.9 pg (27.0-31.0); Mean Corpuscular Volume 80.8 fL (78.0-98.0); Mean Platelet Volume 8.4 fL (7.4-10.4); Platelet Count 162 thou/uL (130-400); RBC Distribution Width 17.7 % (11.5-14.5); Red Blood Cell (RBC) Count 3.43 mill/uL (4.70-6.10); White Blood Cell (WBC) Count 9.3 thou/uL (4.8-10.8)
[2020-07-17 06:42] LABS: Anion Gap 12 mmol/L (10-20); BUN (Urea Nitrogen) 16 mg/dL (8.4-25.7); Calc. Creatinine Clearance 130 mL/min (70-130); Calcium 8.7 mg/dL (7.8-10.44); Carbon Dioxide 33 mmol/L (22-29); Chloride 101 mmol/L (98-107); Glucose 117 mg/dL (70-105); Potassium 3.6 mmol/L (3.5-5.1); Sodium 142 mmol/L (136-145)
[2020-07-17 06:48] LABS: Band 15 % (5-11); Eosinophils 2 % (0-10); Lymphocytes 15 % (21-51); MDiff Complete? YES; Monocytes 2 % (0-10); Neutrophil 66 % (42-75)
[2020-07-17] MEDS: Mometasone 200 MCG/Formoterol 5 MCG 120 PUFF INHALER INH SCH ×2 (08:00→18:16)
[2020-07-17] MEDS: Pantoprazole 40 MG VIAL IVP SCH ×2 (08:42→20:27)
[2020-07-17] MEDS: methylPREDNISolone Sod Succ 40 MG VIAL IVP SCH (08:42)
[2020-07-17] MEDS: Calcium Carbonate 600 MG + Vit D TAB PER TUBE SCH ×2 (08:43→18:48)
[2020-07-17] MEDS: Zinc Sulfate 220 MG CAP PER TUBE SCH (08:43)
[2020-07-17] MEDS: Multivit, Therapeutic 1 TAB PER TUBE SCH (08:43)
[2020-07-17] MEDS: Ascorbic Acid 500 mg Chewable Tablet PER TUBE SCH (08:44)
[2020-07-17] MEDS: Enoxaparin Sodium 40 MG/0.4 ML SYRINGE SC SCH (08:44)
[2020-07-17] MEDS: COMPOUND VEHICLE SF PER TUBE SCH ×2 (08:45→22:09)
[2020-07-17] MEDS: VALGANCICLOVIR HCL PER TUBE SCH ×2 (08:45→22:09)
[2020-07-17] MEDS: Divalproex Sodium 125 mg Sprinkle Capsule PER TUBE SCH ×2 (08:46→20:25)
[2020-07-17] MEDS: Cholecalciferol 1,000 UNITS (25 MCG) TAB PER TUBE SCH (09:00)
[2020-07-17] MEDS: Nystatin Powder 15 GM BOT TOP SCH ×2 (09:42→22:00)
--- NOTE | 2020-07-17 10:15 | PRG ---
DATE OF SERVICE: 07/17/2020 SUBJECTIVE: Krish Guallpa remains in the ICU on the vent. He is on pretty much CPAP. OBJECTIVE: GENERAL: Not much distress. Awake, alert, responsive. He is moving all 4 extremities. VITAL SIGNS: He clearly has a rapid respiratory drive. His sats on 30%, 97%, respirations 30, pulse 119, temperature 98, blood pressure 197/61. CHEST: Rhonchi, crackles. CARDIAC: Normal S1, S2. LABORATORY DATA: Unremarkable. IMPRESSION: Flores positive pneumonia, respiratory failure, prolonged hospitalization, encephalopathy, severe deconditioning. PLAN: 1. Continue low-dose steroids, supportive care, PT. Hopefully can get him off the vent to trach collar in the next several days. 2. We will follow. Job ID: [id number]
--- NOTE | 2020-07-17 10:53 | PDOC.HOSPP ---
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 He rested a little better. He was given Ativan and Robitussin with codeine. - Objective Vital Signs & Weight: Vital Signs (12 hours) Pulse Resp BP 07/17/20 10:32 104 H 07/17/20 08:00 119 H 07/17/20 06:00 24 H 07/17/20 04:00 24 H 07/17/20 02:23 117 H 116/80 07/17/20 02:00 23 H 07/17/20 00:00 23 H Weight Admit Weight 157 lb 4.8 oz Weight 132 lb 0.91 oz Most Recent Monitor Data Heart Rate from ECG 110 NIBP 97/61 NIBP BP-Mean 73 Respiration from ECG 23 SpO2 100 I&O: 07/16/20 07/17/20 07/18/20 06:59 06:59 06:59 Intake Total 2898 2516 Output Total 1550 1510 Balance 1348 1006 Result Diagrams: 07/17/20 04:22 07/17/20 04:22 Additional Labs: Accuchecks 07/16/20 16:35 POC Glucose 136 H Hospitalist ROS - Medication Medications: Active Medications Generic Name Dose Route Start Last Admin Trade Name Freq PRN Reason Stop Dose Admin Acetaminophen 650 mg 06/29/20 11:10 07/08/20 07:52 Acetaminophen 650 Mg Suppository [place] 650 mg Q6H PRN Administration TEMP>101 Acetaminophen 650 mg 07/12/20 19:30 07/15/20 21:52 Acetaminophen 325 Mg Tab PER TUBE 650 mg Q4H PRN Administration Fever >= 101/MINOR DISCOMFORT Albuterol/Ipratropium 3 ml 06/28/20 14:30 07/17/20 10:31 Ipratropium/Albuterol Sulfate 3 Ml Neb NEB 3 ml [id number] JEOVANNY Administration Ascorbic Acid 1,000 mg 07/06/20 09:00 07/17/20 08:44 Ascorbic Acid 500 Mg Chewable Tablet PER TUBE 1,000 mg DAILY JEOVANNY Administration Benzonatate 200 mg 06/18/20 12:02 07/14/20 09:14 Benzonatate 100 Mg Cap PO 200 mg Q4H PRN Administration Cough Bisacodyl 10 mg 07/03/20 13:43 07/10/20 15:31 Bisacodyl 10 Mg Supp [place] 10 mg DAILY PRN Administration Constipation Calcium/Vitamin D 1 tab 07/05/20 17:00 07/17/20 08:43 Calcium Carbonate 600 Mg + Vit D Tab PER TUBE 1 tab BID-WM JEOVANNY Administration Cholecalciferol 5,000 units 07/06/20 09:00 07/17/20 09:00 Cholecalciferol 1,000 Units (25 Mcg) Tab PER TUBE 5,000 units DAILY JEOVANNY Administration Valganciclovir 7,200 mg/ 0 mg 07/07/20 21:00 07/17/20 08:45 Miscellaneous 120 ml PER TUBE 07/18/20 21:01 15 ml BID JEOVANNY Administration Valganciclovir 7,200 mg/ 0 mg 07/19/20 09:00 07/16/20 11:43 Miscellaneous 120 ml PER TUBE 08/01/20 09:01 15 ml DAILY JEOVANNY Administration Divalproex Sodium 500 mg 07/09/20 09:00 07/17/20 08:46 Divalproex Sodium 125 Mg Sprinkle Capsule PER TUBE 500 mg BID JEOVANNY Administration Enoxaparin Sodium 40 mg 07/14/20 09:00 07/17/20 08:44 Enoxaparin Sodium 40 Mg/0.4 Ml Syringe SC 40 mg 899 JEOVANNY Administration Fentanyl 25 mcg 07/09/20 08:00 07/15/20 07:17 Fentanyl 25 Mcg/Hour Patch TD 25 mcg Q3D JEOVANNY Administration Guaifenesin 100 mg 07/14/20 22:26 07/16/20 01:38 Diabetic Tussin 200 Mg/10 Ml Udcup PER TUBE 100 mg Q4H PRN Administration Cough Guaifenesin/Codeine Phosphate 10 ml 07/05/20 16:30 07/17/20 08:42 Guaifenesin/Codeine Phosphate 200 Mg/20 Mg 10 Ml Ud Cup PER TUBE 10 ml Q4H PRN Administration Cough Insulin Human Lispro 0 units 06/30/20 07:56 07/15/20 13:37 Humalog 300 Units/3 Ml Vial SC 2 unit .MODERATE SLIDING SC PRN Administration Moderate Correctional Scale Lorazepam 1 mg 07/12/20 10:16 07/17/20 09:00 Lorazepam 1 Mg Tab PO 1 mg Q4H PRN Administration Anxiety/Agitation Melatonin 3 mg 07/16/20 21:00 07/16/20 21:36 Melatonin 3 Mg Tab PO 3 mg HS JEOVANNY Administration Methylprednisolone Sodium Succinate 20 mg 07/16/20 09:00 07/17/20 08:42 Methylprednisolone Sod Succ 40 Mg Vial IVP 20 mg DAILY JEOVANNY Administration Mometasone Furoate/Formoterol Fumar 2 puff 06/14/20 18:30 07/17/20 08:00 Mometasone 200 Mcg/Formoterol 5 Mcg 120 Puff Inhaler INH 2 puff BID-RT JEOVANNY Administration Multivitamins 1 tab 07/06/20 09:00 07/17/20 08:43 Multivit, Therapeutic 1 Tab PER TUBE 1 tab DAILY EJOVANNY Administration Nystatin 0 gm 07/08/20 21:00 07/17/20 09:42 Nystatin Powder 15 Gm Bot TOP 1 applic BID JEOVANNY Administration Pantoprazole Sodium 40 mg 07/11/20 21:00 07/17/20 08:42 Pantoprazole 40 Mg Vial IVP 40 mg Q12HR JEOVANNY Administration Polyethylene Glycol 17 gm 07/02/20 09:51 07/10/20 02:11 Polyethylene Glycol 3350 17 Gm Packet PER TUBE 17 gm DAILY PRN Administration Constipation Propofol 1,000 mg 07/08/20 23:00 07/10/20 23:06 Propofol 1,000 Mg/100 Ml Vial IV 08/07/20 23:00 1,000 mg INF PRN Administration TO ACHIEVE GOAL RASS Protocol Sodium Chloride 10 ml 06/15/20 09:00 07/17/20 09:00 Flush - Normal Saline 10 Ml Syringe IVF 10 ml Q12HR JEOVANNY Administration Sodium Chloride 10 ml 06/15/20 06:30 06/20/20 01:35 Flush - Normal Saline 10 Ml Syringe IVF 10 ml PRN PRN Administration Saline Flush Zinc Sulfate 220 mg 07/06/20 09:00 07/17/20 08:43 Zinc Sulfate 220 Mg Cap PER TUBE 220 mg DAILY JEOVANNY Administration Zolpidem Tartrate 10 mg 07/14/20 22:00 07/16/20 23:29 Zolpidem Tartrate 5 Mg Tab PO Not Given 2200 JEOVANNY - Exam Eye: PERRL, anicteric sclera Heart: RRR, no murmur, no gallops, no rubs, normal peripheral pulses Respiratory: no wheezes, no ronchi, rales (at both bases, very fine,) Gastrointestinal: soft, non-tender, non-distended, normal bowel sounds, no palpable masses, no hepatomegaly Extremities: no cyanosis, no clubbing, no edema Hosp A/P (1) Acute respiratory failure with hypoxia Code(s): J96.01 - ACUTE RESPIRATORY FAILURE WITH HYPOXIA Status: Acute (2) Pneumonia due to COVID-19 virus Code(s): U07.1 - COVID-19; J12.89 - OTHER VIRAL PNEUMONIA Status: Acute (3) CMV infection Code(s): B25.9 - CYTOMEGALOVIRAL DISEASE, UNSPECIFIED Status: Acute (4) Hypernatremia Code(s): E87.0 - HYPEROSMOLALITY AND HYPERNATREMIA Status: Acute (5) Normocytic anemia Code(s): D64.9 - ANEMIA, UNSPECIFIED Status: Acute - Plan * Acute respiratory failure due to COVID pneumonia- He has been stable on CPAP * Slowly aldo of steroids * CMV infection- continue Valganciclovir. * FEN- tolerating tube feeds * Anemia- His H&H has remained stable * Continue Lovenox * Continue PT/OT * LTAC evaluation is in process
[2020-07-17] MEDS: Zolpidem Tartrate 5 MG TAB PO SCH (21:02)
[2020-07-17] MEDS: Melatonin 3 MG TAB PO SCH (22:17)
[2020-07-18] MEDS: guaiFENesin/Codeine Phosphate 200 mg/20 mg 10 ml UD Cup PER TUBE PRN ×4 (01:44→23:24)
[2020-07-18] MEDS: Lorazepam 1 MG TAB PO PRN ×4 (01:44→23:24)
[2020-07-18] MEDS: Melatonin 3 MG TAB PO SCH ×2 (01:53→20:11)
[2020-07-18 05:59] LABS: Hemoglobin 9.9 g/dL (14.0-18.0); Mean Corpuscular Hemoglobin 28.9 pg (27.0-31.0); Mean Platelet Volume 7.8 fL (7.4-10.4); Platelet Count 176 thou/uL (130-400); RBC Distribution Width 17.5 % (11.5-14.5); Red Blood Cell (RBC) Count 3.42 mill/uL (4.70-6.10); White Blood Cell (WBC) Count 11.4 thou/uL (4.8-10.8)
[2020-07-18 06:00] LABS: Band 14 % (5-11); Hypochromia SLIGHT = 6-15 cells (100X) (0-5/hpf); Lymphocytes 13 % (21-51); MDiff Complete? YES; Monocytes 7 % (0-10); Neutrophil 66 % (42-75); Platelet Morphology Comment Appears Adequate
[2020-07-18 06:06] LABS: Anion Gap 11 mmol/L (10-20); BUN (Urea Nitrogen) 15 mg/dL (8.4-25.7); Calc. Creatinine Clearance 109 mL/min (70-130); Calcium 8.8 mg/dL (7.8-10.44); Carbon Dioxide 34 mmol/L (22-29); Chloride 100 mmol/L (98-107); Glucose 119 mg/dL (70-105); Potassium 3.8 mmol/L (3.5-5.1); Sodium 141 mmol/L (136-145)
[2020-07-18] MEDS: Mometasone 200 MCG/Formoterol 5 MCG 120 PUFF INHALER INH SCH ×2 (08:20→18:24)
--- NOTE | 2020-07-18 09:07 | PDOC.HOSPP ---
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 He continues to have coughing spells, with movement. Otherwise he feels comfortable. He slept a little better last night. - Objective Vital Signs & Weight: Vital Signs (12 hours) Temp Pulse Resp BP Pulse Ox 07/18/20 08:20 116 H 37 H 107/73 99 07/18/20 06:00 26 H 07/18/20 04:00 98.6 F 24 H 07/18/20 02:06 104 H 07/18/20 02:00 25 H 07/18/20 00:00 98.5 F 24 H 07/17/20 22:09 108 H 07/17/20 22:00 22 H Weight Admit Weight 157 lb 4.8 oz Weight 134 lb 7.712 oz Most Recent Monitor Data Heart Rate from ECG 107 NIBP 112/71 NIBP BP-Mean 84 Respiration from ECG 29 SpO2 100 I&O: 07/17/20 07/18/20 07/19/20 06:59 06:59 06:59 Intake Total 2516 2484 Output Total 1510 1790 Balance 1006 694 Result Diagrams: 07/18/20 05:31 07/18/20 05:31 Additional Labs: Accuchecks 07/17/20 17:27 POC Glucose 112 H Hospitalist ROS - Medication Medications: Active Medications Generic Name Dose Route Start Last Admin Trade Name Freq PRN Reason Stop Dose Admin Acetaminophen 650 mg 06/29/20 11:10 07/08/20 07:52 Acetaminophen 650 Mg Suppository [place] 650 mg Q6H PRN Administration TEMP>101 Acetaminophen 650 mg 07/12/20 19:30 07/15/20 21:52 Acetaminophen 325 Mg Tab PER TUBE 650 mg Q4H PRN Administration Fever >= 101/MINOR DISCOMFORT Albuterol/Ipratropium 3 ml 06/28/20 14:30 07/18/20 08:20 Ipratropium/Albuterol Sulfate 3 Ml Neb NEB 3 ml [id number] JEOVANNY Administration Ascorbic Acid 1,000 mg 07/06/20 09:00 07/17/20 08:44 Ascorbic Acid 500 Mg Chewable Tablet PER TUBE 1,000 mg DAILY JEOVANNY Administration Benzonatate 200 mg 06/18/20 12:02 07/14/20 09:14 Benzonatate 100 Mg Cap PO 200 mg Q4H PRN Administration Cough Bisacodyl 10 mg 07/03/20 13:43 07/10/20 15:31 Bisacodyl 10 Mg Supp [place] 10 mg DAILY PRN Administration Constipation Calcium/Vitamin D 1 tab 07/05/20 17:00 07/17/20 18:48 Calcium Carbonate 600 Mg + Vit D Tab PER TUBE 1 tab BID-WM JEOVANNY Administration Cholecalciferol 5,000 units 07/06/20 09:00 07/17/20 09:00 Cholecalciferol 1,000 Units (25 Mcg) Tab PER TUBE 5,000 units DAILY JEOVANNY Administration Valganciclovir 7,200 mg/ 0 mg 07/07/20 21:00 07/17/20 22:09 Miscellaneous 120 ml PER TUBE 07/18/20 21:01 15 ml BID JEOVANNY Administration Valganciclovir 7,200 mg/ 0 mg 07/19/20 09:00 07/16/20 11:43 Miscellaneous 120 ml PER TUBE 08/01/20 09:01 15 ml DAILY JEOVANNY Administration Divalproex Sodium 500 mg 07/09/20 09:00 07/17/20 20:25 Divalproex Sodium 125 Mg Sprinkle Capsule PER TUBE 500 mg BID JEOVANNY Administration Enoxaparin Sodium 40 mg 07/14/20 09:00 07/17/20 08:44 Enoxaparin Sodium 40 Mg/0.4 Ml Syringe SC 40 mg 0900 JEOVANNY Administration Fentanyl 25 mcg 07/09/20 08:00 07/15/20 07:17 Fentanyl 25 Mcg/Hour Patch TD 25 mcg Q3D JEOVANNY Administration Guaifenesin 100 mg 07/14/20 22:26 07/16/20 01:38 Diabetic Tussin 200 Mg/10 Ml Udcup PER TUBE 100 mg Q4H PRN Administration Cough Guaifenesin/Codeine Phosphate 10 ml 07/05/20 16:30 07/18/20 01:44 Guaifenesin/Codeine Phosphate 200 Mg/20 Mg 10 Ml Ud Cup PER TUBE 10 ml Q4H PRN Administration Cough Insulin Human Lispro 0 units 06/30/20 07:56 07/15/20 13:37 Humalog 300 Units/3 Ml Vial SC 2 unit .MODERATE SLIDING SC PRN Administration Moderate Correctional Scale Lorazepam 1 mg 07/12/20 10:16 07/18/20 01:44 Lorazepam 1 Mg Tab PO 1 mg Q4H PRN Administration Anxiety/Agitation Melatonin 3 mg 07/16/20 21:00 07/18/20 01:53 Melatonin 3 Mg Tab PO 3 mg HS JEOVANNY Administration Methylprednisolone Sodium Succinate 20 mg 07/16/20 09:00 07/17/20 08:42 Methylprednisolone Sod Succ 40 Mg Vial IVP 20 mg DAILY JEOVANNY Administration Mometasone Furoate/Formoterol Fumar 2 puff 06/14/20 18:30 07/18/20 08:20 Mometasone 200 Mcg/Formoterol 5 Mcg 120 Puff Inhaler INH 2 puff BID-RT JEOVANNY Administration Multivitamins 1 tab 07/06/20 09:00 07/17/20 08:43 Multivit, Therapeutic 1 Tab PER TUBE 1 tab DAILY JEOVANNY Administration Nystatin 0 gm 07/08/20 21:00 07/17/20 22:00 Nystatin Powder 15 Gm Bot TOP 1 applic BID JEOVANNY Administration Pantoprazole Sodium 40 mg 07/11/20 21:00 07/17/20 20:27 Pantoprazole 40 Mg Vial IVP 40 mg Q12HR JEOVANNY Administration Polyethylene Glycol 17 gm 07/02/20 09:51 07/10/20 02:11 Polyethylene Glycol 3350 17 Gm Packet PER TUBE 17 gm DAILY PRN Administration Constipation Propofol 1,000 mg 07/08/20 23:00 07/10/20 23:06 Propofol 1,000 Mg/100 Ml Vial IV 08/07/20 23:00 1,000 mg INF PRN Administration TO ACHIEVE GOAL RASS Protocol Sodium Chloride 10 ml 06/15/20 09:00 07/17/20 20:27 Flush - Normal Saline 10 Ml Syringe IVF 10 ml Q12HR JEOVANNY Administration Sodium Chloride 10 ml 06/15/20 06:30 06/20/20 01:35 Flush - Normal Saline 10 Ml Syringe IVF 10 ml PRN PRN Administration Saline Flush Zinc Sulfate 220 mg 07/06/20 09:00 07/17/20 08:43 Zinc Sulfate 220 Mg Cap PER TUBE 220 mg DAILY JEOVANNY Administration Zolpidem Tartrate 10 mg 07/14/20 22:00 07/17/20 21:02 Zolpidem Tartrate 5 Mg Tab PO 10 mg 2200 JEOVANNY Administration - Exam Eye: PERRL, anicteric sclera Heart: RRR (mildly tachycardic) Respiratory: CTAB, no wheezes, no rales, no ronchi, normal chest expansion Gastrointestinal: soft, non-tender, non-distended, normal bowel sounds, no palpable masses Extremities: no cyanosis, no clubbing, no edema Hosp A/P (1) Acute respiratory failure with hypoxia Code(s): J96.01 - ACUTE RESPIRATORY FAILURE WITH HYPOXIA Status: Acute (2) Pneumonia due to COVID-19 virus Code(s): U07.1 - COVID-19; J12.89 - OTHER VIRAL PNEUMONIA Status: Acute (3) CMV infection Code(s): B25.9 - CYTOMEGALOVIRAL DISEASE, UNSPECIFIED Status: Acute (4) Hypernatremia Code(s): E87.0 - HYPEROSMOLALITY AND HYPERNATREMIA Status: Acute (5) Normocytic anemia Code(s): D64.9 - ANEMIA, UNSPECIFIED Status: Acute - Plan * Acute respiratory failure due to COVID pneumonia- He has been stable on CPAP * Slow steroid aldo * Aggressive pulmonary toilet * CMV infection- continue Valganciclovir. * FEN- tolerating tube feeds at his goal rate of 65ml/hr * Anemia- His H&H has remained stable * Continue Lovenox * Continue PT/OT * LTAC evaluation is in process
[2020-07-18] MEDS: Enoxaparin Sodium 40 MG/0.4 ML SYRINGE SC SCH (09:22)
[2020-07-18] MEDS: Pantoprazole 40 MG VIAL IVP SCH ×2 (09:22→20:11)
[2020-07-18] MEDS: Multivit, Therapeutic 1 TAB PER TUBE SCH (09:23)
[2020-07-18] MEDS: Zinc Sulfate 220 MG CAP PER TUBE SCH (09:23)
[2020-07-18] MEDS: Ascorbic Acid 500 mg Chewable Tablet PER TUBE SCH (09:23)
[2020-07-18] MEDS: Calcium Carbonate 600 MG + Vit D TAB PER TUBE SCH ×2 (09:23→17:07)
[2020-07-18] MEDS: methylPREDNISolone Sod Succ 40 MG VIAL IVP SCH (09:24)
[2020-07-18] MEDS: Divalproex Sodium 125 mg Sprinkle Capsule PER TUBE SCH (09:29)
[2020-07-18] MEDS: Nystatin Powder 15 GM BOT TOP SCH ×2 (09:30→20:23)
--- NOTE | 2020-07-18 10:37 | PRG ---
DATE OF SERVICE: 07/18/2020 SUBJECTIVE: The patient is actually doing very well. He is on minimal pressure support on mechanical ventilation. He is able to talk with his cuff down. His was at the bedside. OBJECTIVE: VITAL SIGNS: Temperature 98.6, pulse 107, blood pressure 112/71. 24-hour intake 2484 and output 1790. HEENT: Unremarkable. NECK: No JVD. Trach is in good position. LUNGS: With crackles at the bases. CARDIAC: S1 and S2. Regular. ABDOMEN: Soft. EXTREMITIES: Edematous. LABORATORY DATA: White blood cell count 11.4, hematocrit 26.7, and platelet count 176. Sodium 141, potassium 3.8, chloride 100, CO2 of 34, BUN 15, creatinine 0.6, and glucose 119. ASSESSMENT: 1. COVID-19 pneumonia with acute respiratory failure requiring mechanical ventilation. 2. Improved neuromuscular function. PLAN: 1. Trach collar trial today. 2. Stop Depakote. 3. Stop daily labs. Job ID: [id number]
[2020-07-18] MEDS: Cholecalciferol 1,000 UNITS (25 MCG) TAB PER TUBE SCH (12:05)
[2020-07-18] MEDS: VALGANCICLOVIR HCL PER TUBE SCH ×2 (12:30→20:43)
[2020-07-18] MEDS: COMPOUND VEHICLE SF PER TUBE SCH ×2 (12:30→20:43)
[2020-07-18] MEDS: Zolpidem Tartrate 5 MG TAB PO SCH (20:26)
[2020-07-19] MEDS ORDERED: Melatonin 3 MG TAB PO SCH (02:45)
[2020-07-19] MEDS: Lorazepam 1 MG TAB PO PRN ×3 (03:32→19:54)
[2020-07-19] MEDS: guaiFENesin/Codeine Phosphate 200 mg/20 mg 10 ml UD Cup PER TUBE PRN ×5 (03:32→23:22)
[2020-07-19] MEDS: Calcium Carbonate 600 MG + Vit D TAB PER TUBE SCH ×2 (08:11→17:32)
[2020-07-19] MEDS: Multivit, Therapeutic 1 TAB PER TUBE SCH (08:11)
[2020-07-19] MEDS: Ascorbic Acid 500 mg Chewable Tablet PER TUBE SCH (08:11)
[2020-07-19] MEDS: Zinc Sulfate 220 MG CAP PER TUBE SCH (08:11)
[2020-07-19] MEDS: Enoxaparin Sodium 40 MG/0.4 ML SYRINGE SC SCH (08:22)
[2020-07-19] MEDS: methylPREDNISolone Sod Succ 40 MG VIAL IVP SCH (08:24)
[2020-07-19] MEDS: Pantoprazole 40 MG VIAL IVP SCH (08:26)
[2020-07-19] MEDS: Mometasone 200 MCG/Formoterol 5 MCG 120 PUFF INHALER INH SCH ×2 (08:35→19:13)
[2020-07-19] MEDS: VALGANCICLOVIR HCL PER TUBE SCH (10:12)
[2020-07-19] MEDS: COMPOUND VEHICLE SF PER TUBE SCH (10:12)
[2020-07-19] MEDS: Cholecalciferol 1,000 UNITS (25 MCG) TAB PER TUBE SCH (10:12)
--- NOTE | 2020-07-19 13:52 | PDOC.HOSPP ---
- Subjective Encounter Date: 07/19/20 Encounter Time: 11:50 Subjective: Family member at bedside ; patient states that he feels quite emaniciated. He has "this usual cough.". He has trach. No lower extremity edema appreciated. - Objective Vital Signs & Weight: Vital Signs (12 hours) Temp Pulse Pulse Pulse Pulse Resp BP 07/19/20 11:30 98.8 F 07/19/20 11:02 100 24 H 07/19/20 09:43 128 H 145 H 120 H 128/83 07/19/20 08:35 07/19/20 08:32 99 19 07/19/20 08:18 98.5 F 07/19/20 08:00 07/19/20 02:25 102 H 27 H BP Pulse Ox 07/19/20 11:30 07/19/20 11:02 99 07/19/20 09:43 126/91 H 07/19/20 08:35 99 07/19/20 08:32 99 07/19/20 08:18 07/19/20 08:00 99 07/19/20 02:25 95 Weight Admit Weight 157 lb 4.8 oz Weight 135 lb 5.821 oz Most Recent Monitor Data Heart Rate from ECG 112 NIBP 116/87 NIBP BP-Mean 96 Respiration from ECG 31 SpO2 93 I&O: 07/18/20 07/19/20 07/20/20 06:59 06:59 06:59 Intake Total 2484 2099 500 Output Total 1790 1560 640 Balance 694 539 -140 Result Diagrams: 07/18/20 05:31 07/18/20 05:31 Additional Labs: Accuchecks 07/19/20 07/18/20 11:16 18:31 POC Glucose 178 H 133 H Hospitalist ROS - Medication Medications: Active Medications Generic Name Dose Route Start Last Admin Trade Name Freq PRN Reason Stop Dose Admin Acetaminophen 650 mg 06/29/20 11:10 07/08/20 07:52 Acetaminophen 650 Mg Suppository [place] 650 mg Q6H PRN Administration TEMP>101 Acetaminophen 650 mg 07/12/20 19:30 07/15/20 21:52 Acetaminophen 325 Mg Tab PER TUBE 650 mg Q4H PRN Administration Fever >= 101/MINOR DISCOMFORT Albuterol/Ipratropium 3 ml 06/28/20 14:30 07/19/20 11:02 Ipratropium/Albuterol Sulfate 3 Ml Neb NEB 3 ml [id number] JEOVANNY Administration Ascorbic Acid 1,000 mg 07/06/20 09:00 07/19/20 08:11 Ascorbic Acid 500 Mg Chewable Tablet PER TUBE 1,000 mg DAILY JEOVANNY Administration Benzonatate 200 mg 06/18/20 12:02 07/14/20 09:14 Benzonatate 100 Mg Cap PO 200 mg Q4H PRN Administration Cough Bisacodyl 10 mg 07/03/20 13:43 07/10/20 15:31 Bisacodyl 10 Mg Supp [place] 10 mg DAILY PRN Administration Constipation Calcium/Vitamin D 1 tab 07/05/20 17:00 07/19/20 08:11 Calcium Carbonate 600 Mg + Vit D Tab PER TUBE 1 tab BID-WM JEOVANNY Administration Cholecalciferol 5,000 units 07/06/20 09:00 07/19/20 10:12 Cholecalciferol 1,000 Units (25 Mcg) Tab PER TUBE 5,000 units DAILY JEOVANNY Administration Valganciclovir 7,200 mg/ 0 mg 07/19/20 09:00 07/19/20 10:12 Miscellaneous 120 ml PER TUBE 08/01/20 09:01 1 ml DAILY JEOVANNY Administration Enoxaparin Sodium 40 mg 07/14/20 09:00 07/19/20 08:22 Enoxaparin Sodium 40 Mg/0.4 Ml Syringe SC 40 mg 0900 JEOVANNY Administration Fentanyl 25 mcg 07/09/20 08:00 07/18/20 12:02 Fentanyl 25 Mcg/Hour Patch TD 25 mcg Q3D JEOVANNY Administration Guaifenesin 100 mg 07/14/20 22:26 07/16/20 01:38 Diabetic Tussin 200 Mg/10 Ml Udcup PER TUBE 100 mg Q4H PRN Administration Cough Guaifenesin/Codeine Phosphate 10 ml 07/05/20 16:30 07/19/20 12:49 Guaifenesin/Codeine Phosphate 200 Mg/20 Mg 10 Ml Ud Cup PER TUBE 10 ml Q4H PRN Administration Cough Insulin Human Lispro 0 units 06/30/20 07:56 07/15/20 13:37 Humalog 300 Units/3 Ml Vial SC 2 unit .MODERATE SLIDING SC PRN Administration Moderate Correctional Scale Lorazepam 1 mg 07/12/20 10:16 07/19/20 08:11 Lorazepam 1 Mg Tab PO 1 mg Q4H PRN Administration Anxiety/Agitation Melatonin 3 mg 07/16/20 21:00 07/18/20 20:11 Melatonin 3 Mg Tab PO 3 mg HS JEOVANNY Administration Methylprednisolone Sodium Succinate 20 mg 07/16/20 09:00 07/19/20 08:24 Methylprednisolone Sod Succ 40 Mg Vial IVP 20 mg DAILY JEOVANNY Administration Mometasone Furoate/Formoterol Fumar 2 puff 06/14/20 18:30 07/19/20 08:35 Mometasone 200 Mcg/Formoterol 5 Mcg 120 Puff Inhaler INH 2 puff BID-RT JEOVANNY Administration Multivitamins 1 tab 07/06/20 09:00 07/19/20 08:11 Multivit, Therapeutic 1 Tab PER TUBE 1 tab DAILY JEOVANNY Administration Nystatin 0 gm 07/08/20 21:00 07/18/20 20:23 Nystatin Powder 15 Gm Bot TOP Not Given BID JEOVANNY Polyethylene Glycol 17 gm 07/02/20 09:51 07/10/20 02:11 Polyethylene Glycol 3350 17 Gm Packet PER TUBE 17 gm DAILY PRN Administration Constipation Propofol 1,000 mg 07/08/20 23:00 07/10/20 23:06 Propofol 1,000 Mg/100 Ml Vial IV 08/07/20 23:00 1,000 mg INF PRN Administration TO ACHIEVE GOAL RASS Protocol Sodium Chloride 10 ml 06/15/20 09:00 07/19/20 10:14 Flush - Normal Saline 10 Ml Syringe IVF 10 ml Q12HR JEOVANNY Administration Sodium Chloride 10 ml 06/15/20 06:30 06/20/20 01:35 Flush - Normal Saline 10 Ml Syringe IVF 10 ml PRN PRN Administration Saline Flush Zinc Sulfate 220 mg 07/06/20 09:00 07/19/20 08:11 Zinc Sulfate 220 Mg Cap PER TUBE 220 mg DAILY JEOVANNY Administration Zolpidem Tartrate 10 mg 07/14/20 22:00 07/18/20 20:26 Zolpidem Tartrate 5 Mg Tab PO 10 mg 2200 JEOVANNY Administration - Exam General Appearance: NAD, awake alert, ill appearing General - other findings: Status post trach Eye: PERRL ENT: normocephalic atraumatic Neck: supple Heart: RRR Respiratory: CTAB, normal chest expansion Gastrointestinal: soft, normal bowel sounds Extremities: no edema Musculoskeletal: generalized weakness, diffuse muscle atrophy Hosp A/P - Plan (1) Acute respiratory failure with hypoxia Code(s): J96.01 - ACUTE RESPIRATORY FAILURE WITH HYPOXIA Status: Acute (2) Pneumonia due to COVID-19 virus Code(s): U07.1 - COVID-19; J12.89 - OTHER VIRAL PNEUMONIA Status: Acute (3) CMV infection Code(s): B25.9 - CYTOMEGALOVIRAL DISEASE, UNSPECIFIED Status: Acute (4) Hypernatremia Code(s): E87.0 - HYPEROSMOLALITY AND HYPERNATREMIA Status: Acute (5) Normocytic anemia Code(s): D64.9 - ANEMIA, UNSPECIFIED Status: Acute - Plan * Acute respiratory failure due to COVID pneumonia- * - stable on CPAP * Slow steroid aldo * * CMV infection- continue Valganciclovir. * FEN- tolerating tube feeds at his goal rate of 65ml/hr * Anemia- * -stable * Generalized muscle weakness * Deconditioning with the Covid pneumonia * - * Continue PT/OT * * Full code * LTAC --pending
[2020-07-19] MEDS: Nystatin Powder 15 GM BOT TOP SCH ×2 (17:44→19:54)
[2020-07-19] MEDS: Melatonin 3 MG TAB PO SCH (19:54)
[2020-07-19] MEDS: Zolpidem Tartrate 5 MG TAB PO SCH (23:00)
[2020-07-19] MEDS: Acetaminophen 325 MG TAB PER TUBE PRN (23:31)
[2020-07-20] MEDS: Mometasone 200 MCG/Formoterol 5 MCG 120 PUFF INHALER INH SCH ×2 (05:00→18:35)
[2020-07-20] MEDS: guaiFENesin/Codeine Phosphate 200 mg/20 mg 10 ml UD Cup PER TUBE PRN ×3 (05:26→18:20)
[2020-07-20] MEDS: Pantoprazole 40 MG GRANULES PACKET PER TUBE SCH (08:54)
[2020-07-20] MEDS: methylPREDNISolone Sod Succ 40 MG VIAL IVP SCH (08:54)
[2020-07-20] MEDS: Zinc Sulfate 220 MG CAP PER TUBE SCH (08:55)
[2020-07-20] MEDS: Ascorbic Acid 500 mg Chewable Tablet PER TUBE SCH (08:55)
[2020-07-20] MEDS: Multivit, Therapeutic 1 TAB PER TUBE SCH (08:55)
[2020-07-20] MEDS: Calcium Carbonate 600 MG + Vit D TAB PER TUBE SCH ×2 (08:55→17:09)
[2020-07-20] MEDS: Lorazepam 1 MG TAB PO PRN (08:55)
[2020-07-20] MEDS: Enoxaparin Sodium 40 MG/0.4 ML SYRINGE SC SCH (08:56)
[2020-07-20] MEDS: Cholecalciferol 1,000 UNITS (25 MCG) TAB PER TUBE SCH (08:58)
[2020-07-20] MEDS: Nystatin Powder 15 GM BOT TOP SCH ×2 (09:01→21:04)
[2020-07-20] MEDS: COMPOUND VEHICLE SF PER TUBE SCH (09:16)
[2020-07-20] MEDS: VALGANCICLOVIR HCL PER TUBE SCH (09:16)
--- NOTE | 2020-07-20 14:09 | PDOC.HOSPP ---
- Subjective Encounter Date: 07/20/20 Encounter Time: 12:20 Subjective: Patient appears well. He is improving on a daily basis. He has a good appetite. He is getting free water 200 mL every 6 hours along with the 65 mL/h of tube feed. His urine output is good this morning around 580 mL so far. No White. Using urinal. he is able to participate with physical therapy able to stand for few minutes. Is also using neuro chair. Speech therapy evaluated him yesterday and started him on pured diet in addition to tube feed. - Objective Vital Signs & Weight: Vital Signs (12 hours) Temp Pulse Resp Pulse Ox 07/20/20 12:00 98.1 F 07/20/20 11:46 94 L 07/20/20 11:45 120 H 30 H 95 07/20/20 11:00 98.3 F 07/20/20 07:58 100 07/20/20 07:00 98.2 F 07/20/20 05:04 100 07/20/20 05:01 103 H 15 97 07/20/20 04:00 97.9 F Weight Admit Weight 157 lb 4.8 oz Weight 134 lb 4.184 oz Most Recent Monitor Data Heart Rate from ECG 120 NIBP 136/97 NIBP BP-Mean 110 Respiration from ECG 32 SpO2 96 I&O: 07/19/20 07/20/20 07/21/20 06:59 06:59 06:59 Intake Total 2099 2940 360 Output Total 1560 2050 1380 Balance 539 890 -1020 Result Diagrams: 07/18/20 05:31 07/18/20 05:31 Additional Labs: Accuchecks 07/20/20 07/19/20 04:22 16:29 POC Glucose 105 H 144 H Hospitalist ROS - Medication Medications: Active Medications Generic Name Dose Route Start Last Admin Trade Name Freq PRN Reason Stop Dose Admin Acetaminophen 650 mg 06/29/20 11:10 07/08/20 07:52 Acetaminophen 650 Mg Suppository [place] 650 mg Q6H PRN Administration TEMP>101 Acetaminophen 650 mg 07/12/20 19:30 07/19/20 23:31 Acetaminophen 325 Mg Tab PER TUBE 650 mg Q4H PRN Administration Fever >= 101/MINOR DISCOMFORT Albuterol/Ipratropium 3 ml 06/28/20 14:30 07/20/20 11:45 Ipratropium/Albuterol Sulfate 3 Ml Neb NEB 3 ml [id number] JEOVANNY Administration Ascorbic Acid 1,000 mg 07/06/20 09:00 07/20/20 08:55 Ascorbic Acid 500 Mg Chewable Tablet PER TUBE 1,000 mg DAILY JEOVANNY Administration Benzonatate 200 mg 06/18/20 12:02 07/14/20 09:14 Benzonatate 100 Mg Cap PO 200 mg Q4H PRN Administration Cough Bisacodyl 10 mg 07/03/20 13:43 07/10/20 15:31 Bisacodyl 10 Mg Supp LA 10 mg DAILY PRN Administration Constipation Calcium/Vitamin D 1 tab 07/05/20 17:00 07/20/20 08:55 Calcium Carbonate 600 Mg + Vit D Tab PER TUBE 1 tab BID-WM JEOVANNY Administration Cholecalciferol 5,000 units 07/06/20 09:00 07/20/20 08:58 Cholecalciferol 1,000 Units (25 Mcg) Tab PER TUBE 5,000 units DAILY JEOVANNY Administration Valganciclovir 7,200 mg/ 0 mg 07/19/20 09:00 07/20/20 09:16 Miscellaneous 120 ml PER TUBE 08/01/20 09:01 7,200 ml DAILY JEOVANNY Administration Enoxaparin Sodium 40 mg 07/14/20 09:00 07/20/20 08:56 Enoxaparin Sodium 40 Mg/0.4 Ml Syringe SC 40 mg 0900 JEOVANNY Administration Fentanyl 25 mcg 07/09/20 08:00 07/18/20 12:02 Fentanyl 25 Mcg/Hour Patch TD 25 mcg Q3D JEOVANNY Administration Guaifenesin 100 mg 07/14/20 22:26 07/16/20 01:38 Diabetic Tussin 200 Mg/10 Ml Udcup PER TUBE 100 mg Q4H PRN Administration Cough Guaifenesin/Codeine Phosphate 10 ml 07/05/20 16:30 07/20/20 05:26 Guaifenesin/Codeine Phosphate 200 Mg/20 Mg 10 Ml Ud Cup PER TUBE 10 ml Q4H PRN Administration Cough Insulin Human Lispro 0 units 06/30/20 07:56 07/15/20 13:37 Humalog 300 Units/3 Ml Vial SC 2 unit .MODERATE SLIDING SC PRN Administration Moderate Correctional Scale Lorazepam 1 mg 07/12/20 10:16 07/20/20 08:55 Lorazepam 1 Mg Tab PO 1 mg Q4H PRN Administration Anxiety/Agitation Melatonin 3 mg 07/16/20 21:00 07/19/20 19:54 Melatonin 3 Mg Tab PO 3 mg HS JEOVANNY Administration Methylprednisolone Sodium Succinate 20 mg 07/16/20 09:00 07/20/20 08:54 Methylprednisolone Sod Succ 40 Mg Vial IVP 20 mg DAILY JEOVANNY Administration Mometasone Furoate/Formoterol Fumar 2 puff 06/14/20 18:30 07/20/20 05:00 Mometasone 200 Mcg/Formoterol 5 Mcg 120 Puff Inhaler INH 2 puff BID-RT JEOVANNY Administration Multivitamins 1 tab 07/06/20 09:00 07/20/20 08:55 Multivit, Therapeutic 1 Tab PER TUBE 1 tab DAILY JEOVANNY Administration Nystatin 0 gm 07/08/20 21:00 07/20/20 09:01 Nystatin Powder 15 Gm Bot TOP 1 applic BID JEOVANNY Administration Pantoprazole Sodium 40 mg 07/20/20 09:00 07/20/20 08:54 Pantoprazole 40 Mg Granules Packet PER TUBE 40 mg DAILY JEOVANNY Administration Polyethylene Glycol 17 gm 07/02/20 09:51 07/10/20 02:11 Polyethylene Glycol 3350 17 Gm Packet PER TUBE 17 gm DAILY PRN Administration Constipation Propofol 1,000 mg 07/08/20 23:00 07/10/20 23:06 Propofol 1,000 Mg/100 Ml Vial IV 08/07/20 23:00 1,000 mg INF PRN Administration TO ACHIEVE GOAL RASS Protocol Sodium Chloride 10 ml 06/15/20 09:00 07/20/20 09:17 Flush - Normal Saline 10 Ml Syringe IVF 10 ml Q12HR JEOVANNY Administration Sodium Chloride 10 ml 06/15/20 06:30 06/20/20 01:35 Flush - Normal Saline 10 Ml Syringe IVF 10 ml PRN PRN Administration Saline Flush Zinc Sulfate 220 mg 07/06/20 09:00 07/20/20 08:55 Zinc Sulfate 220 Mg Cap PER TUBE 220 mg DAILY JEOVANNY Administration Zolpidem Tartrate 10 mg 07/14/20 22:00 07/19/20 23:00 Zolpidem Tartrate 5 Mg Tab PO Not Given 2200 JEOVANNY - Exam General Appearance: NAD, awake alert General - other findings: Trach and PEG Eye: PERRL ENT: normocephalic atraumatic Neck: supple Heart: RRR Respiratory: CTAB, normal chest expansion Gastrointestinal: soft, normal bowel sounds Extremities: no edema Neurological: cranial nerve grossly intact, no new deficit Psychiatric: A&O x 3 Hosp A/P - Plan (1) Acute respiratory failure with hypoxia Code(s): J96.01 - ACUTE RESPIRATORY FAILURE WITH HYPOXIA Status: Acute (2) Pneumonia due to COVID-19 virus Code(s): U07.1 - COVID-19; J12.89 - OTHER VIRAL PNEUMONIA Status: Acute (3) CMV infection Code(s): B25.9 - CYTOMEGALOVIRAL DISEASE, UNSPECIFIED Status: Acute (4) Hypernatremia Code(s): E87.0 - HYPEROSMOLALITY AND HYPERNATREMIA Status: Acute (5) Normocytic anemia Code(s): D64.9 - ANEMIA, UNSPECIFIED Status: Acute - Plan * Acute respiratory failure due to COVID pneumonia- * - stable on CPAP * Slow steroid aldo * * CMV infection- continue Valganciclovir. * FEN- tolerating tube feeds at his goal rate of 65ml/hr * Anemia- * -stable * Generalized muscle weakness * Deconditioning with the Covid pneumonia * - * Continue PT/OT * * Full code * LTAC --pending He is improving on a daily basis. He has a good appetite. Speech therapy evaluated him yesterday and started him on pured diet in addition to tube feed. He is getting free water 200 mL every 6 hours along with the 65 mL/h of tube feed. His urine output is good this morning around 580 mL so far. No White. Using urinal. he is able to participate with physical therapy able to stand for few minutes. Is also using neuro chair.
[2020-07-20] MEDS: Benzonatate 100 MG CAP PO SCH ×2 (14:55→21:01)
--- NOTE | 2020-07-20 15:23 | PRG ---
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 OBJECTIVE: VITAL SIGNS: Heart rate is 103, blood pressure 136/97, respiratory rates in the 20s. Still having frequent coughing paroxysms. LUNGS: Clear. HEART: Regular rhythm. ABDOMEN: Soft. LABORATORY DATA: White count 11.4, hemoglobin 9.9, platelets 176. Sodium 141, potassium 3.8, chloride 100, bicarb 34, BUN 15, creatinine 0.66. IMPRESSION: COVID pneumonia, requiring tracheostomy. His tracheostomy has been downsized to a #6 Shiley cuffless fenestrated trach. We will change his Tessalon Perles to routinely. He is also receiving cough syrup which will help. He is only on 40 of Lovenox. I think it would be unreasonable to switch him to Eliquis 2.5 mg twice a day. He is 36 days into his hospitalization. I believe he was sick for quite some time prior to being admitted. We will continue to follow. We will have him evaluated for rehab in [facility] given that he no longer has ventilatory requirements. This would be better for his and family as well. Job ID: [id number]
[2020-07-20] MEDS: Apixaban 2.5 MG TAB PO SCH (21:01)
[2020-07-20] MEDS: Melatonin 3 MG TAB PO SCH (21:02)
[2020-07-20] MEDS: Zolpidem Tartrate 5 MG TAB PO SCH (21:05)
[2020-07-21] MEDS: Lorazepam 1 MG TAB PO PRN ×4 (00:59→20:36)
[2020-07-21] MEDS: Mometasone 200 MCG/Formoterol 5 MCG 120 PUFF INHALER INH SCH ×2 (07:55→18:45)
[2020-07-21] MEDS: Apixaban 2.5 MG TAB PO SCH ×2 (08:18→20:31)
[2020-07-21] MEDS: Benzonatate 100 MG CAP PO SCH ×3 (08:21→20:32)
[2020-07-21] MEDS: Cholecalciferol 1,000 UNITS (25 MCG) TAB PER TUBE SCH (08:35)
[2020-07-21] MEDS: Zinc Sulfate 220 MG CAP PER TUBE SCH (08:36)
[2020-07-21] MEDS: Multivit, Therapeutic 1 TAB PER TUBE SCH (08:36)
[2020-07-21] MEDS: Ascorbic Acid 500 mg Chewable Tablet PER TUBE SCH (08:37)
[2020-07-21] MEDS: Calcium Carbonate 600 MG + Vit D TAB PER TUBE SCH ×2 (08:37→17:23)
[2020-07-21] MEDS: methylPREDNISolone Sod Succ 40 MG VIAL IVP SCH (08:38)
[2020-07-21] MEDS: Pantoprazole 40 MG GRANULES PACKET PER TUBE SCH (08:38)
[2020-07-21] MEDS: VALGANCICLOVIR HCL PER TUBE SCH (09:00)
[2020-07-21] MEDS: Nystatin Powder 15 GM BOT TOP SCH ×2 (09:00→21:45)
[2020-07-21] MEDS: COMPOUND VEHICLE SF PER TUBE SCH (09:00)
--- NOTE | 2020-07-21 10:24 | PRG ---
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 He is on a trach collar which is capped with a Passy-Donita speaking valve and he is doing well with that. OBJECTIVE: VITAL SIGNS: His temperature is 98.5, pulse 119, blood pressure 120/79, O2 saturation in the 90s. HEENT: Unremarkable. NECK: No JVD. Trach in good position. LUNGS: Fairly clear. CARDIAC: S1, S2. Regular. ABDOMEN: Soft, nontender. EXTREMITIES: No edema. LABORATORY DATA: No labs were done today. ASSESSMENT: 1. COVID-19 pneumonia. 2. Acute respiratory failure requiring mechanical ventilation and tracheostomy placement, now weaned. PLAN: I think the patient is an excellent candidate to stay in town and do inpatient rehab here. I would think he could be decannulated in a couple of weeks. I am going to check labs again tomorrow. I have changed him to oral steroids. We will cut his tube feeds, he is only getting that at night, so that he can increase his oral intake during the day. Job ID: [id number]
[2020-07-21] MEDS: guaiFENesin/Codeine Phosphate 200 mg/20 mg 10 ml UD Cup PER TUBE PRN (10:26)
--- NOTE | 2020-07-21 12:14 | PDOC.HOSPP ---
- Subjective Encounter Date: 07/21/20 Encounter Time: 01:08 Subjective: Dr. 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 He has been able to tolerate his pureed feeds orally and has had a good appetite. All his tube feeds have been discontinued except for one at night. Good urine output of 750 ml today using the urinal. He has had a bowel movement today. Had PT earlier this afternoon and tolerated it for longer than yesterday; he is also utilizing his chair more comfortably. Continues to have increased work of breathing and SOB with exertion. - Objective Vital Signs & Weight: Vital Signs (12 hours) Temp Pulse Resp Pulse Ox 07/21/20 10:39 125 H 28 H 07/21/20 08:00 98.5 F 90 L 07/21/20 07:55 118 H 28 H 07/21/20 02:22 100 26 H 97 07/21/20 00:20 98.4 F Weight Admit Weight 157 lb 4.8 oz Weight 130 lb 11.746 oz Most Recent Monitor Data Heart Rate from ECG 132 NIBP 124/73 NIBP BP-Mean 90 Respiration from ECG 40 SpO2 94 I&O: 07/20/20 07/21/20 07/22/20 06:59 06:59 06:59 Intake Total 2940 2940 335 Output Total 2050 2570 750 Balance 890 370 -415 Result Diagrams: 07/18/20 05:31 07/18/20 05:31 Additional Labs: Accuchecks 07/21/20 07/19/20 08:02 07:16 POC Glucose 115 H 110 H Hospitalist ROS - Review of Systems Respiratory: reports: SOB with excertion - Medication Medications: Active Medications Generic Name Dose Route Start Last Admin Trade Name Freq PRN Reason Stop Dose Admin Acetaminophen 650 mg 06/29/20 11:10 07/08/20 07:52 Acetaminophen 650 Mg Suppository [place] 650 mg Q6H PRN Administration TEMP>101 Acetaminophen 650 mg 07/12/20 19:30 07/19/20 23:31 Acetaminophen 325 Mg Tab PER TUBE 650 mg Q4H PRN Administration Fever >= 101/MINOR DISCOMFORT Albuterol/Ipratropium 3 ml 06/28/20 14:30 07/21/20 10:39 Ipratropium/Albuterol Sulfate 3 Ml Neb NEB 3 ml [id number] JEOVANNY Administration Apixaban 2.5 mg 07/20/20 21:00 07/21/20 08:18 Apixaban 2.5 Mg Tab PO 2.5 mg BID JEOVANNY Administration Ascorbic Acid 1,000 mg 07/06/20 09:00 07/21/20 08:37 Ascorbic Acid 500 Mg Chewable Tablet PER TUBE 1,000 mg DAILY JEOVANNY Administration Benzonatate 200 mg 07/20/20 15:00 07/21/20 08:21 Benzonatate 100 Mg Cap PO 200 mg TID JEOVANNY Administration Bisacodyl 10 mg 07/03/20 13:43 07/10/20 15:31 Bisacodyl 10 Mg Supp [place] 10 mg DAILY PRN Administration Constipation Calcium/Vitamin D 1 tab 07/05/20 17:00 07/21/20 08:37 Calcium Carbonate 600 Mg + Vit D Tab PER TUBE 1 tab BID-WM JEOVANNY Administration Cholecalciferol 5,000 units 07/06/20 09:00 07/21/20 08:35 Cholecalciferol 1,000 Units (25 Mcg) Tab PER TUBE 5,000 units DAILY JEOVANNY Administration Valganciclovir 7,200 mg/ 0 mg 07/19/20 09:00 07/21/20 09:00 Miscellaneous 120 ml PER TUBE 08/01/20 09:01 120 ml DAILY JEOVANNY Administration Guaifenesin 100 mg 07/14/20 22:26 07/16/20 01:38 Diabetic Tussin 200 Mg/10 Ml Udcup PER TUBE 100 mg Q4H PRN Administration Cough Guaifenesin/Codeine Phosphate 10 ml 07/05/20 16:30 07/21/20 10:26 Guaifenesin/Codeine Phosphate 200 Mg/20 Mg 10 Ml Ud Cup PER TUBE 10 ml Q4H PRN Administration Cough Insulin Human Lispro 0 units 06/30/20 07:56 07/15/20 13:37 Humalog 300 Units/3 Ml Vial SC 2 unit .MODERATE SLIDING SC PRN Administration Moderate Correctional Scale Lorazepam 1 mg 07/12/20 10:16 07/21/20 08:40 Lorazepam 1 Mg Tab PO 1 mg Q4H PRN Administration Anxiety/Agitation Melatonin 3 mg 07/16/20 21:00 07/20/20 21:02 Melatonin 3 Mg Tab PO 3 mg HS JEOVANNY Administration Mometasone Furoate/Formoterol Fumar 2 puff 06/14/20 18:30 07/21/20 07:55 Mometasone 200 Mcg/Formoterol 5 Mcg 120 Puff Inhaler INH 2 puff BID-RT JEOVANNY Administration Multivitamins 1 tab 07/06/20 09:00 07/21/20 08:36 Multivit, Therapeutic 1 Tab PER TUBE 1 tab DAILY JEOVANNY Administration Nystatin 0 gm 07/08/20 21:00 07/21/20 09:00 Nystatin Powder 15 Gm Bot TOP 1 applic BID JEOVANNY Administration Pantoprazole Sodium 40 mg 07/20/20 09:00 07/21/20 08:38 Pantoprazole 40 Mg Granules Packet PER TUBE 40 mg DAILY JEOVANNY Administration Polyethylene Glycol 17 gm 07/02/20 09:51 07/10/20 02:11 Polyethylene Glycol 3350 17 Gm Packet PER TUBE 17 gm DAILY PRN Administration Constipation Sodium Chloride 10 ml 06/15/20 09:00 07/21/20 10:34 Flush - Normal Saline 10 Ml Syringe IVF 10 ml Q12HR JEOVANNY Administration Sodium Chloride 10 ml 06/15/20 06:30 06/20/20 01:35 Flush - Normal Saline 10 Ml Syringe IVF 10 ml PRN PRN Administration Saline Flush Zinc Sulfate 220 mg 07/06/20 09:00 07/21/20 08:36 Zinc Sulfate 220 Mg Cap PER TUBE 220 mg DAILY JEOVANNY Administration Zolpidem Tartrate 10 mg 07/14/20 22:00 07/20/20 21:05 Zolpidem Tartrate 5 Mg Tab PO 10 mg 2200 JEOVANNY Administration - Exam General Appearance: awake alert General - other findings: Trach and PEG Eye: PERRL, anicteric sclera ENT: normocephalic atraumatic Neck: supple Heart: RRR, no murmur, no gallops, no rubs Respiratory: CTAB Respiratory - other findings: increased respiratory effort Gastrointestinal: soft, non-tender, non-distended, normal bowel sounds Neurological: cranial nerve grossly intact Musculoskeletal: generalized weakness Psychiatric: normal affect, A&O x 3 Hosp A/P - Plan (1) Acute respiratory failure with hypoxia Code(s): J96.01 - ACUTE RESPIRATORY FAILURE WITH HYPOXIA Status: Acute (2) Pneumonia due to COVID-19 virus Code(s): U07.1 - COVID-19; J12.89 - OTHER VIRAL PNEUMONIA Status: Acute (3) CMV infection Code(s): B25.9 - CYTOMEGALOVIRAL DISEASE, UNSPECIFIED Status: Acute (4) Hypernatremia Code(s): E87.0 - HYPEROSMOLALITY AND HYPERNATREMIA Status: Acute (5) Normocytic anemia Code(s): D64.9 - ANEMIA, UNSPECIFIED Status: Acute - Plan * Acute respiratory failure due to COVID pneumonia- * - stable on CPAP * Slow steroid aldo * * CMV infection- continue Valganciclovir. * FEN- tolerating tube feeds at his goal rate of 65ml/hr * Anemia- * -stable * Generalized muscle weakness * Deconditioning with the Covid pneumonia * - * Continue PT/OT * * Full code * LTAC --pending He is improving on a daily basis. He has a good appetite. Speech therapy evaluated him yesterday and started him on pured diet in addition to tube feed. He is getting free water 200 mL every 6 hours along with the 65 mL/h of tube feed. His urine output is good this morning around 580 mL so far. No White. Using urinal. he is able to participate with physical therapy able to stand for few minutes. Is also using neuro chair. 07/21/2020 Pneumonia due to COVID 19 Functional debilitation - work with PT and OT - able to stand for a few minutes with PT CMV infection - continue valganciclovir Diet - tolerating PO pureed feeds - reduced the tube feeds during nights only - urine output 750 ml so far today Hypernatremia - resolved Disposition - [facility] looking into local LTAC. Care discussed with the student and agree with the above management for
[2020-07-21] MEDS: Melatonin 3 MG TAB PO SCH (20:32)
[2020-07-21] MEDS: Zolpidem Tartrate 5 MG TAB PO SCH (20:32)
[2020-07-22] MEDS: guaiFENesin/Codeine Phosphate 200 mg/20 mg 10 ml UD Cup PER TUBE PRN (02:41)
[2020-07-22 03:08] LABS: #Eosinphils 0.1 thou/uL (0.0-0.7); #Lymphocytes 1.9 thou/uL (1.20-3.40); #Monocytes 0.4 thou/uL (0.11-0.59); #Neutrophils 6.1 thou/uL (1.40-6.50); %Basophils 0.3 % (0.0-1.0); %Eosinophils 0.9 % (0.0-10.0); %Lymphocytes 22.1 % (21.0-51.0); %Monocytes 4.8 % (0.0-10.0); %Neutrophils 71.9 % (42.0-75.0); Hemoglobin 10.1 g/dL (14.0-18.0); Mean Corpuscular HGB CONC 36.8 g/dL (32.0-36.0); Mean Corpuscular Hemoglobin 29.1 pg (27.0-31.0); Mean Corpuscular Volume 79.2 fL (78.0-98.0); Mean Platelet Volume 6.7 fL (7.4-10.4); Platelet Count 300 thou/uL (130-400); RBC Distribution Width 17.9 % (11.5-14.5); Red Blood Cell (RBC) Count 3.46 mill/uL (4.70-6.10); White Blood Cell (WBC) Count 8.5 thou/uL (4.8-10.8)
[2020-07-22 03:53] LABS: Anion Gap 15 mmol/L (10-20); BUN (Urea Nitrogen) 14 mg/dL (8.4-25.7); Calc. Creatinine Clearance 113 mL/min (70-130); Calcium 8.9 mg/dL (7.8-10.44); Carbon Dioxide 30 mmol/L (22-29); Chloride 102 mmol/L (98-107); Glucose 113 mg/dL (70-105); Potassium 3.5 mmol/L (3.5-5.1); Sodium 143 mmol/L (136-145)
--- NOTE | 2020-07-22 07:23 | PRG ---
DATE OF SERVICE: 07/19/2020 SUBJECTIVE: Krish Guallpa is doing amazingly well. He has a speaking valve. He is in no distress. He is able to lift his arms off the bed. OBJECTIVE: VITAL SIGNS: Heart rate is in 90s, blood pressure 116/87, respiratory rates in the 20s. LUNGS: Remarkable for coarse equal breath sounds. HEART: Regular rhythm. ABDOMEN: Soft. LABORATORY DATA: There is no new lab today. IMPRESSION: 1. Respiratory failure secondary to COVID-19 pneumonia. 2. 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 His diet is being advanced. We will keep him on a high-protein lower carb diet. Decrease CO2 . In theory, with his muscle weakness, he is still sensitive to small issues like this. Job ID: [id number]
[2020-07-22] MEDS: Pantoprazole 40 MG GRANULES PACKET PER TUBE SCH (08:00)
[2020-07-22] MEDS ORDERED: predniSONE 20 MG TAB PO SCH ×2 (08:00→08:45)
[2020-07-22] MEDS: Cholecalciferol 1,000 UNITS (25 MCG) TAB PER TUBE SCH (08:00)
[2020-07-22] MEDS: Benzonatate 100 MG CAP PO SCH ×3 (08:01→20:55)
[2020-07-22] MEDS: Calcium Carbonate 600 MG + Vit D TAB PER TUBE SCH ×2 (08:01→18:02)
[2020-07-22] MEDS: Zinc Sulfate 220 MG CAP PER TUBE SCH (08:01)
[2020-07-22] MEDS: Nystatin Powder 15 GM BOT TOP SCH ×2 (08:02→20:58)
[2020-07-22] MEDS: COMPOUND VEHICLE SF PER TUBE SCH (08:02)
[2020-07-22] MEDS: VALGANCICLOVIR HCL PER TUBE SCH (08:02)
[2020-07-22] MEDS: Multivit, Therapeutic 1 TAB PER TUBE SCH (08:02)
[2020-07-22] MEDS: Mometasone 200 MCG/Formoterol 5 MCG 120 PUFF INHALER INH SCH ×2 (08:15→18:24)
--- NOTE | 2020-07-22 08:49 | PRG ---
DATE OF SERVICE: 07/22/2020 SUBJECTIVE: The patient is having difficulty sleeping at night. He is also having severe anxiety spells. OBJECTIVE: VITAL SIGNS: Temperature 97.9, pulse 104, blood pressure 116/77, O2 saturation 100%. 24-hour intake 1505, output 1150. HEENT: Unremarkable. NECK: Trach in good position. LUNGS: Fairly clear. CARDIAC: S1 and S2. Regular. ABDOMEN: Soft. EXTREMITIES: No edema. LABORATORY DATA: White blood cell count 8.5, hematocrit 27.4, and platelet count 300. Sodium 143, potassium 3.5, chloride 102, CO2 of 30, BUN 14, creatinine 0.6, and glucose 113. ASSESSMENT: 1. COVID-19 pneumonia. 2. Status post respiratory failure requiring mechanical ventilation. 3. Anxiety. PLAN: The patient is continuing anticoagulation. I am going to reduce the dose of the steroids. I have added some Zoloft for anxiety/depression. He can take Xanax orally during the day. Additionally, I have added some melatonin at night. He is ready for rehab when accepted. Job ID: [id number]
[2020-07-22] MEDS: Apixaban 2.5 MG TAB PO SCH ×2 (09:00→20:55)
[2020-07-22] MEDS: Ascorbic Acid 500 mg Chewable Tablet PER TUBE SCH (09:00)
[2020-07-22] MEDS: ALPRAZolam 0.25 MG TAB PO PRN ×2 (10:55→20:57)
--- NOTE | 2020-07-22 11:08 | PRG ---
DATE OF SERVICE: 07/19/2020 SUBJECTIVE: Mr. Guallpa did well overnight. He has had no fever or chills. He is doing well without mechanical ventilation and does not want nocturnal ventilation. OBJECTIVE: VITAL SIGNS: Have been stable. LUNGS: Distant, clear. HEART: Regular rhythm. ABDOMEN: Soft. EXTREMITIES: Without asymmetry or edema. He is able to lift his arms off the bed. He has lost a significant amount of weight since he has been admitted. His admitting weight was 164. His weight is now 135. IMPRESSION: 1. COVID pneumonia with respiratory failure, requiring a tracheostomy and a PEG. 2. Critical illness myopathy. 3. Profound weight loss with this illness. Overall, he is progressing nicely. We may be able to downsize his trach before . Job ID: [id number]
--- NOTE | 2020-07-22 12:31 | PDOC.HOSPP ---
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 Patient didn't sleep last night due to anxiety. Feels very tired. SOB with movement and talking. Able to eat soft foods but doesn't have an appetite. Having good bowel movements. - Objective Vital Signs & Weight: Vital Signs (12 hours) Temp Pulse Resp Pulse Ox 07/22/20 10:24 113 H 30 H 07/22/20 08:15 114 H 23 H 07/22/20 08:00 98.2 F 07/22/20 03:00 97.9 F 07/22/20 02:43 116 H 32 H 96 Weight Admit Weight 157 lb 4.8 oz Weight 132 lb 6.4 oz Most Recent Monitor Data Heart Rate from ECG 104 NIBP 116/77 NIBP BP-Mean 90 Respiration from ECG 30 SpO2 100 I&O: 07/21/20 07/22/20 07/23/20 06:59 06:59 06:59 Intake Total 2940 1505 90 Output Total 2570 1150 240 Balance 370 355 -150 Result Diagrams: 07/22/20 02:50 07/22/20 02:50 Additional Labs: Accuchecks 07/22/20 07/22/20 11:16 02:49 POC Glucose 170 H 97 Hospitalist ROS - Review of Systems Constitutional: reports: weakness Respiratory: reports: SOB with excertion Cardiovascular: denies: chest pain Gastrointestinal: denies: nausea, vomiting Other: anxious - Medication Medications: Active Medications Generic Name Dose Route Start Last Admin Trade Name Stevenq PRN Reason Stop Dose Admin Acetaminophen 650 mg 06/29/20 11:10 07/08/20 07:52 Acetaminophen 650 Mg Suppository [place] 650 mg Q6H PRN Administration TEMP>101 Acetaminophen 650 mg 07/12/20 19:30 07/19/20 23:31 Acetaminophen 325 Mg Tab PER TUBE 650 mg Q4H PRN Administration Fever >= 101/MINOR DISCOMFORT Albuterol/Ipratropium 3 ml 06/28/20 14:30 07/22/20 10:24 Ipratropium/Albuterol Sulfate 3 Ml Neb NEB 3 ml [id number] JEOVANNY Administration Apixaban 2.5 mg 07/20/20 21:00 07/22/20 09:00 Apixaban 2.5 Mg Tab PO 2.5 mg BID JEOVANNY Administration Ascorbic Acid 1,000 mg 07/06/20 09:00 07/22/20 09:00 Ascorbic Acid 500 Mg Chewable Tablet PER TUBE 1,000 mg DAILY JEOVANNY Administration Benzonatate 200 mg 07/20/20 15:00 07/22/20 08:01 Benzonatate 100 Mg Cap PO 200 mg TID JEOVANNY Administration Bisacodyl 10 mg 07/03/20 13:43 07/10/20 15:31 Bisacodyl 10 Mg Supp ID 10 mg DAILY PRN Administration Constipation Calcium/Vitamin D 1 tab 07/05/20 17:00 07/22/20 08:01 Calcium Carbonate 600 Mg + Vit D Tab PER TUBE 1 tab BID-WM JEOVANNY Administration Cholecalciferol 5,000 units 07/06/20 09:00 07/22/20 08:00 Cholecalciferol 1,000 Units (25 Mcg) Tab PER TUBE 5,000 units DAILY JEOVANNY Administration Valganciclovir 7,200 mg/ 0 mg 07/19/20 09:00 07/22/20 08:02 Miscellaneous 120 ml PER TUBE 08/01/20 09:01 120 ml DAILY JEOVANNY Administration Guaifenesin 100 mg 07/14/20 22:26 07/16/20 01:38 Diabetic Tussin 200 Mg/10 Ml Udcup PER TUBE 100 mg Q4H PRN Administration Cough Guaifenesin/Codeine Phosphate 10 ml 07/05/20 16:30 07/22/20 02:41 Guaifenesin/Codeine Phosphate 200 Mg/20 Mg 10 Ml Ud Cup PER TUBE 10 ml Q4H PRN Administration Cough Insulin Human Lispro 0 units 06/30/20 07:56 07/15/20 13:37 Humalog 300 Units/3 Ml Vial SC 2 unit .MODERATE SLIDING SC PRN Administration Moderate Correctional Scale Lorazepam 1 mg 07/12/20 10:16 07/21/20 20:36 Lorazepam 1 Mg Tab PO 1 mg Q4H PRN Administration Anxiety/Agitation Melatonin 3 mg 07/16/20 21:00 07/21/20 20:32 Melatonin 3 Mg Tab PO 3 mg HS JEOVANNY Administration Mometasone Furoate/Formoterol Fumar 2 puff 06/14/20 18:30 07/22/20 08:15 Mometasone 200 Mcg/Formoterol 5 Mcg 120 Puff Inhaler INH 2 puff BID-RT JEOVANNY Administration Multivitamins 1 tab 07/06/20 09:00 07/22/20 08:02 Multivit, Therapeutic 1 Tab PER TUBE 1 tab DAILY JEOVANNY Administration Nystatin 0 gm 07/08/20 21:00 07/22/20 08:02 Nystatin Powder 15 Gm Bot TOP 1 applic BID JEOVANNY Administration Pantoprazole Sodium 40 mg 07/20/20 09:00 07/22/20 08:00 Pantoprazole 40 Mg Granules Packet PER TUBE 40 mg DAILY JEOVANNY Administration Polyethylene Glycol 17 gm 07/02/20 09:51 07/10/20 02:11 Polyethylene Glycol 3350 17 Gm Packet PER TUBE 17 gm DAILY PRN Administration Constipation Sertraline HCl 25 mg 07/22/20 09:00 07/22/20 08:52 Sertraline Hcl 25 Mg Tab PO 25 mg DAILY JEOVANNY Administration Sodium Chloride 10 ml 06/15/20 09:00 07/22/20 08:02 Flush - Normal Saline 10 Ml Syringe IVF 10 ml Q12HR JEOVANNY Administration Sodium Chloride 10 ml 06/15/20 06:30 06/20/20 01:35 Flush - Normal Saline 10 Ml Syringe IVF 10 ml PRN PRN Administration Saline Flush Zinc Sulfate 220 mg 07/06/20 09:00 07/22/20 08:01 Zinc Sulfate 220 Mg Cap PER TUBE 220 mg DAILY JEOVANNY Administration Zolpidem Tartrate 10 mg 07/14/20 22:00 07/21/20 20:32 Zolpidem Tartrate 5 Mg Tab PO 10 mg 2200 JEOVANNY Administration - Exam General Appearance: awake alert Eye: PERRL ENT: normocephalic atraumatic Neck: supple Neck - other findings: trach functioning Heart: RRR, no murmur, no gallops Respiratory: CTAB, no wheezes, no rales, no ronchi, normal chest expansion Gastrointestinal: soft, non-tender, non-distended, normal bowel sounds Musculoskeletal: generalized weakness Musculoskeletal - other findings: deconditioning secondary to COVID course Psychiatric: normal affect, A&O x 3 Hosp A/P - Plan (1) Acute respiratory failure with hypoxia Code(s): J96.01 - ACUTE RESPIRATORY FAILURE WITH HYPOXIA Status: Acute (2) Pneumonia due to COVID-19 virus Code(s): U07.1 - COVID-19; J12.89 - OTHER VIRAL PNEUMONIA Status: Acute (3) CMV infection Code(s): B25.9 - CYTOMEGALOVIRAL DISEASE, UNSPECIFIED Status: Acute (4) Hypernatremia Code(s): E87.0 - HYPEROSMOLALITY AND HYPERNATREMIA Status: Acute (5) Normocytic anemia Code(s): D64.9 - ANEMIA, UNSPECIFIED Status: Acute - Plan * Acute respiratory failure due to COVID pneumonia- * - stable on CPAP * Slow steroid aldo * * CMV infection- continue Valganciclovir. * FEN- tolerating tube feeds at his goal rate of 65ml/hr * Anemia- * -stable * Generalized muscle weakness * Deconditioning with the Covid pneumonia * - * Continue PT/OT * * Full code * LTAC --pending He is improving on a daily basis. He has a good appetite. Speech therapy evaluated him yesterday and started him on pured diet in addition to tube feed. He is getting free water 200 mL every 6 hours along with the 65 mL/h of tube feed. His urine output is good this morning around 580 mL so far. No White. Using urinal. he is able to participate with physical therapy able to stand for few minutes. Is also using neuro chair. 1st Dysphagia - tolerates soft foods but has reduced appetite Anxiety and depression - Zoloft added - Xanax during the day PRN - Melatonin and Zolpidem added to help with sleep DM - Continue Humalog Disposition -rehab when accepted Care discussed with the student and agree with the above management
[2020-07-22] MEDS: Melatonin 3 MG TAB PO SCH (20:55)
[2020-07-22] MEDS: Zolpidem Tartrate 5 MG TAB PO SCH (20:56)
[2020-07-23] MEDS: guaiFENesin/Codeine Phosphate 200 mg/20 mg 10 ml UD Cup PER TUBE PRN (04:34)
[2020-07-23] MEDS: Melatonin 3 MG TAB PO SCH ×3 (05:23→22:22)
[2020-07-23] MEDS: Mometasone 200 MCG/Formoterol 5 MCG 120 PUFF INHALER INH SCH ×2 (07:20→19:15)
[2020-07-23] MEDS: Calcium Carbonate 600 MG + Vit D TAB PER TUBE SCH ×2 (08:49→16:25)
[2020-07-23] MEDS: Pantoprazole 40 MG GRANULES PACKET PER TUBE SCH (08:49)
[2020-07-23] MEDS: Ascorbic Acid 500 mg Chewable Tablet PER TUBE SCH (08:49)
[2020-07-23] MEDS: Apixaban 2.5 MG TAB PO SCH ×2 (08:49→20:40)
[2020-07-23] MEDS: Cholecalciferol 1,000 UNITS (25 MCG) TAB PER TUBE SCH (08:50)
[2020-07-23] MEDS: Benzonatate 100 MG CAP PO SCH ×3 (08:50→20:40)
[2020-07-23] MEDS: Multivit, Therapeutic 1 TAB PER TUBE SCH (08:51)
[2020-07-23] MEDS: Zinc Sulfate 220 MG CAP PER TUBE SCH (08:51)
[2020-07-23] MEDS: predniSONE 20 MG TAB PO SCH (08:52)
[2020-07-23] MEDS: Nystatin Powder 15 GM BOT TOP SCH ×2 (08:53→21:40)
--- NOTE | 2020-07-23 10:36 | PRG ---
DATE OF SERVICE: 07/23/2020 SUBJECTIVE: The patient is doing very well today, had no acute complaints except for some coughing spells. PHYSICAL EXAMINATION: VITAL SIGNS: O2 saturations 100% on a 28% trach collar. Heart rate 92, blood pressure 125/79. HEENT: Unremarkable. NECK: Trach in good position. LUNGS: Clear anteriorly. CARDIAC: S1 and S2, regular. ABDOMEN: Soft. EXTREMITIES: No edema. LABORATORY DATA: No labs were obtained today. ASSESSMENT: COVID-19 pneumonia, status post prolonged mechanical ventilation, tracheostomy placement and PEG tube placement. The patient has improved significantly since admission. PLAN: 1. Trach capping trials today with plans to decannulate soon. 2. Xanax for anxiety. Zoloft for depression. 3. Continue to push physical therapy. Job ID: [id number]
--- NOTE | 2020-07-23 10:47 | PDOC.HOSPP ---
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 He was able to walk 5 steps with PT yesterday and is able to adjust himself in bed. He has also been able to sit in the neuro chair for extended time. Not getting as short of breath when speaking. Still has reduced appetite but is not having problems with dysphagia. Normal bowel movements. - Objective Vital Signs & Weight: Vital Signs (12 hours) Pulse Resp Pulse Ox 07/23/20 10:24 100 28 H 100 07/23/20 07:16 104 H 31 H 100 07/23/20 02:07 93 27 H 100 Weight Admit Weight 157 lb 4.8 oz Weight 132 lb 6.4 oz Most Recent Monitor Data Heart Rate from ECG 92 NIBP 125/79 NIBP BP-Mean 94 Respiration from ECG 34 SpO2 100 I&O: 07/22/20 07/23/20 07/24/20 06:59 06:59 06:59 Intake Total 1505 1458 Output Total 1150 1075 0 Balance 355 383 0 Result Diagrams: 07/22/20 02:50 07/22/20 02:50 Additional Labs: Accuchecks 07/23/20 07/22/20 07/22/20 09:36 18:10 11:16 POC Glucose 109 H 138 H 170 H Hospitalist ROS - Review of Systems Constitutional: reports: weakness Respiratory: reports: SOB with excertion. denies: cough, hemoptysis Cardiovascular: denies: chest pain, palpitations Gastrointestinal: denies: nausea, vomiting, abdominal pain, diarrhea, constipation - Medication Medications: Active Medications Generic Name Dose Route Start Last Admin Trade Name Freq PRN Reason Stop Dose Admin Acetaminophen 650 mg 06/29/20 11:10 07/08/20 07:52 Acetaminophen 650 Mg Suppository [place] 650 mg Q6H PRN Administration TEMP>101 Acetaminophen 650 mg 07/12/20 19:30 07/19/20 23:31 Acetaminophen 325 Mg Tab PER TUBE 650 mg Q4H PRN Administration Fever >= 101/MINOR DISCOMFORT Albuterol/Ipratropium 3 ml 06/28/20 14:30 07/23/20 10:24 Ipratropium/Albuterol Sulfate 3 Ml Neb NEB 3 ml [id number] JEOVANNY Administration Alprazolam 0.25 mg 07/22/20 08:33 07/22/20 20:57 Alprazolam 0.25 Mg Tab PO 0.25 mg TIDPRN PRN Administration Anxiety Apixaban 2.5 mg 07/20/20 21:00 07/23/20 08:49 Apixaban 2.5 Mg Tab PO 2.5 mg BID JEOVANNY Administration Ascorbic Acid 1,000 mg 07/06/20 09:00 07/23/20 08:49 Ascorbic Acid 500 Mg Chewable Tablet PER TUBE 1,000 mg DAILY JEOVANNY Administration Benzonatate 200 mg 07/20/20 15:00 07/23/20 08:50 Benzonatate 100 Mg Cap PO 200 mg TID JEOVANNY Administration Bisacodyl 10 mg 07/03/20 13:43 07/10/20 15:31 Bisacodyl 10 Mg Supp [place] 10 mg DAILY PRN Administration Constipation Calcium/Vitamin D 1 tab 07/05/20 17:00 07/23/20 08:49 Calcium Carbonate 600 Mg + Vit D Tab PER TUBE 1 tab BID-WM JEOVANNY Administration Cholecalciferol 5,000 units 07/06/20 09:00 07/23/20 08:50 Cholecalciferol 1,000 Units (25 Mcg) Tab PER TUBE 5,000 units DAILY JEOVANNY Administration Guaifenesin 100 mg 07/14/20 22:26 07/16/20 01:38 Diabetic Tussin 200 Mg/10 Ml Udcup PER TUBE 100 mg Q4H PRN Administration Cough Guaifenesin/Codeine Phosphate 10 ml 07/05/20 16:30 07/23/20 04:34 Guaifenesin/Codeine Phosphate 200 Mg/20 Mg 10 Ml Ud Cup PER TUBE 10 ml Q4H PRN Administration Cough Insulin Human Lispro 0 units 06/30/20 07:56 07/15/20 13:37 Humalog 300 Units/3 Ml Vial SC 2 unit .MODERATE SLIDING SC PRN Administration Moderate Correctional Scale Lorazepam 1 mg 07/12/20 10:16 07/21/20 20:36 Lorazepam 1 Mg Tab PO 1 mg Q4H PRN Administration Anxiety/Agitation Melatonin 3 mg 07/16/20 21:00 07/23/20 05:23 Melatonin 3 Mg Tab PO Not Given HS JEOVANNY Melatonin 10 mg 07/22/20 21:00 07/22/20 20:55 Melatonin 3 Mg Tab PO 10 mg HS JEOVANNY Administration Mometasone Furoate/Formoterol Fumar 2 puff 06/14/20 18:30 07/23/20 07:20 Mometasone 200 Mcg/Formoterol 5 Mcg 120 Puff Inhaler INH 2 puff BID-RT JEOVANNY Administration Multivitamins 1 tab 07/06/20 09:00 07/23/20 08:51 Multivit, Therapeutic 1 Tab PER TUBE 1 tab DAILY JEOVANNY Administration Nystatin 0 gm 07/08/20 21:00 07/23/20 08:53 Nystatin Powder 15 Gm Bot TOP 1 applic BID JEOVANNY Administration Pantoprazole Sodium 40 mg 07/20/20 09:00 07/23/20 08:49 Pantoprazole 40 Mg Granules Packet PER TUBE 40 mg DAILY JEOVANNY Administration Polyethylene Glycol 17 gm 07/02/20 09:51 07/10/20 02:11 Polyethylene Glycol 3350 17 Gm Packet PER TUBE 17 gm DAILY PRN Administration Constipation Prednisone 10 mg 07/23/20 08:00 07/23/20 08:52 Prednisone 20 Mg Tab PO 10 mg QAM-WM JEOVANNY Administration Sertraline HCl 25 mg 07/22/20 09:00 07/23/20 08:51 Sertraline Hcl 25 Mg Tab PO 25 mg DAILY JEOVANNY Administration Sodium Chloride 10 ml 06/15/20 09:00 07/23/20 08:53 Flush - Normal Saline 10 Ml Syringe IVF 10 ml Q12HR JEOVANNY Administration Sodium Chloride 10 ml 06/15/20 06:30 06/20/20 01:35 Flush - Normal Saline 10 Ml Syringe IVF 10 ml PRN PRN Administration Saline Flush Zinc Sulfate 220 mg 07/06/20 09:00 07/23/20 08:51 Zinc Sulfate 220 Mg Cap PER TUBE 220 mg DAILY JEOVANNY Administration Zolpidem Tartrate 10 mg 07/14/20 22:00 07/22/20 20:56 Zolpidem Tartrate 5 Mg Tab PO 10 mg 2200 JEOVANNY Administration - Exam General Appearance: NAD Eye: PERRL, anicteric sclera ENT: normocephalic atraumatic Neck: supple Neck - other findings: trach visible Heart: RRR, no murmur, no gallops Respiratory: CTAB, no wheezes, no rales, no ronchi Gastrointestinal: soft, non-tender, non-distended, normal bowel sounds Extremities: no edema Neurological: cranial nerve grossly intact Musculoskeletal: generalized weakness Psychiatric: normal affect, A&O x 3 Hosp A/P - Plan (1) Acute respiratory failure with hypoxia Code(s): J96.01 - ACUTE RESPIRATORY FAILURE WITH HYPOXIA Status: Acute (2) Pneumonia due to COVID-19 virus Code(s): U07.1 - COVID-19; J12.89 - OTHER VIRAL PNEUMONIA Status: Acute (3) CMV infection Code(s): B25.9 - CYTOMEGALOVIRAL DISEASE, UNSPECIFIED Status: Acute (4) Hypernatremia Code(s): E87.0 - HYPEROSMOLALITY AND HYPERNATREMIA Status: Acute (5) Normocytic anemia Code(s): D64.9 - ANEMIA, UNSPECIFIED Status: Acute - Plan * Acute respiratory failure due to COVID pneumonia- * - stable on CPAP * Slow steroid aldo * * CMV infection- continue Valganciclovir. * FEN- tolerating tube feeds at his goal rate of 65ml/hr * Anemia- * -stable * Generalized muscle weakness * Deconditioning with the Covid pneumonia * - * Continue PT/OT * * Full code * LTAC --pending He is improving on a daily basis. He has a good appetite. Speech therapy evaluated him yesterday and started him on pured diet in addition to tube feed. He is getting free water 200 mL every 6 hours along with the 65 mL/h of tube feed. His urine output is good this morning around 580 mL so far. No White. Using urinal. he is able to participate with physical therapy able to stand for few minutes. Is also using neuro chair. 1st Dysphagia - tolerates soft foods but has reduced appetite Anxiety and depression - Zoloft added - Xanax during the day PRN - Melatonin and Zolpidem added to help with sleep DM - Continue Humalog Disposition -rehab when accepted 07/23/2020 Significant improvement since yesterday With physical therapy assistance, he is mobilized.. Anxiety and depression - decreased DM - improving glucose control with steroid taper. I spent little time chatting with the patient and the spouse. He is in quite a cheerful mood. Care discussed with the student and agree with the above management
[2020-07-23] MEDS: ALPRAZolam 0.25 MG TAB PO PRN ×2 (12:38→20:42)
--- NOTE | 2020-07-23 13:53 | RAD ---
EXAM: XR Ba Swallow W/Speech Therap PROVIDED CLINICAL HISTORY: Dysphagia, unspecified. Feeding difficulties. COMPARISON: None FINDINGS: This examination was performed in conjunction with speech pathology. Varying consistencies of barium were administered during the exam. Patient demonstrates normal formation of bolus into the posterior pharynx. There is a single episode of aspiration of thin liquid barium by straw with approp riate cough reflex elicited. No additional episodes of aspiration were noted during the exam, and there is no significant pooling seen within the vallecula or piriform sinuses. IMPRESSION: Single episode of aspiration with thin liquid barium by straw.
[2020-07-23] MEDS: HumaLOG 300 UNITS/3 ML VIAL SC PRN (16:25)
[2020-07-23] MEDS: Zolpidem Tartrate 5 MG TAB PO SCH (20:41)
[2020-07-24] MEDS ORDERED: fentaNYL Citrate/PF 2,000 MCG in Sodium Chloride 0.9% 60 ML IV SCH (04:45)
--- NOTE | 2020-07-24 08:04 | PRG ---
DATE OF SERVICE: 07/24/2020 SUBJECTIVE: The patient is doing extremely well. He did pass a swallowing study yesterday. He tolerated capping of his tracheostomy yesterday. OBJECTIVE: VITAL SIGNS: His heart rate is 98, O2 saturation 100% on 2 L nasal cannula. Blood pressure 116/81. HEENT: Unremarkable. NECK: No JVD. Trach in good position. LUNGS: Clear. CARDIAC: S1, S2. Regular. ABDOMEN: Soft. EXTREMITIES: No edema. LABORATORY DATA: None were done today. ASSESSMENT: Status post coronavirus disease 2019 pneumonia with prolonged respiratory failure. PLAN: I have decannulated his tracheostomy and removed the one remaining tracheostomy suture. He is ready for rehab. If for some reason rehab transfer is being delayed, then he can be transferred up to the medical floor. In terms of his steroids, I would give him prednisone for one more week and then discontinue that. Hopefully, his oral intake increases, then we can discontinue his tube feeds. Job ID: [id number]
[2020-07-24] MEDS: Mometasone 200 MCG/Formoterol 5 MCG 120 PUFF INHALER INH SCH ×2 (08:20→19:08)
[2020-07-24] MEDS: Calcium Carbonate 600 MG + Vit D TAB PER TUBE SCH ×2 (08:52→17:09)
[2020-07-24] MEDS: Cholecalciferol 1,000 UNITS (25 MCG) TAB PER TUBE SCH (08:52)
[2020-07-24] MEDS: Benzonatate 100 MG CAP PO SCH ×3 (08:54→20:12)
[2020-07-24] MEDS: Ascorbic Acid 500 mg Chewable Tablet PER TUBE SCH (08:54)
[2020-07-24] MEDS: Apixaban 2.5 MG TAB PO SCH ×2 (08:55→20:12)
[2020-07-24] MEDS: Multivit, Therapeutic 1 TAB PER TUBE SCH (08:55)
[2020-07-24] MEDS: predniSONE 20 MG TAB PO SCH (08:55)
[2020-07-24] MEDS: Pantoprazole 40 MG GRANULES PACKET PER TUBE SCH (08:55)
[2020-07-24] MEDS: Zinc Sulfate 220 MG CAP PER TUBE SCH (08:56)
[2020-07-24] MEDS: Nystatin Powder 15 GM BOT TOP SCH ×2 (08:57→20:53)
--- NOTE | 2020-07-24 14:05 | PDOC.HOSPP ---
- Subjective Encounter Date: 07/24/20 Encounter Time: 11:45 Subjective: Patient looks well. He is check tube has removed. He has a small dressing and it looks clean. He is eating. Daughter at bedside. He appears well. Plan to send him to rehab today. - Objective Vital Signs & Weight: Vital Signs (12 hours) Temp Pulse Resp Pulse Ox 07/24/20 12:00 98.1 F 07/24/20 11:20 111 H 34 H 100 07/24/20 08:19 89 28 H 100 07/24/20 08:00 100 07/24/20 07:00 97.6 F Weight Admit Weight 157 lb 4.8 oz Weight 128 lb 11.2 oz Most Recent Monitor Data Heart Rate from ECG 117 NIBP 107/79 NIBP BP-Mean 88 Respiration from ECG 47 SpO2 100 I&O: 07/23/20 07/24/20 07/25/20 06:59 06:59 06:59 Intake Total 1458 1135 480 Output Total 1075 1170 440 Balance 383 -35 40 Result Diagrams: 07/22/20 02:50 07/22/20 02:50 Additional Labs: Accuchecks 07/24/20 07/23/20 07/23/20 08:34 20:44 16:18 POC Glucose 106 H 157 H 208 H Hospitalist ROS - Medication Medications: Active Medications Generic Name Dose Route Start Last Admin Trade Name Freq PRN Reason Stop Dose Admin Acetaminophen 650 mg 06/29/20 11:10 07/08/20 07:52 Acetaminophen 650 Mg Suppository [place] 650 mg Q6H PRN Administration TEMP>101 Acetaminophen 650 mg 07/12/20 19:30 07/19/20 23:31 Acetaminophen 325 Mg Tab PER TUBE 650 mg Q4H PRN Administration Fever >= 101/MINOR DISCOMFORT Albuterol/Ipratropium 3 ml 06/28/20 14:30 07/24/20 11:20 Ipratropium/Albuterol Sulfate 3 Ml Neb NEB 3 ml [id number] JEOVANNY Administration Alprazolam 0.25 mg 07/22/20 08:33 07/23/20 20:42 Alprazolam 0.25 Mg Tab PO 0.25 mg TIDPRN PRN Administration Anxiety Apixaban 2.5 mg 07/20/20 21:00 07/24/20 08:55 Apixaban 2.5 Mg Tab PO 2.5 mg BID JEOVANNY Administration Ascorbic Acid 1,000 mg 07/06/20 09:00 07/24/20 08:54 Ascorbic Acid 500 Mg Chewable Tablet PER TUBE 1,000 mg DAILY JEOVANNY Administration Benzonatate 200 mg 07/20/20 15:00 07/24/20 08:54 Benzonatate 100 Mg Cap PO 200 mg TID JEOVANNY Administration Bisacodyl 10 mg 07/03/20 13:43 07/10/20 15:31 Bisacodyl 10 Mg Supp [place] 10 mg DAILY PRN Administration Constipation Calcium/Vitamin D 1 tab 07/05/20 17:00 07/24/20 08:52 Calcium Carbonate 600 Mg + Vit D Tab PER TUBE 1 tab BID-WM JEOVANNY Administration Cholecalciferol 5,000 units 07/06/20 09:00 07/24/20 08:52 Cholecalciferol 1,000 Units (25 Mcg) Tab PER TUBE 5,000 units DAILY JEOVANNY Administration Guaifenesin 100 mg 07/14/20 22:26 07/16/20 01:38 Diabetic Tussin 200 Mg/10 Ml Udcup PER TUBE 100 mg Q4H PRN Administration Cough Guaifenesin/Codeine Phosphate 10 ml 07/05/20 16:30 07/23/20 04:34 Guaifenesin/Codeine Phosphate 200 Mg/20 Mg 10 Ml Ud Cup PER TUBE 10 ml Q4H PRN Administration Cough Insulin Human Lispro 0 units 06/30/20 07:56 07/23/20 16:25 Humalog 300 Units/3 Ml Vial SC 4 unit .MODERATE SLIDING SC PRN Administration Moderate Correctional Scale Lorazepam 1 mg 07/12/20 10:16 07/21/20 20:36 Lorazepam 1 Mg Tab PO 1 mg Q4H PRN Administration Anxiety/Agitation Mometasone Furoate/Formoterol Fumar 2 puff 06/14/20 18:30 07/24/20 08:20 Mometasone 200 Mcg/Formoterol 5 Mcg 120 Puff Inhaler INH 2 puff BID-RT JEOVANNY Administration Multivitamins 1 tab 07/06/20 09:00 07/24/20 08:55 Multivit, Therapeutic 1 Tab PER TUBE 1 tab DAILY JEOVANNY Administration Nystatin 0 gm 07/08/20 21:00 07/24/20 08:57 Nystatin Powder 15 Gm Bot TOP 1 applic BID JEOVANNY Administration Pantoprazole Sodium 40 mg 07/20/20 09:00 07/24/20 08:55 Pantoprazole 40 Mg Granules Packet PER TUBE 40 mg DAILY JEOVANNY Administration Polyethylene Glycol 17 gm 07/02/20 09:51 07/10/20 02:11 Polyethylene Glycol 3350 17 Gm Packet PER TUBE 17 gm DAILY PRN Administration Constipation Prednisone 10 mg 07/23/20 08:00 07/24/20 08:55 Prednisone 20 Mg Tab PO 10 mg QAM-WM JEOVANNY Administration Sertraline HCl 25 mg 07/22/20 09:00 07/24/20 08:55 Sertraline Hcl 25 Mg Tab PO 25 mg DAILY JEOVANNY Administration Sodium Chloride 10 ml 06/15/20 09:00 07/24/20 08:56 Flush - Normal Saline 10 Ml Syringe IVF 10 ml Q12HR JEOVANNY Administration Sodium Chloride 10 ml 06/15/20 06:30 06/20/20 01:35 Flush - Normal Saline 10 Ml Syringe IVF 10 ml PRN PRN Administration Saline Flush Zinc Sulfate 220 mg 07/06/20 09:00 07/24/20 08:56 Zinc Sulfate 220 Mg Cap PER TUBE 220 mg DAILY JEOVANNY Administration Zolpidem Tartrate 10 mg 07/14/20 22:00 07/23/20 20:41 Zolpidem Tartrate 5 Mg Tab PO 10 mg 2200 JEOVANNY Administration - Exam General Appearance: NAD, awake alert Eye: PERRL ENT: normocephalic atraumatic Neck: supple Heart: RRR Respiratory: CTAB, normal chest expansion Gastrointestinal: soft, normal bowel sounds Neurological: no focal deficits Psychiatric: A&O x 3 Hosp A/P - Plan (1) Acute respiratory failure with hypoxia Code(s): J96.01 - ACUTE RESPIRATORY FAILURE WITH HYPOXIA Status: Acute (2) Pneumonia due to COVID-19 virus Code(s): U07.1 - COVID-19; J12.89 - OTHER VIRAL PNEUMONIA Status: Acute (3) CMV infection Code(s): B25.9 - CYTOMEGALOVIRAL DISEASE, UNSPECIFIED Status: Acute (4) Hypernatremia Code(s): E87.0 - HYPEROSMOLALITY AND HYPERNATREMIA Status: Acute (5) Normocytic anemia Code(s): D64.9 - ANEMIA, UNSPECIFIED Status: Acute - Plan * Acute respiratory failure due to COVID pneumonia- * - stable on CPAP * Slow steroid aldo * * CMV infection- continue Valganciclovir. * FEN- tolerating tube feeds at his goal rate of 65ml/hr * Anemia- * -stable * Generalized muscle weakness * Deconditioning with the Covid pneumonia * - * Continue PT/OT * * Full code * LTAC --pending He is improving on a daily basis. He has a good appetite. Speech therapy evaluated him yesterday and started him on pured diet in addition to tube feed. He is getting free water 200 mL every 6 hours along with the 65 mL/h of tube feed. His urine output is good this morning around 580 mL so far. No White. Using urinal. he is able to participate with physical therapy able to stand for few minutes. Is also using neuro chair. 1st Dysphagia - tolerates soft foods but has reduced appetite Anxiety and depression - Zoloft added - Xanax during the day PRN - Melatonin and Zolpidem added to help with sleep With physical therapy assistance, he is mobilized.. Anxiety and depression - decreased DM - improving glucose control with steroid taper. I spent little time chatting with the patient and the spouse. He is in quite a cheerful mood. Care discussed with the student and agree with the above management Plan to send him to rehab today.
[2020-07-24] MEDS: ALPRAZolam 0.25 MG TAB PO PRN (15:12)
[2020-07-24 15:51] VITALS: BP 138/92
[2020-07-24] MEDS: HumaLOG 300 UNITS/3 ML VIAL SC PRN (17:09)
[2020-07-24] MEDS: Melatonin 3 MG TAB PO SCH (20:13)
[2020-07-24] MEDS: Zolpidem Tartrate 5 MG TAB PO SCH (20:14)
[2020-07-25] MEDS: Mometasone 200 MCG/Formoterol 5 MCG 120 PUFF INHALER INH SCH ×2 (07:58→18:53)
[2020-07-25] MEDS ORDERED: Zolpidem Tartrate 5 MG TAB PO PRN (08:02)
--- NOTE | 2020-07-25 08:14 | PRG ---
DATE OF SERVICE: 07/25/2020 SUBJECTIVE: The patient is doing much better. The breathing treatments were aggravating his heart rate, but those were stopped yesterday. OBJECTIVE: VITAL SIGNS: Temperature 98.1, pulse 94, respirations 20, O2 saturation 100% on 2 L, blood pressure 132/90. HEENT: Unremarkable. NECK: No adenopathy or JVD. Trach site clear. CARDIAC: S1, S2. Regular. ABDOMEN: Soft. EXTREMITIES: No edema. LABORATORY DATA: No labs were obtained today. ASSESSMENT: Status post COVID-19 pneumonia-rapidly recovering. PLAN: His main complaint today is insomnia. Stopped the prednisone. He requested that his Ambien be made p.r.n. I would anticipate him having sleeping difficulties, going forward until he gets out of the hospital. We are hoping to get him over a rehab soon if insurance approves. Job ID: [id number]
[2020-07-25] MEDS: Benzonatate 100 MG CAP PO SCH ×3 (08:35→21:34)
[2020-07-25] MEDS: Cholecalciferol 1,000 UNITS (25 MCG) TAB PER TUBE SCH (08:36)
[2020-07-25] MEDS: Calcium Carbonate 600 MG + Vit D TAB PER TUBE SCH ×2 (08:37→18:08)
[2020-07-25] MEDS: Multivit, Therapeutic 1 TAB PER TUBE SCH (08:37)
[2020-07-25] MEDS: Ascorbic Acid 500 mg Chewable Tablet PER TUBE SCH (08:38)
[2020-07-25] MEDS: Zinc Sulfate 220 MG CAP PER TUBE SCH (08:39)
[2020-07-25] MEDS: Pantoprazole 40 MG GRANULES PACKET PER TUBE SCH (08:39)
[2020-07-25] MEDS: Apixaban 2.5 MG TAB PO SCH ×2 (08:58→21:34)
[2020-07-25] MEDS: Nystatin Powder 15 GM BOT TOP SCH ×2 (08:59→22:23)
[2020-07-25] MEDS: predniSONE 20 MG TAB PO SCH (09:28)
--- NOTE | 2020-07-25 10:05 | PDOC.HOSPP ---
- Subjective Encounter Date: 07/25/20 Encounter Time: 09:00 Subjective: Mr. Guallpa was sitting in the chair at the time of the visit and reported feeling well. Doing well after being decannulated. Better appetite with home food being brought by family. Improved strength. - Objective Vital Signs & Weight: Vital Signs (12 hours) Temp Pulse Ox 07/25/20 08:00 100 07/25/20 07:00 98.1 F 07/25/20 04:00 97.8 F 07/25/20 01:29 97 07/25/20 00:00 97.6 F Weight Admit Weight 157 lb 4.8 oz Weight 128 lb 11.2 oz Most Recent Monitor Data Heart Rate from ECG 90 NIBP 132/90 NIBP BP-Mean 104 Respiration from ECG 35 SpO2 100 I&O: 07/24/20 07/25/20 07/26/20 06:59 06:59 06:59 Intake Total 1135 1116 20 Output Total 1170 890 0 Balance -35 226 20 Result Diagrams: 07/22/20 02:50 07/22/20 02:50 Additional Labs: Accuchecks 07/24/20 07/24/20 19:39 08:34 POC Glucose 146 H 106 H Hospitalist ROS - Review of Systems Constitutional: reports: weakness Respiratory: reports: shortness of breath (sometimes with exertion). denies: cough, dry Cardiovascular: denies: chest pain, palpitations Gastrointestinal: denies: nausea, vomiting, abdominal pain, diarrhea, constipation - Medication Medications: Active Medications Generic Name Dose Route Start Last Admin Trade Name Freq PRN Reason Stop Dose Admin Acetaminophen 650 mg 06/29/20 11:10 07/08/20 07:52 Acetaminophen 650 Mg Suppository NE 650 mg Q6H PRN Administration TEMP>101 Acetaminophen 650 mg 07/12/20 19:30 07/19/20 23:31 Acetaminophen 325 Mg Tab PER TUBE 650 mg Q4H PRN Administration Fever >= 101/MINOR DISCOMFORT Alprazolam 0.25 mg 07/22/20 08:33 07/24/20 15:12 Alprazolam 0.25 Mg Tab PO 0.25 mg TIDPRN PRN Administration Anxiety Apixaban 2.5 mg 07/20/20 21:00 07/25/20 08:58 Apixaban 2.5 Mg Tab PO 2.5 mg BID JEOVANNY Administration Ascorbic Acid 1,000 mg 07/06/20 09:00 07/25/20 08:38 Ascorbic Acid 500 Mg Chewable Tablet PER TUBE 1,000 mg DAILY JEOVANNY Administration Benzonatate 200 mg 07/20/20 15:00 07/25/20 08:35 Benzonatate 100 Mg Cap PO 200 mg TID JEOVANNY Administration Bisacodyl 10 mg 07/03/20 13:43 07/10/20 15:31 Bisacodyl 10 Mg Supp NE 10 mg DAILY PRN Administration Constipation Calcium/Vitamin D 1 tab 07/05/20 17:00 07/25/20 08:37 Calcium Carbonate 600 Mg + Vit D Tab PER TUBE 1 tab BID-WM JEOVANNY Administration Cholecalciferol 5,000 units 07/06/20 09:00 07/25/20 08:36 Cholecalciferol 1,000 Units (25 Mcg) Tab PER TUBE 5,000 units DAILY JEOVANNY Administration Guaifenesin 100 mg 07/14/20 22:26 07/16/20 01:38 Diabetic Tussin 200 Mg/10 Ml Udcup PER TUBE 100 mg Q4H PRN Administration Cough Guaifenesin/Codeine Phosphate 10 ml 07/05/20 16:30 07/23/20 04:34 Guaifenesin/Codeine Phosphate 200 Mg/20 Mg 10 Ml Ud Cup PER TUBE 10 ml Q4H PRN Administration Cough Insulin Human Lispro 0 units 06/30/20 07:56 07/24/20 17:09 Humalog 300 Units/3 Ml Vial SC 2 unit .MODERATE SLIDING SC PRN Administration Moderate Correctional Scale Lorazepam 1 mg 07/12/20 10:16 07/21/20 20:36 Lorazepam 1 Mg Tab PO 1 mg Q4H PRN Administration Anxiety/Agitation Melatonin 9 mg 07/24/20 21:00 07/24/20 20:13 Melatonin 3 Mg Tab PO 9 mg HS JEOVANNY Administration Mometasone Furoate/Formoterol Fumar 2 puff 06/14/20 18:30 07/25/20 07:58 Mometasone 200 Mcg/Formoterol 5 Mcg 120 Puff Inhaler INH 2 puff BID-RT JEOVANNY Administration Multivitamins 1 tab 07/06/20 09:00 07/25/20 08:37 Multivit, Therapeutic 1 Tab PER TUBE 1 tab DAILY JEOVANNY Administration Nystatin 0 gm 07/08/20 21:00 07/25/20 08:59 Nystatin Powder 15 Gm Bot TOP Not Given BID JEOVANNY Pantoprazole Sodium 40 mg 07/20/20 09:00 07/25/20 08:39 Pantoprazole 40 Mg Granules Packet PER TUBE 40 mg DAILY JEOVANNY Administration Polyethylene Glycol 17 gm 07/02/20 09:51 07/10/20 02:11 Polyethylene Glycol 3350 17 Gm Packet PER TUBE 17 gm DAILY PRN Administration Constipation Sertraline HCl 50 mg 07/25/20 08:01 07/25/20 08:37 Sertraline Hcl 25 Mg Tab PO 50 mg DAILY JEOVANNY Administration Sodium Chloride 10 ml 06/15/20 09:00 07/25/20 08:40 Flush - Normal Saline 10 Ml Syringe IVF 10 ml Q12HR JEOVANNY Administration Sodium Chloride 10 ml 06/15/20 06:30 06/20/20 01:35 Flush - Normal Saline 10 Ml Syringe IVF 10 ml PRN PRN Administration Saline Flush Zinc Sulfate 220 mg 07/06/20 09:00 07/25/20 08:39 Zinc Sulfate 220 Mg Cap PER TUBE 220 mg DAILY JEOVANNY Administration - Exam General Appearance: NAD Eye: PERRL, anicteric sclera ENT: normocephalic atraumatic Neck: supple Neck - other findings: bandage over trach site Heart: RRR, no murmur Respiratory: CTAB, no wheezes, no rales Gastrointestinal: soft, non-tender, non-distended, normal bowel sounds Extremities: no edema Musculoskeletal: generalized weakness Psychiatric: normal affect, A&O x 3 Hosp A/P - Plan (1) Acute respiratory failure with hypoxia Code(s): J96.01 - ACUTE RESPIRATORY FAILURE WITH HYPOXIA Status: Acute (2) Pneumonia due to COVID-19 virus Code(s): U07.1 - COVID-19; J12.89 - OTHER VIRAL PNEUMONIA Status: Acute (3) CMV infection Code(s): B25.9 - CYTOMEGALOVIRAL DISEASE, UNSPECIFIED Status: Acute (4) Hypernatremia Code(s): E87.0 - HYPEROSMOLALITY AND HYPERNATREMIA Status: Acute (5) Normocytic anemia Code(s): D64.9 - ANEMIA, UNSPECIFIED Status: Acute - Plan * Acute respiratory failure due to COVID pneumonia- * - stable on CPAP * Slow steroid aldo * * CMV infection- continue Valganciclovir. * FEN- tolerating tube feeds at his goal rate of 65ml/hr * Anemia- * -stable * Generalized muscle weakness * Deconditioning with the Covid pneumonia * - * Continue PT/OT * * Full code * LTAC --pending He is improving on a daily basis. He has a good appetite. Speech therapy evaluated him yesterday and started him on pured diet in addition to tube feed. He is getting free water 200 mL every 6 hours along with the 65 mL/h of tube feed. His urine output is good this morning around 580 mL so far. No White. Using urinal. he is able to participate with physical therapy able to stand for few minutes. Is also using neuro chair. 1st Dysphagia - tolerates soft foods but has reduced appetite Anxiety and depression - Zoloft added - Xanax during the day PRN - Melatonin and Zolpidem added to help with sleep With physical therapy assistance, he is mobilized.. Anxiety and depression - decreased DM - improving glucose control with steroid taper. I spent little time chatting with the patient and the spouse. He is in quite a cheerful mood. Care discussed with the student and agree with the above management Plan to send him to rehab today. 07/25/2020 - Awaiting insurance clearance for him to be transferred to rehab. -Still quite deconditioned in terms of shortness of breath with exertion and being exhausted but improving with physical therapy assistance.
[2020-07-25] MEDS: ALPRAZolam 0.25 MG TAB PO PRN (13:56)
[2020-07-25] MEDS: Acetaminophen 325 MG TAB PER TUBE PRN (18:15)
[2020-07-25] MEDS: Melatonin 3 MG TAB PO SCH (21:34)
[2020-07-25 21:43] LABS: Anion Gap 10 mmol/L (10-20); BUN (Urea Nitrogen) 11 mg/dL (8.4-25.7); Calc. Creatinine Clearance 112 mL/min (70-130); Calcium 8.5 mg/dL (7.8-10.44); Carbon Dioxide 31 mmol/L (22-29); Chloride 103 mmol/L (98-107); Glucose 87 mg/dL (70-105); Potassium 3.4 mmol/L (3.5-5.1); Sodium 141 mmol/L (136-145)
[2020-07-25] MEDS ORDERED: Potassium Chloride 20 MEQ TAB PO SCH (22:15)
[2020-07-26] MEDS: ALPRAZolam 0.25 MG TAB PO PRN ×2 (05:47→11:08)
[2020-07-26] MEDS ORDERED: Magnesium 2 GM/50 ML 2 GM in Premix Bag 1 BAG IVPB SCH (06:30)
[2020-07-26 07:48] VITALS: BMI 20.3
[2020-07-26] MEDS: Mometasone 200 MCG/Formoterol 5 MCG 120 PUFF INHALER INH SCH (08:12)
[2020-07-26] MEDS: Benzonatate 100 MG CAP PO SCH (08:23)
[2020-07-26] MEDS: Apixaban 2.5 MG TAB PO SCH (08:53)
[2020-07-26] MEDS: Multivit, Therapeutic 1 TAB PER TUBE SCH (08:53)
[2020-07-26] MEDS: Calcium Carbonate 600 MG + Vit D TAB PER TUBE SCH (08:54)
[2020-07-26] MEDS: Zinc Sulfate 220 MG CAP PER TUBE SCH (08:54)
[2020-07-26] MEDS: Ascorbic Acid 500 mg Chewable Tablet PER TUBE SCH (08:54)
[2020-07-26] MEDS: Cholecalciferol 1,000 UNITS (25 MCG) TAB PER TUBE SCH (08:55)
[2020-07-26] MEDS: Pantoprazole 40 MG GRANULES PACKET PER TUBE SCH (08:55)
[2020-07-26] MEDS: Nystatin Powder 15 GM BOT TOP SCH (09:04)
--- NOTE | 2020-07-26 11:18 | PRG ---
DATE OF SERVICE: 07/26/2020 SUBJECTIVE: The patient is doing well. He had a run of SVT last night. He had mildly decreased potassium and was replaced. OBJECTIVE: VITAL SIGNS: Temperature 97.6, pulse 109, blood pressure 189/89. HEENT: Unremarkable. NECK: No JVD. LUNGS: Clear anteriorly. CARDIAC: S1, S2. Regular. Slightly tachycardic. ABDOMEN: Soft. EXTREMITIES: No edema. LABORATORY: Sodium 141, potassium 3.4, chloride 103, CO2 of 31, BUN 11, creatinine 0.6, glucose 87. ASSESSMENT: 1. Status post COVID-19 pneumonia. 2. Paroxysmal atrial tachycardia. PLAN: The patient basically needs to go to rehab. He will continue to have episodic tachycardia, but I do not think he needs to be on any medicine for that. I have stopped his Dulera as that may be aggravating the tachycardia. He is cleared to go to rehab today. Job ID: [id number]
[2020-07-26 13:33] VITALS: TEMP 97.7
[2020-07-26] MEDS: Lorazepam 1 MG TAB PO PRN (13:41)
--- NOTE | 2020-07-26 15:39 | PDOC.DS.DS ---
Provider - Provider Date of Admission: 06/14/20 12:55 Admitting Provider: Thor Lee MD Primary Care Physician: Solo Stevens MD Course - Hospital Course Hospital Course: 54-year-old male presented with: (1) Acute respiratory failure with hypoxia Code(s): J96.01 - ACUTE RESPIRATORY FAILURE WITH HYPOXIA Status: Acute (2) Pneumonia due to COVID-19 virus Code(s): U07.1 - COVID-19; J12.89 - OTHER VIRAL PNEUMONIA Status: Acute (3) CMV infection Code(s): B25.9 - CYTOMEGALOVIRAL DISEASE, UNSPECIFIED Status: Acute (4) Hypernatremia Code(s): E87.0 - HYPEROSMOLALITY AND HYPERNATREMIA Status: Acute (5) Normocytic anemia Code(s): D64.9 - ANEMIA, UNSPECIFIED Status: Acute He was intubated initially and over the course of the duration he had a trach placed. That was removed prior to going to the rehab. He is on 2 L oxygen by nasal cannula. * * CMV infection- continue Valganciclovir. * F he was on a tube feed related transitioned to soft diet and he is tolerating his p.o. intake. * * Generalized muscle weakness * Deconditioning with the Covid pneumonia * - * Continue PT/OT at rehab. Patient had a lengthy hospitalization for management and resolution of his Covid pneumonia. He is going to be transferred to the rehab today. Resuscitation Status: 06/14/20 16:01 Resuscitation Status Routine Resuscitation Status: FULL: Full Resuscitation - Labs Lab Results: 07/22/20 02:50 07/25/20 21:10 Abnormal Lab Results - Last 48 hrs 07/25/20 21:10: Potassium 3.4 L, Carbon Dioxide 31 H, Creatinine 0.62 L Microbiology - Entire Visit 07/08/20 10:15 Central Line - Right Brachiocephalic vein Blood Culture - Final NO GROWTH IN 5 DAYS 07/08/20 10:20 Venous blood - Right Arm Blood Culture - Final NO GROWTH IN 5 DAYS 07/11/20 07:30 Stool - Soft Stool Occult Blood (DIANA) - Final - Physical Exam Vitals: Vital Signs (12 hours) Temp Pulse Ox 07/26/20 12:00 97.7 F 07/26/20 08:00 97.6 F 97 Weight Admit Weight 157 lb 4.8 oz Weight 129 lb 12.8 oz Most Recent Monitor Data Heart Rate from ECG 132 NIBP 112/94 NIBP BP-Mean 100 Respiration from ECG 27 SpO2 96 Physical Exam: The patient was seen and examined on the day of discharge. Patient appears well. He is going to be transferred this morning to the rehab. Plan - Discharge Medications Home Medications: Medication Instructions Recorded Confirmed Type No Known 06/14/20 06/14/20 History Allergies: No Known Allergies Allergy (Unverified 06/14/20 15:39) - Follow up Plan Referrals: Sara Palomares MD [Active] - Disposition: REHABILITATION INPATIENT Quality - Care Measures CORE MEASURES:: N/A
== END 2020-07-26 14:14 | DRG 4 ==
LOC: ERS 10:09 → T4-B 12:55 → CCU 06-16 02:35 → IMCU/EMU 06-17 11:12 → T4-A 06-25 17:52 → CCU 06-28 12:16
PROVIDERS: ADMIT Student in an Organized Health Care Education/Training Program; ATTEND Internal Medicine
PROC: 8E0ZXY6 Isolation (ICD-10-PCS; 2020-06-14)
PROC: XW13325 Transfusion of Convalescent Plasma (Nonautologous) into Peripheral Vein, Percutaneous Approach, New Technology Group 5 (ICD-10-PCS; 2020-06-16)
PROC: XW033E5 Introduction of Remdesivir Anti-infective into Peripheral Vein, Percutaneous Approach, New Technology Group 5 (ICD-10-PCS; 2020-06-16)
PROC: 5A1955Z Respiratory Ventilation, Greater than 96 Consecutive Hours (ICD-10-PCS; 2020-06-29)
PROC: 0BH17EZ Insertion of Endotracheal Airway into Trachea, Via Natural or Artificial Opening (ICD-10-PCS; 2020-06-29)
PROC: 3E033XZ Introduction of Vasopressor into Peripheral Vein, Percutaneous Approach (ICD-10-PCS; 2020-06-29)
PROC: 0B110F4 Bypass Trachea to Cutaneous with Tracheostomy Device, Open Approach (ICD-10-PCS; principal; 2020-07-05)
PROC: 0DH63UZ Insertion of Feeding Device into Stomach, Percutaneous Approach (ICD-10-PCS; 2020-07-05)
PROC: 02HV33Z Insertion of Infusion Device into Superior Vena Cava, Percutaneous Approach (ICD-10-PCS; 2020-07-11)
PROC: B548ZZA Ultrasonography of Superior Vena Cava, Guidance (ICD-10-PCS; 2020-07-11)
PROC: 0B21XFZ Change Tracheostomy Device in Trachea, External Approach (ICD-10-PCS; 2020-07-20)
DX: U07.1 COVID-19 (principal); J96.01 Acute respiratory failure with hypoxia; J12.89 Other viral pneumonia; B25.9 Cytomegaloviral disease, unspecified; E87.0 Hyperosmolality and hypernatremia; G72.81 Critical illness myopathy; E87.6 Hypokalemia; D64.9 Anemia, unspecified; F41.9 Anxiety disorder, unspecified; D72.829 Elevated white blood cell count, unspecified; T38.0X5A Adverse effect of glucocorticoids and synthetic analogues, initial encounter; K59.00 Constipation, unspecified; I95.9 Hypotension, unspecified; R13.10 Dysphagia, unspecified; F32.9 Major depressive disorder, single episode, unspecified; R63.4 Abnormal weight loss; I47.9 Paroxysmal tachycardia, unspecified; Z79.82 Long term (current) use of aspirin; Z79.899 Other long term (current) drug therapy; Z68.20 Body mass index [BMI] 20.0-20.9, adult
CPT/HCPCS: 36415; 36416; 36430; 36569; 36600; 71045; 71275; 74018; 74230; 80048; 80053; 80076; 81001; 81003; 81015; 82274; 82550; 82728; 82805; 83010; 83036; 83605; 83690; 83735; 83880; 84100; 84484; 85007; 85025; 85027; 85379; 85610; 86140; 86850; 86900; 86901; 87040; 87449; 93005; 93010; 94002; 94003; 94640; 94660; 94664; 96365; 96367; 96372; 96375; C1751; C9113; J0171; J0456; J0696; J1100; J1644; J1650; J1720; J1940; J2001; J2060; J2185; J2248; J2250; J2270; J2704; J2920; J2930; J3010; J3370; J3475; J3480; J3490; J7050; J7070; J7512; J7620; J8499; P9017; Q9963; Q9967; S0020; S0028

== ENCOUNTER 2020-08-25 11:46 | Outpatient (CLI) | payer OTHER ==
--- NOTE | 2020-08-25 12:20 | RAD ---
RADIOGRAPH CHEST 1 VIEW: DATE: 08/25/2020 TIME: 12:05 PM HISTORY: 54-year-old male with dyspnea, unspecified COMPARISON: 07/11/2020 FINDINGS: There are diffuse reticulonodular pulmonary densities bilaterally, which appear less alveolar and mor e interstitial on the current study. Tracheostomy tube has been removed. No cardiomegaly or effacement of lateral costophrenic angles. No pneumothorax. IMPRESSION: Interval improvement in the previously demonstrated diffuse infiltrates, currently moderate, predomin antly interstitial, infiltrates, left worse than right.
== END 2020-08-25 11:47 | disposition home or self-care (01) ==
LOC: BICRAD 11:46
PROVIDERS: ATTEND Internal Medicine Critical Care Medicine
DX: R06.00 Dyspnea, unspecified (principal); R91.8 Other nonspecific abnormal finding of lung field
CPT/HCPCS: 71046

== ENCOUNTER 2020-10-15 12:17 | Outpatient (CLI) | payer OTHER ==
--- NOTE | 2020-10-15 13:26 | RAD ---
EXAM: Chest PA and lateral: HISTORY: Dyspnea COMPARISON: 08/25/2020 FINDINGS: Heart: Normal cardiac silhouette Aorta: Unremarkable Pulmonary vessels: Normal Costophrenic angles: Costophrenic angles are clear. Lungs: Stable interstitial and alveolar opacities throughout the lung parenchyma. There may be a comp onent of pulmonary fibrosis Pneumothorax: No pneumothorax Osseous structures: No osseous abnormalities IMPRESSION: 1. No significant interval change. Persistent multifocal interstitial and alveolar opacities.
== END 2020-10-15 12:18 | disposition home or self-care (01) ==
LOC: BICRAD 12:17
PROVIDERS: ATTEND Internal Medicine Critical Care Medicine
DX: R06.00 Dyspnea, unspecified (principal); R91.8 Other nonspecific abnormal finding of lung field
CPT/HCPCS: 71046

== ENCOUNTER 2021-04-16 11:09 | Outpatient (CLI) | payer OTHER | END 2021-04-16 11:10 | disposition home or self-care (01) | LOC: SCSRAD 11:09 | PROVIDERS: ATTEND Registered Nurse | DX: R06.00 Dyspnea, unspecified (principal) | CPT/HCPCS: 71046 ==